=== PATIENT | female | born 1935 | race Caucasian/White ===

== ENCOUNTER 2016-09-14 10:34 | Inpatient (IN) | payer MEDICARE, OTHER ==
--- NOTE | 2016-09-14 11:13 | ERPHSYRPT ---
- History of Present Illness Time Seen by Provider: 09/14/16 10:40 Source: patient, family, [facility] records Exam Limitations: clinical condition Patient Subjective Stated Complaint: patient states she doesnt feel well saw nurse practitioner on monday they gave her keflex and shes having diarhea , short of breath , and just does not feel well Triage Nursing Assessment: patietn alert and orientedx3, lung sounds clear with some crackles in bases, pupils perrla3, pulses equal bilateral radius, some edema noted in legs , bowel sounds hyperactive, intermittant cough Physician History: Pt. treated with Keflex for URTI x 3 days, then has developed diarrhea since. She C/O weakness and not feeling well x 4 days now. Positive cough without productivity. Timing/Duration: day(s) (4) Severity: mild Modifying Factors: Improves With: medication Associated Symptoms: weakness, No nausea, No vomiting Allergies/Adverse Reactions: clarithromycin [From Biaxin] Allergy (Unknown, Verified 06/03/16 15:19) codeine Allergy (Unknown, Verified 06/03/16 15:19) Home Medications: Aspirin 81 mg PO DAILY 10/04/15 [History] Atorvastatin Calcium [Lipitor] 10 mg PO QHS 10/04/15 [History] Bupropion HCl Xl 150 mg [Wellbutrin XL 150 MG] 150 mg PO DAILY 10/04/15 [ History] Celecoxib 100 mg [celeBREX 100 MG] 200 mg PO BID 10/04/15 [History] Clonazepam [Klonopin] 0.5 mg PO BID 10/04/15 [History] Diltiazem HCl [Cartia Xt] 180 mg PO DAILY 10/04/15 [History] Ergocalciferol (Vitamin D2) [Vitamin D] 50,000 unit PO UD 10/04/15 [History] Furosemide 40 mg [Lasix 40 MG] 40 mg PO BID 10/04/15 [History] Gabapentin [Neurontin] 100 mg PO TID 10/04/15 [History] Glimepiride 4 mg [Amaryl 4 mg] 6 mg PO QAM 10/04/15 [History] Hydralazine HCl 50 mg PO BID 10/04/15 [History] Levothyroxine Sodium 100 Mcg [Synthroid 100 Mcg] 125 mcg PO QHS 10/04/15 [ History] Magnesium Oxide [Magnesium] 250 mg PO DAILY 10/04/15 [History] Metolazone 2.5 mg [Zaroxolyn 2.5 MG] 2.5 mg PO UD 10/04/15 [History] Metoprolol Tartrate 50 mg [Lopressor 50 MG] 50 mg PO BID 10/04/15 [History ] PANTOPRAZOLE 40 mg Tablet [Protonix 40MG Tablet] 40 mg PO QAM 10/04/15 [ History] Potassium Chloride 10 Meq Tab* [Klor Con 10 MEQ] 10 meq PO TID 10/04/15 [ History] Spironolactone 25 mg [Aldactone 25 MG] 50 mg PO DAILY 10/04/15 [History] Warfarin Sodium [Coumadin] 5 mg PO DAILY 10/04/15 [History] Paricalcitol 1 mcg PO DAILY 06/03/16 [History] Polyethylene Glycol 3350 17 gm [Miralax Powder 17GM PACKET] 17 gm PO DAILY PRN PRN 06/03/16 [History] Repaglinide [Prandin 2MG Tablet] 2 mg PO DAILY 06/03/16 [History] Cephalexin Mh 500 mg [Keflex 500 mg] 1 cap PO TID 09/14/16 [History] Hx Tetanus, Diphtheria Vaccination/Date Given: Yes Hx Influenza Vaccination/Date Given: Yes Hx Pneumococcal Vaccination/Date Given: No - Review of Systems Constitutional: Malaise, Weakness Eyes: No Symptoms Ears, Nose, & Throat: No Symptoms Respiratory: Cough Cardiac: No Symptoms Abdominal/Gastrointestinal: Diarrhea Musculoskeletal: No Symptoms Skin: No Symptoms Neurological: No Symptoms Psychological: No Symptoms Endocrine: No Symptoms Hematologic/Lymphatic: No Symptoms Immunological/Allergic: No Symptoms - Past Medical History Pertinent Past Medical History: Yes Neurological History: Peripheral Neuropathy ENT History: Cataracts Cardiac History: Arrhythmia, Congestive Heart Failure, High Cholesterol, Hypertension, Myocardial Infarction (OR) Respiratory History: Pulmonary Embolism, Sleep Apnea Endocrine Medical History: Diabetes Type II, Hypothyroidism Musculoskeletal History: Arthritis GI Medical History: No Pertinent History History: Renal Disease, Other Psycho-Social History: Anxiety, Depression Female Reproductive Disorders: No Pertinent History Other Medical History: Sleep apnea uses bi-pap. Chronic A-Fib. Urinary incontinence, Functional. HPylor(+) year ago, treated. - Past Surgical History Past Surgical History: Yes Neuro Surgical History: No Pertinent History Cardiac: No Pertinent History Respiratory: No Pertinent History Gastrointestinal: Appendectomy, Cholecystectomy Genitourinary: No Pertinent History Musculoskeletal: No Pertinent History Female Surgical History: Section, Hysterectomy, Other Other Surgical History: bladder suspension, t&a, arthroscopy right knee, clot removed from left foot. - Social History Smoking Status: Never smoker Exposure to second hand smoke: No Drug Use: none Patient Lives Alone: No - Nursing Vital Signs Nursing Vital Signs: Initial Vital Signs Temperature 98.2 F Temperature Source Oral Pulse Rate 79 Respiratory Rate 18 Blood Pressure [Right Arm] 127/62 Pain Intensity 4 - Physical Exam General Appearance: moderate distress Eye Exam: eyes nml inspection Ears, Nose, Throat Exam: normal ENT inspection, pharynx normal, moist mucous membranes Neck Exam: normal inspection, non-tender, supple, full range of motion Respiratory Exam: normal breath sounds, airway intact, crackles/rales ( posterior bibasilar) Cardiovascular Exam: regular rate/rhythm, normal heart sounds, normal peripheral pulses Gastrointestinal/Abdomen Exam: soft, normal bowel sounds Extremity Exam: normal range of motion, pelvis stable, pedal edema (3+ with venous stasis discoloration and excoriation musa shins.) Neurologic Exam: alert, cooperative, nml cerebellar function Skin Exam: warm SpO2 Interpretation: normal SpO2: 97 Oxygen Delivery: Room Air - Course Nursing assessment & vital signs reviewed: Yes EKG Interpreted by Me: RATE (82), A-fib, Other (No acute ischemia. Nosignificant change from ECG of 06.03.2016.) - Radiology Exams Chest X-ray Interpretation: Teleradiologist Report, Negative Ordered Tests: Active Orders 24 hr Category Date Time Status ACCUCHECK [Accucheck] STAT Care 09/14/16 11:31 Active EKG-ER Only STAT Care 09/14/16 11:02 Active IV Insertion STAT Care 09/14/16 10:56 Active Orthostatic Vital Signs STAT Care 09/14/16 10:56 Active CHEST 1 VIEW (PORTABLE) Stat Exams 09/14/16 11:02 Completed BLOOD CULTURE Stat Lab 09/14/16 11:26 Ordered CBC W DIFF Stat Lab 09/14/16 11:26 Received CMP Stat Lab 09/14/16 11:26 Received Lactic Acid Urgent Lab 09/14/16 11:34 Completed Occult Blood,Stool Other Stat Lab 09/14/16 10:58 Uncollected PROTIME WITH INR Stat Lab 09/14/16 11:26 Received TROPONIN Stat Lab 09/14/16 11:26 Received Lab/Rad Data: Laboratory Results 09/14/16 Range/Units 11:34 Lactic Acid 2.4 H (0.4-2.0) - Progress Progress: unchanged Discussed with : Kelvin Will see patient in: hospital (full admit) Counseled pt/family regarding: lab results, diagnosis, rad results - Departure Time of Disposition: 11:30 Departure Disposition: In-patient Admission Clinical Impression: Sepsis Qualifiers: Sepsis type: sepsis due to unspecified organism Qualified Code(s): A41.9 - Sepsis, unspecified organism Atrial fibrillation Qualifiers: Atrial fibrillation type: unspecified Qualified Code(s): I48.91 - Unspecified atrial fibrillation Condition: Serious Critical Care Time: Yes Critical Care Time(excluding separately billable procedures): 75-104 minutes Referrals: KARLEE MACKEY MD [Primary Care Provider] -
--- NOTE | 2016-09-14 11:33 | XRAY ---
Indication: Weakness. Comparison: June 04, 2016. Portable chest slightly underinflated again with borderline cardiomegaly and mild central vascular prominence. Cardiac silhouette again obscures the left lung base. Elsewhere no focal infiltrate, consolidation, or large effusion. Bony thorax intact again with mild osteopenia and degenerative changes. Impression: Nonacute underinflated chest.
[2016-09-14 11:42] LABS: BASOPHIL % 0.6 % (0.0-0.4); Eosinophil % 4.5 % (0.00-5.0); Lymphocytes % 25.8 % (24.0-44.0); Mean Platelet Volume 11.6 fl (6-9.5); Monocytes % 15.1 % (0.0-12.0); Platelet Count 186 K/mm3 (150-450); Red Blood Count 3.83 M/mm3 (4.1-5.4); Red Cell Distribution Width 14.6 % (11.5-14.0); White Blood Count 4.9 K/mm3 (4.0-10.5)
[2016-09-14] MEDS ORDERED: MORPHINE SULFATE 2 MG INJ IV PRN (11:46)
[2016-09-14] MEDS ORDERED: PHARMACY DOSING REQUIRED: VANCOMYCIN IV ONE (11:46)
[2016-09-14] MEDS ORDERED: Zofran 4 MG/2 ML VIAL IV PRN (11:46)
[2016-09-14 11:50] LABS: INR 1.25 (0.8-3.0); PROTIME 13.9 SECONDS (9.95-12.35)
[2016-09-14] MEDS ORDERED: Zosyn 3.375GM/100 Ml D5W 100 ML IV ONE (11:54)
[2016-09-14] MEDS ORDERED: Vancomycin 1GM/ Ns 250ML*** 250 ML IV ONE ×2 (11:54→12:01)
[2016-09-14] MEDS ORDERED: Zosyn 3.375GM/100 Ml D5W 100 ML IV SCH (12:00)
[2016-09-14 12:09] LABS: ALBUMIN 3.4 g/dL (3.4-5.0); ANION GAP 13.7 MEQ/L (5-15); BILIRUBIN,TOTAL 0.3 mg/dL (0.2-1.0); Carbon Dioxide 33.6 mEq/L (21-32); Potassium 3.7 mEq/L (3.5-5.1); Total Protein 7.4 gm/dL (6.4-8.2)
[2016-09-14] MEDS ORDERED: PROTONIX 40 MG IV IV SCH (14:00)
[2016-09-14] MEDS: Zosyn 2.25 GM 2.25 GM in D5w 100ML Mini Bag 100 ML 100 ML IV SCH ×2 (14:41→22:40)
[2016-09-14] MEDS ORDERED: VANCOCIN 1 GM VIAL*** 1 GM in Sodium Chloride 0.9% 250 ML 250 ML IV ONE (15:00)
[2016-09-14 15:38] LABS: Collection Type CCMS
[2016-09-14 15:39] LABS: Bacteria MANY /HPF (NEGATIVE); COMPLETE URINE MICROSCOPIC? YES; Epithelial Cells RARE /HPF (FEW)
[2016-09-14] MEDS ORDERED: MEDICATION INTERVENTION MC PRN (16:42)
[2016-09-14] MEDS ORDERED: PRED-FORTE 1% OPHTHALMIC OP SCH (17:00)
[2016-09-14] MEDS: Coumadin 5 MG PO SCH (17:20)
[2016-09-14] MEDS: SODIUM SULAMYD EYE DROPS 15 ML OP SCH ×2 (17:21→23:06)
[2016-09-14] MEDS: Lasix 40 MG PO SCH (17:21)
[2016-09-14] MEDS ORDERED: NON-FORMULARY ITEM (Hydralazine Hcl [Hydralazine Hcl] 50 MG) PO SCH (22:00)
[2016-09-14] MEDS ORDERED: NON-FORMULARY ITEM (Celecoxib [Celebrex] 200 MG) PO SCH (22:00)
[2016-09-14] MEDS ORDERED: NON-FORMULARY ITEM (Magnesium [Magnesium] 250 MG) PO SCH (22:00)
[2016-09-14] MEDS ORDERED: REPAGLINIDE 2 MG PO SCH (22:00)
[2016-09-14] MEDS ORDERED: NON-FORMULARY ITEM (Atorvastatin Calcium 10 MG) PO SCH (22:00)
[2016-09-14] MEDS: ZYLOPRIM 100 MG PO SCH (22:40)
[2016-09-14] MEDS: NEURONTIN 300 MG PO SCH (22:40)
[2016-09-14] MEDS: Zocor 10MG PO SCH (22:40)
[2016-09-14] MEDS: MAG-OX 400 PO SCH (22:40)
[2016-09-14] MEDS: Klor Con 10 MEQ PO SCH (22:41)
[2016-09-14] MEDS: celeBREX 100 MG PO SCH (22:41)
[2016-09-14] MEDS: Klonopin 0.5 MG PO SCH (22:42)
[2016-09-14] MEDS: Lopressor 50 MG PO SCH (22:42)
[2016-09-14] MEDS: ATARAX 25 MG PO SCH (22:43)
[2016-09-14] MEDS: OSELTAMIVIR PHOSPHATE 30 MG CAP PO SCH (23:06)
[2016-09-15] MEDS ORDERED: TYLENOL 325 MG PO PRN (00:07)
[2016-09-15] MEDS: NORCO 5/325 MG PO PRN ×2 (03:23→09:40)
[2016-09-15] MEDS: Zosyn 2.25 GM 2.25 GM in D5w 100ML Mini Bag 100 ML 100 ML IV SCH ×3 (05:32→21:53)
[2016-09-15 06:18] LABS: INR 1.29 (0.8-3.0); PROTIME 14.3 SECONDS (9.95-12.35)
[2016-09-15] MEDS: Aldactone 25 MG PO SCH (09:38)
[2016-09-15] MEDS: ATARAX 25 MG PO SCH ×2 (09:38→21:49)
[2016-09-15] MEDS: AMARYL 4 MG PO SCH (09:39)
[2016-09-15] MEDS: Klor Con 10 MEQ PO SCH ×3 (09:39→21:49)
[2016-09-15] MEDS: ZYLOPRIM 100 MG PO SCH ×2 (09:39→21:49)
[2016-09-15] MEDS: Lasix 40 MG PO SCH ×2 (09:40→16:57)
[2016-09-15] MEDS: Klonopin 0.5 MG PO SCH ×2 (09:40→21:49)
[2016-09-15] MEDS: Cardizem CD 180 MG PO SCH (09:40)
[2016-09-15] MEDS: MAG-OX 400 PO SCH ×2 (09:40→21:50)
[2016-09-15] MEDS: NEURONTIN 300 MG PO SCH ×2 (09:40→21:50)
[2016-09-15] MEDS: celeBREX 100 MG PO SCH ×2 (09:41→21:50)
[2016-09-15] MEDS: Lopressor 50 MG PO SCH ×2 (09:41→21:50)
[2016-09-15] MEDS: ECOTRIN 81 MG PO SCH (09:41)
[2016-09-15] MEDS: Protonix 40MG Tablet PO SCH (09:41)
[2016-09-15] MEDS: SYNTHROID 125 MCG PO SCH (09:41)
[2016-09-15] MEDS: OSELTAMIVIR PHOSPHATE 30 MG CAP PO SCH ×2 (09:42→21:51)
[2016-09-15] MEDS: Wellbutrin XL 150 MG PO SCH (09:42)
[2016-09-15] MEDS ORDERED: HYDROCODONE BIT PO SCH (10:00)
[2016-09-15] MEDS ORDERED: NON-FORMULARY ITEM (Aspirin [Aspirin] 81 MG) PO SCH (10:00)
[2016-09-15] MEDS ORDERED: VITAMIN D2 PO SCH (10:00)
[2016-09-15] MEDS ORDERED: Coumadin 10 MG PO SCH (10:00)
[2016-09-15] MEDS ORDERED: ACETAMINOPHEN PO SCH (10:00)
[2016-09-15] MEDS ORDERED: SYNTHROID 100 MCG PO SCH (10:00)
--- NOTE | 2016-09-15 11:49 | PCM.HP ---
History of Present Illness - Chief Complaint Chief Complaint: c/o diarhhea, feeling weak. for 2-3 days History of Present Illness: is a 81 year old female.patient states she doesnt feel well saw nurse practitioner on monday they gave her keflex and shes having diarhea , short of breath , and just does not feel well - Review of Systems Constitutional: Fatigue, Lethargy, Weakness, No Fever, No Chills Eyes: No Symptoms Ears, Nose, & Throat: No Symptoms Respiratory: No Cough, No Short Of Breath Cardiac: No Chest Pain, No Edema, No Syncope Abdominal/Gastrointestinal: Diarrhea, No Abdominal Pain, No Nausea, No Vomiting Genitourinary Symptoms: No Dysuria Musculoskeletal: No Back Pain, No Neck Pain Skin: No Rash Neurological: No Dizziness, No Focal Weakness, No Sensory Changes Psychological: No Symptoms Endocrine: No Symptoms Hematologic/Lymphatic: No Symptoms Immunological/Allergic: No Symptoms Medications & Allergies Home Medications: Home Medication List Aspirin 81 mg PO DAILY 10/04/15 [History Confirmed 09/14/16] Atorvastatin Calcium [Lipitor] 10 mg PO QHS 10/04/15 [History Confirmed 09/14/16 ] Bupropion HCl Xl 150 mg [Wellbutrin XL 150 MG] 150 mg PO DAILY 10/04/15 [ History Confirmed 09/14/16] Diltiazem HCl [Cartia Xt] 180 mg PO DAILY 10/04/15 [History Confirmed 09/14/16] Ergocalciferol (Vitamin D2) [Vitamin D] 50,000 unit PO UD 10/04/15 [History Confirmed 09/14/16] Furosemide 40 mg [Lasix 40 MG] 40 mg PO BID 10/04/15 [History Confirmed ] Glimepiride 4 mg [Amaryl 4 mg] 6 mg PO QAM 10/04/15 [History Confirmed ] Hydralazine HCl 50 mg PO BID 10/04/15 [History Confirmed 09/14/16] Levothyroxine Sodium 100 Mcg [Synthroid 100 Mcg] 125 mcg PO DAILY 10/04/15 [History Confirmed 09/14/16] Magnesium Oxide [Magnesium] 250 mg PO DAILY 10/04/15 [History Confirmed 09/14/16 ] Metolazone 2.5 mg [Zaroxolyn 2.5 MG] 2.5 mg PO QAM 10/04/15 [History Confirmed 09/14/16] Metoprolol Tartrate 50 mg [Lopressor 50 MG] 50 mg PO BID 10/04/15 [ History Confirmed 09/14/16] PANTOPRAZOLE 40 mg Tablet [Protonix 40MG Tablet] 40 mg PO QAM 10/04/15 [ History Confirmed 09/14/16] Potassium Chloride 10 Meq Tab* [Klor Con 10 MEQ] 10 meq PO TID 10/04/15 [ History Confirmed 09/14/16] Polyethylene Glycol 3350 17 gm [Miralax Powder 17GM PACKET] 17 gm PO BID [History Confirmed 09/14/16] Repaglinide [Prandin 2MG Tablet] 2 mg PO BID 06/03/16 [History Confirmed ] Allopurinol 100 mg [Zyloprim 100 mg] 100 mg PO BID 09/14/16 [History Confirmed 09/14/16] Celecoxib [Celebrex] 200 mg PO BID 09/14/16 [History Confirmed 09/14/16] Cephalexin Mh 500 mg [Keflex 500 mg] 1 cap PO TID 09/14/16 [History Confirmed 09/14/16] Clonazepam 0.5 mg [Klonopin 0.5 MG] 0.5 mg PO BID 09/14/16 [History Confirmed 09/14/16] Gabapentin [Neurontin] 300 mg PO BID 09/14/16 [History Confirmed 09/14/16] Hydrocodone Bit/Acetaminophen [Vicodin 5-500 Tablet] 1 tab PO DAILY 09/14/16 [ History Confirmed 09/14/16] Magnesium 250 mg PO BID 09/14/16 [History Confirmed 09/14/16] Pantoprazole Sodium [Protonix] 40 mg PO DAILY 09/14/16 [History Confirmed ] Prednisolone Acetate OPHTH [Pred-Forte 1% Ophthalmic] 1 drop OP QID [History Confirmed 09/14/16] Spironolactone [Aldactone] 50 mg PO DAILY 09/14/16 [History Confirmed 09/14/16] Sulfacetamide Sodium Ophth [Sodium Sulamyd Eye Drops 15 ml] 1 drop OP QID 09/14/16 [History Confirmed 09/14/16] Warfarin Sodium 10 mg [Coumadin 10 MG] 5 mg PO DAILY 09/14/16 [History Confirmed 09/14/16] Allergies/Adverse Reactions: Allergies Allergy/AdvReac Type Severity Reaction Status Date / Time clarithromycin [From Biaxin] Allergy Unknown Verified 09/14/16 12:50 codeine Allergy Unknown Verified 09/14/16 12:50 - Past Medical History Past Medical History: Yes Neurological History: Peripheral Neuropathy ENT History: Cataracts Cardiac History: Arrhythmia, Congestive Heart Failure, High Cholesterol, Hypertension, Myocardial Infarction ([place]) Respiratory History: Pulmonary Embolism, Sleep Apnea Endocrine Medical History: Diabetes Type II, Hypothyroidism Musculoskelatal History: Arthritis GI Medical History: No Pertinent History History: Renal Disease, Other Pyscho-Social History: Anxiety, Depression Reproductive Disorders: No Pertinent History Comment: Sleep apnea uses bi-pap. Chronic A-Fib. Urinary incontinence, Functional. HPylor(+) year ago, treated. - Female History Are you now?: No - Past Surgical History Past Surgical History: Yes Neuro Surgical History: No Pertinent History Cardiac History: No Pertinent History Respiratory Surgery: No Pertinent History GI Surgical History: Appendectomy, Cholecystectomy Genitourinary Surgical Hx: No Pertinent History Musculskeletal Surgical Hx: No Pertinent History Female Surgical History: Section, Hysterectomy, Other Other Surgical History: bladder suspension, t&a, arthroscopy right knee, clot removed from left foot. - Social History Smoking Status: Never smoker Exposure to second hand smoke: No Alcohol: None Drug Use: none - Physical Exam Vital Signs: Vital Signs - 24 hr Temp Pulse Resp BP Pulse Ox 09/15/16 11:31 97.8 F 87 20 114/53 98 09/15/16 08:00 22 09/15/16 07:25 97.8 F 82 22 154/80 98 09/15/16 04:00 98.3 F 84 14 113/57 93 L 09/15/16 00:00 98.7 F 96 H 15 111/55 94 L 09/14/16 20:00 98.2 F 82 17 122/60 93 L 09/14/16 16:25 96 09/14/16 16:00 98.2 F 72 18 142/66 96 09/14/16 14:00 97 Oxygen-Last 24 hours O2 Percentage 2 Liters = 28% General Appearance: no apparent distress, alert Neurologic Exam: alert, oriented x 3, cooperative, normal mood/affect, nml cerebellar function, nml station & gait, sensation nml, No motor deficits Eye Exam: PERRL/EOMI, eyes nml inspection Ears, Nose, Throat Exam: normal ENT inspection, TMs normal, pharynx normal, moist mucous membranes Neck Exam: normal inspection, non-tender, supple, full range of motion Respiratory Exam: normal breath sounds, lungs clear, No respiratory distress Cardiovascular Exam: regular rate/rhythm, normal heart sounds, normal peripheral pulses Gastrointestinal/Abdomen Exam: soft, normal bowel sounds, No tenderness, No mass Back Exam: normal inspection, normal range of motion, No CVA tenderness, No vertebral tenderness Extremity Exam: normal inspection, normal range of motion, pelvis stable Skin Exam: normal color, warm, dry, No rash Lymphatic Exam: No adenopathy Results - Labs Lab/Micro Results: Lab Results-Last 24 Hours 09/14/16 09/15/16 Range/Units 15:15 05:44 INR 1.29 (0.8-3.0) Ur Collection Type CCMS Urine Color YELLOW (YELLOW) Urine Appearance CLEAR (CLEAR) Urine pH 6.0 (5-6) Ur Specific [employer] 1.010 (1.005-1.025) Urine Protein NEGATIVE (Negative) Urine Glucose (UA) NEGATIVE (NEGATIVE) mg/dL Urine Ketones NEGATIVE (NEGATIVE) Urine Nitrite NEGATIVE (NEGATIVE) Urine Bilirubin NEGATIVE (NEGATIVE) Urine Urobilinogen 0.2 (0-1) mg/dL Urine WBC (Auto) TRACE (NEGATIVE) Urine RBC (Auto) NEGATIVE (0-5) Dennis/ul Urine Microscopic WBC 2-5 (0-5) /HPF Ur Epithelial Cells RARE (FEW) /HPF Urine Bacteria MANY (NEGATIVE) /HPF Specimen Received 09-14-16 1519 Microbiology 09/14/16 13:53 Urine Culture - Preliminary Catherized GRAM NEGATIVE ID AND SENSITIVITY PENDING - Other Procedures and Tests Respiratory Therapy 09/14/16 11:46 Oxygen NASAL CANNULA 2 lpm 09/14/16 21:00 BiPap/CPAP Assessment ROUTINE Assessment/Plan (1) Influenza A Current Visit: Yes Status: Acute Assessment & Plan: will start on tamiflu Code(s): J10.1 - FLU DUE TO OTH IDENT INFLUENZA VIRUS W OTH RESP MANIFEST (2) Sepsis Current Visit: Yes Status: Suspected Qualifiers: Sepsis type: Escherichia coli Qualified Code(s): A41.51 - Sepsis due to Escherichia coli [E. coli] Assessment & Plan: on IV antibiotics. (3) Atrial fibrillation Current Visit: Yes Status: Chronic Qualifiers: Atrial fibrillation type: chronic Qualified Code(s): I48.2 - Chronic atrial fibrillation Code(s): I48.91 - UNSPECIFIED ATRIAL FIBRILLATION (4) Acute exacerbation of CHF (congestive heart failure) Current Visit: Yes Status: Acute Qualifiers: Congestive heart failure type: combined Qualified Code(s): I50.43 - Acute on chronic combined systolic (congestive) and diastolic (congestive) heart failure Code(s): I50.9 - HEART FAILURE, UNSPECIFIED
[2016-09-15] MEDS ORDERED: Zosyn 2.25 GM IV ONE (13:59)
[2016-09-15] MEDS: Coumadin 5 MG PO SCH (16:57)
[2016-09-15] MEDS: Zocor 10MG PO SCH (21:50)
[2016-09-15] MEDS ORDERED: VANCOCIN 1 GM VIAL*** 2 GM in Sodium Chloride 0.9% 500 ML 500 ML IV SCH (22:00)
[2016-09-15] MEDS ORDERED: VANCOCIN IV SCH (22:00)
[2016-09-15] MEDS ORDERED: HYPERTONIC IV SCH (22:00)
[2016-09-15] MEDS ORDERED: SODIUM CHLORIDE 3% IV SCH (22:00)
[2016-09-16] MEDS: Zosyn 2.25 GM 2.25 GM in D5w 100ML Mini Bag 100 ML 100 ML IV SCH (05:47)
[2016-09-16] MEDS: Klor Con 10 MEQ PO SCH (09:43)
[2016-09-16] MEDS: Protonix 40MG Tablet PO SCH (09:43)
[2016-09-16] MEDS: NEURONTIN 300 MG PO SCH (09:43)
[2016-09-16] MEDS: SYNTHROID 125 MCG PO SCH (09:43)
[2016-09-16] MEDS: Lopressor 50 MG PO SCH (09:43)
[2016-09-16] MEDS: celeBREX 100 MG PO SCH (09:43)
[2016-09-16] MEDS: Aldactone 25 MG PO SCH (09:43)
[2016-09-16] MEDS: ECOTRIN 81 MG PO SCH (09:43)
[2016-09-16] MEDS: AMARYL 4 MG PO SCH (09:44)
[2016-09-16] MEDS: MAG-OX 400 PO SCH (09:44)
[2016-09-16] MEDS: Lasix 40 MG PO SCH (09:44)
[2016-09-16] MEDS: ZYLOPRIM 100 MG PO SCH (09:44)
[2016-09-16] MEDS: Klonopin 0.5 MG PO SCH (09:44)
[2016-09-16] MEDS: ATARAX 25 MG PO SCH (09:44)
[2016-09-16] MEDS: Cardizem CD 180 MG PO SCH (09:44)
[2016-09-16] MEDS: OSELTAMIVIR PHOSPHATE 30 MG CAP PO SCH (09:45)
[2016-09-16] MEDS: Wellbutrin XL 150 MG PO SCH (09:45)
[2016-09-16] MEDS ORDERED: Klor Con 10 MEQ PO SCH (10:00)
[2016-09-16] MEDS ORDERED: Zaroxolyn 2.5 MG PO SCH (10:00)
[2016-09-16 12:06] VITALS: BP 123/58; PULSE 73
--- NOTE | 2016-09-16 12:50 | PCM.DS ---
Discharge Summary Date of Admission: 09/14/16 12:32 Admitting Physician: KARLEE MACKEY Primary Care Provider: KARLEE MACKEY Allergies Allergies clarithromycin [From Biaxin] Allergy (Unknown, Verified 09/14/16 12:50) mouth breaks out codeine Allergy (Unknown, Verified 09/14/16 12:50) "I feel warm and terrible" Hospital Summary - Hospital Course Hospital Course: Chief Complaint Diagnosis c/o diarhhea, feeling weak. for 2-3 days Allergies Allergy/AdvReac Type Severity Reaction Status Date / Time clarithromycin [From Biaxin] Allergy Unknown Verified 09/14/16 12:50 codeine Allergy Unknown Verified 09/14/16 12:50 Vital Signs (Last 24 hours) Temp Pulse Resp BP Pulse Ox 09/16/16 12:00 97.5 F 73 19 123/58 93 L 09/16/16 08:00 20 09/16/16 07:25 97.3 F 75 20 121/59 96 09/16/16 04:00 97.9 F 78 16 118/57 93 L 09/16/16 00:00 97.8 F 77 16 134/62 92 L 09/15/16 23:50 77 16 94 L 09/15/16 20:00 98.2 F 77 16 134/60 94 L 09/15/16 16:22 97.8 F 78 20 119/68 96 09/15/16 16:00 20 Home Medications Medication Instructions Recorded Confirmed Last Taken Type Allopurinol 100 mg [Zyloprim 100 mg PO BID 09/14/16 09/14/16 09/14/16 History 100 mg] Celecoxib [Celebrex] 200 mg PO BID 09/14/16 09/14/16 09/14/16 History Cephalexin Mh 500 mg [Keflex 500 1 cap PO TID 09/14/16 09/14/16 09/14/16 02: 30 History mg] Clonazepam 0.5 mg [Klonopin 0.5 0.5 mg PO BID 09/14/16 09/14/16 09/14/16 History MG] Gabapentin [Neurontin] 300 mg PO BID 09/14/16 09/14/16 09/14/16 History Hydrocodone Bit/Acetaminophen 1 tab PO DAILY 09/14/16 09/14/16 Unknown History [Vicodin 5-500 Tablet] Magnesium 250 mg PO BID 09/14/16 09/14/16 09/14/16 History Pantoprazole Sodium [Protonix] 40 mg PO DAILY 09/14/16 09/14/16 09/14/16 History Prednisolone Acetate OPHTH 1 drop OP QID 09/14/16 09/14/16 09/14/16 History [Pred-Forte 1% Ophthalmic] Spironolactone [Aldactone] 50 mg PO DAILY 09/14/16 09/14/16 09/14/16 History Sulfacetamide Sodium Ophth 1 drop OP QID 09/14/16 09/14/16 09/14/16 History [Sodium Sulamyd Eye Drops 15 ml] Warfarin Sodium 10 mg [Coumadin 5 mg PO DAILY 09/14/16 09/14/16 09/13/16 History 10 MG] Current Medications Generic Name Dose Route Start Last Admin [facility] Reason Stop Dose Admin Acetaminophen 650 mg 09/15/16 00:07 09/15/16 00:12 Tylenol 325 Mg PO 10/15/16 00:06 650 mg Q4H PRN PRN Administration PAIN AND/OR FEVER Acetaminophen/Hydrocodone Bitart 1 tab 09/14/16 16:39 09/15/16 09:40 [place] 5/325 Mg PO 09/19/16 16:38 1 tab QDP PRN Administration Allopurinol 100 mg 09/14/16 22:00 09/16/16 09:44 Zyloprim 100 Mg PO 10/14/16 21:59 100 mg BID FELICIA Administration Aspirin 81 mg 09/15/16 10:00 09/16/16 09:43 Ecotrin 81 Mg PO 10/15/16 09:59 81 mg DAILY FELICIA Administration Bupropion HCl 150 mg 09/15/16 10:00 09/16/16 09:45 Wellbutrin Xl 150 Mg PO 10/15/16 09:59 150 mg DAILY FELICIA Administration Celecoxib 200 mg 09/14/16 22:00 09/16/16 09:43 Celebrex 100 Mg PO 10/14/16 21:59 200 mg BID FELICIA Administration Clonazepam 0.5 mg 09/14/16 22:00 09/16/16 09:44 Klonopin 0.5 Mg PO 10/14/16 21:59 0.5 mg BID FELICIA Administration Diltiazem HCl 180 mg 09/15/16 10:00 09/16/16 09:44 Cardizem Cd 180 Mg PO 10/15/16 09:59 180 mg DAILY FELICIA Administration Ergocalciferol 50,000 unit 09/15/16 10:00 09/15/16 09:42 Vitamin D2 PO 10/15/16 09:59 50,000 unit TH FELICIA Administration Furosemide 40 mg 09/14/16 17:00 09/16/16 09:44 Lasix 40 Mg PO 10/14/16 16:59 40 mg BID DIURETIC FELICIA Administration Gabapentin 300 mg 09/14/16 22:00 09/16/16 09:43 Neurontin 300 Mg PO 10/14/16 21:59 300 mg BID FELICIA Administration Glimepiride 6 mg 09/15/16 10:00 09/16/16 09:44 Amaryl 4 Mg PO 10/15/16 09:59 6 mg QAM FELICIA Administration Hydroxyzine HCl 50 mg 09/14/16 22:00 09/16/16 09:44 Atarax 25 Mg PO 10/14/16 21:59 50 mg BID FELICIA Administration Piperacillin Sod/Tazobactam 100 mls @ 100 mls/hr 09/14/16 14:00 09/16/16 05: 47 Sod 2.25 gm/ Dextrose IV 10/14/16 13:59 100 mls/hr Q8HT FELICIA Administration Vancomycin HCl 2 gm/ Sodium 500 mls @ 167 mls/hr 09/15/16 22:00 09/15/16 23: 15 Chloride IV 10/15/16 21:59 167 mls/hr Q36H FELICIA Administration Levothyroxine Sodium 125 mcg 09/15/16 10:00 09/16/16 09:43 Synthroid 125 Mcg PO 10/15/16 09:59 125 mcg DAILY FELICIA Administration Magnesium Oxide 200 mg 09/14/16 22:00 09/16/16 09:44 Mag-Ox 400 PO 10/14/16 21:59 200 mg BID FELICIA Administration Metolazone 2.5 mg 09/16/16 10:00 09/16/16 09:47 Zaroxolyn 2.5 Mg PO 10/16/16 09:59 2.5 mg MoWeFr FELICIA Administration Metoprolol Tartrate 50 mg 09/14/16 22:00 09/16/16 09:43 Lopressor 50 Mg PO 10/14/16 21:59 50 mg BID FELICIA Administration Morphine Sulfate 2 mg 09/14/16 11:46 Morphine Sulfate 2 Mg Inj IV 09/19/16 11:45 Q4H PRN PRN PAIN Ondansetron HCl 4 mg 09/14/16 11:46 Zofran 4 Mg/2 Ml Vial IV 10/14/16 11:45 Q6H PRN PRN NAUSEA/VOMITING Oseltamivir Phosphate 30 mg 09/14/16 22:00 09/16/16 09:45 Oseltamivir Phosphate 30 Mg Cap PO 10/14/16 21:59 30 mg BID FELICIA Administration Pantoprazole Sodium 40 mg 09/15/16 10:00 09/16/16 09:43 Protonix 40mg Tablet PO 10/15/16 09:59 40 mg QAM FELICIA Administration Potassium Chloride 10 meq 09/14/16 22:00 09/16/16 09:43 Klor Con 10 Meq PO 10/14/16 21:59 10 meq TID FELICIA Administration Potassium Chloride 10 meq 09/16/16 10:00 09/16/16 09:44 Klor Con 10 Meq PO 10/16/16 09:59 10 meq MoWeFr FELICIA Administration Simvastatin 10 mg 09/14/16 22:00 09/15/16 21:50 Zocor 10mg PO 10/14/16 21:59 10 mg HS FELICIA Administration Spironolactone 50 mg 09/15/16 10:00 09/16/16 09:43 Aldactone 25 Mg PO 10/15/16 09:59 50 mg DAILY FELICIA Administration Warfarin Sodium 5 mg 09/14/16 18:00 09/15/16 16:57 Coumadin 5 Mg PO 10/14/16 17:59 5 mg COU FELICIA Administration Discontinued Medications Generic Name Dose Route Start Last Admin Trade Name Freq PRN Reason Stop Dose Admin Piperacillin Sod/Tazobactam Sod 100 mls @ 100 mls/hr 09/14/16 12:00 Zosyn 3.375gm/100 Ml D5w IV 10/14/16 11:59 Q6HT FELICIA Vancomycin HCl 250 mls @ 167 mls/hr 09/14/16 11:54 09/14/16 12:03 Vancomycin 1gm/ Ns 250ml IV 09/14/16 13:23 167 mls/hr STAT ONE Administration Vancomycin HCl Confirm 09/14/16 12:01 Vancomycin 1gm/ Ns 250ml Administered 09/14/16 12:02 Dose 250 mls @ ud IV .STK-MED ONE Vancomycin HCl 1 gm/ Sodium 250 mls @ 167 mls/hr 09/14/16 15:00 09/14/16 15: 20 Chloride IV 09/14/16 16:29 167 mls/hr ONCE ONE Administration Non-Formulary Medication 1 each 09/14/16 11:46 09/14/16 14:41 Pharmacy Dosing Required: Vancomycin IV 09/14/16 11:47 1 each STAT ONE Administration Pantoprazole Sodium 40 mg 09/14/16 14:00 09/14/16 15:14 Protonix 40 Mg Iv IV 10/14/16 13:59 40 mg Q24H10 FELICIA Administration Prednisolone Acetate 0 ml 09/14/16 17:00 09/14/16 17:22 Pred-Forte 1% Ophthalmic OP 10/14/16 16:59 Not Given QID FELICIA Sulfacetamide Sodium 0 ml 09/14/16 17:00 09/14/16 23:06 Sodium Sulamyd Eye Drops 15 Ml OP 10/14/16 16:59 Not Given QID FELICIA Intake & Output (Last 24 hours) 09/14/16 09/15/16 09/16/16 09/17/16 11:59 11:59 11:59 11:59 Intake Total 3042 8485 660 Output Total 9175 2836 475 Balance -778 -9808 -267 Weight 156.206 kg 156.535 kg 156.081 kg Microbiology Results (Last 24 hours) 09/14/16 13:53 Catherized Urine Culture - Final Escherichia Coli 09/14/16 11:50 Blood - Pending 09/14/16 11:50 Blood Blood Culture - Preliminary NO GROWTH TO DATE 09/14/16 11:26 Blood - Pending 09/14/16 11:26 Blood Blood Culture - Preliminary NO GROWTH TO DATE Orders (Last 24 hours) Category Date Time Status Vancomycin,Trough Urgent Lab 09/17/16 09:30 Ordered Metolazone 2.5 mg [Zaroxolyn 2.5 MG] Med 09/16/16 10:00 Active 2.5 mg PO MoWeFr Potassium Chloride 10 Meq Tab* [Klor Con 10 MEQ] Med 09/16/16 10:00 Active 10 meq PO MoWeFr Therapuetic Drug Level Monitor [Trough Drug Levels] Med 09/17/16 09:30 Once 1 IJ 1XONLY ONE Vancomycin HCl 1 gm Inj [Vancocin 1 gm Vial] 2 gm Med 09/15/16 22:00 Active NaCl 0.9% 500 ml [Sodium Chloride 0.9% 500 ML] 500 ml IV Q36H Patient Care Notes (Last 24 hours) 09/16/16 10:58 Case Management Note by Nancy Bruce REFERRAL TO [facility] AT THIS TIME. SPOKE WITH GÓMEZ. FAXED TO [phone]. Initialized on 09/16/16 10:58 - END OF NOTE 09/16/16 10:30 (created 09/16/16 10:57) Case Management Note by Nancy Bruce DISCHARGE PLAN REVIEWED, CONTINUES TO PLAN TO RETURN TO ASSISTED LIVING APARTMENT. DISCUSSED AND ENCOURAGED [facility], PT AGREES THAT HHC WOULD BE GOOD IDEA FOR [facility] SUPPORT ON DISCHARGE. PLAN TO RETURN HOME TO PRE EPISODIC LEVEL OF [place] WITH [facility] TO FOLLOW. DECLINED [facility] NEEDS. WILL CONTINUE TO FOLLOW AND ASSESS FOR ALL DC NEEDS. Initialized on 09/16/16 10:57 - END OF NOTE 09/16/16 00:53 Nursing Note by Rody Gudino charge pt for cath secure Initialized on 09/16/16 00:53 - END OF NOTE Patient is doing much better, afebrile, will discharge home today with home health to follow - Vitals & Intake/Output Vital Signs: Vital Signs Temperature 97.5 F 09/16/16 12:00 Pulse Rate 73 09/16/16 12:00 Respiratory Rate 19 09/16/16 12:00 Blood Pressure 123/58 09/16/16 12:00 O2 Sat by Pulse Oximetry 93 L 09/16/16 12:00 Oxygen-Last Documented O2 Percentage 2 Liters = 28% Intake & Output: Intake & Output 09/14/16 09/15/16 09/16/16 09/17/16 11:59 11:59 11:59 11:59 Intake Total 3046 2665 660 Output Total 3550 4200 900 Balance -565 -0395 -818 Weight 156.535 kg 156.081 kg - Lab Result Diagrams: 09/14/16 11:26 09/14/16 11:26 Micro Results-Entire Visit: Microbiology 09/14/16 13:53 Urine Culture - Final Catherized Escherichia Coli - Procedures and Test Procedures and Tests throughout Hospitalization: Therapy Orders & Screens 09/14/16 11:46 Oxygen NASAL CANNULA 2 lpm Comment: 09/14/16 21:00 BiPap/CPAP Assessment ROUTINE Comment: HOME BIPAP PER HOME SETTINGS Diagnosis: Sepsis Discharge Exam General Appearance: no apparent distress, alert Neurologic Exam: alert, oriented x 3, cooperative, normal mood/affect, nml cerebellar function, sensation nml, No motor deficits Skin Exam: normal color, warm, dry Eye Exam: PERRL, EOMI, eyes nml inspection Ears, Nose, Throat Exam: normal ENT inspection, pharynx normal, moist mucous membranes Neck Exam: normal inspection, non-tender, supple, full range of motion Respiratory Exam: normal breath sounds, lungs clear, No respiratory distress Cardiovascular Exam: regular rate/rhythm, normal heart sounds Gastrointestinal/Abdomen Exam: soft, No tenderness, No mass Extremity Exam: normal inspection, normal range of motion Back Exam: normal inspection, normal range of motion, No CVA tenderness, No vertebral tenderness Pelvic Exam: deferred Rectal Exam: deferred Final Diagnosis/Problem List - Final Discharge Diagnosis/Problem (1) Sepsis Current Visit: Yes Status: Suspected Priority: High Assessment & Plan: will d/c home with cipro 500 mg po bid for 10 days (2) Influenza A Current Visit: Yes Status: Acute Priority: Medium Assessment & Plan: will d/c home with tamiflu 30 mg po bid for 4 days (3) Atrial fibrillation Current Visit: Yes Status: Chronic (4) Acute exacerbation of CHF (congestive heart failure) Current Visit: Yes Status: Acute - Discharge Discharge Date: 03/31/17 Disposition: Home, Self-Care Condition: Stable Prescriptions: New Ciprofloxacin HCl 500 mg [Cipro 500 MG] 500 mg PO BIDAC #20 tablet Oseltamivir Phosphate [Tamiflu] 30 mg PO BID #8 capsule Continue Furosemide 40 mg [Lasix 40 MG] 40 mg PO BID PANTOPRAZOLE 40 mg Tablet [Protonix 40MG Tablet] 40 mg PO QAM Ergocalciferol (Vitamin D2) [Vitamin D] 50,000 unit PO UD Metolazone 2.5 mg [Zaroxolyn 2.5 MG] 2.5 mg PO QAM Diltiazem HCl [Cartia Xt] 180 mg PO DAILY Glimepiride 4 mg [Amaryl 4 mg] 6 mg PO QAM Bupropion HCl Xl 150 mg [Wellbutrin XL 150 MG] 150 mg PO DAILY Atorvastatin Calcium [Lipitor] 10 mg PO QHS Potassium Chloride 10 Meq Tab* [Klor Con 10 MEQ] 10 meq PO TID Metoprolol Tartrate 50 mg [Lopressor 50 MG] 50 mg PO BID Hydralazine HCl 50 mg PO BID Levothyroxine Sodium 100 Mcg [Synthroid 100 Mcg] 125 mcg PO DAILY Aspirin 81 mg PO DAILY Magnesium Oxide [Magnesium] 250 mg PO DAILY Repaglinide [Prandin 2MG Tablet] 2 mg PO BID Polyethylene Glycol 3350 17 gm [Miralax Powder 17GM PACKET] 17 gm PO BID Gabapentin [Neurontin] 300 mg PO BID Celecoxib [Celebrex] 200 mg PO BID Hydrocodone Bit/Acetaminophen [Vicodin 5-500 Tablet] 1 tab PO DAILY Clonazepam 0.5 mg [Klonopin 0.5 MG] 0.5 mg PO BID Magnesium 250 mg PO BID Allopurinol 100 mg [Zyloprim 100 mg] 100 mg PO BID Spironolactone [Aldactone] 50 mg PO DAILY Pantoprazole Sodium [Protonix] 40 mg PO DAILY Warfarin Sodium 10 mg [Coumadin 10 MG] 5 mg PO DAILY Prednisolone Acetate OPHTH [Pred-Forte 1% Ophthalmic] 1 drop OP QID Sulfacetamide Sodium Ophth [Sodium Sulamyd Eye Drops 15 ml] 1 drop OP QID Discontinued Cephalexin Mh 500 mg [Keflex 500 mg] 1 cap PO TID Instructions: Influenza -- Adult, Sepsis -- Adult Additional Instructions: [facility] WILL CALL YOU TO SCHEDULE YOUR FIRST VISIT. YOU MAY REACH THEM AT ext [phone]. Follow up with: KARLEE MACKEY MD [Primary Care Provider] - 09/23/16 2:15 pm ([place] office) Forms: Discharge Instructions
[2016-09-16 13:52] VITALS: O2SAT 94
[2016-09-17] MEDS ORDERED: TROUGH DRUG LEVELS IJ ONE (09:30)
== END 2016-09-16 13:25 | disposition home or self-care (01) | DRG 871 ==
LOC: ED 10:34 → MED SURG 12:32
PROVIDERS: ADMIT General Practice; ATTEND General Practice
DX: A41.9 Sepsis, unspecified organism (principal); I50.43 Acute on chronic combined systolic (congestive) and diastolic (congestive) heart failure; J10.1 Influenza due to other identified influenza virus with other respiratory manifestations; I48.91 Unspecified atrial fibrillation; Z79.01 Long term (current) use of anticoagulants; Z79.899 Other long term (current) drug therapy
CPT/HCPCS: 36000; 36415; 71010; 80053; 81000; 82272; 82962; 83605; 83880; 84484; 85025; 85610; 87040; 87077; 87086; 87186; 87493; 87631; 93005; 94760; 96365; 99285; J2543; J3370; A9270-GY

== ENCOUNTER 2016-11-04 16:13 | Inpatient (IN) | payer MEDICARE, OTHER ==
[2016-11-04] MEDS ORDERED: Sodium Chloride 0.9% 1000 ML 1,000 ML ONE (16:41)
[2016-11-04] MEDS ORDERED: Sodium Chloride 0.9% 1000 ML 1,000 ML IV SCH (16:45)
[2016-11-04 16:51] LABS: BASOPHIL % 0.3 % (0.0-0.4); Eosinophil % 4.1 % (0.00-5.0); Granulocytes % 68.2 % (36.0-66.0); Lymphocytes % 20.6 % (24.0-44.0); Mean Cell Volume 97.8 fl (78-100); Mean Corpuscular Hemoglobin 31.5 pg (26-32); Mean Platelet Volume 12.5 fl (6-9.5); Monocytes % 6.8 % (0.0-12.0); Platelet Count 220 K/mm3 (150-450); Red Blood Count 4.13 M/mm3 (4.1-5.4); Red Cell Distribution Width 14.2 % (11.5-14.0); White Blood Count 9.9 K/mm3 (4.0-10.5)
--- NOTE | 2016-11-04 17:07 | XRAY ---
Indication: Weakness and slurred speech. Multiple contiguous axial images obtained through the head without contrast. Comparison: August 16, 2011. Stable age-appropriate global atrophy and minimal periventricular degenerative micro-ischemia bilaterally. No acute intracranial hemorrhage, abnormal extra-axial fluid collection, or mass effect. Fourth ventricle is midline without hydrocephalus. Bony calvarium intact again with mild hyperostosis frontalis interna. Paranasal sinuses and mastoid air cells are clear. Stable left occipital calcified sebaceous cyst. Impression: Stable nonacute senile brain. CTDI 93.13
[2016-11-04 17:10] LABS: INR 2.13 (0.8-3.0); PROTIME 23.3 SECONDS (9.95-12.35)
--- NOTE | 2016-11-04 17:10 | XRAY ---
Indication: Weakness. Slurred speech. Comparison: September 14, 2016. Portable chest better inflated today again demonstrating chronic interstitial lung markings and borderline cardiomegaly. No focal infiltrate, consolidation, or large effusion. Bony thorax intact again without osteopenia and degenerative changes. Impression: Nonacute chest with chronic features.
[2016-11-04 17:13] LABS: PTT 42.1 SECONDS (25.3-37.0)
[2016-11-04 17:17] LABS: ALBUMIN 3.5 g/dL (3.4-5.0); ANION GAP 13.3 MEQ/L (5-15); BILIRUBIN,TOTAL 0.4 mg/dL (0.2-1.0); Carbon Dioxide 32.2 mEq/L (21-32); Potassium 4.2 mEq/L (3.5-5.1); Total Protein 7.8 gm/dL (6.4-8.2)
[2016-11-04 17:41] LABS: TROPONIN < 0.017 ng/ml (0.000-0.056)
--- NOTE | 2016-11-04 18:28 | ERPHSYRPT ---
- History of Present Illness Time Seen by Provider: 11/04/16 16:29 Source: patient, family, old records Exam Limitations: clinical condition Patient Subjective Stated Complaint: GENERALIZED WEAKNESS SINCE THIS AM Triage Nursing Assessment: GENERALIZED WEAKNESS SINCE THIS AM. NO DEFICIT 'I AM JUST TIRED AND WEAK' CHRONIC INCONT. DRY [employer]AL [employer]ES. MANAGER CAREER EQUAL BILAT. PUPILS NOEMI. Physician History: has felt poorly since awakening this am; general weakness without any localization; no fever; no travel; slight nause; no emesis; frequent urination and incontinence which is old; no change in BM; no travel or exposures; no change in meds; slow mentation; thick speech - others have said slurred all day ( over three hours); no CP chronic sob Timing/Duration: today, hour(s) (6) Severity: moderate Modifying Factors: Improves With: rest Associated Symptoms: nausea, loss of appetite, weakness (generalized) Allergies/Adverse Reactions: clarithromycin [From Biaxin] Allergy (Unknown, Verified 11/04/16 16:34) mouth breaks out codeine Allergy (Unknown, Verified 11/04/16 16:34) "I feel warm and terrible" Home Medications: Aspirin 81 mg PO DAILY 10/04/15 [History] Atorvastatin Calcium [Lipitor] 10 mg PO QHS 10/04/15 [History] Bupropion HCl Xl 150 mg [Wellbutrin XL 150 MG] 150 mg PO DAILY 10/04/15 [ History] Diltiazem HCl [Cartia Xt] 180 mg PO DAILY 10/04/15 [History] Ergocalciferol (Vitamin D2) [Vitamin D] 50,000 unit PO UD 10/04/15 [History] Furosemide 40 mg [Lasix 40 MG] 40 mg PO BID 10/04/15 [History] Glimepiride 4 mg [Amaryl 4 mg] 6 mg PO QAM 10/04/15 [History] Hydralazine HCl 50 mg PO BID 10/04/15 [History] Levothyroxine Sodium 100 Mcg [Synthroid 100 Mcg] 125 mcg PO DAILY 10/04/15 [History] Magnesium Oxide [Magnesium] 250 mg PO DAILY 10/04/15 [History] Metolazone 2.5 mg [Zaroxolyn 2.5 MG] 2.5 mg PO QAM 10/04/15 [History] Metoprolol Tartrate 50 mg [Lopressor 50 MG] 50 mg PO BID 10/04/15 [History ] PANTOPRAZOLE 40 mg Tablet [Protonix 40MG Tablet] 40 mg PO QAM 10/04/15 [ History] Potassium Chloride 10 Meq Tab* [Klor Con 10 MEQ] 10 meq PO TID 10/04/15 [ History] Polyethylene Glycol 3350 17 gm [Miralax Powder 17GM PACKET] 17 gm PO BID [History] Repaglinide [Prandin 2MG Tablet] 2 mg PO BID 06/03/16 [History] Allopurinol 100 mg [Zyloprim 100 mg] 100 mg PO BID 09/14/16 [History] Celecoxib [Celebrex] 200 mg PO BID 09/14/16 [History] Clonazepam 0.5 mg [Klonopin 0.5 MG] 0.5 mg PO BID 09/14/16 [History] Gabapentin [Neurontin] 300 mg PO BID 09/14/16 [History] Hydrocodone Bit/Acetaminophen [Vicodin 5-500 Tablet] 1 tab PO DAILY 09/14/16 [ History] Magnesium 250 mg PO BID 09/14/16 [History] Pantoprazole Sodium [Protonix] 40 mg PO DAILY 09/14/16 [History] Prednisolone Acetate OPHTH [Pred-Forte 1% Ophthalmic] 1 drop OP QID [History] Spironolactone [Aldactone] 50 mg PO DAILY 09/14/16 [History] Sulfacetamide Sodium Ophth [Sodium Sulamyd Eye Drops 15 ml] 1 drop OP QID 09/14/16 [History] Warfarin Sodium 10 mg [Coumadin 10 MG] 5 mg PO DAILY 09/14/16 [History] Hx Tetanus, Diphtheria Vaccination/Date Given: Yes Hx Influenza Vaccination/Date Given: Yes Hx Pneumococcal Vaccination/Date Given: Yes Immunizations Up to Date: Yes - Review of Systems Constitutional: Malaise, Weakness (generalized), No Fever, No Night Sweats, No Weight Loss Eyes: No Symptoms Ears, Nose, & Throat: No Symptoms Respiratory: Dyspnea on Exertion (MAO), No Cough, No Cyanosis, No Dyspnea, No Wheezing Cardiac: Edema (chronic), Palpitations (hx a fib), Syncope, No Chest Pain, No PND Abdominal/Gastrointestinal: Nausea, No Abdominal Pain, No Vomiting, No Diarrhea Genitourinary Symptoms: Frequency, Incontinence, No Dysuria, No Hematuria, No Hesitancy, No Urinary Retention, No Flank Pain, No Menorrhagia Musculoskeletal: Arthralgias, No Back Pain, No Neck Pain, No Fall Skin: No Symptoms Neurological: Speech Changes (possible slurred), No Dizziness, No Focal Weakness , No Headache, No Seizure Psychological: No Symptoms Endocrine: Polyuria, Polydipsia, Cold Intolerance Hematologic/Lymphatic: No Symptoms Immunological/Allergic: No Symptoms - Past Medical History Pertinent Past Medical History: Yes Neurological History: Peripheral Neuropathy ENT History: Cataracts Cardiac History: Arrhythmia, Congestive Heart Failure, High Cholesterol, Hypertension, Myocardial Infarction ([place]) Respiratory History: Pulmonary Embolism, Sleep Apnea Endocrine Medical History: Diabetes Type II, Hypothyroidism Musculoskeletal History: Arthritis GI Medical History: No Pertinent History History: Renal Disease, Other Psycho-Social History: Anxiety, Depression Female Reproductive Disorders: No Pertinent History Other Medical History: Sleep apnea uses bi-pap. Chronic A-Fib. Urinary incontinence, Functional. [place](+) year ago, treated. - Past Surgical History Past Surgical History: Yes Neuro Surgical History: No Pertinent History Cardiac: No Pertinent History Respiratory: No Pertinent History Gastrointestinal: Appendectomy, Cholecystectomy Genitourinary: No Pertinent History Musculoskeletal: No Pertinent History Female Surgical History: Section, Hysterectomy, Other Other Surgical History: bladder suspension, t&a, arthroscopy right knee, clot removed from left foot. - Social History Smoking Status: Never smoker Exposure to second hand smoke: No Drug Use: none Patient Lives Alone: No - Nursing Vital Signs Nursing Vital Signs: Initial Vital Signs Temperature 97.5 F Temperature Source Oral Pulse Rate 62 Respiratory Rate 18 Blood Pressure [Right Arm] 131/55 Pain Intensity 3 - Physical Exam SpO2: 96 Oxygen Delivery: Room Air - Course Nursing assessment & vital signs reviewed: Yes EKG Interpreted by Me: RATE (59), A-fib (bardy response at 59), NORMAL AXIS, NORMAL INTERVALS, NORMAL QRS, Non-specific ST Changes, Other (uncahnged for 09/14) Rhythm Strip: Rate, Atrial Fibrillation ( with ade at 59 rate) - Radiology Exams Chest X-ray Interpretation: Reviewed by me, Teleradiologist Report, Negative Ordered Tests: Active Orders 24 hr Category Date Time Status Accucheck STAT Care 11/04/16 16:31 Active Inward Toll Operator STAT Care 11/04/16 16:31 Active EKG-ER Only STAT Care 11/04/16 16:31 Active IV Insertion STAT Care 11/04/16 16:31 Active Pulse Oximetry (ED) STAT Care 11/04/16 16:31 Active Re-Check Vital Signs STAT Care 11/04/16 16:31 Completed CHEST 1 VIEW (PORTABLE) Stat Exams 11/04/16 16:31 Completed HEAD WITHOUT CONTRAST [CT] Stat Exams 11/04/16 16:31 Completed CBC W DIFF Stat Lab 11/04/16 16:41 Completed CMP Stat Lab 11/04/16 16:41 Completed NT PRO BNP Stat Lab 11/04/16 16:41 Completed PROTIME WITH INR Stat Lab 11/04/16 16:41 Completed PTT Stat Lab 11/04/16 16:41 Completed TROPONIN Stat Lab 11/04/16 16:41 Completed Medication Summary Generic Name Dose Route Start Last Admin Trade Name Freq PRN Reason Stop Dose Admin Sodium Chloride 1,000 mls @ 50 mls/hr 11/04/16 16:45 11/04/16 16:42 Sodium Chloride 0.9% 1000 Ml IV 12/04/16 16:44 50 mls/hr .Q20H FELICIA Administration Lab/Rad Data: Laboratory Result Diagrams 11/04/16 16:41 11/04/16 16:41 Laboratory Results 11/04/16 11/04/16 11/04/16 Range/Units 16:41 16:41 16:41 WBC (4.0-10.5) K/mm3 RBC (4.1-5.4) M/mm3 Hgb (12.0-16.0) gm/dl Hct (35-47) % MCV (78-100) fl MCH (26-32) pg MCHC (32-36) g/dl RDW (11.5-14.0) % Plt Count (150-450) K/mm3 MPV (6-9.5) fl Gran % (36.0-66.0) % Lymphocytes % (24.0-44.0) % Monocytes % (0.0-12.0) % Eosinophils % (0.00-5.0) % Basophils % (0.0-0.4) % Basophils # (0-0.4) INR 2.13 (0.8-3.0) APTT 42.1 H (25.3-37.0) SECONDS Sodium 132 L (136-145) mEq/L Potassium 4.2 (3.5-5.1) mEq/L Chloride 91 L (98-107) mEq/L Carbon Dioxide 32.2 H (21-32) mEq/L Anion Gap 13.3 (5-15) MEQ/L BUN 64 H (9-20) mg/dL Creatinine 2.75 H (0.55-1.30) mg/dl Estimated GFR 18 ML/MIN Glucose 235 H (70-110) MG/DL Calcium 9.8 (8.5-10.1) mg/dL Total Bilirubin 0.4 (0.2-1.0) mg/dL AST 20 (15-37) U/L ALT 8 L (12-78) U/L Alkaline Phosphatase 174 H (46-116) U/L Troponin I < 0.017 (0.000-0.056) ng/ml NT-Pro-B Natriuret Pep 1595 H (0-450) pg/ml Serum Total Protein 7.8 (6.4-8.2) gm/dL Albumin 3.5 (3.4-5.0) g/dL 11/04/16 Range/Units 16:41 WBC 9.9 (4.0-10.5) K/mm3 RBC 4.13 (4.1-5.4) M/mm3 Hgb 13.0 (12.0-16.0) gm/dl Hct 40.4 (35-47) % MCV 97.8 (78-100) fl MCH 31.5 (26-32) pg MCHC 32.2 (32-36) g/dl RDW 14.2 H (11.5-14.0) % Plt Count 220 (150-450) K/mm3 MPV 12.5 H (6-9.5) fl Gran % 68.2 H (36.0-66.0) % Lymphocytes % 20.6 L (24.0-44.0) % Monocytes % 6.8 (0.0-12.0) % Eosinophils % 4.1 (0.00-5.0) % Basophils % 0.3 (0.0-0.4) % Basophils # 0.03 (0-0.4) INR (0.8-3.0) APTT (25.3-37.0) SECONDS Sodium (136-145) mEq/L Potassium (3.5-5.1) mEq/L Chloride (98-107) mEq/L Carbon Dioxide (21-32) mEq/L Anion Gap (5-15) MEQ/L BUN (9-20) mg/dL Creatinine (0.55-1.30) mg/dl Estimated GFR ML/MIN Glucose (70-110) MG/DL Calcium (8.5-10.1) mg/dL Total Bilirubin (0.2-1.0) mg/dL AST (15-37) U/L ALT (12-78) U/L Alkaline Phosphatase (46-116) U/L Troponin I (0.000-0.056) ng/ml NT-Pro-B Natriuret Pep (0-450) pg/ml Serum Total Protein (6.4-8.2) gm/dL Albumin (3.4-5.0) g/dL reviewed - Progress Progress: improved, re-examined Progress Note: 11/04/16 18:29 EKG shows A fib with chronic changes and borderline ade response of 59; CXR NAD; family at bedside; CT NAD; elevate BS at 235; BUN at 64 and Cr at 2.75 low Na at 132; alk phos up at 174Troponnin wnl; p BNP up at 1595; 11/04/16 18:37 reviewed results with patient and family; patient lives alone; will contact Dr Warren for disposition Counseled pt/family regarding: lab results, diagnosis, need for follow-up, rad results
[2016-11-04] MEDS: Sodium Chloride 0.9% 1000 ML 1,000 ML IV SCH (23:09)
[2016-11-04] MEDS: Apresoline 25 MG TABLET PO SCH (23:21)
[2016-11-04] MEDS: Zocor 10MG PO SCH (23:21)
[2016-11-04] MEDS: ZYLOPRIM 100 MG PO SCH (23:21)
[2016-11-04] MEDS: Klor Con 10 MEQ PO SCH (23:21)
[2016-11-04] MEDS: Lopressor 50 MG PO SCH (23:22)
[2016-11-04] MEDS: NEURONTIN 300 MG PO SCH (23:22)
[2016-11-04] MEDS: Klonopin 0.5 MG PO SCH (23:22)
[2016-11-04] MEDS: MAG-OX 400 PO SCH (23:22)
[2016-11-05 06:22] LABS: BASOPHIL % 0.3 % (0.0-0.4); Eosinophil % 4.8 % (0.00-5.0); Granulocytes % 62.6 % (36.0-66.0); Lymphocytes % 23.1 % (24.0-44.0); Mean Cell Volume 98.4 fl (78-100); Mean Corpuscular Hemoglobin 31.2 pg (26-32); Mean Platelet Volume 12.3 fl (6-9.5); Monocytes % 9.2 % (0.0-12.0); Platelet Count 183 K/mm3 (150-450); Red Blood Count 3.78 M/mm3 (4.1-5.4); Red Cell Distribution Width 14.2 % (11.5-14.0); White Blood Count 6.9 K/mm3 (4.0-10.5)
[2016-11-05 06:48] LABS: ANION GAP 9.4 MEQ/L (5-15); Carbon Dioxide 35.9 mEq/L (21-32); Potassium 3.7 mEq/L (3.5-5.1)
[2016-11-05] MEDS: Klonopin 0.5 MG PO SCH ×2 (08:50→22:32)
[2016-11-05] MEDS: MAG-OX 400 PO SCH ×2 (08:50→22:32)
[2016-11-05] MEDS: NEURONTIN 300 MG PO SCH ×2 (08:50→22:32)
[2016-11-05] MEDS: ZYLOPRIM 100 MG PO SCH ×2 (08:50→22:34)
[2016-11-05] MEDS: Klor Con 10 MEQ PO SCH (08:50)
[2016-11-05] MEDS: Lopressor 50 MG PO SCH ×2 (08:50→22:32)
[2016-11-05] MEDS: Apresoline 25 MG TABLET PO SCH ×2 (08:50→22:32)
[2016-11-05] MEDS: NYSTOP 30 GM CREAM TOP SCH ×2 (08:51→22:34)
[2016-11-05] MEDS ORDERED: NYSTOP 30 GM CREAM TOP SCH (10:00)
[2016-11-05] MEDS ORDERED: NYSTOP 15 GM CREAM TOP SCH (10:00)
[2016-11-05] MEDS ORDERED: Lasix 40 MG PO SCH (10:00)
[2016-11-05] MEDS: NovoLOG Insulin SQ PRN ×2 (11:34→17:37)
[2016-11-05] MEDS ORDERED: MEDICATION INTERVENTION MC SCH (16:00)
--- NOTE | 2016-11-05 16:11 | HP ---
HISTORY OF PRESENT ILLNESS: Patient is 81. Patient is hospitalized with chief complaint of significantly feeling weak and poorly. The patient has been feeling for the last few days significantly exhausted and felt so bad, felt that she may even . With those complaints she comes to the hospital, and was found to be in dehydration. The patient has felt poorly, with generalized weakness. No fever, no nausea, no vomiting. Frequent urination was noted. ALLERGIES: Include clarithromycin and codeine. HOME MEDICATIONS: Aspirin 81 mg, atorvastatin 10 mg, bupropion 150 daily and diltiazem 180, Lasix 40, Amaryl 4 mg daily, hydralazine 50 b.i.d., levothyroxine 100 mcg, magnesium sulfate, metolazone 2.5, metoprolol 50 b.i.d., Protonix, potassium, Prandin 2 mg b.i.d., Zyloprim 100 b.i.d., Celebrex 200 b.i.d., Klonopin 0.5, Neurontin, hydrocodone, magnesium, Protonix 40, and prednisone Aldactone 50 daily and sulfacetamide sodium, warfarin 10 - has a history of atrial fibrillation also. PAST MEDICAL HISTORY: Positive for hypertension, hypothyroidism, chronic kidney disease stage 3, also morbid obesity, diabetes mellitus, history of arthritis and history of atrial fibrillation, on anticoagulation. REVIEW OF SYSTEMS: Muscle weakness, generalized, no nausea, vomiting. Denies chest pain. Major shortness of breath, does have history of congestive heart failure. MUSCULOSKELETAL: With some aches and pains. SKIN: No skin issues. ENDOCRINE: Polyuria, polydipsia. HEMATOLOGY: Currently no symptoms. NEUROLOGY: Currently no symptoms. PAST MEDICAL HISTORY: Positive for peripheral neuropathy, cardiac arrhythmias, and congestive heart failure, high cholesterol, hypertension, myocardial infarction. Respiratory problems include pulmonary embolism and history of sleep apnea. Musculoskeletal, diabetes, and hypothyroidism, and endocrine system positive for that. Arthritis. The patient does use a CPAP, uses a BiPAP at night, also has chronic A-fib, on anticoagulation. PAST SURGICAL HISTORY: Includes appendectomy, cholecystectomy, section, hysterectomy, and also bladder suspension, arthroscopy. SOCIAL HISTORY: No smoking, no alcohol. SOCIAL HISTORY: Noncontributory. PHYSICAL EXAMINATION: GENERAL: The patient at this time appears reasonably comfortable. VITAL SIGNS: Blood pressure 131/85, pulse 80, respiratory rate 18, temperature afebrile 97.5. HEENT: Pupils are reactive. NECK: No JVD or thyromegaly. No lymphadenopathy. CHEST: Fair air entry bilaterally. HEART: S1, S2 normal. ABDOMEN: Soft, nontender. EXTREMITIES: No edema. NEUROLOGIC: The patient appears neurologically alert. No focal deficits. LAB DATA: Showed a hemoglobin A1c of 7.3. WBC 6.9, hemoglobin 11.8, hematocrit 37.2, prealbumin 27.4. Glucose 120. BUN 58, creatinine 2.0. Sodium 140, potassium 3.7, chloride 98, carbon dioxide 35.9, calcium 9.6. NT Pro BNP 1595, SPT 7.8. CBC showed white count of 9.9, hemoglobin 13, hematocrit 40.4. The patient's platelets 220. Glucose 235, BUN 60, creatinine 2.7. GFR 18, sodium 132, potassium 4.2, chloride 91. INR 2.13. Chest x-ray nonacute. CT of the brain was negative. ASSESSMENT AND PLAN: * Weakness, possible dehydration, has chronic kidney disease. May require some cautious hydration at this time. * The patient has diabetes, however, is on oral hyperglycemic. Will put on insulin coverage at this time. * The patient does not have any decompensation congestive heart failure. * Atrial fibrillation on anticoagulation. INR is therapeutic. After cautious hydration also renal evaluation. Will see how she clinically responds. May benefit from some physical therapy also. There is history of again to have DVT, pulmonary embolism, and atrial fibrillation, is on anticoagulation. INR is therapeutic. Will continue with present dose. * Continue with cautious hydration an outpatient and then further follow up tomorrow.
[2016-11-05] MEDS: Sodium Chloride 0.9% 1000 ML 1,000 ML IV SCH (17:21)
[2016-11-05] MEDS: Wellbutrin XL 150 MG PO SCH (17:24)
[2016-11-05] MEDS: Cardizem CD 180 MG PO SCH (17:24)
[2016-11-05] MEDS: ECOTRIN 81 MG PO SCH (17:25)
[2016-11-05] MEDS: Coumadin 2.5 MG PO SCH (17:25)
[2016-11-05] MEDS: Protonix 40MG Tablet PO SCH (17:25)
[2016-11-05] MEDS: SYNTHROID 125 MCG PO SCH (17:25)
[2016-11-05] MEDS: Coumadin 5 MG PO SCH (17:25)
[2016-11-05 17:47] LABS: Bacteria MANY /HPF (NEGATIVE); COMPLETE URINE MICROSCOPIC? YES; Collection Type CLEAN CATCH; Epithelial Cells MODERATE /HPF (FEW); Ph 5.5 (5-6); WBC >100 /HPF (0-5)
[2016-11-05] MEDS ORDERED: REPAGLINIDE 2 MG PO SCH (22:00)
[2016-11-05] MEDS: Zocor 10MG PO SCH (22:32)
[2016-11-06 06:29] LABS: Mean Corpuscular Hemoglobin 31.1 pg (26-32); Platelet Count 191 K/mm3 (150-450); Red Blood Count 4.08 M/mm3 (4.1-5.4); Red Cell Distribution Width 14.2 % (11.5-14.0); White Blood Count 7.1 K/mm3 (4.0-10.5)
[2016-11-06 06:45] LABS: ANION GAP 8.5 MEQ/L (5-15); Carbon Dioxide 35.5 mEq/L (21-32); Potassium 3.5 mEq/L (3.5-5.1)
[2016-11-06] MEDS: Apresoline 25 MG TABLET PO SCH ×2 (08:58→22:18)
[2016-11-06] MEDS: Wellbutrin XL 150 MG PO SCH (08:58)
[2016-11-06] MEDS: Sodium Chloride 0.9% 1000 ML 1,000 ML IV SCH (08:58)
[2016-11-06] MEDS: Cardizem CD 180 MG PO SCH (08:58)
[2016-11-06] MEDS: SYNTHROID 125 MCG PO SCH (08:58)
[2016-11-06] MEDS: ECOTRIN 81 MG PO SCH (08:59)
[2016-11-06] MEDS: Klonopin 0.5 MG PO SCH ×2 (08:59→22:18)
[2016-11-06] MEDS: Lopressor 50 MG PO SCH ×2 (08:59→22:18)
[2016-11-06] MEDS: ZYLOPRIM 100 MG PO SCH ×2 (08:59→22:19)
[2016-11-06] MEDS: MAG-OX 400 PO SCH ×2 (08:59→22:18)
[2016-11-06] MEDS: NEURONTIN 300 MG PO SCH ×2 (08:59→22:18)
[2016-11-06] MEDS: Protonix 40MG Tablet PO SCH (08:59)
[2016-11-06] MEDS: NYSTOP 30 GM CREAM TOP SCH ×2 (09:00→22:19)
[2016-11-06] MEDS ORDERED: SYNTHROID 100 MCG PO SCH (10:00)
[2016-11-06] MEDS ORDERED: NON-FORMULARY ITEM (Aspirin [Aspirin] 81 MG) PO SCH (10:00)
[2016-11-06] MEDS ORDERED: Coumadin 10 MG PO SCH (10:00)
[2016-11-06 11:27] LABS: INR 1.07 (0.8-3.0)
[2016-11-06] MEDS: ROCEPHIN 1 Gm-D5w 50 ml Bag** 1 G/50 ML IVPB IV SCH (14:49)
[2016-11-06 14:56] LABS: Collection Type CATH
[2016-11-06 15:08] LABS: COMPLETE URINE MICROSCOPIC? YES
[2016-11-06] MEDS: Coumadin 2.5 MG PO SCH (17:31)
[2016-11-06] MEDS: Coumadin 5 MG PO SCH (17:31)
[2016-11-06] MEDS ORDERED: Coumadin 1 MG PO ONE (18:00)
[2016-11-06] MEDS: Zocor 10MG PO SCH (22:19)
[2016-11-07] MEDS: Sodium Chloride 0.9% 1000 ML 1,000 ML IV SCH (05:48)
[2016-11-07 05:52] LABS: INR 1.62 (0.8-3.0); PROTIME 17.9 SECONDS (9.95-12.35)
[2016-11-07] MEDS: ROCEPHIN 1 Gm-D5w 50 ml Bag** 1 G/50 ML IVPB IV SCH (10:00)
[2016-11-07] MEDS: Wellbutrin XL 150 MG PO SCH (10:00)
[2016-11-07] MEDS: Klonopin 0.5 MG PO SCH ×2 (10:00→22:01)
[2016-11-07] MEDS: MAG-OX 400 PO SCH ×2 (10:00→22:01)
[2016-11-07] MEDS: Cardizem CD 180 MG PO SCH (10:00)
[2016-11-07] MEDS: ZYLOPRIM 100 MG PO SCH ×2 (10:00→22:02)
[2016-11-07] MEDS: Apresoline 25 MG TABLET PO SCH ×2 (10:00→22:01)
[2016-11-07] MEDS: Lopressor 50 MG PO SCH ×2 (10:00→22:01)
[2016-11-07] MEDS: ECOTRIN 81 MG PO SCH (10:00)
[2016-11-07] MEDS: NEURONTIN 300 MG PO SCH ×2 (10:00→22:01)
[2016-11-07] MEDS: Protonix 40MG Tablet PO SCH (10:00)
[2016-11-07] MEDS: SYNTHROID 125 MCG PO SCH (10:00)
[2016-11-07] MEDS: NYSTOP 30 GM CREAM TOP SCH ×2 (10:01→22:02)
--- NOTE | 2016-11-07 14:42 | PROG NOTE ---
DATE: 11/07/2016 Chart is reviewed and events noted. At the time of this evaluation the patient is alert, awake, comfortable, states that fatigue feels better. Denies any nausea or vomiting. She is tolerating diet. She denied any other new complaints. Appears comfortable. PHYSICAL EXAMINATION: VITAL SIGNS: Blood pressure 135/65, heart rate 55, respiratory rate 18, temperature 98.7F. Oxygen saturation 95%. HEENT: Pallor is present. NECK: No JVD is present. CVS: S1, S2 present. RESPIRATORY: Breath sounds are bilaterally diminished and clear to auscultation. ABDOMEN: Obese, soft, nontender. NEURO: She is alert, awake, answers simple questions appropriately, follows simple commands appropriately. EXTREMITIES: No edema on bilateral lower extremities. LABORATORY DATA AND TESTS: The international normalized ratio from today is 1.62. There were no other new labs today. Medications were reviewed. ASSESSMENT: A 81 year old woman with impression: 1) Generalized weakness. 2) Urinary tract infection. 3) History of hypertension/congestive heart failure. 4) Chronic renal insufficiency. 5) Hypothyroidism. 6) Atrial fibrillation. 7) Morbid obesity. 8) Anemia. PLAN: Continue antibiotics for urinary tract infection. Continue to follow CBC and electrolytes. Will likely discharge to an assisted living facility tomorrow with home care. The patient's clinical condition, work-up results and plan of management was discussed with her. She seems to be in understanding and agreement. Discussed with case operator, Nancy Bruce.
[2016-11-07] MEDS: Coumadin 2.5 MG PO SCH (18:18)
[2016-11-07] MEDS: Coumadin 5 MG PO SCH (18:19)
[2016-11-07] MEDS: Zocor 10MG PO SCH (22:02)
[2016-11-08] MEDS: Sodium Chloride 0.9% 1000 ML 1,000 ML IV SCH (02:28)
[2016-11-08] MEDS: NEURONTIN 300 MG PO SCH (09:18)
[2016-11-08] MEDS: Lopressor 50 MG PO SCH (09:18)
[2016-11-08] MEDS: Cardizem CD 180 MG PO SCH (09:18)
[2016-11-08] MEDS: SYNTHROID 125 MCG PO SCH (09:18)
[2016-11-08] MEDS: ROCEPHIN 1 Gm-D5w 50 ml Bag** 1 G/50 ML IVPB IV SCH (09:19)
[2016-11-08] MEDS: ECOTRIN 81 MG PO SCH (09:19)
[2016-11-08] MEDS: Klonopin 0.5 MG PO SCH (09:19)
[2016-11-08] MEDS: ZYLOPRIM 100 MG PO SCH (09:19)
[2016-11-08] MEDS: Protonix 40MG Tablet PO SCH (09:19)
[2016-11-08] MEDS: NYSTOP 30 GM CREAM TOP SCH (09:19)
[2016-11-08] MEDS: MAG-OX 400 PO SCH (09:19)
[2016-11-08] MEDS: Wellbutrin XL 150 MG PO SCH (09:19)
[2016-11-08] MEDS: Apresoline 25 MG TABLET PO SCH (09:19)
[2016-11-08 11:32] LABS: BASOPHIL % 0.2 % (0.0-0.4); Eosinophil % 3.6 % (0.00-5.0); Granulocytes % 69.6 % (36.0-66.0); Lymphocytes % 18.4 % (24.0-44.0); Mean Cell Volume 100.8 fl (78-100); Mean Platelet Volume 11.7 fl (6-9.5); Monocytes % 8.2 % (0.0-12.0); Platelet Count 174 K/mm3 (150-450); Red Blood Count 3.79 M/mm3 (4.1-5.4); Red Cell Distribution Width 14.3 % (11.5-14.0); White Blood Count 8.3 K/mm3 (4.0-10.5)
[2016-11-08 11:42] LABS: INR 1.61 (0.8-3.0); PROTIME 17.8 SECONDS (9.95-12.35)
[2016-11-08 11:47] LABS: ANION GAP 10.3 MEQ/L (5-15); Carbon Dioxide 32.2 mEq/L (21-32); MAGNESIUM 1.6 mg/dL (1.8-2.4); Potassium 3.9 mEq/L (3.5-5.1)
[2016-11-08 12:00] LABS: Mean Corpuscular Hemoglobin 31.6 pg (26-32)
[2016-11-08] MEDS ORDERED: BACTRIM DS TABLET PO SCH (12:00)
[2016-11-08 12:20] VITALS: BP 128/58; PULSE 76; O2SAT 99
--- NOTE | 2016-11-09 08:41 | DS ---
DISCHARGE DIAGNOSES: 1) GENERALIZED WEAKNESS, CLINICALLY IMPROVED. 2) URINARY TRACT INFECTION, ESCHERICHIA COLI. 3) HYPERTENSION/CONGESTIVE HEART FAILURE. 4) CHRONIC RENAL INSUFFICIENCY. 5) HYPOTHYROIDISM. 6) ATRIAL FIBRILLATION. 7) MORBID OBESITY. 8) ANEMIA. HOSPITAL COURSE: Cande Casanova is a 81 year-old woman with past medical history of hypertension, congestive heart failure, atrial fibrillation, chronic renal insufficiency, chronic anemia, morbid obesity. She was admitted through the emergency room on 11/04/2016 with generalized weakness, frequent urination. Also she complained of mild nausea. Please refer to Dr. Turner's history and physical for details. Initial work up was notable for EKG with atrial fibrillation. Chest x-ray had shown no acute changes. Initial CBC was unremarkable. BMP was notable for BUN 64, creatinine 2.75, sodium 132. Troponin was less than 0.017. NT-BNP was 1595. Liver function test showed alkaline phosphatase of 174. International normalized ratio was 2.13. Head CT from 11/04/2016 showed stable nonacute senile brain. During her further course she was placed in IV fluids, broad spectrum IV antibiotics. Her labs were monitored closely. Follow up labs had revealed normal white blood cell count, stable hemoglobin/hematocrit. Improved renal insufficiency. Her international normalized ratio was monitored and she was continued on Coumadin. UA had shown positive nitrite, white blood cell and presence of bacteria. Urine cultures from 11/06/2016 grew Escherichia coli. Sensitivities of those were reviewed and the patient's antibiotics were changed accordingly. During her further course she improved clinically, remained hemodynamically stable. She was able to ambulate with her walker. She did undergo some physical therapy. Overall she was tolerating diet well. Overall she felt better and had requested to be discharged to assisted living facility. At the time of my evaluation this afternoon the patient was alert, awake, sitting comfortably in chair. She stated she was overall feeling much better. Her weakness was feeling much better. She denied any new complaints, appeared comfortable. PHYSICAL EXAMINATION: VITAL SIGNS: Blood pressure 128/58, heart rate 76, respiratory rate 20, temperature 97.8F. Oxygen saturation 99% on room air. HEENT: Normocephalic. No pallor or icterus is noted. NECK: No JVD is present. CVS: S1, S2 present. RESPIRATORY: Breath sounds are bilaterally diminished and clear to auscultation. ABDOMEN: Obese, soft, nontender. NEURO: She is alert, oriented x3. EXTREMITIES: No edema on bilateral lower extremities. LABORATORY DATA AND TESTS: Labs from today showed unremarkable CBC. Today's BMP was notable for bicarbonate of 32, BUN 36, creatinine 1.56, magnesium 1.6. Today's international normalized ratio was 1.67. Medications were reviewed. ASSESSMENT: As outlined in discharge diagnosis. PLAN: A patient with multiple medical problems was admitted with generalized weakness, underwent work up and treatment as noted. She was diagnosed to have urinary tract infection and was placed on antibiotics accordingly. Also, she was placed on cautious IV hydration. With those she has improved clinically and overall feels better. She is being discharged back to assisted living facility in stable condition. Please refer to discharge medication list from 11/08/2016 for details of medications on discharge. At the time of discharge the patient was placed on five day course of Bactrim. The patient is on Coumadin, will continue to monitor international normalized ratio closely. I have advised the patient to obtain international normalized ratio on 11/02/2016 which will be followed by our office. I also advised her to obtain BMP and CBC in one week. Compliance with diet and medication was stressed. I advised the patient to continue to monitor for signs/symptoms of bleeding and report to the emergency room immediately if any are to appear. I also advised her to return to the Emergency Room [facility] if any new signs and symptoms or reappearance of previous signs and symptoms are noted. The patient's clinical condition, work-up results and plan of management and plan after discharge and after discharge as noted above was discussed at length with patient and family. They seem to be in understanding and agreement. The patient was also discussed with the patient's nurse. Please refer to the patient's chart, diagnostic work up and consult notes for details.
[2016-11-10] MEDS ORDERED: VITAMIN D2 PO SCH (10:00)
== END 2016-11-08 15:20 | disposition home health service (06) | DRG 948 ==
LOC: ED 16:13 → MED SURG 19:41 → OBSVTOIN 11-06 15:55
PROVIDERS: ADMIT General Practice; ATTEND General Practice
DX: R53.1 Weakness (principal); N39.0 Urinary tract infection, site not specified; I13.0 Hypertensive heart and chronic kidney disease with heart failure and stage 1 through stage 4 chronic kidney disease, or unspecified chronic kidney disease; B96.20 Unspecified Escherichia coli [E. coli] as the cause of diseases classified elsewhere; N18.3 Chronic kidney disease, stage 3 (moderate); I50.9 Heart failure, unspecified; E03.9 Hypothyroidism, unspecified; I48.91 Unspecified atrial fibrillation; E66.01 Morbid (severe) obesity due to excess calories; D64.9 Anemia, unspecified; E86.0 Dehydration; E11.9 Type 2 diabetes mellitus without complications; G62.9 Polyneuropathy, unspecified; Z86.711 Personal history of pulmonary embolism; Z79.01 Long term (current) use of anticoagulants
CPT/HCPCS: 36000; 36415; 70450; 71010; 80048; 80053; 81000; 81002; 82962; 83036; 83735; 83880; 84134; 84484; 85025; 85027; 85610; 85730; 87077; 87086; 87186; 93005; 93041; 93268; 94002; 94003; 94760; 96360; 96361; 99285; G0378; J0696; A9270-GY

== ENCOUNTER 2016-11-23 13:44 | Observation (INO) | payer MEDICARE, OTHER ==
[2016-11-23 14:40] LABS: Mean Cell Volume 98.1 fl (78-100); Mean Corpuscular Hemoglobin 31.9 pg (26-32); Mean Platelet Volume 10.3 fl (6-9.5); Platelet Count 210 K/mm3 (150-450); Red Blood Count 3.76 M/mm3 (4.1-5.4); Red Cell Distribution Width 14.4 % (11.5-14.0); White Blood Count 6.1 K/mm3 (4.0-10.5)
[2016-11-23 14:43] LABS: COMPLETE URINE MICROSCOPIC? NO; Collection Type CATH
--- NOTE | 2016-11-23 14:46 | XRAY ---
Indication: Pneumonia. Short of breath. Comparison: November 04, 2016. Portable chest limited due to body habitus demonstrates interval enlarging heart with central vascular prominence without large effusion concerning for mild/early cardiac decompensation. Superimposed pneumonia not completely excluded.
[2016-11-23] MEDS: Tessalon Perles 100 MG PO SCH ×2 (14:55→22:14)
[2016-11-23] MEDS: ROCEPHIN 1 Gm-D5w 50 ml Bag** 1 G/50 ML IVPB IV SCH (14:55)
[2016-11-23] MEDS: NYSTOP 30 GM CREAM TOP SCH ×2 (14:56→22:17)
[2016-11-23] MEDS ORDERED: DUONEB 0.5-3 MG/3 ml Neb IH SCH (15:00)
[2016-11-23 15:11] LABS: INR 2.6 (0.8-3.0); PROTIME 29.4 SECONDS (9.95-12.35)
[2016-11-23 15:28] LABS: ALBUMIN 3.3 g/dL (3.4-5.0); ALKALINE PHOSPHATASE 152 U/L (46-116); ANION GAP 13.5 MEQ/L (5-15); BLOOD UREA NITROGEN 49 mg/dL (9-20); CHLORIDE 96 mEq/L (98-107); Carbon Dioxide 34.7 mEq/L (21-32); Glucose 124 MG/DL (70-110); Potassium 3.8 mEq/L (3.5-5.1); SGOT/AST 17 U/L (15-37); SGPT/ALT 18 U/L (12-78); SODIUM 140 mEq/L (136-145); Total Protein 7.5 gm/dL (6.4-8.2)
[2016-11-23] MEDS ORDERED: DUONEB 0.5-3 MG/3 ml Neb IH ONE (15:29)
[2016-11-23 15:31] LABS: TROPONIN < 0.017 ng/ml (0.000-0.056)
[2016-11-23] MEDS ORDERED: DUONEB 0.5-3 MG/3 ml Neb IH PRN (15:48)
[2016-11-23] MEDS ORDERED: Sodium Chloride 0.9% 1000 ML 1,000 ML IV SCH (16:15)
[2016-11-23] MEDS: Lasix 40 MG/4 ML IV SCH (16:50)
[2016-11-23] MEDS ORDERED: MEDICATION INTERVENTION MC PRN (17:36)
[2016-11-23] MEDS ORDERED: Coumadin 3 MG PO SCH (18:00)
[2016-11-23] MEDS: DUONEB 0.5-3 MG/3 ml Neb IH SCH (20:08)
[2016-11-23] MEDS ORDERED: Zocor 10MG PO SCH (22:00)
[2016-11-23] MEDS ORDERED: REPAGLINIDE 2 MG PO SCH (22:00)
[2016-11-23] MEDS ORDERED: Restoril 15 MG PO SCH (22:00)
[2016-11-23] MEDS ORDERED: NON-FORMULARY ITEM (Atorvastatin Calcium 10 MG) PO SCH (22:00)
[2016-11-23] MEDS ORDERED: NON-FORMULARY ITEM (Magnesium [Magnesium] 500 MG) PO SCH (22:00)
[2016-11-23] MEDS ORDERED: NON-FORMULARY ITEM (Hydralazine Hcl [Hydralazine Hcl] 50 MG) PO SCH (22:00)
[2016-11-23] MEDS: ZYLOPRIM 100 MG PO SCH (22:14)
[2016-11-23] MEDS: Klonopin 0.5 MG PO SCH (22:14)
[2016-11-23] MEDS: NEURONTIN 300 MG PO SCH (22:15)
[2016-11-23] MEDS: Apresoline 25 MG TABLET PO SCH (22:15)
[2016-11-23] MEDS: Klor Con 10 MEQ PO SCH (22:15)
[2016-11-23] MEDS: Lopressor 50 MG PO SCH (22:15)
[2016-11-23] MEDS: MAG-OX 400 PO SCH (22:16)
[2016-11-24] MEDS: Lasix 40 MG/4 ML IV SCH ×2 (04:23→15:56)
[2016-11-24] MEDS: DUONEB 0.5-3 MG/3 ml Neb IH SCH ×3 (05:49→14:49)
[2016-11-24 06:05] LABS: Mean Cell Volume 101.9 fl (78-100); Mean Corpuscular Hemoglobin 31.5 pg (26-32); Mean Platelet Volume 11.6 fl (6-9.5); Platelet Count 209 K/mm3 (150-450); Red Blood Count 3.68 M/mm3 (4.1-5.4); Red Cell Distribution Width 14.5 % (11.5-14.0); White Blood Count 5.7 K/mm3 (4.0-10.5)
[2016-11-24 06:34] LABS: ANION GAP 10.6 MEQ/L (5-15); Carbon Dioxide 35.8 mEq/L (21-32); Potassium 3.9 mEq/L (3.5-5.1)
[2016-11-24] MEDS: ZYLOPRIM 100 MG PO SCH (08:43)
[2016-11-24] MEDS: Klonopin 0.5 MG PO SCH (08:43)
[2016-11-24] MEDS: Lopressor 50 MG PO SCH (08:43)
[2016-11-24] MEDS: Klor Con 10 MEQ PO SCH (08:43)
[2016-11-24] MEDS: ROCEPHIN 1 Gm-D5w 50 ml Bag** 1 G/50 ML IVPB IV SCH (08:43)
[2016-11-24] MEDS: MAG-OX 400 PO SCH (08:43)
[2016-11-24] MEDS: Apresoline 25 MG TABLET PO SCH (08:44)
[2016-11-24] MEDS: NEURONTIN 300 MG PO SCH (08:44)
[2016-11-24] MEDS: Tessalon Perles 100 MG PO SCH ×2 (08:44→15:21)
[2016-11-24] MEDS: NYSTOP 30 GM CREAM TOP SCH ×2 (08:45→13:58)
--- NOTE | 2016-11-24 09:01 | XRAY ---
Indication: Pneumonia. Comparison: One day earlier. AP/lateral chest today demonstrates borderline cardiomegaly again with chronic lung markings including right midlung fibrosis/scarring. Vascularity normal. No focal infiltrate, consolidation, or large effusion. Impression: Borderline cardiomegaly. Negative for acute pneumonic process or CHF.
[2016-11-24] MEDS ORDERED: celeBREX 100 MG PO SCH (10:00)
[2016-11-24] MEDS ORDERED: AMARYL 4 MG PO SCH ×2 (10:00)
[2016-11-24] MEDS ORDERED: Januvia 50 MG PO SCH (10:00)
[2016-11-24] MEDS ORDERED: Zaroxolyn 2.5 MG PO SCH (10:00)
[2016-11-24] MEDS ORDERED: Miralax Powder 17GM PACKET PO SCH (10:00)
[2016-11-24] MEDS ORDERED: Wellbutrin XL 150 MG PO SCH (10:00)
[2016-11-24] MEDS ORDERED: Aldactone 25 MG PO SCH (10:00)
[2016-11-24] MEDS ORDERED: SYNTHROID 125 MCG PO SCH (10:00)
[2016-11-24] MEDS ORDERED: Cardizem CD 180 MG PO SCH (10:00)
[2016-11-24] MEDS ORDERED: Coumadin 10 MG PO SCH (10:00)
[2016-11-24] MEDS ORDERED: SYNTHROID 100 MCG PO SCH (10:00)
[2016-11-24] MEDS ORDERED: ECOTRIN 81 MG PO SCH (10:00)
[2016-11-24] MEDS ORDERED: NON-FORMULARY ITEM (Aspirin [Aspirin] 81 MG) PO SCH (10:00)
[2016-11-24] MEDS ORDERED: NON-FORMULARY ITEM (Celecoxib [Celebrex] 200 MG) PO SCH (10:00)
[2016-11-24] MEDS ORDERED: VITAMIN D2 PO SCH (10:00)
[2016-11-24 16:28] VITALS: BP 146/66; PULSE 75; O2SAT 93
--- NOTE | 2017-01-10 14:31 | SSS ---
DISCHARGE DIAGNOSES: 1) ACUTE BRONCHITIS, CLINICALLY IMPROVING. 2) SHORTNESS OF BREATH, IMPROVED. 3) HISTORY OF HYPERTENSION/CONGESTIVE HEART FAILURE. 4) DIABETES MELLITUS. 5) CHRONIC PAIN. 6) ANXIETY. 7) MORBID OBESITY. 8) CHRONIC RENAL INSUFFICIENCY. HOSPITAL COURSE: Cande Casanova is a 81 year-old woman with past medical history of hypertension, congestive heart failure, chronic obstructive pulmonary disease, diabetes mellitus, chronic pain, anxiety and obesity. She was seen for symptoms of shortness of breath, generalized weakness and productive cough in office on 11/23/2016. Please refer to my history and physical for details. The patient was admitted for further work up and management. Lab work up on admission had revealed elevated BUN and creatinine. Elevated BNP. Initial chest x-ray showed some congestive changes. She was placed on treatment with oxygen nebulization, broad spectrum IV antibiotics. She was continued on diuretics. During her further course she improved clinically, remained hemodynamically stable. On the day of discharge, she was evaluated by Dr. Warren and was discharged home in stable condition. Prior to discharge she ambulated with stable oxygen saturations. The patient was advised to continue p.o. antibiotics upon discharge as directed. Please refer to discharge medication list from 11/24/2016 for details of medications on discharge. The patient was advised to follow up with Dr. Warren for her routine appointment as well as her international normalized ratio as scheduled. Compliance with diet and medications was stressed. She was advised to watch for signs and symptoms of bleeding and report to emergency room immediately if any are to appear. Also, she was advised to continue to monitor her Accu-Chek's and blood pressure readings. The patient and family were advised to bring the patient back to the emergency room [facility] if any new signs or symptoms reappearance of previous signs and symptoms are noted. Please refer to the patient's chart, diagnostic work up and consult notes for details. I discussed with the patient nurse and also discussed with inventory planner. The patient's clinical condition, work-up results and plan of management including discharge plan had been discussed with patient and family in detail. They verbalized understanding and agreement of same. Discussed with the patient's nurse.
== END 2016-11-24 15:25 | disposition home or self-care (01) ==
LOC: MED SURG 13:44
PROVIDERS: ADMIT General Practice; ATTEND General Practice
DX: J20.9 Acute bronchitis, unspecified (principal); I13.0 Hypertensive heart and chronic kidney disease with heart failure and stage 1 through stage 4 chronic kidney disease, or unspecified chronic kidney disease; I50.43 Acute on chronic combined systolic (congestive) and diastolic (congestive) heart failure; I50.42 Chronic combined systolic (congestive) and diastolic (congestive) heart failure; N18.9 Chronic kidney disease, unspecified; E11.610 Type 2 diabetes mellitus with diabetic neuropathic arthropathy; N39.0 Urinary tract infection, site not specified; E86.0 Dehydration; F43.23 Adjustment disorder with mixed anxiety and depressed mood; G89.29 Other chronic pain; F45.42 Pain disorder with related psychological factors; E66.01 Morbid (severe) obesity due to excess calories; M17.9 Osteoarthritis of knee, unspecified; I48.2 Chronic atrial fibrillation; Z79.4 Long term (current) use of insulin; Z79.899 Other long term (current) drug therapy
CPT/HCPCS: 36415; 71010; 71020; 80048; 80053; 81002; 82962; 83036; 83880; 84134; 84484; 85027; 85610; 87086; 93005; 93268; 94002; 94640; 94760; G0378; J0696; J1940; A9270-GY

== ENCOUNTER 2016-12-21 20:06 | Emergency (ER) | payer MEDICARE, OTHER ==
[2016-12-21 21:22] VITALS: BP 134/66; PULSE 68; O2SAT 95
--- NOTE | 2016-12-21 21:33 | ERPHSYRPT ---
- History of Present Illness Time Seen by Provider: 12/21/16 21:33 Source: patient Patient Subjective Stated Complaint: pt states while she was playing cards tonight her arms started shaking and she became pale and began feeling weak. states she has has been in the hospital several times recently for uti. Triage Nursing Assessment: pt alert and oriented . asnwres questions approp. respirations nonlabored with lungs cta. harding cath present with urine yellow, cloudy, and strong odor noted. redness and open areas noted under abd folds. Physician History: The patient is a 81-year-old female with her daughter brought in from a local [facility] when she experienced about 2 minutes of shaking of her hands and feeling slightly weak while playing cards. The [facility] nurse took her blood pressure and said it was slightly low. The patient now feels better. Her past medical history is significant for frequent UTIs, CHF, A. fib. Timing/Duration: today Severity: mild Modifying Factors: Improves With: nothing Associated Symptoms: weakness, other (trembling) Allergies/Adverse Reactions: clarithromycin [From Biaxin] Allergy (Unknown, Verified 12/21/16 21:24) mouth breaks out codeine Allergy (Unknown, Verified 12/21/16 21:24) "I feel warm and terrible" Home Medications: Aspirin 81 mg PO DAILY 10/04/15 [History] Atorvastatin Calcium [Lipitor] 10 mg PO QHS 10/04/15 [History] Bupropion HCl Xl 150 mg [Wellbutrin XL 150 MG] 150 mg PO DAILY 10/04/15 [ History] Diltiazem HCl [Cartia Xt] 180 mg PO DAILY 10/04/15 [History] Ergocalciferol (Vitamin D2) [Vitamin D] 50,000 unit PO WEEKLY 10/04/15 [History] Furosemide 40 mg [Lasix 40 MG] 40 mg PO BID 10/04/15 [History] Glimepiride 4 mg [Amaryl 4 mg] 6 mg PO QAM 10/04/15 [History] Hydralazine HCl 50 mg PO BID 10/04/15 [History] Levothyroxine Sodium 100 Mcg [Synthroid 100 Mcg] 125 mcg PO DAILY 10/04/15 [History] Metolazone 2.5 mg [Zaroxolyn 2.5 MG] 2.5 mg PO QAM 10/04/15 [History] Metoprolol Tartrate 50 mg [Lopressor 50 MG] 50 mg PO BID 10/04/15 [History ] Potassium Chloride 10 Meq Tab* [Klor Con 10 MEQ] 10 meq PO BID 10/04/15 [ History] Polyethylene Glycol 3350 17 gm [Miralax Powder 17GM PACKET] 17 gm PO DAILY [History] Repaglinide [Prandin 2MG Tablet] 2 mg PO BID 06/03/16 [History] Allopurinol 100 mg [Zyloprim 100 mg] 100 mg PO BID 09/14/16 [History] Celecoxib [Celebrex] 200 mg PO DAILY 09/14/16 [History] Clonazepam 0.5 mg [Klonopin 0.5 MG] 0.5 mg PO BID 09/14/16 [History] Gabapentin [Neurontin] 300 mg PO BID 09/14/16 [History] Magnesium 500 mg PO BID 09/14/16 [History] Warfarin Sodium 10 mg [Coumadin 10 MG] 6 mg PO DAILY 09/14/16 [History] Glimepiride 4 mg [Amaryl 4 mg] 4 mg PO DAILY 11/23/16 [History] Sitagliptin Phosphate 50 MG [Januvia 50 MG] 50 mg PO DAILY 11/23/16 [ History] Spironolactone 25 mg [Aldactone 25 MG] 50 mg PO DAILY 11/23/16 [History] Temazepam 15 mg [Restoril 15 MG] 15 mg PO HS 11/23/16 [History] Hx Tetanus, Diphtheria Vaccination/Date Given: Yes Hx Influenza Vaccination/Date Given: Yes Hx Pneumococcal Vaccination/Date Given: Yes Immunizations Up to Date: Yes - Review of Systems Constitutional: No Fever, No Chills Eyes: No Symptoms Ears, Nose, & Throat: No Symptoms Respiratory: No Cough, No Dyspnea Cardiac: No Chest Pain, No Edema, No Syncope Abdominal/Gastrointestinal: No Abdominal Pain, No Nausea, No Vomiting, No Diarrhea Genitourinary Symptoms: No Dysuria Musculoskeletal: No Back Pain, No Neck Pain Skin: No Rash Neurological: Tremors, No Dizziness, No Focal Weakness, No Sensory Changes Psychological: No Symptoms Endocrine: No Symptoms Hematologic/Lymphatic: No Symptoms Immunological/Allergic: No Symptoms All Other Systems: Reviewed and Negative - Past Medical History Pertinent Past Medical History: Yes Neurological History: Peripheral Neuropathy, TIA ENT History: Cataracts Cardiac History: Arrhythmia, Congestive Heart Failure, High Cholesterol, Hypertension, Myocardial Infarction ([place]) Respiratory History: Pulmonary Embolism, Sleep Apnea Endocrine Medical History: Diabetes Type II, Hypothyroidism Musculoskeletal History: Arthritis GI Medical History: No Pertinent History History: Renal Disease, Other Psycho-Social History: Anxiety, Depression Female Reproductive Disorders: No Pertinent History Other Medical History: Sleep apnea uses bi-pap. Chronic A-Fib. Urinary incontinence, Functional. [place](+) year ago, treated. - Past Surgical History Past Surgical History: Yes Neuro Surgical History: No Pertinent History Cardiac: No Pertinent History Respiratory: No Pertinent History Gastrointestinal: Appendectomy, Cholecystectomy Genitourinary: No Pertinent History Musculoskeletal: No Pertinent History Female Surgical History: Section, Hysterectomy, Other Other Surgical History: bladder suspension, t&a, arthroscopy right knee, clot removed from left foot. - Social History Smoking Status: Never smoker Exposure to second hand smoke: No Drug Use: none Patient Lives Alone: No - Nursing Vital Signs Nursing Vital Signs: Initial Vital Signs Temperature 97.4 F Temperature Source Oral Pulse Rate 68 Respiratory Rate 18 Blood Pressure [Right Arm] 134/66 Pain Intensity 0 - Physical Exam General Appearance: no apparent distress, alert Eye Exam: PERRL/EOMI, eyes nml inspection Ears, Nose, Throat Exam: normal ENT inspection, TMs normal, pharynx normal, moist mucous membranes Neck Exam: normal inspection, non-tender, supple, full range of motion Respiratory Exam: normal breath sounds, lungs clear, No respiratory distress Cardiovascular Exam: regular rate/rhythm, normal heart sounds, normal peripheral pulses Gastrointestinal/Abdomen Exam: soft, normal bowel sounds, No tenderness, No mass Pelvic Exam: not done Rectal Exam: not done Back Exam: normal inspection, normal range of motion, No CVA tenderness, No vertebral tenderness Extremity Exam: normal inspection, normal range of motion, pelvis stable Neurologic Exam: alert, oriented x 3, cooperative, normal mood/affect, nml cerebellar function, nml station & gait, sensation nml, No motor deficits Skin Exam: normal color, warm, dry, No rash Lymphatic Exam: No adenopathy SpO2 Interpretation: normal SpO2: 95 Oxygen Delivery: Room Air Ordered Tests: Active Orders 24 hr Category Date Time Status CBC W DIFF Stat Lab 12/21/16 22:02 Completed CMP Stat Lab 12/21/16 22:02 Completed CULTURE,URINE Stat Lab 12/21/16 22:21 Received UA W/ MICROSCOPIC Stat Lab 12/21/16 22:21 Completed Lab/Rad Data: Laboratory Result Diagrams 12/21/16 22:02 12/21/16 22:02 Laboratory Results 12/21/16 12/21/16 12/21/16 Range/Units 22:21 22:02 22:02 WBC 10.1 (4.0-10.5) K/mm3 RBC 3.85 L (4.1-5.4) M/mm3 Hgb 12.2 (12.0-16.0) gm/dl Hct 38.6 (35-47) % MCV 100.3 H (78-100) fl MCH 31.6 (26-32) pg MCHC 31.6 L (32-36) g/dl RDW 14.6 H (11.5-14.0) % Plt Count 210 (150-450) K/mm3 MPV 11.2 H (6-9.5) fl Gran % 72.6 H (36.0-66.0) % Lymphocytes % 14.1 L (24.0-44.0) % Monocytes % 8.2 (0.0-12.0) % Eosinophils % 4.9 (0.00-5.0) % Basophils % 0.2 (0.0-0.4) % Basophils # 0.02 (0-0.4) Sodium 134 L (136-145) mEq/L Potassium 4.6 (3.5-5.1) mEq/L Chloride 91 L (98-107) mEq/L Carbon Dioxide 34.4 H (21-32) mEq/L Anion Gap 13.5 (5-15) MEQ/L BUN 57 H (9-20) mg/dL Creatinine 2.53 H (0.55-1.30) mg/dl Estimated GFR 19 ML/MIN Glucose 144 H (70-110) MG/DL Calcium 9.8 (8.5-10.1) mg/dL Total Bilirubin 0.40 (0.2-1.0) mg/dL AST 18 (15-37) U/L ALT 16 (12-78) U/L Alkaline Phosphatase 171 H (46-116) U/L Serum Total Protein 7.9 (6.4-8.2) gm/dL Albumin 3.7 (3.4-5.0) g/dL Ur Collection Type CATH Urine Color LT.YELLOW (YELLOW) Urine Appearance CLOUDY (CLEAR) Urine pH 8.0 (5-6) Ur Specific [place] 1.005 (1.005-1.025) Urine Protein NEGATIVE (Negative) Urine Ketones NEGATIVE (NEGATIVE) Urine Blood 50 (0-5) Dennis/ul Urine Nitrite POSITIVE (NEGATIVE) Urine Bilirubin NEGATIVE (NEGATIVE) Urine Urobilinogen NORMAL (0-1) mg/dL Ur Leukocyte Esterase 2+ (NEGATIVE) Urine Microscopic RBC 2-5 (0-2) /HPF Urine Microscopic WBC 25-50 (0-5) /HPF Ur Epithelial Cells MODERATE (FEW) /HPF Urine Bacteria MANY (NEGATIVE) /HPF Urine Mucus SLIGHT (NEGATIVE) /HPF Urine Glucose NEGATIVE (NEGATIVE) mg/dL Specimen Received 12/21/16 2222 - Progress Progress: unchanged Counseled pt/family regarding: lab results, diagnosis, need for follow-up - Departure Time of Disposition: 22:49 Departure Disposition: Home Clinical Impression: UTI (urinary tract infection) Condition: Stable Critical Care Time: No Additional Instructions: You have a UTI. You were given Macrobid 100 mg in the ER. Continue Macrobid 100 mg twice a day for 7 days. Follow-up on Monday. Prescriptions: Nitrofurantoin Macro 100 mg [Macrobid 100MG Capsule] 100 mg PO BID #14 capsule
[2016-12-21 22:05] LABS: BASOPHIL % 0.2 % (0.0-0.4); Eosinophil % 4.9 % (0.00-5.0); Granulocytes % 72.6 % (36.0-66.0); Lymphocytes % 14.1 % (24.0-44.0); Mean Cell Volume 100.3 fl (78-100); Mean Platelet Volume 11.2 fl (6-9.5); Monocytes % 8.2 % (0.0-12.0); Platelet Count 210 K/mm3 (150-450); Red Blood Count 3.85 M/mm3 (4.1-5.4); Red Cell Distribution Width 14.6 % (11.5-14.0); White Blood Count 10.1 K/mm3 (4.0-10.5)
[2016-12-21 22:06] LABS: Mean Corpuscular Hemoglobin 31.6 pg (26-32)
[2016-12-21 22:24] LABS: ALBUMIN 3.7 g/dL (3.4-5.0); ANION GAP 13.5 MEQ/L (5-15); BILIRUBIN,TOTAL 0.4 mg/dL (0.2-1.0); Carbon Dioxide 34.4 mEq/L (21-32); Potassium 4.6 mEq/L (3.5-5.1); Total Protein 7.9 gm/dL (6.4-8.2)
[2016-12-21 22:44] LABS: ADD URINE CULTURE? YES (NO); Bacteria MANY /HPF (NEGATIVE); Bilirubin NEGATIVE (NEGATIVE); Blood 50 Ery/ul (0-5); COMPLETE URINE MICROSCOPIC? YES; Collection Type CATH; Epithelial Cells MODERATE /HPF (FEW); Glucose NEGATIVE (NEGATIVE); Leukocyte Esterase 2+ (NEGATIVE); Mucus SLIGHT /HPF (NEGATIVE); WBC 25-50 /HPF (0-5)
[2016-12-21] MEDS ORDERED: Macrobid 100MG Capsule PO ONE (22:51)
[2016-12-21] MEDS ORDERED: Macrobid 100MG Capsule ONE (22:54)
== END 2016-12-21 23:24 | disposition home or self-care (01) ==
LOC: ED 20:06
DX: N39.0 Urinary tract infection, site not specified (principal); Z87.440 Personal history of urinary (tract) infections; I25.2 Old myocardial infarction; I10 Essential (primary) hypertension; E78.00 Pure hypercholesterolemia, unspecified; I50.9 Heart failure, unspecified; E11.9 Type 2 diabetes mellitus without complications; Z79.899 Other long term (current) drug therapy
CPT/HCPCS: 36415; 80053; 81000; 85025; 87077; 87086; 87186; 99283; 99284; A9270-GY

== ENCOUNTER 2017-02-02 15:04 | Observation (INO) | payer MEDICARE, OTHER ==
[2017-02-02] MEDS ORDERED: NovoLOG Insulin SQ PRN (16:29)
[2017-02-02] MEDS ORDERED: Sodium Chloride 0.9% 1000 ML 1,000 ML IV SCH (16:30)
[2017-02-02 17:27] LABS: BASOPHIL % 0.2 % (0.0-0.4); Eosinophil % 4.6 % (0.00-5.0); Granulocytes % 67.6 % (36.0-66.0); Lymphocytes % 19.5 % (24.0-44.0); Mean Cell Volume 99.2 fl (78-100); Mean Corpuscular Hemoglobin 31.7 pg (26-32); Mean Platelet Volume 11.8 fl (6-9.5); Monocytes % 8.1 % (0.0-12.0); Platelet Count 221 K/mm3 (150-450); Red Blood Count 3.88 M/mm3 (4.1-5.4); Red Cell Distribution Width 13.9 % (11.5-14.0); White Blood Count 8.3 K/mm3 (4.0-10.5)
[2017-02-02 17:32] LABS: INR 1.64 (0.8-3.0); PROTIME 18.6 SECONDS (9.95-12.35)
[2017-02-02 17:43] LABS: ALBUMIN 3.7 g/dL (3.4-5.0); ANION GAP 14.2 MEQ/L (5-15); BILIRUBIN,TOTAL 0.4 mg/dL (0.2-1.0); Carbon Dioxide 30.9 mEq/L (21-32); Potassium 4.4 mEq/L (3.5-5.1); Total Protein 7.7 gm/dL (6.4-8.2)
[2017-02-02 17:56] LABS: TROPONIN < 0.017 ng/ml (0.000-0.056)
[2017-02-02] MEDS ORDERED: MAG-OX 400 PO ONE (22:00)
[2017-02-02] MEDS ORDERED: LASIX 20 MG PO ONE (22:00)
[2017-02-02] MEDS ORDERED: Coumadin 5 MG PO ONE (22:00)
[2017-02-02] MEDS: Miralax Powder 17GM PACKET PO SCH (22:23)
[2017-02-02] MEDS: NEURONTIN 300 MG PO SCH (22:23)
[2017-02-02] MEDS: Apresoline 25 MG TABLET PO SCH (22:23)
[2017-02-02] MEDS: celeBREX 100 MG PO SCH (22:23)
[2017-02-02] MEDS: Restoril 15 MG PO SCH ×2 (22:24→22:44)
[2017-02-02] MEDS: Zocor 10MG PO SCH (22:24)
[2017-02-02] MEDS: ZYLOPRIM 100 MG PO SCH (22:24)
[2017-02-02] MEDS: Klor Con 10 MEQ PO SCH (22:24)
[2017-02-02] MEDS: Klonopin 0.5 MG PO SCH (22:33)
[2017-02-02] MEDS: Lopressor 50 MG PO SCH (22:33)
[2017-02-02 23:24] LABS: Bilirubin NEGATIVE (NEGATIVE); Blood NEGATIVE Ery/ul (0-5); COMPLETE URINE MICROSCOPIC? NO; Collection Type CLEAN CATCH; Glucose NEGATIVE (NEGATIVE); Leukocyte Esterase NEGATIVE (NEGATIVE)
[2017-02-03] MEDS ORDERED: PARICALCITOL 1 MCG PO SCH (07:45)
[2017-02-03] MEDS ORDERED: WARFARIN SODIUM 7.5 MG PO SCH (07:45)
[2017-02-03] MEDS ORDERED: MEDICATION INTERVENTION MC PRN (07:50)
[2017-02-03] MEDS ORDERED: Glucophage 500 MG PO SCH (08:00)
[2017-02-03] MEDS ORDERED: AMARYL 4 MG PO SCH (08:00)
--- NOTE | 2017-02-03 08:36 | XRAY ---
Indication: Confusion. Multiple contiguous axial images obtained through the head without contrast. Comparison: November 04, 2016. Stable age-appropriate global atrophy and minimal periventricular degenerative micro-ischemia bilaterally. No acute intracranial hemorrhage, abnormal extra-axial fluid collection, or mass effect. Fourth ventricle is midline without hydrocephalus. Bony calvarium intact again with hyperostosis frontalis interna. Paranasal sinuses and mastoid air cells are clear. Stable left occipital calcified sebaceous cyst. Impression: Stable nonacute senile brain. CTDI 69.11
[2017-02-03] MEDS: Klor Con 10 MEQ PO SCH ×3 (09:41→22:17)
[2017-02-03] MEDS: Wellbutrin XL 150 MG PO SCH (09:41)
[2017-02-03] MEDS: MAG-OX 400 PO SCH ×2 (09:41→22:17)
[2017-02-03] MEDS: Apresoline 25 MG TABLET PO SCH ×2 (09:41→22:16)
[2017-02-03] MEDS: celeBREX 100 MG PO SCH (09:41)
[2017-02-03] MEDS: Miralax Powder 17GM PACKET PO SCH ×2 (09:41→22:16)
[2017-02-03] MEDS: Protonix 40MG Tablet PO SCH (09:42)
[2017-02-03] MEDS: Aldactone 25 MG PO SCH (09:42)
[2017-02-03] MEDS: NEURONTIN 300 MG PO SCH ×2 (09:42→22:17)
[2017-02-03] MEDS: Zaroxolyn 2.5 MG PO SCH (09:42)
[2017-02-03] MEDS: Lopressor 50 MG PO SCH ×2 (09:42→22:17)
[2017-02-03] MEDS: ECOTRIN 81 MG PO SCH (09:42)
[2017-02-03] MEDS: Klonopin 0.5 MG PO SCH ×2 (09:42→22:17)
[2017-02-03] MEDS: ZYLOPRIM 100 MG PO SCH ×2 (09:42→22:17)
[2017-02-03] MEDS: Amaryl 2 MG PO SCH (09:50)
[2017-02-03] MEDS: AMARYL 4 MG PO SCH (09:51)
[2017-02-03] MEDS ORDERED: Glucophage XR 500 MG PO SCH (10:00)
[2017-02-03] MEDS ORDERED: NON-FORMULARY ITEM (Aspirin [Aspirin] 81 MG) PO SCH (10:00)
[2017-02-03] MEDS ORDERED: NON-FORMULARY ITEM (Magnesium [Magnesium] 500 MG) PO SCH (10:00)
[2017-02-03] MEDS ORDERED: SYNTHROID 125 MCG PO SCH (10:00)
[2017-02-03] MEDS ORDERED: GLIMEPIRIDE PO SCH (10:00)
[2017-02-03] MEDS ORDERED: Lasix 40 MG PO SCH (10:00)
[2017-02-03] MEDS ORDERED: SYNTHROID 25 MCG PO ONE (11:45)
[2017-02-03] MEDS ORDERED: Coumadin 5 MG PO SCH (18:00)
[2017-02-03] MEDS ORDERED: Coumadin 2.5 MG PO SCH (18:00)
[2017-02-03] MEDS ORDERED: TYLENOL EXTRA STRENGTH 500 MG PO PRN (18:27)
[2017-02-03] MEDS: Zocor 10MG PO SCH (22:17)
[2017-02-03] MEDS: Lasix 40 MG/4 ML IV SCH (22:17)
[2017-02-03] MEDS: Restoril 15 MG PO SCH (22:25)
[2017-02-04 05:56] LABS: Mean Cell Volume 98.3 fl (78-100); Mean Corpuscular Hemoglobin 31.4 pg (26-32); Mean Platelet Volume 12.1 fl (6-9.5); Platelet Count 211 K/mm3 (150-450); Red Blood Count 4.07 M/mm3 (4.1-5.4); Red Cell Distribution Width 13.9 % (11.5-14.0); White Blood Count 6.3 K/mm3 (4.0-10.5)
[2017-02-04 06:22] LABS: ALBUMIN 3.7 g/dL (3.4-5.0); ANION GAP 11.7 MEQ/L (5-15); BILIRUBIN,TOTAL 0.4 mg/dL (0.2-1.0); MAGNESIUM 2.3 mg/dL (1.8-2.4); Potassium 3.8 mEq/L (3.5-5.1); Total Protein 7.7 gm/dL (6.4-8.2)
[2017-02-04] MEDS: AMARYL 4 MG PO SCH (07:40)
[2017-02-04] MEDS: Amaryl 2 MG PO SCH (07:40)
[2017-02-04 07:49] VITALS: BP 117/58; PULSE 81
[2017-02-04 08:43] VITALS: O2SAT 97
--- NOTE | 2017-02-04 08:45 | XRAY ---
Indication: Generalized weakness. Comparison: November 24, 2016. PA/lateral chest remains clear. Heart and mediastinal structures within normal limits. Bony thorax intact again with mild osteopenia and degenerative changes. Impression: Nonacute chest.
[2017-02-04] MEDS ORDERED: SYNTHROID 150 MCG PO SCH (10:00)
[2017-02-04] MEDS: NEURONTIN 300 MG PO SCH (10:09)
[2017-02-04] MEDS: Miralax Powder 17GM PACKET PO SCH (10:09)
[2017-02-04] MEDS: Apresoline 25 MG TABLET PO SCH (10:09)
[2017-02-04] MEDS: Lopressor 50 MG PO SCH (10:09)
[2017-02-04] MEDS: ECOTRIN 81 MG PO SCH (10:10)
[2017-02-04] MEDS: Protonix 40MG Tablet PO SCH (10:10)
[2017-02-04] MEDS: MAG-OX 400 PO SCH (10:10)
[2017-02-04] MEDS: Klonopin 0.5 MG PO SCH (10:10)
[2017-02-04] MEDS: Aldactone 25 MG PO SCH (10:10)
[2017-02-04] MEDS: Zaroxolyn 2.5 MG PO SCH (10:10)
[2017-02-04] MEDS: ZYLOPRIM 100 MG PO SCH (10:10)
[2017-02-04] MEDS: Lasix 40 MG/4 ML IV SCH (10:10)
[2017-02-04] MEDS: Klor Con 10 MEQ PO SCH (10:10)
[2017-02-04] MEDS: Wellbutrin XL 150 MG PO SCH (10:11)
--- NOTE | 2017-02-04 15:06 | PROG NOTE ---
DATE: 02/03/2017 Chart is reviewed and events noted. On my evaluation the patient is alert, awake and comfortable. She states she felt a little better than this morning. She was having just weakness all over. She has not ambulated today. She states that her appetite is poor. PHYSICAL EXAMINATION: VITAL SIGNS: Blood pressure 120/56, heart rate 78, respiratory rate 20, temperature 97.8F. Oxygen saturation 94% on room air. HEENT: Pallor or icterus is noted. NECK: No JVD is present. CVS: S1, S2 present. RESPIRATORY: Breath sounds are bilaterally diminished and clear to auscultation. ABDOMEN: Obese, soft, nontender. NEURO: She is alert, awake, answers simple questions. EXTREMITIES: No edema on bilateral lower extremities. LABORATORY DATA AND TESTS: Labs from 02/02/[address] scan of head from 02/02/2017 showed stable, nonacute senile brain. Medications were reviewed. ASSESSMENT: A 81 year old woman with impression: 1) Generalized weakness. 2) Congestive heart failure with decompensation. 3) Chronic renal insufficiency. 4) History of confusion that appears to have resolved clinically. 5) Diabetes mellitus. 6) Hypothyroidism. 7) History of chronic obstructive pulmonary disease. 8) Morbid obesity. PLAN: Continue to monitor CBC and electrolytes. Diuretics were changed to IV. [facility] [employer] consultation has been requested. PT/OT as tolerated. The patient's Synthroid dose was increased. Advised to recheck TSH in six weeks. Likely discharge home tomorrow if improved. The patient's clinical condition, work-up results and plan of management were discussed were discussed with her. She seems to be in understanding and agreement. Discussed with charge nurse.
--- NOTE | 2017-02-04 16:07 | CONS ---
CONSULT DATE: 02/03/2017 REASON FOR CONSULT: Acute on chronic renal disease. HISTORY: The patient is a 81 year-old lady who has multiple medical problems with chronic kidney disease stage IV and congestive heart failure. She has frequent hospitalizations and admissions for various reasons. She was in Dr. Warren's office and was found to have generalized weakness, confusion, numbness, decreased appetite so she was admitted for further management. Her BUN and creatinine were found to be elevated so nephology was consulted. The patient denies any vomiting or diarrhea. Her confusion is slightly better. She denies any leg edema per se. She has a poor appetite, generalized weakness, fatigue, malaise. She has had episodes of fall in the past and recent falls. She does complain of frequent urination. She complains of generalized weakness, fatigue and malaise. Her confusion is off and on but at this time she knows where she is and why she is here and was able to answer all questions appropriately. No active vomiting, diarrhea or fever. Complains of increased urination. PAST MEDICAL HISTORY: Chronic kidney disease stage IV. Diabetes mellitus type 2. Hypertension. Hypothyroidism. Morbid obesity. Congestive heart failure. Atrial fibrillation. Osteoarthritis. Chronic anticoagulation. Gout. Hyperlipidemia. MEDICATIONS: Home medications were reviewed from the medication reconciliation sheet. ALLERGIES: CLARITHROMYCIN, CODEINE. SOCIAL HISTORY: She denies any tobacco, alcohol or substance abuse. FAMILY HISTORY: She denies any history of kidney disease in the family. PHYSICAL EXAMINATION: The patient is awake, alert and in no acute distress. VITAL SIGNS: Respiratory rate 19, blood pressure 109/50. Oxygen saturation 94%. HEENT: Normocephalic. ENT normal. Mucosa moist. NECK: No JVD. CHEST: Clear to auscultation. ABDOMEN: Soft, somewhat morbidly obese. Difficult to exam for organomegaly due to morbid obesity. EXTREMITIES: Trace peripheral edema. No cyanosis. NEUROLOGIC: Awake, alert. SKIN: Warm and dry. LAB DATA AND TESTS: Hemoglobin 12.3, white blood cell 8.3, PLT 221,000. UA showed nitrite negative. Leukocyte esterase negative. ProBNP is elevated. BUN 64, creatinine 2.8, estimated glomerular filtration rate 17, sodium 135, potassium 4.4. ProBNP 1728. Troponin is negative. ASSESSMENT AND PLAN: 1) Acute kidney disease with underlying chronic kidney disease stage IV. She likely has underlying chronic kidney disease stage IV related to diabetes, hypertension and nephropathy. Likely schedule some diuresis. Avoid NSAID's, Celebrex. She has some degree of cardiorenal syndrome. Her CLAUDETTE is unknown at this time but she seems fairly uvolemic but BNP is elevated which is because of poor renal function. At this time I will continue present diuretics, will monitor input/output and renal function. Will like to avoid NSAID's and Celebrex and Metformin. Will continue to follow closely. 2) Congestive heart failure. I recommend continuing present diuretics. She is not a good surgical candidate because of poor renal function. 3) Hypertension. I will continue present medications. The patient is under reasonable control. 4) Osteoarthritis. I recommend avoiding NSAID's. Further management per primary team. 5) Diabetes mellitus type 2. I recommend avoiding Metformin, further management per primary team. 6) Hyperlipidemia. Continue atorvastatin. Thank you for this consultation on this patient. Please do not hesitate to contact me for any questions.
--- NOTE | 2017-02-04 16:16 | DS ---
DISCHARGE DIAGNOSES: 1) ALTERED MENTAL STATUS, RESOLVED. 2) HISTORY OF HYPERTENSION. 3) DIABETES. 4) CHRONIC KIDNEY DISEASE. HOSPITAL COURSE: She was admitted with some altered mental status. During the course of the hospitalization the patient had chronic kidney disease. She also had some readjustment of medication and required BiPAP through the night. She seems to be much more clear-headed at this time. The patient had CT scan of the brain done which did not show any acute changes. International normalized ratio 1.64. The patient had chest x-ray done which was negative. The patient does have chronic kidney disease around stage III, diabetes and hypertension. She remains stable at this time. The patient's confusional state is much better now. She had good sleep last night and did well with the BiPAP. Hemoglobin A1C stable. The patient's oxygenation is better. The patient at this time will be advised to be discharged home for outpatient follow up. Her condition remains stable. Will hold off on Metformin and Celebrex in view of her advanced kidney disease. The rest of the medications continued as before. Follow up in the office with Dr. Ibeth Freeman.
== END 2017-02-04 13:10 | disposition home health service (06) ==
LOC: MED SURG 15:32
PROVIDERS: ADMIT General Practice; ATTEND General Practice
DX: R41.82 Altered mental status, unspecified (principal); I10 Essential (primary) hypertension; N28.9 Disorder of kidney and ureter, unspecified; E11.22 Type 2 diabetes mellitus with diabetic chronic kidney disease; I12.9 Hypertensive chronic kidney disease with stage 1 through stage 4 chronic kidney disease, or unspecified chronic kidney disease; N18.4 Chronic kidney disease, stage 4 (severe); R53.1 Weakness; I50.9 Heart failure, unspecified; E03.9 Hypothyroidism, unspecified; J44.9 Chronic obstructive pulmonary disease, unspecified; E66.01 Morbid (severe) obesity due to excess calories; I48.91 Unspecified atrial fibrillation; E78.5 Hyperlipidemia, unspecified; M10.9 Gout, unspecified; M19.90 Unspecified osteoarthritis, unspecified site
CPT/HCPCS: 36415; 70450; 71020; 80053; 81002; 82962; 83036; 83735; 83880; 84443; 84484; 85025; 85027; 85610; 93005; 94760; G0378; J1940; A9270-GY

== ENCOUNTER 2018-02-24 22:47 | Emergency (ER) | payer MEDICARE, OTHER ==
[2018-02-24] MEDS ORDERED: PROTONIX 40 MG IV IV ONE ×2 (22:55→22:59)
--- NOTE | 2018-02-24 23:01 | ERPHSYRPT ---
- History of Present Illness Time Seen by Provider: 02/24/18 22:50 Historian: patient Exam Limitations: no limitations Physician History: 82 y/o female with history of a fib currently on coumadin sent from intermediate for hematuria and melena. This evening patient started having hematuria. For the past week, patient has been having black stool. Since Monday, her coumadin dose was increased from 5 to 6 mg daily. Pt was also started on iron supplementation. Pt admits to mild epigastric abdominal pain. Pt denies any fever, chills, nausea, vomiting, diarrhea, constipation or bright red blood per rectum. Pt states she had an endoscopy not too long ago but had a colonoscopy many years ago. Timing/Duration: today, day(s) Activities at Onset: none Quality: aching Abdominal Pain Onset Location: epigastric Pain Radiation: no radiation Severity of Pain-Max: mild Severity of Pain-Current: mild Modifying Factors: Improves With: nothing Associated Symptoms: denies symptoms Previous symptoms: no prior history Allergies/Adverse Reactions: codeine Allergy (Unknown, Verified 02/24/18 23:11) "I feel warm and terrible" clarithromycin [From Biaxin] Allergy (Verified 02/24/18 23:10) Home Medications: Aspirin 81 mg PO DAILY 10/04/15 [History] Atorvastatin Calcium [Lipitor] 10 mg PO QHS 10/04/15 [History] Bupropion HCl Xl 150 mg [Wellbutrin XL 150 MG] 300 mg PO DAILY 10/04/15 [ History] Furosemide 40 mg [Lasix 40 MG] 40 mg PO BID 10/04/15 [History] Hydralazine HCl 50 mg PO BID 10/04/15 [History] Metoprolol Tartrate 50 mg [Lopressor 50 MG] 50 mg PO BID 10/04/15 [History ] Potassium Chloride 10 Meq Tab* [Klor Con 10 MEQ] 20 meq PO BID 10/04/15 [ History] Polyethylene Glycol 3350 17 gm [Miralax Powder 17GM PACKET] 17 gm PO DAILY PRN PRN 06/03/16 [History] Allopurinol 100 mg [Zyloprim 100 mg] 100 mg PO BID 09/14/16 [History] Clonazepam 0.5 mg [Klonopin 0.5 MG] 0.5 mg PO BID 09/14/16 [History] Gabapentin [Neurontin] 300 mg PO BID 09/14/16 [History] Spironolactone 25 mg [Aldactone 25 MG] 50 mg PO DAILY 11/23/16 [History] PANTOPRAZOLE 40 mg Tablet [Protonix 40MG Tablet] 40 mg PO DAILY 02/02/17 [ History] Warfarin Sodium [Coumadin] 7.5 mg PO DAILY 02/02/17 [History] Glimepiride 4 mg [Amaryl 4 mg] 6 mg PO DAILY 02/03/17 [History] Amoxicillin/Potassium Clav [Amox Tr-K Clv 500-125 mg Tab] 0.5 each PO DAILY 02/03 [History] Celecoxib 100 mg [celeBREX 100 MG] 100 mg PO BID 02/24/18 [History] Chlorthalidone 25 mg PO DAILY 02/24/18 [History] Cholecalciferol (Vitamin D3) [Vitamin D3] 2,000 unit PO DAILY 02/24/18 [History] Cyanocobalamin (Vitamin B-12) [Vitamin B12] 1,000 mcg PO DAILY 02/24/18 [History ] Ferric Citrate [Auryxia] 210 mg PO TID 02/24/18 [History] Insulin Glargine,Hum.rec.anlog [Toujeo Solostar] 20 unit SQ DAILY 02/24/18 [ History] Levothyroxine Sodium 150 Mcg [Synthroid 150 Mcg] 150 mcg PO DAILY 02/24/18 [History] Magnesium Oxide 400 mg [Mag-Ox 400] 400 mg PO DAILY 02/24/18 [History] Potassium Chloride 10 Meq Tab* [Klor Con 10 MEQ] 10 meq PO HS 02/24/18 [ History] Sucralfate 1 gm [Carafate 1 GM] 1 gm PO BID 02/24/18 [History] Verapamil HCl Sr 180 mg [Isoptin Sr 180Mg] 180 mg PO DAILY 02/24/18 [ History] Hx Tetanus, Diphtheria Vaccination/Date Given: Yes Hx Influenza Vaccination/Date Given: Yes Hx Pneumococcal Vaccination/Date Given: Yes - Review of Systems Constitutional: No Fever, No Chills Eyes: No Symptoms Ears, Nose, & Throat: No Symptoms Respiratory: No Cough, No Dyspnea Cardiac: No Chest Pain, No Edema, No Syncope Abdominal/Gastrointestinal: Abdominal Pain, Melena, No Nausea, No Vomiting, No Diarrhea Genitourinary Symptoms: Hematuria, No Dysuria Musculoskeletal: No Back Pain, No Neck Pain Skin: No Rash Neurological: No Dizziness, No Focal Weakness, No Sensory Changes Psychological: No Symptoms Endocrine: No Symptoms All Other Systems: Reviewed and Negative - Past Medical History Pertinent Past Medical History: Yes Neurological History: No Pertinent History ENT History: Cataracts, Glaucoma Cardiac History: Arrhythmia, Congestive Heart Failure, High Cholesterol, Hypertension, Myocardial Infarction (ID) Respiratory History: CHF, Pulmonary Embolism, Sleep Apnea Endocrine Medical History: Diabetes Type II, Hypothyroidism Musculoskeletal History: Arthritis, Osteoarthritis GI Medical History: Other History: Renal Disease Psycho-Social History: Anxiety, Depression Female Reproductive Disorders: No Pertinent History Other Medical History: H-Pylori, - hysterectomy - Past Surgical History Past Surgical History: Yes Neuro Surgical History: No Pertinent History Cardiac: No Pertinent History Respiratory: No Pertinent History Gastrointestinal: Appendectomy, Cholecystectomy Genitourinary: No Pertinent History Musculoskeletal: No Pertinent History Female Surgical History: Hysterectomy, Section Other Surgical History: foot surgery - Social History Smoking Status: Never smoker Exposure to second hand smoke: No Drug Use: none Patient Lives Alone: No - Nursing Vital Signs Nursing Vital Signs: Initial Vital Signs Pulse Rate 85 02/24/18 22:58 Respiratory Rate 18 02/24/18 22:58 Blood Pressure 168/95 02/24/18 22:58 O2 Sat by Pulse Oximetry 97 02/24/18 22:58 Pain Scale Pain Intensity 0 - Physical Exam General Appearance: no apparent distress, alert, obese Eye Exam: PERRL/EOMI, eyes nml inspection Ears, Nose, Throat Exam: normal ENT inspection, pharynx normal, moist mucous membranes Neck Exam: normal inspection, non-tender, supple, full range of motion Respiratory Exam: normal breath sounds, lungs clear, No respiratory distress Cardiovascular Exam: regular rate/rhythm, normal heart sounds, normal peripheral pulses Gastrointestinal/Abdomen Exam: soft, normal bowel sounds, No tenderness, No mass Rectal Exam: normal rectal tone, No black stool, No blood Back Exam: normal inspection, normal range of motion, No CVA tenderness, No vertebral tenderness Extremity Exam: normal inspection, normal range of motion, pelvis stable Neurologic Exam: alert, oriented x 3, cooperative, normal mood/affect, nml cerebellar function, sensation nml, No motor deficits Skin Exam: normal color, warm, dry, ecchymosis SpO2 Interpretation: normal - Course Nursing assessment & vital signs reviewed: Yes Ordered Tests: Active Orders 24 hr Category Date Time Status IV Insertion STAT Care 02/24/18 22:55 Active CBC W DIFF Stat Lab 02/24/18 23:17 Completed CMP Stat Lab 02/24/18 23:17 Completed Occult Blood,Stool Other Stat Lab 02/24/18 23:17 Completed PROTIME WITH INR Stat Lab 02/24/18 23:17 Completed PTT Stat Lab 02/24/18 23:17 Completed UA W/RFX UR CULTURE Stat Lab 02/24/18 23:31 Completed Medication Summary Discontinued Medications Generic Name Dose Route Start Last Admin Trade Name Freq PRN Reason Stop Dose Admin Nitrofurantoin Macrocrystals 100 mg 02/25/18 00:08 Macrobid 100mg Capsule PO 02/25/18 00:09 STAT ONE Pantoprazole Sodium 40 mg 02/24/18 22:55 02/24/18 23:04 Protonix 40 Mg Iv IV 02/24/18 22:56 40 mg STAT ONE Administration Pantoprazole Sodium Confirm 02/24/18 22:59 Protonix 40 Mg Iv Administered 02/24/18 23:00 Dose 40 mg IV .[employer]ano[employer] ONE Lab/Rad Data: Laboratory Result Diagrams 02/24/18 23:17 02/24/18 23:17 Laboratory Results 02/24/18 02/24/18 02/24/18 Range/Units 23:31 23:17 23:17 WBC (4.0-10.5) K/mm3 RBC (4.1-5.4) M/mm3 Hgb (12.0-16.0) gm/dl Hct (35-47) % MCV (78-100) fl MCH (26-32) pg MCHC (32-36) g/dl RDW (11.5-14.0) % Plt Count (150-450) K/mm3 MPV (6-9.5) fl Gran % (36.0-66.0) % Eos # (Auto) (0-0.5) Absolute Lymphs (auto) (1.0-4.6) Absolute Monos (auto) (0.0-1.3) Lymphocytes % (24.0-44.0) % Monocytes % (0.0-12.0) % Eosinophils % (0.00-5.0) % Basophils % (0.0-0.4) % Absolute Granulocytes (1.4-6.9) Basophils # (0-0.4) PT (9.95-12.35) SECONDS INR (0.8-3.0) APTT (25.3-37.0) SECONDS Sodium (137-145) mmol/L Potassium (3.5-5.1) mmol/L Chloride (98-107) mmol/L Carbon Dioxide (22-30) mmol/L Anion Gap (5-15) MEQ/L BUN (7-17) mg/dL Creatinine (0.52-1.04) mg/dL Estimated GFR ML/MIN Glucose (74-106) mg/dL Calcium (8.4-10.2) mg/dL Total Bilirubin (0.2-1.3) mg/dL AST (14-36) U/L ALT (0-35) U/L Alkaline Phosphatase (38-126) U/L Serum Total Protein (6.3-8.2) g/dL Albumin (3.5-5.0) g/dL Ur Collection Type INDWELLING CATH Urine Color COLORLESS (YELLOW) Urine Appearance CLEAR (CLEAR) Urine pH 6.0 (5-6) Ur Specific [place] 1.005 (1.005-1.025) Urine Protein NEGATIVE (Negative) Urine Ketones NEGATIVE (NEGATIVE) Urine Blood NEGATIVE (0-5) Dennis/ul Urine Nitrite POSITIVE (NEGATIVE) Urine Bilirubin NEGATIVE (NEGATIVE) Urine Urobilinogen NORMAL (0-1) mg/dL Ur Leukocyte Esterase NEGATIVE (NEGATIVE) Urine Culture Reflexed NO (NO) Urine Glucose NEGATIVE (NEGATIVE) mg/dL Stool Occult Blood NEGATIVE (Negative) Specimen Received 02/24/18 2300 ABO Group O Rh Factor POSITIVE Antibody Screen NEGATIVE (NEGATIVE) 02/24/18 02/24/18 02/24/18 Range/Units 23:17 23:17 23:17 WBC 7.4 (4.0-10.5) K/mm3 RBC 4.15 (4.1-5.4) M/mm3 Hgb 12.7 (12.0-16.0) gm/dl Hct 41.0 (35-47) % MCV 98.8 (78-100) fl MCH 30.6 (26-32) pg MCHC 31.0 L (32-36) g/dl RDW 15.5 H (11.5-14.0) % Plt Count 240 (150-450) K/mm3 MPV 10.9 H (6-9.5) fl Gran % 63.3 (36.0-66.0) % Eos # (Auto) 0.53 H (0-0.5) Absolute Lymphs (auto) 1.55 (1.0-4.6) Absolute Monos (auto) 0.63 (0.0-1.3) Lymphocytes % 20.8 L (24.0-44.0) % Monocytes % 8.5 (0.0-12.0) % Eosinophils % 7.1 H (0.00-5.0) % Basophils % 0.3 (0.0-0.4) % Absolute Granulocytes 4.71 (1.4-6.9) Basophils # 0.02 (0-0.4) PT 17.5 H (9.95-12.35) SECONDS INR 1.50 (0.8-3.0) APTT 33.1 (25.3-37.0) SECONDS Sodium 138 (137-145) mmol/L Potassium 3.5 (3.5-5.1) mmol/L Chloride 90 L (98-107) mmol/L Carbon Dioxide 37 H (22-30) mmol/L Anion Gap 13.9 (5-15) MEQ/L BUN 45 H (7-17) mg/dL Creatinine 2.25 H (0.52-1.04) mg/dL Estimated GFR 22.2 ML/MIN Glucose 145 H (74-106) mg/dL Calcium 10.1 (8.4-10.2) mg/dL Total Bilirubin 0.50 (0.2-1.3) mg/dL AST 17 (14-36) U/L ALT 15 (0-35) U/L Alkaline Phosphatase 180 H (38-126) U/L Serum Total Protein 7.9 (6.3-8.2) g/dL Albumin 4.5 (3.5-5.0) g/dL Ur Collection Type Urine Color (YELLOW) Urine Appearance (CLEAR) Urine pH (5-6) Ur Specific [place] (1.005-1.025) Urine Protein (Negative) Urine Ketones (NEGATIVE) Urine Blood (0-5) Dennis/ul Urine Nitrite (NEGATIVE) Urine Bilirubin (NEGATIVE) Urine Urobilinogen (0-1) mg/dL Ur Leukocyte Esterase (NEGATIVE) Urine Culture Reflexed (NO) Urine Glucose (NEGATIVE) mg/dL Stool Occult Blood (Negative) Specimen Received ABO Group Rh Factor Antibody Screen (NEGATIVE) - Progress Progress: improved Progress Note: 02/25/18 00:12 The stool guiac is negative. Pt has a normal Hgb, is not hypotensive or tachycardic. The UA only shows positive nitrite but no other findings to suggest a UTI. The patient is already on low dose augmentin to prevent her from developing a UTI. Pt will be referred to urology, Dr Rosenberg for hematuria. - Departure Time of Disposition: 00:14 Departure Disposition: Home Clinical Impression: Hematuria Qualifiers: Hematuria type: unspecified type Qualified Code(s): R31.9 - Hematuria, unspecified Condition: Stable Critical Care Time: No Referrals: DILMA CORNEJO [Primary Care Provider] - RENETTA ROSENBERG [COURTESY STAFF] - Instructions: Blood in the Urine (Hematuria) in Adults Additional Instructions: Follow up with Dr Rosenberg next week for hematuria.
[2018-02-24 23:08] VITALS: PULSE 85; O2SAT 97
[2018-02-24 23:26] LABS: BASOPHIL % 0.3 % (0.0-0.4); Basophil (Absolute #) 0.02 (0-0.4); Eosinophil % 7.1 % (0.00-5.0); Eosinophil (Absolute #) 0.53 (0-0.5); Granulocyte Absolute (ANC) 4.71 (1.4-6.9); Granulocytes % 63.3 % (36.0-66.0); Hemoglobin 12.7 gm/dl (12.0-16.0); Lymphocyte (Absolute #) 1.55 (1.0-4.6); Lymphocytes % 20.8 % (24.0-44.0); Mean Cell Volume 98.8 fl (78-100); Mean Corpuscular Hemoglobin 30.6 pg (26-32); Mean Platelet Volume 10.9 fl (6-9.5); Monocyte (Absolute #) 0.63 (0.0-1.3); Monocytes % 8.5 % (0.0-12.0); Platelet Count 240 K/mm3 (150-450); Red Blood Count 4.15 M/mm3 (4.1-5.4); Red Cell Distribution Width 15.5 % (11.5-14.0); White Blood Count 7.4 K/mm3 (4.0-10.5)
[2018-02-24 23:35] LABS: Appearance CLEAR (CLEAR); Bilirubin NEGATIVE (NEGATIVE); Blood NEGATIVE Ery/ul (0-5); Glucose NEGATIVE (NEGATIVE); Ketones NEGATIVE (NEGATIVE); Leukocyte Esterase NEGATIVE (NEGATIVE); Nitrite POSITIVE (NEGATIVE); Protein,Urine Dip NEGATIVE (Negative); Specific Gravity 1.005 (1.005-1.025); Urobilinogen NORMAL mg/dL (0-1)
[2018-02-24 23:42] LABS: INR 1.5 (0.8-3.0)
[2018-02-24 23:44] LABS: ALBUMIN 4.5 g/dL (3.5-5.0); ANION GAP 13.9 MEQ/L (5-15); BILIRUBIN,TOTAL 0.5 mg/dL (0.2-1.3); Calcium 10.1 mg/dL (8.4-10.2); Creatinine 1 2.25 mg/dL (0.52-1.04); Potassium 3.5 mmol/L (3.5-5.1); Total Protein 7.9 g/dL (6.3-8.2)
[2018-02-24 23:45] LABS: PTT 33.1 SECONDS (25.3-37.0)
[2018-02-25] MEDS ORDERED: Macrobid 100MG Capsule PO ONE (00:08)
[2018-02-25 00:10] LABS: ABO TYPING O; Antibody Screen NEGATIVE (NEGATIVE); RH TYPING POSITIVE
[2018-02-25 00:13] VITALS: BP 110/93
== END 2018-02-25 00:45 | disposition home or self-care (01) ==
LOC: ED 22:47
DX: R31.9 Hematuria, unspecified (principal); K92.1 Melena; R10.13 Epigastric pain; Z79.01 Long term (current) use of anticoagulants; Z79.899 Other long term (current) drug therapy; E11.9 Type 2 diabetes mellitus without complications; Z79.4 Long term (current) use of insulin
CPT/HCPCS: 36000; 36415; 80053; 81002; 82272; 85025; 85610; 85730; 86850; 86900; 86901; 96374; 99284

== ENCOUNTER 2019-01-07 22:20 | Inpatient (IN) | payer MEDICARE, OTHER ==
[2019-01-07 23:29] LABS: Lactic Acid 2.3 (0.4-2.0)
[2019-01-07 23:32] LABS: Hematocrit 43.9 % (35-47); Hemoglobin 14.8 gm/dl (12.0-16.0); Mean Cell Volume 103.1 fl (78-100); Mean Corpuscular Hemoglobin 34.7 pg (26-32); Mean Corpuscular Hgb Concent. 33.7 g/dl (32-36); Mean Platelet Volume 10.5 fl (6-9.5); Platelet Count 316 K/mm3 (150-450); Red Blood Count 4.26 M/mm3 (4.1-5.4); Red Cell Distribution Width 13.3 % (11.5-14.0); White Blood Count 21.6 K/mm3 (4.0-10.5)
--- NOTE | 2019-01-07 23:33 | ERPHSYRPT ---
- History of Present Illness Time Seen by Provider: 01/07/19 22:47 Source: patient, family, EMS Exam Limitations: other (altered mental status) Patient Subjective Stated Complaint: [facility] called and stated , "pt has been confused since 1400 but its getting worse. Pt did not know her own daughter this evening". They called Dr. King and he wanted her brought to ER Triage Nursing Assessment: pt brought in by ambulance to 4. Pt is from [facility], pt is confused. Pt is alert and oriented x1 (name only). Lungs clear but diminished, heart tones irreg, abd lg, obese with hyperactive bs x4 quad. Pt unable to follow my finger with lt eye. Pt is drowsy and very weak to lower ext and mildly weak to upper ext. Speech is clear , family states she's been having trouble swallowing and hasn't been eating much and has lost 75 over the last 8 months. Physician History: Pt has been treated for UTI in [facility] x 6 days on PO Bactrim, she started becoming confused and generally weak 3 days ago, according to her daughters, they deny fever, vomiting, but she has chronic diarrhea, and sometimes blood in her stool, for which she has been worked up. Her confusion and weakness, became more severe today, so they decided to transfer her here. She is alert, not lethargic, and quite clear at this moment.She denies any pain, no SOB, severe dizziness, weakness, she is afebrile. Timing/Duration: day(s) (3) Severity: moderate Deficits: decrease ability to stand Baseline/Normal Cognition: alert oriented x 3 Current Cognition: alert oriented x 3 Baseline Gait: walks only w/assistance Associated Symptoms: denies symptoms Allergies/Adverse Reactions: codeine Allergy (Unknown, Verified 02/24/18 23:11) "I feel warm and terrible" clarithromycin [From Biaxin] Allergy (Verified 02/24/18 23:10) Home Medications: Aspirin 81 mg PO DAILY 10/04/15 [History] Atorvastatin Calcium [Lipitor] 10 mg PO QHS 10/04/15 [History] Bupropion HCl Xl 150 mg [Wellbutrin XL 150 MG] 300 mg PO DAILY 10/04/15 [ History] Furosemide 40 mg [Lasix 40 MG] 40 mg PO BID 10/04/15 [History] Hydralazine HCl 50 mg PO BID 10/04/15 [History] Metoprolol Tartrate 50 mg [Lopressor 50 MG] 50 mg PO BID 10/04/15 [History ] Potassium Chloride 10 Meq Tab* [Klor Con 10 MEQ] 20 meq PO BID 10/04/15 [ History] Polyethylene Glycol 3350 17 gm [Miralax Powder 17GM PACKET] 17 gm PO DAILY PRN PRN 06/03/16 [History] Allopurinol 100 mg [Zyloprim 100 mg] 100 mg PO BID 09/14/16 [History] Clonazepam 0.5 mg [Klonopin 0.5 MG] 0.5 mg PO BID 09/14/16 [History] Gabapentin [Neurontin] 300 mg PO BID 09/14/16 [History] Spironolactone 25 mg [Aldactone 25 MG] 50 mg PO DAILY 11/23/16 [History] PANTOPRAZOLE 40 mg Tablet [Protonix 40MG Tablet] 40 mg PO DAILY 02/02/17 [ History] Warfarin Sodium [Coumadin] 7.5 mg PO DAILY 02/02/17 [History] Glimepiride 4 mg [Amaryl 4 mg] 6 mg PO DAILY 02/03/17 [History] Amoxicillin/Potassium Clav [Amox Tr-K Clv 500-125 mg Tab] 0.5 each PO DAILY 02/03 [History] Celecoxib 100 mg [celeBREX 100 MG] 100 mg PO BID 02/24/18 [History] Chlorthalidone 25 mg PO DAILY 02/24/18 [History] Cholecalciferol (Vitamin D3) [Vitamin D3] 2,000 unit PO DAILY 02/24/18 [History] Cyanocobalamin (Vitamin B-12) [Vitamin B12] 1,000 mcg PO DAILY 02/24/18 [History ] Ferric Citrate [Auryxia] 210 mg PO TID 02/24/18 [History] Insulin Glargine,Hum.rec.anlog [Alfonso Major] 20 unit SQ DAILY 02/24/18 [ History] Levothyroxine Sodium 150 Mcg [Synthroid 150 Mcg] 150 mcg PO DAILY 02/24/18 [History] Magnesium Oxide 400 mg [Mag-Ox 400] 400 mg PO DAILY 02/24/18 [History] Potassium Chloride 10 Meq Tab* [Klor Con 10 MEQ] 10 meq PO HS 02/24/18 [ History] Sucralfate 1 gm [Carafate 1 GM] 1 gm PO BID 02/24/18 [History] Verapamil HCl Sr 180 mg [Isoptin Sr 180Mg] 180 mg PO DAILY 02/24/18 [ History] Hx Tetanus, Diphtheria Vaccination/Date Given: Yes Hx Influenza Vaccination/Date Given: Yes Hx Pneumococcal Vaccination/Date Given: Yes Immunizations Up to Date: Yes - Review of Systems Constitutional: Weakness Ears, Nose, & Throat: No Symptoms Respiratory: No Symptoms Cardiac: No Symptoms Abdominal/Gastrointestinal: Diarrhea (chronic) Genitourinary Symptoms: No Symptoms Musculoskeletal: No Symptoms Skin: No Symptoms Neurological: No Symptoms All Other Systems: Reviewed and Negative - Past Medical History Pertinent Past Medical History: Yes Neurological History: No Pertinent History ENT History: Cataracts, Glaucoma Cardiac History: Arrhythmia, Congestive Heart Failure, High Cholesterol, Hypertension, Myocardial Infarction (MA) Respiratory History: CHF, Pulmonary Embolism, Sleep Apnea Endocrine Medical History: Diabetes Type II, Hypothyroidism Musculoskeletal History: Arthritis, Osteoarthritis GI Medical History: Other History: Renal Disease Psycho-Social History: Anxiety, Depression Female Reproductive Disorders: No Pertinent History Other Medical History: H-Pylori, - hysterectomy - Past Surgical History Past Surgical History: Yes Neuro Surgical History: No Pertinent History Cardiac: No Pertinent History Respiratory: No Pertinent History Gastrointestinal: Appendectomy, Cholecystectomy Genitourinary: No Pertinent History Musculoskeletal: No Pertinent History Female Surgical History: Hysterectomy, Section Other Surgical History: foot surgery - Social History Smoking Status: Never smoker Exposure to second hand smoke: No Drug Use: none Patient Lives Alone: No (usp) - Female History Hx Now: No - Nursing Vital Signs Nursing Vital Signs: Initial Vital Signs Temperature 98.0 F 01/07/19 22:21 Pulse Rate 86 01/07/19 22:21 Respiratory Rate 20 01/07/19 22:21 Blood Pressure 104/57 01/07/19 22:21 O2 Sat by Pulse Oximetry 98 01/07/19 22:21 Pain Scale Pain Intensity 0 - [place] Coma Scale Best Eye Response (Fay): (4) open spontaneously Best Verbal Response ([place]): (5) oriented Best Motor Response ([place]): (6) obeys commands [place] Total: 15 - Physical Exam General Appearance: no apparent distress Eye Exam: bilateral eye: PERRL, EOMI Ears, Nose, Throat Exam: dry mucous membranes Neck Exam: normal inspection, non-tender, supple, No carotid bruit, No JVD Respiratory: normal breath sounds, lungs clear, airway intact, No chest tenderness, No respiratory distress Cardiovascular: regular rate/rhythm, normal heart sounds, normal peripheral pulses, No murmur Gastrointestinal: soft, normal bowel sounds, No tenderness, No distention, No mass, No guarding, No rebound Back Exam: normal inspection Extremity Exam: normal inspection, No calf tenderness, No pedal edema Peripheral Pulses: carotid (R): 2+, carotid (L): 2+, dorsalis-pedis (R): 2+, dorsalis-pedis (L): 2+ Mental Status: alert, cooperative master cosmetologist Exam: normal speech Motor/Sensory: no motor deficit DTR: bicep (R): 2+, bicep (L): 2+, knee (R): 2+, knee (L): 2+ Skin Exam: normal color, warm, dry, decubitus (grade II, superficial ulcers on sacral and right gluteal areas, and also on right heel, no necrotic tissues, or purulent discharge), No rash, No cyanosis, No diaphoresis SpO2 Interpretation: normal SpO2: 98 O2 Delivery: Room Air - Course Nursing assessment & vital signs reviewed: Yes EKG Interpreted by Me: RATE, A-fib, Left [place] Deviation, NORMAL QRS, Non- specific ST Changes - Radiology Exams Chest X-ray Interpretation: Interpreted by me, Negative - CT Exams Head CT Interpretation: Negative, Tele-radiologist Report Ordered Tests: Active Orders 24 hr Category Date Time Status EKG-ER Only STAT Care 01/07/19 23:21 Active IV Insertion STAT Care 01/07/19 23:17 Active CHEST 1 VIEW (PORTABLE) Stat Exams 01/07/19 23:18 Taken HEAD WITHOUT CONTRAST [CT] Stat Exams 01/07/19 23:21 Taken BLOOD CULTURE Stat Lab 01/08/19 01:30 Ordered CBC W DIFF Stat Lab 01/07/19 23:25 Completed CK-Creatinine Phosphokinase Stat Lab 01/07/19 23:25 Completed CMP Stat Lab 01/07/19 23:25 Completed CULTURE,URINE Stat Lab 01/08/19 00:30 Received Lactic Acid Stat Lab 01/07/19 23:25 Results Lactic Acid Stat Lab 01/08/19 01:29 Ordered MAGNESIUM Stat Lab 01/07/19 23:25 Completed Manual Differential NC Stat Lab 01/07/19 23:25 Completed NT PRO BNP Stat Lab 01/07/19 23:25 Completed PROTIME WITH INR Stat Lab 01/07/19 23:25 Completed PTT Stat Lab 01/07/19 23:25 Completed TROPONIN Q3H Lab 01/07/19 23:25 Completed TROPONIN Q3H Lab 01/08/19 01:30 Ordered TROPONIN Q3H Lab 01/08/19 02:30 Ordered TROPONIN Q3H Lab 01/08/19 04:30 Ordered TROPONIN Q3H Lab 01/08/19 05:30 Ordered TROPONIN Q3H Lab 01/08/19 07:30 Ordered TROPONIN Q3H Lab 01/08/19 08:30 Ordered TROPONIN Q3H Lab 01/08/19 10:30 Ordered TROPONIN Q3H Lab 01/08/19 11:30 Ordered TROPONIN Q3H Lab 01/08/19 13:30 Ordered TROPONIN Q3H Lab 01/08/19 16:30 Ordered TROPONIN Q3H Lab 01/08/19 19:30 Ordered TROPONIN Q3H Lab 01/08/19 22:30 Ordered UA W/RFX UR CULTURE Stat Lab 01/08/19 00:30 Completed Urine Triage Profile Stat Lab 01/08/19 00:30 Received Medication Summary Generic Name Dose Route Start Last Admin Trade Name Freq PRN Reason Stop Dose Admin Sodium Chloride 1,000 mls @ 100 mls/hr 01/07/19 23:30 01/08/19 00:30 Sodium Chloride 0.9% 1000 Ml IV 02/06/19 23:29 100 mls/hr .Q10H FELICIA Administration Sodium Chloride 1,000 mls @ 999 mls/hr 01/08/19 01:21 Sodium Chloride 0.9% 1000 Ml IV 01/08/19 02:21 .Q1H1M STA Ceftriaxone Sodium/Dextrose 1 g in 50 mls @ 100 mls/hr 01/08/19 01:21 01:32 Rocephin 1 Gm-D5w 50 Ml Bag IV 01/08/19 01:50 Not Given STAT STA Levofloxacin/Dextrose 750 mg in 150 mls @ 100 mls/hr 01/08/19 01:32 Levofloxacin 750mg/150ml D5w IV 01/08/19 03:01 STAT STA Vancomycin HCl 1,000 mg 01/08/19 01:33 Vancocin 500 Mg Vial PO 01/08/19 01:34 NOW ONE Discontinued Medications Generic Name Dose Route Start Last Admin Trade Name Chet PRN Reason Stop Dose Admin Ceftriaxone Sodium/Dextrose Confirm 01/08/19 01:27 Rocephin 1 Gm-D5w 50 Ml Bag Administered 01/08/19 01:28 Dose 1 g in 50 mls @ ud IV .STK-MED ONE Lab/Rad Data: Laboratory Result Diagrams 01/07/19 23:25 01/07/19 23:25 Laboratory Results 01/08/19 01/08/19 01/07/19 Range/Units 00:30 00:30 23:25 WBC (4.0-10.5) K/mm3 RBC (4.1-5.4) M/mm3 Hgb (12.0-16.0) gm/dl Hct (35-47) % MCV (78-100) fl MCH (26-32) pg MCHC (32-36) g/dl RDW (11.5-14.0) % Plt Count (150-450) K/mm3 MPV (6-9.5) fl PT (9.95-12.35) SECONDS INR (0.8-3.0) APTT (25.3-37.0) SECONDS Sodium (137-145) mmol/L Potassium (3.5-5.1) mmol/L Chloride (98-107) mmol/L Carbon Dioxide (22-30) mmol/L Anion Gap (5-15) MEQ/L BUN (7-17) mg/dL Creatinine (0.52-1.04) mg/dL Estimated GFR ML/MIN Glucose (74-106) mg/dL Lactic Acid (0.4-2.0) Calcium (8.4-10.2) mg/dL Magnesium (1.6-2.3) mg/dL Total Bilirubin (0.2-1.3) mg/dL AST (14-36) U/L ALT (0-35) U/L Alkaline Phosphatase (38-126) U/L Creatine Kinase (30-135) U/L Troponin I 0.040 H* (0.000-0.034) ng/mL NT-Pro-B Natriuret Pep (0-1800) pg/mL Serum Total Protein (6.3-8.2) g/dL Albumin (3.5-5.0) g/dL Urine Color BEN (YELLOW) Urine Appearance CLOUDY (CLEAR) Urine pH 7.0 (5-6) Ur Specific Arnold 1.014 (1.005-1.025) Urine Protein 100 (Negative) Urine Ketones NEGATIVE (NEGATIVE) Urine Blood MODERATE (0-5) Dennis/ul Urine Nitrite POSITIVE (NEGATIVE) Urine Bilirubin NEGATIVE (NEGATIVE) Urine Urobilinogen NEGATIVE (0-1) mg/dL Ur Leukocyte Esterase LARGE (NEGATIVE) Urine WBC (Auto) >100 (0-5) /HPF Urine RBC (Auto) 26-50 (0-2) /HPF U Epithel Cells (Auto) MODERATE (FEW) /HPF Urine Bacteria (Auto) MANY (NEGATIVE) /HPF Unidentified Crystals 2-5 (NEGATIVE) /HPF Other Casts (Auto) 2-5 (NEGATIVE) /LPF Urine Mucus (Auto) SLIGHT (NEGATIVE) /HPF Urine Culture Reflexed NO (NO) Urine Glucose NEGATIVE (NEGATIVE) mg/dL Urine Opiates Level NEGATIVE (NEGATIVE) Ur Methadone NEGATIVE (NEGATIVE) Urine Barbiturates NEGATIVE (NEGATIVE) Ur Phencyclidine (PCP) NEGATIVE (NEGATIVE) Urine Amphetamine NEGATIVE (NEGATIVE) U Benzodiazepine Level NEGATIVE (NEGATIVE) Urine Cocaine NEGATIVE (NEGATIVE) Urine Marijuana (THC) NEGATIVE (NEGATIVE) 01/07/19 01/07/19 01/07/19 Range/Units 23:25 23:25 23:25 WBC (4.0-10.5) K/mm3 RBC (4.1-5.4) M/mm3 Hgb (12.0-16.0) gm/dl Hct (35-47) % MCV (78-100) fl MCH (26-32) pg MCHC (32-36) g/dl RDW (11.5-14.0) % Plt Count (150-450) K/mm3 MPV (6-9.5) fl PT 14.3 H (9.95-12.35) SECONDS INR 1.26 (0.8-3.0) APTT 41.0 H (25.3-37.0) SECONDS Sodium 128 L (137-145) mmol/L Potassium 4.4 (3.5-5.1) mmol/L Chloride 85 L (98-107) mmol/L Carbon Dioxide 32 H (22-30) mmol/L Anion Gap 16.1 H (5-15) MEQ/L BUN 47 H (7-17) mg/dL Creatinine 3.63 H (0.52-1.04) mg/dL Estimated GFR 12.8 ML/MIN Glucose 116 H (74-106) mg/dL Lactic Acid 2.3 H (0.4-2.0) Calcium 10.0 (8.4-10.2) mg/dL Magnesium 1.7 (1.6-2.3) mg/dL Total Bilirubin 0.60 (0.2-1.3) mg/dL AST 26 (14-36) U/L ALT 20 (0-35) U/L Alkaline Phosphatase 148 H (38-126) U/L Creatine Kinase 51 (30-135) U/L Troponin I (0.000-0.034) ng/mL NT-Pro-B Natriuret Pep 3390 H (0-1800) pg/mL Serum Total Protein 7.4 (6.3-8.2) g/dL Albumin 4.0 (3.5-5.0) g/dL Urine Color (YELLOW) Urine Appearance (CLEAR) Urine pH (5-6) Ur Specific Arnold (1.005-1.025) Urine Protein (Negative) Urine Ketones (NEGATIVE) Urine Blood (0-5) Dennis/ul Urine Nitrite (NEGATIVE) Urine Bilirubin (NEGATIVE) Urine Urobilinogen (0-1) mg/dL Ur Leukocyte Esterase (NEGATIVE) Urine WBC (Auto) (0-5) /HPF Urine RBC (Auto) (0-2) /HPF U Epithel Cells (Auto) (FEW) /HPF Urine Bacteria (Auto) (NEGATIVE) /HPF Unidentified Crystals (NEGATIVE) /HPF Other Casts (Auto) (NEGATIVE) /LPF Urine Mucus (Auto) (NEGATIVE) /HPF Urine Culture Reflexed (NO) Urine Glucose (NEGATIVE) mg/dL Urine Opiates Level (NEGATIVE) Ur Methadone (NEGATIVE) Urine Barbiturates (NEGATIVE) Ur Phencyclidine (PCP) (NEGATIVE) Urine Amphetamine (NEGATIVE) U Benzodiazepine Level (NEGATIVE) Urine Cocaine (NEGATIVE) Urine Marijuana (THC) (NEGATIVE) 01/07/19 Range/Units 23:25 WBC 21.6 H (4.0-10.5) K/mm3 RBC 4.26 (4.1-5.4) M/mm3 Hgb 14.8 (12.0-16.0) gm/dl Hct 43.9 (35-47) % MCV 103.1 H (78-100) fl MCH 34.7 H (26-32) pg MCHC 33.7 (32-36) g/dl RDW 13.3 (11.5-14.0) % Plt Count 316 (150-450) K/mm3 MPV 10.5 H (6-9.5) fl PT (9.95-12.35) SECONDS INR (0.8-3.0) APTT (25.3-37.0) SECONDS Sodium (137-145) mmol/L Potassium (3.5-5.1) mmol/L Chloride (98-107) mmol/L Carbon Dioxide (22-30) mmol/L Anion Gap (5-15) MEQ/L BUN (7-17) mg/dL Creatinine (0.52-1.04) mg/dL Estimated GFR ML/MIN Glucose (74-106) mg/dL Lactic Acid (0.4-2.0) Calcium (8.4-10.2) mg/dL Magnesium (1.6-2.3) mg/dL Total Bilirubin (0.2-1.3) mg/dL AST (14-36) U/L ALT (0-35) U/L Alkaline Phosphatase (38-126) U/L Creatine Kinase (30-135) U/L Troponin I (0.000-0.034) ng/mL NT-Pro-B Natriuret Pep (0-1800) pg/mL Serum Total Protein (6.3-8.2) g/dL Albumin (3.5-5.0) g/dL Urine Color (YELLOW) Urine Appearance (CLEAR) Urine pH (5-6) Ur Specific Arnold (1.005-1.025) Urine Protein (Negative) Urine Ketones (NEGATIVE) Urine Blood (0-5) Dennis/ul Urine Nitrite (NEGATIVE) Urine Bilirubin (NEGATIVE) Urine Urobilinogen (0-1) mg/dL Ur Leukocyte Esterase (NEGATIVE) Urine WBC (Auto) (0-5) /HPF Urine RBC (Auto) (0-2) /HPF U Epithel Cells (Auto) (FEW) /HPF Urine Bacteria (Auto) (NEGATIVE) /HPF Unidentified Crystals (NEGATIVE) /HPF Other Casts (Auto) (NEGATIVE) /LPF Urine Mucus (Auto) (NEGATIVE) /HPF Urine Culture Reflexed (NO) Urine Glucose (NEGATIVE) mg/dL Urine Opiates Level (NEGATIVE) Ur Methadone (NEGATIVE) Urine Barbiturates (NEGATIVE) Ur Phencyclidine (PCP) (NEGATIVE) Urine Amphetamine (NEGATIVE) U Benzodiazepine Level (NEGATIVE) Urine Cocaine (NEGATIVE) Urine Marijuana (THC) (NEGATIVE) - Progress Progress: improved Progress Note: 01/08/19 01:36 Pt has been stable, afebrile, reviewed her test results, started on IV saline bolus, and IV Levaquin, Vancomycin after blood cultures, called Dr King, discussed our findings and her current condition, he agreed to admit her for observation to Telemetry, patient and her daughters were informed and agreed. Discussed with : Fernando Will see patient in: hospital (observation) Counseled pt/family regarding: lab results, diagnosis, rad results - Departure Departure Disposition: Observation Clinical Impression: Elevated troponin, Dehydration UTI (urinary tract infection) Qualifiers: Urinary tract infection type: site unspecified Hematuria presence: without hematuria Qualified Code(s): N39.0 - Urinary tract infection, site not specified Condition: Stable Critical Care Time: No Referrals: ANT ANDERSON [Primary Care Provider] -
[2019-01-07 23:39] LABS: INR 1.26 (0.8-3.0); PROTIME 14.3 SECONDS (9.95-12.35)
[2019-01-07 23:53] LABS: ANION GAP 16.1 MEQ/L (5-15); BILIRUBIN,TOTAL 0.6 mg/dL (0.2-1.3); Creatinine 1 3.63 mg/dL (0.52-1.04); MAGNESIUM 1.7 mg/dL (1.6-2.3); Potassium 4.4 mmol/L (3.5-5.1); Total Protein 7.4 g/dL (6.3-8.2)
[2019-01-08] MEDS: Sodium Chloride 0.9% 1000 ML 1,000 ML IV SCH ×4 (00:30→23:13)
[2019-01-08 01:07] LABS: Appearance CLOUDY (CLEAR); Bacteria MANY /HPF (NEGATIVE); Bilirubin NEGATIVE (NEGATIVE); Blood MODERATE Ery/ul (0-5); Epithelial Cells MODERATE /HPF (FEW); Glucose NEGATIVE (NEGATIVE); Ketones NEGATIVE (NEGATIVE); Leukocyte Esterase LARGE (NEGATIVE); Mucus SLIGHT /HPF (NEGATIVE); Nitrite POSITIVE (NEGATIVE); Protein,Urine Dip 100 (Negative); RBC 26-50 /HPF (0-2); Specific Gravity 1.014 (1.005-1.025); Urobilinogen NEGATIVE mg/dL (0-1); WBC >100 /HPF (0-5)
[2019-01-08 01:15] LABS: Amphetamine,Urine NEGATIVE (NEGATIVE); Barbiturate,Urine NEGATIVE (NEGATIVE); Benzodiazepine,Urine NEGATIVE (NEGATIVE); Cocaine,Urine NEGATIVE (NEGATIVE); Methadone,Urine NEGATIVE (NEGATIVE); Opiate,Urine NEGATIVE (NEGATIVE); PCP,Urine NEGATIVE (NEGATIVE); THC,Urine NEGATIVE (NEGATIVE)
[2019-01-08] MEDS ORDERED: Sodium Chloride 0.9% 1000 ML 1,000 ML IV STA (01:21)
[2019-01-08] MEDS ORDERED: ROCEPHIN 1 Gm-D5w 50 ml Bag** 0 G/0 ML IVPB IV ONE (01:27)
[2019-01-08] MEDS: ROCEPHIN 1 Gm-D5w 50 ml Bag** 1 G/50 ML IVPB IV STA ×2 (01:30→01:32)
[2019-01-08] MEDS ORDERED: LEVOFLOXACIN 750MG/150ML D5W 750 MG/150 ML BAG IV STA (01:32)
[2019-01-08] MEDS ORDERED: VANCOCIN 500 MG VIAL PO ONE (01:33)
[2019-01-08] MEDS ORDERED: Zofran 4 MG/2 ML VIAL IV PRN (01:38)
[2019-01-08] MEDS ORDERED: DUONEB 0.5-3 MG/3 ml Neb IH PRN (01:38)
[2019-01-08] MEDS ORDERED: NovoLOG Insulin SQ PRN (01:38)
[2019-01-08] MEDS ORDERED: LEVOFLOXACIN 750MG/150ML D5W 750 MG/150 ML BAG IV ONE (01:41)
[2019-01-08] MEDS ORDERED: Sodium Chloride 0.9% 1000 ML 1,000 ML IV SCH (01:45)
[2019-01-08 02:59] LABS: Eosinophil 2 % (0.00-3.0); Lymphocytes 17 % (24-44); Monocyte 2 % (0.0-12.0); Neutrophils 79 % (36.0-66.0); Platelet Estimate NORMAL (NORMAL); Poikilocytosis 1+; Total Cells Counted 100; Toxic Granulation 2+
[2019-01-08 03:00] LABS: ANISOCYTOSIS 1+
[2019-01-08 03:09] LABS: Lactic Acid 2.2 (0.4-2.0)
[2019-01-08] MEDS ORDERED: Vancomycin 1GM/ Ns 250ML*** 1 GM/250 ML IVPB IV ONE (04:35)
[2019-01-08 06:28] LABS: Hematocrit 37.2 % (35-47); Hemoglobin 12.6 gm/dl (12.0-16.0); Mean Cell Volume 102.5 fl (78-100); Mean Corpuscular Hemoglobin 34.7 pg (26-32); Mean Corpuscular Hgb Concent. 33.9 g/dl (32-36); Mean Platelet Volume 10.8 fl (6-9.5); Platelet Count 267 K/mm3 (150-450); Red Blood Count 3.63 M/mm3 (4.1-5.4); Red Cell Distribution Width 13.2 % (11.5-14.0)
[2019-01-08 06:48] LABS: ANION GAP 12.6 MEQ/L (5-15); Calcium 9.2 mg/dL (8.4-10.2); Creatinine 1 3.54 mg/dL (0.52-1.04); Potassium 3.8 mmol/L (3.5-5.1)
[2019-01-08 08:12] LABS: ATYPICAL LYMPHS 2 %; BAND 2 % (0.0-2.0); Eosinophil 3 % (0.00-3.0); Lymphocytes 12 % (24-44); Monocyte 2 % (0.0-12.0); Neutrophils 79 % (36.0-66.0); Total Cells Counted 100; Toxic Granulation 1+
[2019-01-08 08:13] LABS: Macrocytosis 1+; Platelet Estimate NORMAL (NORMAL)
--- NOTE | 2019-01-08 09:30 | PCM.HP ---
History of Present Illness - Chief Complaint Chief Complaint: Urosepsis History of Present Illness: is a 83 year old female pt of Dr. Claudio from [place] with hx renal failure and dementia who came in disoriented and weak for the past 3d. Also family notes she has had trouble swallowing and lost 75 lb inthe past 8 mo , per ER note. She had bee non bactirm x 6d for UTI prior to admission. In ER she was found to have elevated troponins. Was admitted for UTI and elev tropn, on telemetry. Her renal function is decreased; recently eGFR was 24, today is 13.6. On admission was 12.8. - Review of Systems All Other Systems: Unable due to dementia Medications & Allergies Home Medications: Home Medication List Acetaminophen 325 mg [Tylenol 325 mg] 650 mg PO Q4H PRN 01/08/19 [History Confirmed 01/08/19] Allopurinol 100 mg [Zyloprim 100 mg] 100 mg PO BID 01/08/19 [History Confirmed 01/08/19] Apixaban [Eliquis 2.5 mg Tablet] 2.5 mg PO BID 01/08/19 [History Confirmed ] Aspirin EC 81 mg [Ecotrin 81 mg] 81 mg PO DAILY 01/08/19 [History Confirmed 01/08/19] Bumetanide 1 mg [Bumex 1 mg] 2 mg PO BID 01/08/19 [History Confirmed 01/08] Bupropion HCl Xl 150 mg [Wellbutrin XL 150 MG] 300 mg PO DAILY 01/08/19 [ History Confirmed 01/08/19] Chlorthalidone 25 mg PO DAILY 01/08/19 [History Confirmed 01/08/19] Clonazepam 0.5 mg [Klonopin 0.5 MG] 0.5 mg PO HS 01/08/19 [History Confirmed 01/08/19] Docusate Sodium 100 mg [Colace 100 MG] 100 mg PO BID 01/08/19 [History Confirmed 01/08/19] Ferric Citrate [Auryxia] 210 mg PO TID 01/08/19 [History Confirmed 01/08/19] Gabapentin [Neurontin] 300 mg PO BID 01/08/19 [History Confirmed 01/08/19] Glimepiride 4 mg [Amaryl 4 mg] 4 mg PO DAILY 01/08/19 [History Confirmed 01/08/19] Hydralazine HCl 50 mg PO BID 01/08/19 [History Confirmed 01/08/19] Levothyroxine Sodium 150 Mcg [Synthroid 150 Mcg] 150 mcg PO DAILY 01/08/19 [History Confirmed 01/08/19] Loperamide HCl 2 mg [Imodium 2 mg] 2 mg PO Q4H PRN 01/08/19 [History Confirmed 01/08/19] Lubiprostone [Amitiza] 24 mcg PO BID PRN 01/08/19 [History Confirmed 01/08/19] Magnesium Citrate 296 ml [Citroma 296 ml] 300 ml PO HS PRN 01/08/19 [ History Confirmed 01/08/19] Magnesium Hydroxide 30 ml [Milk of Magnesia 30 ml] 30 ml PO DAILY PRN [History Confirmed 01/08/19] Metoprolol Tartrate 50 mg [Lopressor 50 MG] 50 mg PO BID 01/08/19 [ History Confirmed 01/08/19] Ondansetron HCl [Zofran] 4 mg PO Q4H PRN 01/08/19 [History Confirmed 01/08/19] Oxybutynin Chloride Xl 5 mg [Ditropan XL 5 MG] 10 mg PO DAILY 01/08/19 [ History Confirmed 01/08/19] Polyethylene Glycol 3350 17 gm [Miralax Powder 17GM PACKET] 17 gm PO DAILY PRN 01/08/19 [History Confirmed 01/08/19] Spironolactone 25 mg [Aldactone 25 MG] 50 mg PO DAILY 01/08/19 [History Confirmed 01/08/19] Sucralfate 1 gm [Carafate 1 GM] 1 gm PO BID 01/08/19 [History Confirmed ] Allergies/Adverse Reactions: Allergies Allergy/AdvReac Type Severity Reaction Status Date / Time codeine Allergy Unknown Verified 02/24/18 23:11 clarithromycin [From Biaxin] Allergy Verified 02/24/18 23:10 - Past Medical History Past Medical History: Yes Neurological History: No Pertinent History ENT History: Cataracts, Glaucoma Cardiac History: Arrhythmia, Congestive Heart Failure, High Cholesterol, Hypertension, Myocardial Infarction (NH) Respiratory History: CHF, Pulmonary Embolism, Sleep Apnea Endocrine Medical History: Diabetes Type II, Hypothyroidism Musculoskelatal History: Arthritis, Osteoarthritis GI Medical History: Other History: Renal Disease Pyscho-Social History: Anxiety, Depression Reproductive Disorders: No Pertinent History Comment: H-Pylori, - hysterectomy - Female History Are you now?: No - Past Surgical History Past Surgical History: Yes Neuro Surgical History: No Pertinent History Cardiac History: No Pertinent History Respiratory Surgery: No Pertinent History GI Surgical History: Appendectomy, Cholecystectomy Genitourinary Surgical Hx: No Pertinent History Musculskeletal Surgical Hx: No Pertinent History Female Surgical History: Hysterectomy, Section Other Surgical History: foot surgery - Social History Smoking Status: Never smoker Exposure to second hand smoke: No Alcohol: None Drug Use: none - Physical Exam Vital Signs: Vital Signs - 24 hr Temp Pulse Resp BP Pulse Ox 01/08/19 07:25 90 18 97 01/08/19 05:50 97.3 F 90 18 108/52 97 01/08/19 04:31 95 H 18 96 01/08/19 03:58 96.9 F 101 H 18 120/54 96 01/08/19 01:38 98 01/08/19 01:37 92 H 22 86/58 94 L 01/08/19 00:51 62 22 97/47 95 01/07/19 22:21 98.0 F 86 20 104/57 98 General Appearance: no apparent distress, alert Neurologic Exam: alert, cooperative, disoriented (not oriented to place or time) , other (pleasant) Eye Exam: eyes nml inspection Ears, Nose, Throat Exam: moist mucous membranes Neck Exam: normal inspection, non-tender, No lymphadenopathy Respiratory Exam: normal breath sounds, lungs clear, No crackles/rales, No rhonchi, No wheezing Gastrointestinal/Abdomen Exam: soft, normal bowel sounds, No tenderness, No distention, No mass, No guarding, No rebound Extremity Exam: normal inspection, No pedal edema, No swelling Skin Exam: normal color, warm, dry, No rash Results - Labs Lab/Micro Results: Lab Results-Last 24 Hours 01/07/19 01/07/19 01/07/19 Range/Units 23:25 23:25 23:25 WBC 21.6 H (4.0-10.5) K/mm3 RBC 4.26 (4.1-5.4) M/mm3 Hgb 14.8 (12.0-16.0) gm/dl Hct 43.9 (35-47) % MCV 103.1 H (78-100) fl MCH 34.7 H (26-32) pg MCHC 33.7 (32-36) g/dl RDW 13.3 (11.5-14.0) % Plt Count 316 (150-450) K/mm3 MPV 10.5 H (6-9.5) fl Segmented Neutrophils 79 H (36.0-66.0) % Band Neutrophils (0.0-2.0) % Lymphocytes (Manual) 17 L (24-44) % Monocytes (Manual) 2 (0.0-12.0) % Eosinophils (Manual) 2 (0.00-3.0) % Atypical Lymphocytes % Toxic Granulation 2+ Platelet Estimate NORMAL (NORMAL) RBC Morphology ABNORMAL Poikilocytosis 1+ Anisocytosis 1+ Macrocytosis PT (9.95-12.35) SECONDS INR (0.8-3.0) APTT (25.3-37.0) SECONDS Sodium 128 L (137-145) mmol/L Potassium 4.4 (3.5-5.1) mmol/L Chloride 85 L (98-107) mmol/L Carbon Dioxide 32 H (22-30) mmol/L Anion Gap 16.1 H (5-15) MEQ/L BUN 47 H (7-17) mg/dL Creatinine 3.63 H (0.52-1.04) mg/dL Estimated GFR 12.8 ML/MIN Glucose 116 H (74-106) mg/dL Lactic Acid 2.3 H (0.4-2.0) Calcium 10.0 (8.4-10.2) mg/dL Magnesium 1.7 (1.6-2.3) mg/dL Total Bilirubin 0.60 (0.2-1.3) mg/dL AST 26 (14-36) U/L ALT 20 (0-35) U/L Alkaline Phosphatase 148 H (38-126) U/L Creatine Kinase 51 (30-135) U/L Troponin I (0.000-0.034) ng/mL NT-Pro-B Natriuret Pep 3390 H (0-1800) pg/mL Serum Total Protein 7.4 (6.3-8.2) g/dL Albumin 4.0 (3.5-5.0) g/dL Urine Color (YELLOW) Urine Appearance (CLEAR) Urine pH (5-6) Ur Specific West (1.005-1.025) Urine Protein (Negative) Urine Ketones (NEGATIVE) Urine Blood (0-5) Dennis/ul Urine Nitrite (NEGATIVE) Urine Bilirubin (NEGATIVE) Urine Urobilinogen (0-1) mg/dL Ur Leukocyte Esterase (NEGATIVE) Urine WBC (Auto) (0-5) /HPF Urine RBC (Auto) (0-2) /HPF U Epithel Cells (Auto) (FEW) /HPF Urine Bacteria (Auto) (NEGATIVE) /HPF Unidentified Crystals (NEGATIVE) /HPF Other Casts (Auto) (NEGATIVE) /LPF Urine Mucus (Auto) (NEGATIVE) /HPF Urine Culture Reflexed (NO) Urine Glucose (NEGATIVE) mg/dL Urine Opiates Level (NEGATIVE) Ur Methadone (NEGATIVE) Urine Barbiturates (NEGATIVE) Ur Phencyclidine (PCP) (NEGATIVE) Urine Amphetamine (NEGATIVE) U Benzodiazepine Level (NEGATIVE) Urine Cocaine (NEGATIVE) Urine Marijuana (THC) (NEGATIVE) 01/07/19 01/07/19 01/08/19 Range/Units 23:25 23:25 00:30 WBC (4.0-10.5) K/mm3 RBC (4.1-5.4) M/mm3 Hgb (12.0-16.0) gm/dl Hct (35-47) % MCV (78-100) fl MCH (26-32) pg MCHC (32-36) g/dl RDW (11.5-14.0) % Plt Count (150-450) K/mm3 MPV (6-9.5) fl Segmented Neutrophils (36.0-66.0) % Band Neutrophils (0.0-2.0) % Lymphocytes (Manual) (24-44) % Monocytes (Manual) (0.0-12.0) % Eosinophils (Manual) (0.00-3.0) % Atypical Lymphocytes % Toxic Granulation Platelet Estimate (NORMAL) RBC Morphology Poikilocytosis Anisocytosis Macrocytosis PT 14.3 H (9.95-12.35) SECONDS INR 1.26 (0.8-3.0) APTT 41.0 H (25.3-37.0) SECONDS Sodium (137-145) mmol/L Potassium (3.5-5.1) mmol/L Chloride (98-107) mmol/L Carbon Dioxide (22-30) mmol/L Anion Gap (5-15) MEQ/L BUN (7-17) mg/dL Creatinine (0.52-1.04) mg/dL Estimated GFR ML/MIN Glucose (74-106) mg/dL Lactic Acid (0.4-2.0) Calcium (8.4-10.2) mg/dL Magnesium (1.6-2.3) mg/dL Total Bilirubin (0.2-1.3) mg/dL AST (14-36) U/L ALT (0-35) U/L Alkaline Phosphatase (38-126) U/L Creatine Kinase (30-135) U/L Troponin I 0.040 H* (0.000-0.034) ng/mL NT-Pro-B Natriuret Pep (0-1800) pg/mL Serum Total Protein (6.3-8.2) g/dL Albumin (3.5-5.0) g/dL Urine Color BEN (YELLOW) Urine Appearance CLOUDY (CLEAR) Urine pH 7.0 (5-6) Ur Specific West 1.014 (1.005-1.025) Urine Protein 100 (Negative) Urine Ketones NEGATIVE (NEGATIVE) Urine Blood MODERATE (0-5) Dennis/ul Urine Nitrite POSITIVE (NEGATIVE) Urine Bilirubin NEGATIVE (NEGATIVE) Urine Urobilinogen NEGATIVE (0-1) mg/dL Ur Leukocyte Esterase LARGE (NEGATIVE) Urine WBC (Auto) >100 (0-5) /HPF Urine RBC (Auto) 26-50 (0-2) /HPF U Epithel Cells (Auto) MODERATE (FEW) /HPF Urine Bacteria (Auto) MANY (NEGATIVE) /HPF Unidentified Crystals 2-5 (NEGATIVE) /HPF Other Casts (Auto) 2-5 (NEGATIVE) /LPF Urine Mucus (Auto) SLIGHT (NEGATIVE) /HPF Urine Culture Reflexed NO (NO) Urine Glucose NEGATIVE (NEGATIVE) mg/dL Urine Opiates Level (NEGATIVE) Ur Methadone (NEGATIVE) Urine Barbiturates (NEGATIVE) Ur Phencyclidine (PCP) (NEGATIVE) Urine Amphetamine (NEGATIVE) U Benzodiazepine Level (NEGATIVE) Urine Cocaine (NEGATIVE) Urine Marijuana (THC) (NEGATIVE) 01/08/19 01/08/19 01/08/19 Range/Units 00:30 01:45 03:00 WBC (4.0-10.5) K/mm3 RBC (4.1-5.4) M/mm3 Hgb (12.0-16.0) gm/dl Hct (35-47) % MCV (78-100) fl MCH (26-32) pg MCHC (32-36) g/dl RDW (11.5-14.0) % Plt Count (150-450) K/mm3 MPV (6-9.5) fl Segmented Neutrophils (36.0-66.0) % Band Neutrophils (0.0-2.0) % Lymphocytes (Manual) (24-44) % Monocytes (Manual) (0.0-12.0) % Eosinophils (Manual) (0.00-3.0) % Atypical Lymphocytes % Toxic Granulation Platelet Estimate (NORMAL) RBC Morphology Poikilocytosis Anisocytosis Macrocytosis PT (9.95-12.35) SECONDS INR (0.8-3.0) APTT (25.3-37.0) SECONDS Sodium (137-145) mmol/L Potassium (3.5-5.1) mmol/L Chloride (98-107) mmol/L Carbon Dioxide (22-30) mmol/L Anion Gap (5-15) MEQ/L BUN (7-17) mg/dL Creatinine (0.52-1.04) mg/dL Estimated GFR ML/MIN Glucose (74-106) mg/dL Lactic Acid 2.2 H (0.4-2.0) Calcium (8.4-10.2) mg/dL Magnesium (1.6-2.3) mg/dL Total Bilirubin (0.2-1.3) mg/dL AST (14-36) U/L ALT (0-35) U/L Alkaline Phosphatase (38-126) U/L Creatine Kinase (30-135) U/L Troponin I 0.042 H* (0.000-0.034) ng/mL NT-Pro-B Natriuret Pep (0-1800) pg/mL Serum Total Protein (6.3-8.2) g/dL Albumin (3.5-5.0) g/dL Urine Color (YELLOW) Urine Appearance (CLEAR) Urine pH (5-6) Ur Specific West (1.005-1.025) Urine Protein (Negative) Urine Ketones (NEGATIVE) Urine Blood (0-5) Dennis/ul Urine Nitrite (NEGATIVE) Urine Bilirubin (NEGATIVE) Urine Urobilinogen (0-1) mg/dL Ur Leukocyte Esterase (NEGATIVE) Urine WBC (Auto) (0-5) /HPF Urine RBC (Auto) (0-2) /HPF U Epithel Cells (Auto) (FEW) /HPF Urine Bacteria (Auto) (NEGATIVE) /HPF Unidentified Crystals (NEGATIVE) /HPF Other Casts (Auto) (NEGATIVE) /LPF Urine Mucus (Auto) (NEGATIVE) /HPF Urine Culture Reflexed (NO) Urine Glucose (NEGATIVE) mg/dL Urine Opiates Level NEGATIVE (NEGATIVE) Ur Methadone NEGATIVE (NEGATIVE) Urine Barbiturates NEGATIVE (NEGATIVE) Ur Phencyclidine (PCP) NEGATIVE (NEGATIVE) Urine Amphetamine NEGATIVE (NEGATIVE) U Benzodiazepine Level NEGATIVE (NEGATIVE) Urine Cocaine NEGATIVE (NEGATIVE) Urine Marijuana (THC) NEGATIVE (NEGATIVE) 01/08/19 01/08/19 01/08/19 Range/Units 05:30 05:30 05:30 WBC 16.0 H (4.0-10.5) K/mm3 RBC 3.63 L (4.1-5.4) M/mm3 Hgb 12.6 (12.0-16.0) gm/dl Hct 37.2 (35-47) % MCV 102.5 H (78-100) fl MCH 34.7 H (26-32) pg MCHC 33.9 (32-36) g/dl RDW 13.2 (11.5-14.0) % Plt Count 267 (150-450) K/mm3 MPV 10.8 H (6-9.5) fl Segmented Neutrophils 79 H (36.0-66.0) % Band Neutrophils 2 (0.0-2.0) % Lymphocytes (Manual) 12 L (24-44) % Monocytes (Manual) 2 (0.0-12.0) % Eosinophils (Manual) 3 (0.00-3.0) % Atypical Lymphocytes 2 % Toxic Granulation 1+ Platelet Estimate NORMAL (NORMAL) RBC Morphology ABNORMAL Poikilocytosis Anisocytosis Macrocytosis 1+ PT (9.95-12.35) SECONDS INR (0.8-3.0) APTT (25.3-37.0) SECONDS Sodium 129 L (137-145) mmol/L Potassium 3.8 (3.5-5.1) mmol/L Chloride 90 L (98-107) mmol/L Carbon Dioxide 31 H (22-30) mmol/L Anion Gap 12.6 (5-15) MEQ/L BUN 44 H (7-17) mg/dL Creatinine 3.54 H (0.52-1.04) mg/dL Estimated GFR 13.2 ML/MIN Glucose 99 (74-106) mg/dL Lactic Acid (0.4-2.0) Calcium 9.2 (8.4-10.2) mg/dL Magnesium (1.6-2.3) mg/dL Total Bilirubin (0.2-1.3) mg/dL AST (14-36) U/L ALT (0-35) U/L Alkaline Phosphatase (38-126) U/L Creatine Kinase (30-135) U/L Troponin I 0.039 H* (0.000-0.034) ng/mL NT-Pro-B Natriuret Pep (0-1800) pg/mL Serum Total Protein (6.3-8.2) g/dL Albumin (3.5-5.0) g/dL Urine Color (YELLOW) Urine Appearance (CLEAR) Urine pH (5-6) Ur Specific West (1.005-1.025) Urine Protein (Negative) Urine Ketones (NEGATIVE) Urine Blood (0-5) Dennis/ul Urine Nitrite (NEGATIVE) Urine Bilirubin (NEGATIVE) Urine Urobilinogen (0-1) mg/dL Ur Leukocyte Esterase (NEGATIVE) Urine WBC (Auto) (0-5) /HPF Urine RBC (Auto) (0-2) /HPF U Epithel Cells (Auto) (FEW) /HPF Urine Bacteria (Auto) (NEGATIVE) /HPF Unidentified Crystals (NEGATIVE) /HPF Other Casts (Auto) (NEGATIVE) /LPF Urine Mucus (Auto) (NEGATIVE) /HPF Urine Culture Reflexed (NO) Urine Glucose (NEGATIVE) mg/dL Urine Opiates Level (NEGATIVE) Ur Methadone (NEGATIVE) Urine Barbiturates (NEGATIVE) Ur Phencyclidine (PCP) (NEGATIVE) Urine Amphetamine (NEGATIVE) U Benzodiazepine Level (NEGATIVE) Urine Cocaine (NEGATIVE) Urine Marijuana (THC) (NEGATIVE) 01/08/19 01/08/19 Range/Units 05:35 08:30 WBC (4.0-10.5) K/mm3 RBC (4.1-5.4) M/mm3 Hgb (12.0-16.0) gm/dl Hct (35-47) % MCV (78-100) fl MCH (26-32) pg MCHC (32-36) g/dl RDW (11.5-14.0) % Plt Count (150-450) K/mm3 MPV (6-9.5) fl Segmented Neutrophils (36.0-66.0) % Band Neutrophils (0.0-2.0) % Lymphocytes (Manual) (24-44) % Monocytes (Manual) (0.0-12.0) % Eosinophils (Manual) (0.00-3.0) % Atypical Lymphocytes % Toxic Granulation Platelet Estimate (NORMAL) RBC Morphology Poikilocytosis Anisocytosis Macrocytosis PT (9.95-12.35) SECONDS INR (0.8-3.0) APTT (25.3-37.0) SECONDS Sodium (137-145) mmol/L Potassium (3.5-5.1) mmol/L Chloride (98-107) mmol/L Carbon Dioxide (22-30) mmol/L Anion Gap (5-15) MEQ/L BUN (7-17) mg/dL Creatinine (0.52-1.04) mg/dL Estimated GFR ML/MIN Glucose (74-106) mg/dL Lactic Acid 1.4 (0.4-2.0) Calcium (8.4-10.2) mg/dL Magnesium (1.6-2.3) mg/dL Total Bilirubin (0.2-1.3) mg/dL AST (14-36) U/L ALT (0-35) U/L Alkaline Phosphatase (38-126) U/L Creatine Kinase (30-135) U/L Troponin I 0.040 H* (0.000-0.034) ng/mL NT-Pro-B Natriuret Pep (0-1800) pg/mL Serum Total Protein (6.3-8.2) g/dL Albumin (3.5-5.0) g/dL Urine Color (YELLOW) Urine Appearance (CLEAR) Urine pH (5-6) Ur Specific West (1.005-1.025) Urine Protein (Negative) Urine Ketones (NEGATIVE) Urine Blood (0-5) Dennis/ul Urine Nitrite (NEGATIVE) Urine Bilirubin (NEGATIVE) Urine Urobilinogen (0-1) mg/dL Ur Leukocyte Esterase (NEGATIVE) Urine WBC (Auto) (0-5) /HPF Urine RBC (Auto) (0-2) /HPF U Epithel Cells (Auto) (FEW) /HPF Urine Bacteria (Auto) (NEGATIVE) /HPF Unidentified Crystals (NEGATIVE) /HPF Other Casts (Auto) (NEGATIVE) /LPF Urine Mucus (Auto) (NEGATIVE) /HPF Urine Culture Reflexed (NO) Urine Glucose (NEGATIVE) mg/dL Urine Opiates Level (NEGATIVE) Ur Methadone (NEGATIVE) Urine Barbiturates (NEGATIVE) Ur Phencyclidine (PCP) (NEGATIVE) Urine Amphetamine (NEGATIVE) U Benzodiazepine Level (NEGATIVE) Urine Cocaine (NEGATIVE) Urine Marijuana (THC) (NEGATIVE) - Radiology Impressions Radiology Exams & Impressions: Radiology Procedures Category Date Time Status CHEST 1 VIEW (PORTABLE) Stat Exams 01/07/19 23:18 Taken HEAD WITHOUT CONTRAST [CT] Stat Exams 01/07/19 23:21 Taken - Other Procedures and Tests Respiratory Therapy 01/08/19 04:26 Respiratory Therapy Assessment DAILY 01/08/19 04:34 BiPap/CPAP ROUTINE Assessment/Plan (1) UTI (urinary tract infection) Current Visit: Yes Status: Acute Qualifiers: Urinary tract infection type: site unspecified Hematuria presence: without hematuria Qualified Code(s): N39.0 - Urinary tract infection, site not specified Assessment & Plan: on IV levaquin and vancomycin, day #1. Code(s): N39.0 - URINARY TRACT INFECTION, SITE NOT SPECIFIED (2) Renal failure Current Visit: Yes Status: Acute Qualifiers: Renal failure chronicity: acute on chronic Chronic kidney disease stage: stage 4 (severe) Assessment & Plan: Will recheck labs in a.m. (3) Elevated troponin Current Visit: Yes Status: Acute Assessment & Plan: trending down now. Code(s): R74.8 - ABNORMAL LEVELS OF OTHER SERUM ENZYMES
[2019-01-08] MEDS ORDERED: TYLENOL 325 MG PO PRN (10:13)
[2019-01-08] MEDS ORDERED: IMODIUM 2 MG PO PRN (10:13)
[2019-01-08] MEDS ORDERED: AMITIZA PO PRN (10:13)
[2019-01-08] MEDS ORDERED: CITROMA 296 ML PO PRN (10:13)
[2019-01-08] MEDS ORDERED: ZOFRAN ODT 4 MG PO PRN (10:34)
--- NOTE | 2019-01-08 10:35 | XRAY ---
Exam: AP upright portable chest film from 01/07/2019. Comparison: Two-view chest from 02/03/2017. Indication: 83-year-old female with altered mental status. Findings: Inspiratory effort is not as deep on the current study as compared to 02/03/2017. This may contribute to the heart size appearing borderline enlarged. A calcified mildly tortuous aortic arch and descending thoracic aorta are seen. There appears to be some minimal obliquely oriented plate atelectasis versus fibrotic scarring within the right infrahilar region representing no significant change. No acute air space infiltrates, central vascular congestion, pneumothorax, or lateral pleural fluid is seen. Advanced arthritic changes are seen within both shoulders. Significant subchondral cystic changes are seen within each humeral head, right greater than left. I believe there is also some subchondral cysts or mild erosive change at the right acromioclavicular joint. I believe this is arthritic in nature. Correlate clinically. Impression: 1. Lung volumes are relatively low and again reveal some obliquely oriented discoid atelectasis versus scarring within the right infrahilar projection, as noted on 02/03/2017. 2. Apparent borderline cardiomegaly, but the relatively poor inspiratory effort may contribute to this. 3. No other acute cardiopulmonary disease is seen. 4. Advanced arthritic changes are seen within both shoulders, right greater than left. I don't believe this represents a significant change.
[2019-01-08] MEDS ORDERED: MEDICATION INTERVENTION MC SCH (10:45)
--- NOTE | 2019-01-08 10:52 | XRAY ---
Exam: CT of the head without IV contrast from 01/07/2019. CTDI: 59.80 Comparison: CT of the head without IV contrast from 02/02/2017. Indication: 83-year-old female with altered mental status, unable to comprehend, drowsy, week, difficulty swallowing. 75 pound weight loss over 8 months. Technique: Non-IV contrast axial images were obtained through the brain. Reconstructed coronal and sagittal images were created and reviewed. Findings: The patient's head is slightly tilted in the CT gantry. The ventricles are again noted to be prominent as well as the cortical sulci and basilar cisterns consistent with cerebral volume loss/atrophy. This is unchanged from 02/02/2017. I also note mild bilateral periventricular and subcortical white matter changes, likely due to chronic microvascular disease. No new dominant low-attenuation territorial infarct is seen. No acute intracranial bleed or abnormal extra-axial fluid collection is seen. No other focal mass effect or midline shift is seen. Significant atherosclerotic vascular calcifications are seen within both distal vertebral arteries and cavernous portion of both internal carotid arteries. Hyperostosis frontalis interna is again noted. The calvarium appears intact. The paranasal sinuses are clear without air-fluid levels. The mastoids are cells are well aerated without effusion. I again note a moderate sized, partially calcified sebaceous cyst within the scalp of the left occipital region measuring about 1.7 cm in diameter. I believe there is a smaller partially calcified sebaceous cyst within the high left parietal area measuring 1.0 cm in maximum diameter. This also is unchanged. Impression: 1. I again see age-appropriate global atrophy with mild chronic deep white matter ischemic changes within the periventricular and subcortical white matter. 2. No acute intracranial bleed or new low-attenuation territorial brain infarct is seen. 3. I again note significant intracranial atherosclerotic vascular calcifications.
[2019-01-08] MEDS: SYNTHROID 150 MCG PO SCH (11:02)
[2019-01-08] MEDS: Ditropan XL 5 MG PO SCH (11:02)
[2019-01-08] MEDS: ZYLOPRIM 100 MG PO SCH ×2 (11:02→22:01)
[2019-01-08] MEDS: ECOTRIN 81 MG PO SCH (11:02)
[2019-01-08] MEDS: NEURONTIN 300 MG PO SCH ×2 (11:03→22:00)
[2019-01-08] MEDS: Lopressor 50 MG PO SCH ×2 (11:03→22:01)
[2019-01-08] MEDS: ELIQUIS 2.5 MG TABLET PO SCH ×2 (11:04→22:01)
[2019-01-08] MEDS: Carafate 1 GM PO SCH ×2 (11:04→22:00)
[2019-01-08] MEDS: Aldactone 25 MG PO SCH (11:07)
[2019-01-08] MEDS: Apresoline 25 MG TABLET PO SCH ×2 (11:08→22:00)
[2019-01-08] MEDS ORDERED: PHARMACY DOSING REQUEST MC ONE (12:10)
[2019-01-08] MEDS: Wellbutrin XL 150 MG PO SCH (14:10)
[2019-01-08] MEDS: Colace 100 MG PO PRN (22:01)
[2019-01-08] MEDS: Klonopin 0.5 MG PO SCH (23:00)
[2019-01-09] MEDS ORDERED: Glutose 15 GM ORAL GEL PO ONE ×2 (05:14→05:26)
[2019-01-09 05:21] LABS: Hematocrit 37.3 % (35-47); Hemoglobin 12.4 gm/dl (12.0-16.0); Mean Cell Volume 103.6 fl (78-100); Mean Corpuscular Hemoglobin 34.4 pg (26-32); Mean Corpuscular Hgb Concent. 33.2 g/dl (32-36); Mean Platelet Volume 9.7 fl (6-9.5); Platelet Count 259 K/mm3 (150-450); Red Cell Distribution Width 13.1 % (11.5-14.0); White Blood Count 12.8 K/mm3 (4.0-10.5)
[2019-01-09 05:34] LABS: ANION GAP 13.3 MEQ/L (5-15); BILIRUBIN,TOTAL 0.5 mg/dL (0.2-1.3); Creatinine 1 2.46 mg/dL (0.52-1.04); Potassium 3.1 mmol/L (3.5-5.1); Total Protein 5.9 g/dL (6.3-8.2)
[2019-01-09 06:53] LABS: ANISOCYTOSIS 1+; ATYPICAL LYMPHS 2 %; BAND 1 % (0.0-2.0); Eosinophil 4 % (0.00-3.0); Lymphocytes 8 % (24-44); Monocyte 5 % (0.0-12.0); Neutrophils 80 % (36.0-66.0); Total Cells Counted 100
[2019-01-09 06:54] LABS: Platelet Estimate NORMAL (NORMAL); Poikilocytosis 1+
[2019-01-09] MEDS ORDERED: DEXTROSE 5%-NORMAL SALINE 500 ML 500 ML IV SCH (09:00)
--- NOTE | 2019-01-09 09:22 | PCM.NOTE ---
Date and Time: 01/09/19917 Subjective Assessment: patient had a low blood sugar this morning of 43, has been treated and she is alert and eating breakfast. states she feels well, denies any pain this morning. Objective Exam General Appearance: no apparent distress, obese Skin Exam: normal color, warm, dry Wound Assessment: Skin/Wound Assessment Wound/Incision Assessment Start: 01/08/19 02: 36 Text: Status: Active Freq: Q6H Protocol: Document 01/09/19 02:00 AR (Rec: 01/09/19 03:43 AR [id number]) Wound/Incision Assessment Coccyx Wound Assessment Shift Assessment Wound Type Pressure Ulcer Surrounding Tissue [place] Comment Multiple open areas, red with white slough, no drainage Respiratory Exam: normal breath sounds, lungs clear, No respiratory distress Cardiovascular Exam: regular rate/rhythm, normal heart sounds Gastrointestinal/Abdomen Exam: soft, No tenderness, No mass OBJECTIVE DATA Vital Signs: Vital Signs - 24 hr Temp Pulse Resp BP Pulse Ox 01/09/19 07:58 97.6 F 77 18 98/49 96 01/09/19 06:47 96 01/09/19 04:05 97.6 F 85 18 122/55 97 01/09/19 00:03 97.5 F 80 20 111/50 98 01/08/19 20:36 91 H 18 92 L 01/08/19 20:00 98.0 F 95 H 19 110/58 98 01/08/19 17:00 98.2 F 94 H 18 123/60 95 01/08/19 13:00 98.4 F 92 H 18 118/56 98 Pain Assessment - Last Documented Pain Intensity 0 Pain Scale Used [facility] Intake and Output: Intake & Output 01/06/19 01/07/19 01/08/19 01/09/19 11:59 11:59 11:59 11:59 Intake Total 460 4491 Output Total 275 1050 Balance 185 3441 Weight 122.3 kg Lab Results: Accuchecks Date 01/09/19 Date 01/08/19 Date 01/08/19 Time 07:30 Time 16:30 Time 11:30 Accucheck Value: 112 Accucheck Value: 55 Accucheck Value: 75 Accucheck Value: 81 Lab Results-Last 24 Hours 01/08/19 01/08/19 01/09/19 Range/Units 05:00 12:15 05:20 WBC 12.8 H (4.0-10.5) K/mm3 RBC 3.60 L (4.1-5.4) M/mm3 Hgb 12.4 (12.0-16.0) gm/dl Hct 37.3 (35-47) % MCV 103.6 H (78-100) fl MCH 34.4 H (26-32) pg MCHC 33.2 (32-36) g/dl RDW 13.1 (11.5-14.0) % Plt Count 259 (150-450) K/mm3 MPV 9.7 H (6-9.5) fl Segmented Neutrophils 80 H (36.0-66.0) % Band Neutrophils 1 (0.0-2.0) % Lymphocytes (Manual) 8 L (24-44) % Monocytes (Manual) 5 (0.0-12.0) % Eosinophils (Manual) 4 H (0.00-3.0) % Atypical Lymphocytes 2 % Platelet Estimate NORMAL (NORMAL) RBC Morphology ABNORMAL Poikilocytosis 1+ Anisocytosis 1+ Sodium (137-145) mmol/L Potassium (3.5-5.1) mmol/L Chloride (98-107) mmol/L Carbon Dioxide (22-30) mmol/L Anion Gap (5-15) MEQ/L BUN (7-17) mg/dL Creatinine (0.52-1.04) mg/dL Estimated GFR ML/MIN Glucose (74-106) mg/dL Hemoglobin A1c 5.25 (4.5-6.0) % Calcium (8.4-10.2) mg/dL Total Bilirubin (0.2-1.3) mg/dL AST (14-36) U/L ALT (0-35) U/L Alkaline Phosphatase (38-126) U/L Troponin I 0.033 (0.000-0.034) ng/mL Serum Total Protein (6.3-8.2) g/dL Albumin (3.5-5.0) g/dL 01/09/19 01/09/19 Range/Units 05:20 05:20 WBC (4.0-10.5) K/mm3 RBC (4.1-5.4) M/mm3 Hgb (12.0-16.0) gm/dl Hct (35-47) % MCV (78-100) fl MCH (26-32) pg MCHC (32-36) g/dl RDW (11.5-14.0) % Plt Count (150-450) K/mm3 MPV (6-9.5) fl Segmented Neutrophils (36.0-66.0) % Band Neutrophils (0.0-2.0) % Lymphocytes (Manual) (24-44) % Monocytes (Manual) (0.0-12.0) % Eosinophils (Manual) (0.00-3.0) % Atypical Lymphocytes % Platelet Estimate (NORMAL) RBC Morphology Poikilocytosis Anisocytosis Sodium 131 L (137-145) mmol/L Potassium 3.1 L (3.5-5.1) mmol/L Chloride 95 L (98-107) mmol/L Carbon Dioxide 26 (22-30) mmol/L Anion Gap 13.3 (5-15) MEQ/L BUN 36 H (7-17) mg/dL Creatinine 2.46 H (0.52-1.04) mg/dL Estimated GFR 20.0 ML/MIN Glucose 43 L* 43 L* (74-106) mg/dL Hemoglobin A1c (4.5-6.0) % Calcium 9.0 (8.4-10.2) mg/dL Total Bilirubin 0.50 (0.2-1.3) mg/dL AST 18 (14-36) U/L ALT 14 (0-35) U/L Alkaline Phosphatase 115 (38-126) U/L Troponin I (0.000-0.034) ng/mL Serum Total Protein 5.9 L (6.3-8.2) g/dL Albumin 3.0 L (3.5-5.0) g/dL Radiology Exams: Radiology Procedures Category Date Time Status CHEST 1 VIEW (PORTABLE) Stat Exams 01/07/19 23:18 Completed HEAD WITHOUT CONTRAST [CT] Stat Exams 01/07/19 23:21 Completed Multi-Disciplinary Progress Notes: Multi-Disciplinary Progress Notes 01/08/19 13:35 Case Management Note by [place] Velasco SPOKE WITH PT'S FAMILY AT BEDSIDE, PT PLANS TO RETURN TO [place] AT DISCHARGE. Initialized on 01/08/19 13:35 - END OF NOTE Assessment/Plan (1) Hypoglycemia Current Visit: Yes Status: Acute Assessment & Plan: add dextrose to fluids and observe Code(s): E16.2 - HYPOGLYCEMIA, UNSPECIFIED (2) Dehydration Current Visit: Yes Status: Acute Code(s): E86.0 - DEHYDRATION (3) Renal failure Current Visit: Yes Status: Acute Qualifiers: Renal failure chronicity: acute on chronic Chronic kidney disease stage: stage 4 (severe) Assessment & Plan: acute on chronic, improving with fluids (4) UTI (urinary tract infection) Current Visit: Yes Status: Acute Qualifiers: Urinary tract infection type: site unspecified Hematuria presence: without hematuria Qualified Code(s): N39.0 - Urinary tract infection, site not specified Assessment & Plan: on levaquin, culture and sens ID pending Code(s): N39.0 - URINARY TRACT INFECTION, SITE NOT SPECIFIED
[2019-01-09] MEDS: Dextrose 5%-NS IV Solution 1000 ML 1,000 ML IV SCH ×2 (10:05→21:16)
[2019-01-09] MEDS: Miralax Powder 17GM PACKET PO PRN (10:47)
[2019-01-09] MEDS: MILK OF MAGNESIA 30 ML PO PRN (10:48)
[2019-01-09] MEDS: Apresoline 25 MG TABLET PO SCH ×2 (10:48→21:27)
[2019-01-09] MEDS: Klor Con 10 MEQ PO SCH ×2 (10:49→21:27)
[2019-01-09] MEDS: SYNTHROID 150 MCG PO SCH (10:49)
[2019-01-09] MEDS: NEURONTIN 300 MG PO SCH ×2 (10:49→21:27)
[2019-01-09] MEDS: Ditropan XL 5 MG PO SCH (10:49)
[2019-01-09] MEDS: Carafate 1 GM PO SCH ×2 (10:49→21:27)
[2019-01-09] MEDS: Aldactone 25 MG PO SCH (10:50)
[2019-01-09] MEDS: Colace 100 MG PO PRN (10:51)
[2019-01-09] MEDS: ELIQUIS 2.5 MG TABLET PO SCH ×2 (10:51→21:27)
[2019-01-09] MEDS: ZYLOPRIM 100 MG PO SCH ×2 (10:51→21:27)
[2019-01-09] MEDS: ECOTRIN 81 MG PO SCH (10:51)
[2019-01-09] MEDS: Wellbutrin XL 150 MG PO SCH (10:51)
[2019-01-09] MEDS: Lopressor 50 MG PO SCH ×2 (10:51→21:27)
[2019-01-09] MEDS ORDERED: BENADRYL 50 MG/ML IV PRN (13:39)
[2019-01-09] MEDS ORDERED: solu-MEDROL 125 MG IV ONE (18:30)
[2019-01-09] MEDS: Klonopin 0.5 MG PO SCH (21:27)
[2019-01-09] MEDS ORDERED: Levaquin 250MG/50ML D5W 250 MG/50 ML BAG IV SCH (22:00)
[2019-01-10 05:02] LABS: Hematocrit 34.9 % (35-47); Hemoglobin 11.5 gm/dl (12.0-16.0); Mean Cell Volume 104.5 fl (78-100); Mean Corpuscular Hemoglobin 34.4 pg (26-32); Mean Platelet Volume 10.7 fl (6-9.5); Platelet Count 218 K/mm3 (150-450); Red Blood Count 3.34 M/mm3 (4.1-5.4); Red Cell Distribution Width 12.7 % (11.5-14.0)
[2019-01-10 05:12] LABS: ALBUMIN 2.8 g/dL (3.5-5.0); ANION GAP 9.4 MEQ/L (5-15); BILIRUBIN,TOTAL 0.4 mg/dL (0.2-1.3); Calcium 8.6 mg/dL (8.4-10.2); Creatinine 1 1.82 mg/dL (0.52-1.04); MAGNESIUM 1.5 mg/dL (1.6-2.3); Potassium 4.2 mmol/L (3.5-5.1); Total Protein 5.5 g/dL (6.3-8.2)
[2019-01-10] MEDS: Dextrose 5%-NS IV Solution 1000 ML 1,000 ML IV SCH (07:51)
--- NOTE | 2019-01-10 08:41 | PCM.NOTE ---
Date and Time: 01/10/1939 Subjective Assessment: patient feeling much better, sugar is up to 264 this morning, had some low blood sugars yesterday and was started on D5NS. she denies any complaints today Objective Exam General Appearance: no apparent distress, obese Neurologic Exam: alert, oriented x 3 Skin Exam: normal color, warm, dry Wound Assessment: Skin/Wound Assessment Wound/Incision Assessment Start: 01/08/19 02: 36 Text: Status: Active Freq: Q6H Protocol: Document 01/10/19 02:00 AR (Rec: 01/10/19 05:21 AR [id number]) Wound/Incision Assessment Right Heel Wound Assessment Shift Assessment Wound Type Pressure Ulcer Wound Stage Stage III Dressing Status Dry & Intact Comment Dressing CDI, PT doing wound care Left Heel Wound Assessment Shift Assessment Wound Type Pressure Ulcer Wound Stage Stage II Dressing Status Dry & Intact Comment Dressing CDI, PT doing wound care Coccyx Wound Assessment Shift Assessment Wound Type Pressure Ulcer Wound Stage Stage II General Appearance Open to air Surrounding Tissue Bright Red Comment Multiple stage II noted to buttocks. Areas red, barrier cream applied. Pictures in chart. Respiratory Exam: normal breath sounds, lungs clear, No respiratory distress Cardiovascular Exam: regular rate/rhythm, normal heart sounds Gastrointestinal/Abdomen Exam: soft, No tenderness, No mass OBJECTIVE DATA Vital Signs: Vital Signs - 24 hr Temp Pulse Resp BP Pulse Ox 01/10/19 08:00 97.8 F 88 20 117/58 97 01/10/19 07:09 96 01/10/19 04:00 99.7 F 85 20 100/48 97 01/10/19 00:00 98.5 F 93 H 20 107/52 91 L 01/09/19 20:25 82 16 98 01/09/19 20:00 98.2 F 88 18 130/71 99 01/09/19 16:35 97.7 F 84 16 111/53 01/09/19 12:00 97.6 F 83 26 H 103/55 01/09/19 10:56 85 116/54 Oxygen-Last 24 hours O2 Percentage 2 Liters = 28% Pain Assessment - Last Documented Pain Intensity 0 Pain Scale Used [facility] Intake and Output: Intake & Output 01/07/19 01/08/19 01/09/19 01/10/19 11:59 11:59 11:59 11:59 Intake Total 460 4731 3997 Output Total 275 1050 1400 Balance 185 6039 3697 Weight 122.3 kg Lab Results: Accuchecks Accucheck Value: 129 Accucheck Value: 73 Accucheck Value: 109 Lab Results-Last 24 Hours 01/10/19 01/10/19 Range/Units 05:09 05:09 WBC 8.0 (4.0-10.5) K/mm3 RBC 3.34 L (4.1-5.4) M/mm3 Hgb 11.5 L (12.0-16.0) gm/dl Hct 34.9 L (35-47) % MCV 104.5 H (78-100) fl MCH 34.4 H (26-32) pg MCHC 33.0 (32-36) g/dl RDW 12.7 (11.5-14.0) % Plt Count 218 (150-450) K/mm3 MPV 10.7 H (6-9.5) fl Sodium 128 L (137-145) mmol/L Potassium 4.2 D (3.5-5.1) mmol/L Chloride 95 L (98-107) mmol/L Carbon Dioxide 28 (22-30) mmol/L Anion Gap 9.4 (5-15) MEQ/L BUN 28 H (7-17) mg/dL Creatinine 1.82 H (0.52-1.04) mg/dL Estimated GFR 28.3 ML/MIN Glucose 261 H (74-106) mg/dL Calcium 8.6 (8.4-10.2) mg/dL Magnesium 1.5 L (1.6-2.3) mg/dL Total Bilirubin 0.40 (0.2-1.3) mg/dL AST 15 (14-36) U/L ALT 14 (0-35) U/L Alkaline Phosphatase 109 (38-126) U/L Serum Total Protein 5.5 L (6.3-8.2) g/dL Albumin 2.8 L (3.5-5.0) g/dL Assessment/Plan (1) UTI (urinary tract infection) Current Visit: Yes Status: Acute Qualifiers: Urinary tract infection type: site unspecified Hematuria presence: without hematuria Qualified Code(s): N39.0 - Urinary tract infection, site not specified Assessment & Plan: on levaquin, culture still pending Code(s): N39.0 - URINARY TRACT INFECTION, SITE NOT SPECIFIED (2) Hypoglycemia Current Visit: Yes Status: Acute Assessment & Plan: likely secondary to renal function/insulin. will decrease sliding scale to low dose and remove D5 from fluids and observe Code(s): E16.2 - HYPOGLYCEMIA, UNSPECIFIED (3) Dehydration Current Visit: Yes Status: Acute Code(s): E86.0 - DEHYDRATION (4) Renal failure Current Visit: Yes Status: Acute Qualifiers: Renal failure chronicity: acute on chronic Chronic kidney disease stage: stage 4 (severe)
[2019-01-10 08:54] LABS: BAND 1 % (0.0-2.0); Lymphocytes 6 % (24-44); Neutrophils 93 % (36.0-66.0); Platelet Estimate NORMAL (NORMAL); Total Cells Counted 100
[2019-01-10] MEDS: Sodium Chloride 0.9% 1000 ML 1,000 ML IV SCH ×2 (10:12→22:48)
[2019-01-10] MEDS: ELIQUIS 2.5 MG TABLET PO SCH ×2 (10:13→23:21)
[2019-01-10] MEDS: Aldactone 25 MG PO SCH (10:13)
[2019-01-10] MEDS: MILK OF MAGNESIA 30 ML PO PRN (10:13)
[2019-01-10] MEDS: Apresoline 25 MG TABLET PO SCH ×2 (10:13→23:20)
[2019-01-10] MEDS: ECOTRIN 81 MG PO SCH (10:13)
[2019-01-10] MEDS: SYNTHROID 150 MCG PO SCH (10:13)
[2019-01-10] MEDS: Miralax Powder 17GM PACKET PO PRN (10:13)
[2019-01-10] MEDS: Klor Con 10 MEQ PO SCH ×2 (10:13→23:21)
[2019-01-10] MEDS: NEURONTIN 300 MG PO SCH ×2 (10:13→23:21)
[2019-01-10] MEDS: Ditropan XL 5 MG PO SCH (10:14)
[2019-01-10] MEDS: Lopressor 50 MG PO SCH ×2 (10:14→23:21)
[2019-01-10] MEDS: Colace 100 MG PO PRN (10:14)
[2019-01-10] MEDS: Carafate 1 GM PO SCH ×2 (10:14→23:21)
[2019-01-10] MEDS: ZYLOPRIM 100 MG PO SCH ×2 (10:14→23:21)
[2019-01-10] MEDS: Wellbutrin XL 150 MG PO SCH (10:15)
[2019-01-10] MEDS: NovoLOG Insulin SQ PRN ×2 (12:51→16:53)
[2019-01-10] MEDS: Klonopin 0.5 MG PO SCH (23:20)
[2019-01-11 05:39] LABS: Hemoglobin 11.3 gm/dl (12.0-16.0); Mean Cell Volume 106.4 fl (78-100); Mean Corpuscular Hemoglobin 34.3 pg (26-32); Mean Corpuscular Hgb Concent. 32.3 g/dl (32-36); Mean Platelet Volume 10.1 fl (6-9.5); Platelet Count 237 K/mm3 (150-450); Red Blood Count 3.29 M/mm3 (4.1-5.4); Red Cell Distribution Width 12.9 % (11.5-14.0); White Blood Count 9.5 K/mm3 (4.0-10.5)
[2019-01-11 07:22] LABS: BAND 1 % (0.0-2.0); Eosinophil 3 % (0.00-3.0); Lymphocytes 9 % (24-44); Monocyte 6 % (0.0-12.0); Neutrophils 81 % (36.0-66.0); Total Cells Counted 100
[2019-01-11 07:23] LABS: Hypochromia 1+; Platelet Estimate NORMAL (NORMAL)
[2019-01-11 07:46] LABS: Creatinine 1 1.47 mg/dL (0.52-1.04); Potassium 4.3 mmol/L (3.5-5.1)
[2019-01-11 07:55] VITALS: BP 101/63
[2019-01-11 08:03] VITALS: PULSE 82; O2SAT 96
--- NOTE | 2019-01-11 08:20 | PCM.DS ---
Discharge Summary Date of Admission: 01/08/19 09:23 Admitting Physician: LUCI MCFADDEN Primary Care Provider: [place] Allergies Allergies codeine Allergy (Unknown, Verified 02/24/18 23:11) "I feel warm and terrible" clarithromycin [From Biaxin] Allergy (Verified 02/24/18 23:10) Hospital Summary - Hospital Course Hospital Course: patient was admitted from [facility], was weak and disoriented. had acute on chronic renal failure and UTI, improved dramatically with antibiotics and fluids. her renal function is improved, she is alert and conversant and her family says she is better than she has been in several months now. - Vitals & Intake/Output Vital Signs: Vital Signs Temperature 96.7 F 01/11/19 07:54 Pulse Rate 82 01/11/19 07:58 Respiratory Rate 18 01/11/19 07:58 Blood Pressure 101/63 01/11/19 07:54 O2 Sat by Pulse Oximetry 96 01/11/19 07:58 Oxygen-Last Documented O2 Percentage 2 Liters = 28% Intake & Output: Intake & Output 01/08/19 01/09/19 01/10/19 01/11/19 11:59 11:59 11:59 11:59 Intake Total 460 4731 4357 3638 Output Total 275 1050 1400 1840 Balance 185 7591 2957 1798 Weight 122.3 kg 122.3 kg - Lab Result Diagrams: 01/11/19 05:20 01/11/19 05:20 Lab Results-Last 24 Hrs: Accuchecks Accucheck Value: 199 Accucheck Value: 216 Accucheck Value: 269 Lab Results-Last 24 Hours 01/10/19 01/11/19 01/11/19 Range/Units 05:09 05:20 05:20 WBC 9.5 (4.0-10.5) K/mm3 RBC 3.29 L (4.1-5.4) M/mm3 Hgb 11.3 L (12.0-16.0) gm/dl Hct 35.0 (35-47) % MCV 106.4 H (78-100) fl MCH 34.3 H (26-32) pg MCHC 32.3 (32-36) g/dl RDW 12.9 (11.5-14.0) % Plt Count 237 (150-450) K/mm3 MPV 10.1 H (6-9.5) fl Segmented Neutrophils 93 H 81 H (36.0-66.0) % Band Neutrophils 1 1 (0.0-2.0) % Lymphocytes (Manual) 6 L 9 L (24-44) % Monocytes (Manual) 6 (0.0-12.0) % Eosinophils (Manual) 3 (0.00-3.0) % Hypochromia 1+ Platelet Estimate NORMAL NORMAL (NORMAL) RBC Morphology NORMAL NORMAL Sodium 134 L (137-145) mmol/L Potassium 4.3 (3.5-5.1) mmol/L Chloride 101 (98-107) mmol/L Carbon Dioxide 29 (22-30) mmol/L Anion Gap 8.0 (5-15) MEQ/L BUN 22 H (7-17) mg/dL Creatinine 1.47 H (0.52-1.04) mg/dL Estimated GFR 36.3 ML/MIN Glucose 106 (74-106) mg/dL Calcium 9.0 (8.4-10.2) mg/dL Micro Results-Entire Visit: Microbiology 01/08/19 01:45 Blood Culture - Final Blood Staphylococcus Epidermidis 01/08/19 00:30 Urine Culture - Final Urine, Indwelling Catheter Morganella Morganii Ssp [facility] Providencia Stuartii 01/08/19 12:01 Urine Culture - Final Urine, Catheterized Escherichia Coli Accuchecks Accucheck Value: 199 Accucheck Value: 216 Accucheck Value: 269 - Procedures and Test Procedures and Tests throughout Hospitalization: Therapy Orders & Screens 01/08/19 02:36 OT Screen per Nursing Assess Comment: Protocol Order Physician Instructions: Greater than 3 points order OT Admission Screening Reason For Exam: Triggered on Admission Diagnosis: Urosepsis Open Wound/Cellutlitis/Pressure Ulcers: Yes Acute Fx/ORIF/Change in wt bearing status: No Severe MUSCULOSKELETAL pain: No ADL Dysfunction: No Acute CVA w/Hemiparesis/Hemiplegia: No Decreased Functional Mobility/Strength: No Sprain/Strain: No Acute Post-op Mobility Dysfunction: No Total Points: 5 PT Screen per Nursing Assess Comment: Protocol Order Physician Instructions: Greater than 3 points order PT Admission Screenin Reason For Exam: Triggered on Admission Diagnosis: Urosepsis Open Wound/Cellutlitis/Pressure Ulcers: Yes Acute Fx/ORIF/Change in wt bearing status: No Severe MUSCULOSKELETAL pain: No ADL Dysfunction: No Acute CVA w/Hemiparesis/Hemiplegia: No Decreased Functional Mobility/Strength: No Sprain/Strain: No Acute Post-op Mobility Dysfunction: No Total Points: 5 RT Screen per Nursing Assess ONCE Comment: Protocol Order Physician Instructions: Greater than 3 points order RT Admission Screen Reason For Exam: Triggered on Admission Diagnosis: Urosepsis Diagnosis: Urosepsis Pneumonia: No Home O2: No Asthma: No CHF: Yes Home CPAP/BIPAP: Yes Home Nebs/MDI: Yes Total Points: 13 01/08/19 04:26 Respiratory Therapy Assessment DAILY Comment: Diagnosis: Urosepsis 01/08/19 04:34 BiPap/CPAP Comment: Diagnosis: Urosepsis 01/09/19 01:06 Oxygen Nasal Cannula 2 lpm Comment: 2LPM NOC W/ BIPAP Diagnosis: UTI-FAILED OTPT, RENAL FAILURE (ACUTE ON CHRONIC) Discharge Exam General Appearance: no apparent distress, obese Neurologic Exam: alert, oriented x 3 Eye Exam: PERRL, EOMI, eyes nml inspection Respiratory Exam: normal breath sounds, lungs clear, No respiratory distress Cardiovascular Exam: regular rate/rhythm, normal heart sounds Gastrointestinal/Abdomen Exam: soft, No tenderness, No mass Skin Exam: normal color, warm, dry Wound Assessment: Skin/Wound Assessment Wound/Incision Assessment Start: 01/08/19 02: 36 Text: Status: Active Freq: Q6H Protocol: Document 01/11/19 02:00 AR (Rec: 01/11/19 03:57 AR [id number]) Wound/Incision Assessment Right Heel Wound Assessment Shift Assessment Wound Type Pressure Ulcer Wound Stage Stage III Dressing Status Dry & Intact Comment Dressing CDI, PT doing dressing changes, not removed at this time Left Heel Wound Assessment Shift Assessment Wound Stage Stage II Dressing Status Dry & Intact Comment Dressing CDI, PT doing dressing changes, not removed at this time Coccyx Wound Assessment Shift Assessment Wound Type Pressure Ulcer Wound Stage Stage II Dressing Status Dry & Intact Comment barrier cream applied prn Wound Photo Photo Taken No Final Diagnosis/Problem List - Final Discharge Diagnosis/Problem (1) UTI (urinary tract infection) Current Visit: Yes Status: Acute Assessment & Plan: continue levaquin 250mg daily x 5 more days Code(s): N39.0 - URINARY TRACT INFECTION, SITE NOT SPECIFIED (2) Hypoglycemia Current Visit: Yes Status: Acute Assessment & Plan: d/c glimeperide due to renal function this was likely causing hypoglycemia, will treat conservatively with low dose SSI Code(s): E16.2 - HYPOGLYCEMIA, UNSPECIFIED (3) Dehydration Current Visit: Yes Status: Acute Code(s): E86.0 - DEHYDRATION (4) Renal failure Current Visit: Yes Status: Acute Assessment & Plan: reduce bumex from 2mg bid to once daily and observe - Discharge Disposition: Home, Self-Care Condition: Stable Prescriptions: New Insulin Aspart [NovoLOG Insulin] See Protocol SQ UD PRN #10 unit PRN Reason: Hyperglycemia Levofloxacin [Levaquin] 250 mg PO DAILY #5 tablet Continue Clonazepam 0.5 mg [Klonopin 0.5 MG] 0.5 mg PO HS Oxybutynin Chloride Xl 5 mg [Ditropan XL 5 MG] 10 mg PO DAILY Chlorthalidone 25 mg PO DAILY Aspirin EC 81 mg [Ecotrin 81 mg] 81 mg PO DAILY Spironolactone 25 mg [Aldactone 25 MG] 50 mg PO DAILY Sucralfate 1 gm [Carafate 1 GM] 1 gm PO BID Polyethylene Glycol 3350 17 gm [Miralax Powder 17GM PACKET] 17 gm PO DAILY PRN PRN Reason: Constipation Ondansetron HCl [Zofran] 4 mg PO Q4H PRN PRN Reason: Nausea Metoprolol Tartrate 50 mg [Lopressor 50 MG] 50 mg PO BID Magnesium Hydroxide 30 ml [Milk of Magnesia 30 ml] 30 ml PO DAILY PRN PRN Reason: Constipation Magnesium Citrate 296 ml [Citroma 296 ml] 300 ml PO HS PRN PRN Reason: Constipation Lubiprostone [Amitiza] 24 mcg PO BID PRN PRN Reason: Constipation Loperamide HCl 2 mg [Imodium 2 mg] 2 mg PO Q4H PRN PRN Reason: Diarrhea Levothyroxine Sodium 150 Mcg [Synthroid 150 Mcg] 150 mcg PO DAILY Hydralazine HCl 50 mg PO BID Gabapentin [Neurontin] 300 mg PO BID Ferric Citrate [Auryxia] 210 mg PO TID Docusate Sodium 100 mg [Colace 100 MG] 100 mg PO BID Bupropion HCl Xl 150 mg [Wellbutrin XL 150 MG] 300 mg PO DAILY Apixaban [Eliquis 2.5 mg Tablet] 2.5 mg PO BID Allopurinol 100 mg [Zyloprim 100 mg] 100 mg PO BID Acetaminophen 325 mg [Tylenol 325 mg] 650 mg PO Q4H PRN PRN Reason: Fever Changed Bumetanide 1 mg [Bumex 1 mg] 2 mg PO DAILY #30 tablet Discontinued Glimepiride 4 mg [Amaryl 4 mg] 4 mg PO DAILY Additional Instructions: cbc with diff and BMP to be done on 01/16/19 Follow up with: ANT ANDERSON [Primary Care Provider] - 1 Week
[2019-01-11] MEDS: Miralax Powder 17GM PACKET PO PRN (09:54)
[2019-01-11] MEDS: ECOTRIN 81 MG PO SCH (09:56)
[2019-01-11] MEDS: Aldactone 25 MG PO SCH (09:56)
[2019-01-11] MEDS: Lopressor 50 MG PO SCH (09:57)
[2019-01-11] MEDS: Apresoline 25 MG TABLET PO SCH (09:57)
[2019-01-11] MEDS: ZYLOPRIM 100 MG PO SCH (09:57)
[2019-01-11] MEDS: SYNTHROID 150 MCG PO SCH (09:58)
[2019-01-11] MEDS: Ditropan XL 5 MG PO SCH (09:58)
[2019-01-11] MEDS: Colace 100 MG PO PRN (09:58)
[2019-01-11] MEDS: ELIQUIS 2.5 MG TABLET PO SCH (09:58)
[2019-01-11] MEDS: Klor Con 10 MEQ PO SCH (09:59)
[2019-01-11] MEDS: Carafate 1 GM PO SCH (09:59)
[2019-01-11] MEDS: NEURONTIN 300 MG PO SCH (10:00)
[2019-01-11] MEDS: Wellbutrin XL 150 MG PO SCH (10:01)
== END 2019-01-11 10:50 | DRG 689 ==
LOC: ED 22:20 → MED SURG 01-08 01:57 → OBSVTOIN 01-08 09:23
PROVIDERS: ADMIT Family Medicine; ATTEND Family Medicine
DX: N39.0 Urinary tract infection, site not specified (principal); L89.613 Pressure ulcer of right heel, stage 3; N17.9 Acute kidney failure, unspecified; N18.4 Chronic kidney disease, stage 4 (severe); R41.0 Disorientation, unspecified; R53.1 Weakness; R19.7 Diarrhea, unspecified; I10 Essential (primary) hypertension; E78.00 Pure hypercholesterolemia, unspecified; E03.9 Hypothyroidism, unspecified; E86.0 Dehydration; R79.89 Other specified abnormal findings of blood chemistry; E11.22 Type 2 diabetes mellitus with diabetic chronic kidney disease; I12.9 Hypertensive chronic kidney disease with stage 1 through stage 4 chronic kidney disease, or unspecified chronic kidney disease; E11.649 Type 2 diabetes mellitus with hypoglycemia without coma; L89.152 Pressure ulcer of sacral region, stage 2; L89.622 Pressure ulcer of left heel, stage 2; Z79.01 Long term (current) use of anticoagulants; Z79.899 Other long term (current) drug therapy; I25.2 Old myocardial infarction; Z86.711 Personal history of pulmonary embolism
CPT/HCPCS: 36000; 36415; 70450; 71045; 80048; 80053; 80307; 81001; 82550; 82947; 82962; 83036; 83605; 83735; 83880; 84484; 85025; 85610; 85730; 87040; 87077; 87086; 87186; 93005; 93268; 94002; 94003; 94760; 96360; 96365; 99285; J0696; J1200; J1956; J2930; J3370; A9270-GY

== ENCOUNTER 2019-02-04 08:24 | Day surgery (SDC) | payer MEDICARE, OTHER ==
[~2019-02-04 08:24] MED LIST: Lactated Ringers 1,000 ML IV ONE; Lactated Ringers 1,000 ML IV SCH
--- NOTE | 2019-02-04 09:47 | HP ---
DATE OF SURGERY: 02/04/2019 HISTORY OF PRESENT ILLNESS: The patient is an 83 year-old female with some nausea, poor appetite, 75 pound weight loss. According to patient's caregiver had some hard stools with some bleeding at times. Last colonoscopy ten years ago and no polyp. Family history mother with colon cancer. Given her weight loss, poor appetite as well as rectal bleeding, she is in need of EGD and colonoscopy due to the family history of colon cancer. PAST MEDICAL HISTORY: Diabetes, hyperlipidemia, hypertension, history of atrial fibrillation. PAST SURGICAL HISTORY: Cholecystectomy. Appendectomy. section. Hysterectomy. Foot surgery. MEDICATIONS: Includes Aldactone, Allopurinol for some gout, Amitiza, aspirin, Bumex, Carafate, chlorthalidone, Ditropan XL, Eliquis, gabapentin, Auryxia, glimepiride, hydralazine, Klonopin, metoprolol, pantoprazole, potassium chloride, Synthroid for hypothyroidism, Verapamil, Wellbutrin. ALLERGIES: BIOXIN, CODEINE. FAMILY HISTORY: Negative other than colon cancer according to the patient. SOCIAL HISTORY: No smoking. REVIEW OF SYSTEMS: Fourteen systems reviewed, multiple medical problems, per admission assessment. PHYSICAL EXAMINATION: GENERAL: No acute distress. HEENT: Sclerae nonicteric. NECK: No JVD. CHEST: Equal excursion, nonlabored breathing. CVS: Regular rate and rhythm. ABDOMEN: Soft. No peritoneal signs. EXTREMITIES: No significant edema. NEURO: Alert, oriented, moving extremities symmetrically. No gross motor deficits noted. RECTAL: Deferred timed to endoscopy exam. IMPRESSION: Rectal bleeding, poor appetite, weight loss of unclear etiology. She is in need of upper and lower endoscopy for further evaluation. Risks and benefits explained in detail including but not limited to bleeding or infection, risk of bowel injury or perforation possibly requiring open procedure, risk of missed or nondiagnosis or incomplete exam possibly requiring barium enema, other studies or procedures. General risk of anesthesia or sedation but not limited to, possibility of inability to diagnose etiology of her symptoms possibly requiring other work up and/or testing. She understands and agrees to the planned procedure and will proceed with EGD and colonoscopy under MAC anesthesia as an outpatient.
[2019-02-04] MEDS ORDERED: DIPRIVAN 200 MG/20 ML IV ONE ×2 (10:20→10:42)
[2019-02-04] MEDS ORDERED: Ketamine HCl 50 MG/ML ONE (10:20)
[2019-02-04] MEDS ORDERED: PHENYLEPHRINE HCL ONE (10:47)
[2019-02-04 12:35] VITALS: O2SAT 100
[2019-02-04 12:39] VITALS: BP 136/84; PULSE 84
--- NOTE | 2019-02-04 15:21 | OP ---
SURGERY DATE/TIME: 02/04/2019 1023 PREOPERATIVE DIAGNOSES: 1) History of weight loss, poor appetite and rectal bleeding. 2) Family history of colon cancer, need for upper and lower endoscopy. POSTOPERATIVE DIAGNOSES: 1) Minimal to mild gastritis. 2) Fair bowel prep. 3) Mild diverticulosis. 4) Tortuous colon. 5) Small internal and external hemorrhoids. 6) Small raised lesion versus hyperplastic lesion or hyperplasia of mucosa transverse colon and rectosigmoid colon. PROCEDURES: 1) EGD with cold biopsy of the small bowel to evaluate for celiac sprue. 2) Cold biopsy of the antrum to evaluate for Helicobacter pylori. 3) Colonoscopy to cecum. 4) Hot biopsy transverse colon raised lesion versus hyperplastic lesion of mucosa. 5) Hot biopsy removal of small raised lesion versus hyperplastic lesion rectosigmoid colon. SURGEON: Dr. Gildardo Valles. ANESTHESIA: MAC. ESTIMATED BLOOD LOSS: Minimal. INDICATIONS: As noted above. Risks and benefits explained in detail and not limited to and consent obtained. DESCRIPTION OF PROCEDURE AND FINDINGS: The patient is taken to the operating room. MAC anesthesia introduced. After official time out and no disagreement with planned procedure, a bite block positioned. Video gastroscope easily passed down the esophagus through the patent pylorus to the junction of the second and third portion of the duodenum. Duodenum and duodenal bulb were grossly unremarkable. Cold biopsy had a little bit of flattening of the folds with cold biopsy taken to evaluate celiac sprue. Good hemostasis noted. The scope pulled back into the stomach. She had some erythema. Whether she had some minimal to mild to mild gastritis, cold biopsy taken to evaluate for Helicobacter pylori. Good hemostasis noted. Otherwise on retroflex there was no significant hiatal hernia. The scope is straightened. The gastroesophageal junction was about 40 cm. Z-line was crisp. No signs of any obvious ulcers, mass or erosions. No signs of any obvious mucosal lesions on withdrawal of the scope. Attention is then turned to colonoscopy. She did have some chronic skin break down around her sacral and ischiosacral area there. Otherwise she had some internal and external hemorrhoids. No digitally palpable rectal masses. Video colonoscope inserted and passed up through the very tortuous sigmoid, descending, transverse and ascending colon requiring two different staff members with external pressure. The scope was able to be passed around to the cecum and appendiceal orifice and valve well visualized. Prep overall is fair. There is a little bit of liquidy semisolid stool that was suctioned requiring suction irrigating as well as possible just slightly limiting the exam for little tiny lesions. With slow careful withdrawal of the scope over the next ten minutes, there were no signs of any large polyps, masses or obstructing lesions. Some random cold biopsies were taken to evaluate for microscopic colitis as an etiology of her symptoms. It should be noted that because of her obesity limiting the scope, the scope would not go up the terminal ileum itself. On slow careful withdrawal over the next ten minutes or so, random cold biopsies taken to evaluate for microscopic colitis. There was a very vague, tiny, little raised area in the transverse colon that was removed with hot biopsy forceps. Whether just simple hyperplasia of the mucosa versus hyperplastic polyp was removed with hot biopsy forceps with brief bursts of cautery. Good hemostasis noted. Otherwise she did have some mild diverticulosis. The scope slowly and carefully pulled back to the sigmoid area. She had another two or three small, little raised lesions versus hyperplastic lesion removed with hot biopsy forceps. She did have some internal and external hemorrhoids. There were no signs of any large polyps, masses or obstructing lesions to account for her weight loss. I will see the results of the biopsies. I will see her back in the office. Maybe consideration of CT scan per family doctor to look for further etiology of her symptoms. Otherwise I will see her back in the office next week. Given her family history if path is benign she will have follow up colonoscopy in five years.
== END 2019-02-04 12:30 ==
LOC: SDC 08:24
PROVIDERS: ATTEND Surgery
DX: K29.70 Gastritis, unspecified, without bleeding (principal); K57.30 Diverticulosis of large intestine without perforation or abscess without bleeding; Z80.0 Family history of malignant neoplasm of digestive organs; K64.4 Residual hemorrhoidal skin tags; D12.8 Benign neoplasm of rectum; K64.8 Other hemorrhoids; R11.0 Nausea; R63.4 Abnormal weight loss; Z68.36 Body mass index [BMI] 36.0-36.9, adult; E11.9 Type 2 diabetes mellitus without complications; I10 Essential (primary) hypertension; E78.5 Hyperlipidemia, unspecified; Z79.01 Long term (current) use of anticoagulants; Z79.899 Other long term (current) drug therapy
CPT/HCPCS: 82962; 87081; 88305; 99100; J2370; J2704

== ENCOUNTER 2019-03-11 15:34 | Inpatient (IN) | payer MEDICARE, OTHER ==
[2019-03-11] MEDS ORDERED: DUONEB 0.5-3 MG/3 ml Neb IH PRN (16:15)
[2019-03-11 16:25] LABS: BASOPHIL % 0.2 % (0.0-0.4); Basophil (Absolute #) 0.02 (0-0.4); Eosinophil % 5.6 % (0.00-5.0); Eosinophil (Absolute #) 0.49 (0-0.5); Granulocytes % 64.1 % (36.0-66.0); Hemoglobin 12.6 gm/dl (12.0-16.0); Lymphocyte (Absolute #) 1.93 (1.0-4.6); Lymphocytes % 22.1 % (24.0-44.0); Mean Cell Volume 103.8 fl (78-100); Mean Corpuscular Hemoglobin 34.4 pg (26-32); Mean Corpuscular Hgb Concent. 33.2 g/dl (32-36); Mean Platelet Volume 10.8 fl (6-9.5); Platelet Count 326 K/mm3 (150-450); Red Blood Count 3.66 M/mm3 (4.1-5.4); Red Cell Distribution Width 13.9 % (11.5-14.0); White Blood Count 8.7 K/mm3 (4.0-10.5)
--- NOTE | 2019-03-11 16:37 | XRAY ---
Exam: AP upright portable chest film from 03/11/2019. Comparison: AP portable chest film from 01/07/2019. Indication: Acute bronchitis, CHF. Findings: Lung volumes are about the same as that seen on 01/07/2019 and appear toward the lower limits of normal. The heart size appears borderline enlarged. Atherosclerotic vascular calcification is seen within the aortic arch and descending thoracic aorta. I believe there is some minimal transversely oriented subsegmental atelectasis or fibrotic scarring lateral to the lower margin of the right hilum representing no change. In retrospect, there is probably some minimal pleural-parenchymal scarring at the left lung base adjacent to the left hemidiaphragm as well, representing no change from 01/07/2019. No air space infiltrates, vascular congestion, pneumothorax, or pleural fluid is seen. Surgical clips are seen within the right upper quadrant from probable prior cholecystectomy. Advanced osteoarthritic changes are seen within both shoulders, right greater than left. Impression: 1. Borderline cardiomegaly without evidence of acute heart failure or pulmonary edema. 2. No air space infiltrates to suggest pneumonia are seen. 3. Minimal transversely oriented subsegmental atelectasis versus scarring lateral to the right infrahilar projection, no change from 01/07/2019. I believe there is also some subtle pleural-parenchymal scarring at the left lung base adjacent to the hemidiaphragm. This also is unchanged from 01/07/2019 in retrospect.
[2019-03-11 16:47] LABS: ALBUMIN 3.4 g/dL (3.5-5.0); BILIRUBIN,TOTAL 0.6 mg/dL (0.2-1.3); Creatinine 1 1.16 mg/dL (0.52-1.04); Potassium 3.7 mmol/L (3.5-5.1); Total Protein 6.8 g/dL (6.3-8.2)
--- NOTE | 2019-03-11 17:11 | PCM.HP ---
History of Present Illness - Chief Complaint Chief Complaint: CHF exacerbation, acute bronchitis History of Present Illness: is a delightful 83 year old female who resides [place], she was seen by Dr Thomas today with complaints of cough productive of yellow sputum and worsening swelling over the preceding 2-3 weeks. She feels slightly short of breath but mostly concerned with her productive cough, she has been steadily gaining weight in spite of her diuretics being given regularly. - Review of Systems Constitutional: No Fever, No Chills Respiratory: Cough, Short Of Breath Cardiac: Edema, No Chest Pain, No Palpitations, No Syncope Abdominal/Gastrointestinal: No Abdominal Pain, No Nausea, No Vomiting, No Diarrhea Genitourinary Symptoms: No Dysuria Skin: No Rash All Other Systems: Reviewed and Negative Medications & Allergies Home Medications: Home Medication List Acetaminophen 325 mg [Tylenol 325 mg] 650 mg PO Q4H PRN 01/08/19 [History Confirmed 01/31/19] Bupropion HCl Xl 150 mg [Wellbutrin XL 150 MG] 300 mg PO DAILY 01/08/19 [ History Confirmed 02/04/19] Chlorthalidone 25 mg PO DAILY 01/08/19 [History Confirmed 02/04/19] Ferric Citrate [Auryxia] 210 mg PO TID 01/08/19 [History Confirmed 02/04/19] Gabapentin [Neurontin] 300 mg PO BID 01/08/19 [History Confirmed 02/04/19] Hydralazine HCl 50 mg PO BID 01/08/19 [History Confirmed 02/04/19] Levothyroxine Sodium 150 Mcg [Synthroid 150 Mcg] 150 mcg PO DAILY 01/08/19 [History Confirmed 02/04/19] Loperamide HCl 2 mg [Imodium 2 mg] 2 mg PO Q4H PRN 01/08/19 [History Confirmed 01/31/19] Lubiprostone [Amitiza] 24 mcg PO BID PRN 01/08/19 [History Confirmed 02/04/19] Magnesium Citrate 296 ml [Citroma 296 ml] 300 ml PO HS PRN 01/08/19 [ History Confirmed 02/04/19] Magnesium Hydroxide 30 ml [Milk of Magnesia 30 ml] 30 ml PO DAILY PRN [History Confirmed 02/04/19] Metoprolol Tartrate 50 mg [Lopressor 50 MG] 50 mg PO BID 01/08/19 [ History Confirmed 02/04/19] Ondansetron HCl [Zofran] 4 mg PO Q4H PRN 01/08/19 [History Confirmed 01/31/19] Oxybutynin Chloride Xl 5 mg [Ditropan XL 5 MG] 10 mg PO DAILY 01/08/19 [ History Confirmed 02/04/19] Polyethylene Glycol 3350 17 gm [Miralax Powder 17GM PACKET] 17 gm PO DAILY PRN 01/08/19 [History Confirmed 01/31/19] Spironolactone 25 mg [Aldactone 25 MG] 50 mg PO DAILY 01/08/19 [History Confirmed 02/04/19] Sucralfate 1 gm [Carafate 1 GM] 1 gm PO BID 01/08/19 [History Confirmed ] Bumetanide 1 mg [Bumex 1 mg] 2 mg PO DAILY #30 tablet 01/11/19 [Rx Confirmed 02/04/19] Allopurinol 100 mg [Zyloprim 100 mg] 100 mg PO BID 01/31/19 [History Confirmed 02/04/19] Clonazepam 0.5 mg [Klonopin 0.5 MG] 0.5 mg PO HS 01/31/19 [History Confirmed 02/04/19] Glimepiride 4 mg [Amaryl 4 mg] 4 mg PO DAILY 01/31/19 [History Confirmed 02/04/19] Pantoprazole Sodium [Protonix] 40 mg PO DAILY 01/31/19 [History Confirmed ] Verapamil HCl [Verapamil ER] 180 mg PO DAILY 01/31/19 [History Confirmed ] Apixaban [Eliquis 2.5 mg Tablet] 2.5 mg PO BID #0 02/04/19 [Rx Confirmed ] Aspirin EC 81 mg [Ecotrin 81 mg] 81 mg PO DAILY #0 02/04/19 [Rx Confirmed 02/04/19] Allergies/Adverse Reactions: Allergies Allergy/AdvReac Type Severity Reaction Status Date / Time codeine Allergy Unknown Verified 02/04/19 08:54 clarithromycin [From Biaxin] Allergy Verified 02/04/19 08:54 - Past Medical History Past Medical History: Yes Neurological History: No Pertinent History ENT History: Cataracts, Glaucoma Cardiac History: Arrhythmia, Congestive Heart Failure, High Cholesterol, Hypertension, Myocardial Infarction ([place]) Respiratory History: CHF, Pulmonary Embolism, Sleep Apnea Endocrine Medical History: Diabetes Type II, Hypothyroidism Musculoskelatal History: Arthritis, Osteoarthritis GI Medical History: Other History: Renal Disease Pyscho-Social History: Anxiety, Depression Reproductive Disorders: No Pertinent History Comment: H-Pylori, - hysterectomy - Past Surgical History Past Surgical History: Yes Neuro Surgical History: No Pertinent History Cardiac History: No Pertinent History Respiratory Surgery: No Pertinent History GI Surgical History: Appendectomy, Cholecystectomy Genitourinary Surgical Hx: No Pertinent History Musculskeletal Surgical Hx: No Pertinent History Female Surgical History: Hysterectomy, Section Other Surgical History: foot surgery - Social History Smoking Status: Never smoker Exposure to second hand smoke: No Alcohol: None Drug Use: none - Physical Exam General Appearance: no apparent distress, obese Neurologic Exam: alert, oriented x 3 Respiratory Exam: crackles/rales, rhonchi Cardiovascular Exam: regular rate/rhythm, normal heart sounds, normal peripheral pulses Gastrointestinal/Abdomen Exam: soft, normal bowel sounds, No tenderness, No mass Extremity Exam: pedal edema, swelling Skin Exam: normal color, warm, dry, No rash Results - Labs Lab/Micro Results: Lab Results-Last 24 Hours 03/11/19 Range/Units 16:20 WBC 8.7 (4.0-10.5) K/mm3 RBC 3.66 L (4.1-5.4) M/mm3 Hgb 12.6 (12.0-16.0) gm/dl Hct 38.0 (35-47) % MCV 103.8 H (78-100) fl MCH 34.4 H (26-32) pg MCHC 33.2 (32-36) g/dl RDW 13.9 (11.5-14.0) % Plt Count 326 (150-450) K/mm3 MPV 10.8 H (6-9.5) fl Gran % 64.1 (36.0-66.0) % Eos # (Auto) 0.49 (0-0.5) Absolute Lymphs (auto) 1.93 (1.0-4.6) Absolute Monos (auto) 0.70 (0.0-1.3) Lymphocytes % 22.1 L (24.0-44.0) % Monocytes % 8.0 (0.0-12.0) % Eosinophils % 5.6 H (0.00-5.0) % Basophils % 0.2 (0.0-0.4) % Absolute Granulocytes 5.60 (1.4-6.9) Basophils # 0.02 (0-0.4) - Radiology Impressions Radiology Exams & Impressions: Radiology Procedures Category Date Time Status CHEST 1 VIEW (PORTABLE) Stat Exams 03/11/19 16:08 Completed - Other Procedures and Tests Respiratory Therapy 03/11/19 16:48 Peak Expiratory Flow Rate ONCE 03/11/19 16:49 Respiratory Therapy Assessment DAILY Assessment/Plan (1) Acute on chronic systolic CHF (congestive heart failure) Current Visit: Yes Status: Acute Assessment & Plan: currently ordered bumex 2mg IV bid, strict I/O and will follow lytes Code(s): I50.23 - ACUTE ON CHRONIC SYSTOLIC (CONGESTIVE) HEART FAILURE (2) Acute bronchitis Current Visit: Yes Status: Acute Assessment & Plan: chest xray negative, will obtain sputum culture. currently on rocephin/ zithromax emperically Code(s): J20.9 - ACUTE BRONCHITIS, UNSPECIFIED (3) Atrial fibrillation Current Visit: No Status: Chronic Qualifiers: Code(s): I48.91 - UNSPECIFIED ATRIAL FIBRILLATION (4) Bilateral leg edema Current Visit: No Status: Chronic Code(s): R60.0 - LOCALIZED EDEMA
[2019-03-11] MEDS: DUONEB 0.5-3 MG/3 ml Neb IH SCH ×2 (17:26→20:44)
[2019-03-11 18:02] LABS: Appearance CLOUDY (CLEAR); Bacteria MODERATE /HPF (NEGATIVE); Bilirubin NEGATIVE (NEGATIVE); Blood LARGE Ery/ul (0-5); Glucose NEGATIVE (NEGATIVE); Ketones NEGATIVE (NEGATIVE); Leukocyte Esterase SMALL (NEGATIVE); Nitrite NEGATIVE (NEGATIVE); Protein,Urine Dip 100 (Negative); Specific Gravity 1.006 (1.005-1.025); Urobilinogen NEGATIVE mg/dL (0-1)
[2019-03-11 18:05] LABS: RBC >101 /HPF (0-2)
[2019-03-11] MEDS: BUMEX 1 MG IV SCH (18:11)
[2019-03-11] MEDS: ROCEPHIN 1 Gm-D5w 50 ml Bag** 1 G/50 ML IVPB IV SCH (18:12)
[2019-03-11] MEDS: Zithromax 500 MG/ 250 ML NaCl Premix 500 MG/250 ML IVPB IV SCH (18:41)
[2019-03-11] MEDS ORDERED: DUONEB 0.5-3 MG/3 ml Neb IH SCH (19:00)
[2019-03-11] MEDS: Sodium Chloride 0.9% 10 ML FLUSH Syringe IV SCH (19:49)
[2019-03-11] MEDS ORDERED: NovoLOG Insulin SQ PRN (20:35)
[2019-03-11] MEDS ORDERED: ELIQUIS 2.5 MG TABLET ONE (20:45)
[2019-03-11] MEDS ORDERED: Klor Con 10 MEQ PO ONE (20:46)
[2019-03-11] MEDS: Apresoline 25 MG TABLET PO SCH ×2 (21:00→21:09)
[2019-03-11] MEDS: Tessalon Perles 100 MG PO PRN (21:01)
[2019-03-11] MEDS: Carafate 1 GM PO SCH (21:01)
[2019-03-11] MEDS: NEURONTIN 300 MG PO SCH (21:02)
[2019-03-11] MEDS: ELIQUIS 2.5 MG TABLET PO SCH (21:02)
[2019-03-11] MEDS: Colace 100 MG PO SCH (21:02)
[2019-03-11] MEDS: Klonopin 0.5 MG PO SCH (21:02)
[2019-03-11] MEDS: Lopressor 50 MG PO SCH (21:02)
[2019-03-11] MEDS: ZYLOPRIM 100 MG PO SCH (21:02)
[2019-03-11] MEDS ORDERED: Klor Con 10 MEQ PO SCH ×2 (22:00)
[2019-03-12 05:04] LABS: BASOPHIL % 0.4 % (0.0-0.4); Basophil (Absolute #) 0.03 (0-0.4); Eosinophil % 7.5 % (0.00-5.0); Eosinophil (Absolute #) 0.52 (0-0.5); Granulocytes % 54.9 % (36.0-66.0); Hemoglobin 11.3 gm/dl (12.0-16.0); Lymphocyte (Absolute #) 1.99 (1.0-4.6); Lymphocytes % 28.8 % (24.0-44.0); Mean Cell Volume 106.2 fl (78-100); Mean Corpuscular Hemoglobin 33.3 pg (26-32); Mean Corpuscular Hgb Concent. 31.4 g/dl (32-36); Mean Platelet Volume 10.9 fl (6-9.5); Monocyte (Absolute #) 0.58 (0.0-1.3); Monocytes % 8.4 % (0.0-12.0); Platelet Count 304 K/mm3 (150-450); Red Blood Count 3.39 M/mm3 (4.1-5.4); Red Cell Distribution Width 13.8 % (11.5-14.0); White Blood Count 6.9 K/mm3 (4.0-10.5)
[2019-03-12] MEDS: BUMEX 1 MG IV SCH ×2 (05:21→16:54)
[2019-03-12] MEDS: Sodium Chloride 0.9% 10 ML FLUSH Syringe IV SCH ×3 (05:22→21:28)
[2019-03-12 05:26] LABS: ANION GAP 11.2 MEQ/L (5-15); Calcium 8.6 mg/dL (8.4-10.2); Creatinine 1 1.25 mg/dL (0.52-1.04)
[2019-03-12] MEDS ORDERED: K-LYTE 25 MEQ PO ONE (05:56)
[2019-03-12] MEDS: DUONEB 0.5-3 MG/3 ml Neb IH SCH ×4 (06:48→19:23)
--- NOTE | 2019-03-12 09:12 | PCM.NOTE ---
Date and Time: 03/12/19910 Subjective Assessment: patient is doing well, still has significant cough but no other complaints Objective Exam General Appearance: no apparent distress, obese Neurologic Exam: alert, oriented x 3 Respiratory Exam: crackles/rales, rhonchi Cardiovascular Exam: regular rate/rhythm, normal heart sounds Extremity Exam: pedal edema, swelling OBJECTIVE DATA Vital Signs: Vital Signs - 24 hr Temp Pulse Resp BP Pulse Ox 03/12/19 07:44 97.8 F 116 H 20 115/64 94 L 03/12/19 06:54 110 H 24 94 L 03/12/19 04:00 97.6 F 102 H 20 125/57 95 03/12/19 00:00 98.1 F 105 H 18 121/53 93 L 03/11/19 21:34 85 20 97 03/11/19 19:53 98.3 F 117 H 20 97/53 97 03/11/19 17:27 84 18 98 03/11/19 16:25 97.4 F 91 H 20 112/58 98 Pain Assessment - Last Documented Pain Intensity 0 Pain Scale Used 0-10 Pain Scale Intake and Output: Intake & Output 03/09/19 03/10/19 03/11/19 03/12/19 11:59 11:59 11:59 11:59 Intake Total 1221 Output Total 1080 Balance 141 Weight 126.7 kg Lab Results: Accuchecks Date 03/12/19 Date 03/11/19 Date 03/11/19 Time 07:30 Time 22:00 Time 18:11 Accucheck Value: 105 Accucheck Value: 131 Accucheck Value: 152 Lab Results-Last 24 Hours 03/11/19 03/11/19 03/11/19 Range/Units 16:20 16:20 16:45 WBC 8.7 (4.0-10.5) K/mm3 RBC 3.66 L (4.1-5.4) M/mm3 Hgb 12.6 (12.0-16.0) gm/dl Hct 38.0 (35-47) % MCV 103.8 H (78-100) fl MCH 34.4 H (26-32) pg MCHC 33.2 (32-36) g/dl RDW 13.9 (11.5-14.0) % Plt Count 326 (150-450) K/mm3 MPV 10.8 H (6-9.5) fl Gran % 64.1 (36.0-66.0) % Eos # (Auto) 0.49 (0-0.5) Absolute Lymphs (auto) 1.93 (1.0-4.6) Absolute Monos (auto) 0.70 (0.0-1.3) Lymphocytes % 22.1 L (24.0-44.0) % Monocytes % 8.0 (0.0-12.0) % Eosinophils % 5.6 H (0.00-5.0) % Basophils % 0.2 (0.0-0.4) % Absolute Granulocytes 5.60 (1.4-6.9) Basophils # 0.02 (0-0.4) Sodium 136 L (137-145) mmol/L Potassium 3.7 (3.5-5.1) mmol/L Chloride 91 L (98-107) mmol/L Carbon Dioxide 35 H (22-30) mmol/L Anion Gap 14.0 (5-15) MEQ/L BUN 16 (7-17) mg/dL Creatinine 1.16 H (0.52-1.04) mg/dL Estimated GFR 47.7 ML/MIN Glucose 161 H (74-106) mg/dL Calcium 9.0 (8.4-10.2) mg/dL Total Bilirubin 0.60 (0.2-1.3) mg/dL AST 27 (14-36) U/L ALT 15 (0-35) U/L Alkaline Phosphatase 125 (38-126) U/L NT-Pro-B Natriuret Pep 5060 H (0-1800) pg/mL Serum Total Protein 6.8 (6.3-8.2) g/dL Albumin 3.4 L (3.5-5.0) g/dL Urine Color RED (YELLOW) Urine Appearance CLOUDY (CLEAR) Urine pH 8.0 (5-6) Ur Specific Wilson 1.006 (1.005-1.025) Urine Protein 100 (Negative) Urine Ketones NEGATIVE (NEGATIVE) Urine Blood LARGE (0-5) Dennis/ul Urine Nitrite NEGATIVE (NEGATIVE) Urine Bilirubin NEGATIVE (NEGATIVE) Urine Urobilinogen NEGATIVE (0-1) mg/dL Ur Leukocyte Esterase SMALL (NEGATIVE) Urine WBC (Auto) 6-10 (0-5) /HPF Urine RBC (Auto) >101 (0-2) /HPF U Epithel Cells (Auto) NONE (FEW) /HPF Urine Bacteria (Auto) MODERATE (NEGATIVE) /HPF Urine Culture Reflexed ORDERED SEPARATELY (NO) Urine Glucose NEGATIVE (NEGATIVE) mg/dL 03/12/19 03/12/19 Range/Units 04:25 04:25 WBC 6.9 (4.0-10.5) K/mm3 RBC 3.39 L (4.1-5.4) M/mm3 Hgb 11.3 L (12.0-16.0) gm/dl Hct 36.0 (35-47) % MCV 106.2 H (78-100) fl MCH 33.3 H (26-32) pg MCHC 31.4 L (32-36) g/dl RDW 13.8 (11.5-14.0) % Plt Count 304 (150-450) K/mm3 MPV 10.9 H (6-9.5) fl Gran % 54.9 (36.0-66.0) % Eos # (Auto) 0.52 H (0-0.5) Absolute Lymphs (auto) 1.99 (1.0-4.6) Absolute Monos (auto) 0.58 (0.0-1.3) Lymphocytes % 28.8 (24.0-44.0) % Monocytes % 8.4 (0.0-12.0) % Eosinophils % 7.5 H (0.00-5.0) % Basophils % 0.4 (0.0-0.4) % Absolute Granulocytes 3.80 (1.4-6.9) Basophils # 0.03 (0-0.4) Sodium 136 L (137-145) mmol/L Potassium 3.0 L (3.5-5.1) mmol/L Chloride 92 L (98-107) mmol/L Carbon Dioxide 36 H (22-30) mmol/L Anion Gap 11.2 (5-15) MEQ/L BUN 15 (7-17) mg/dL Creatinine 1.25 H (0.52-1.04) mg/dL Estimated GFR 43.7 ML/MIN Glucose 104 (74-106) mg/dL Calcium 8.6 (8.4-10.2) mg/dL Total Bilirubin (0.2-1.3) mg/dL AST (14-36) U/L ALT (0-35) U/L Alkaline Phosphatase (38-126) U/L NT-Pro-B Natriuret Pep (0-1800) pg/mL Serum Total Protein (6.3-8.2) g/dL Albumin (3.5-5.0) g/dL Urine Color (YELLOW) Urine Appearance (CLEAR) Urine pH (5-6) Ur Specific Wilson (1.005-1.025) Urine Protein (Negative) Urine Ketones (NEGATIVE) Urine Blood (0-5) Dennis/ul Urine Nitrite (NEGATIVE) Urine Bilirubin (NEGATIVE) Urine Urobilinogen (0-1) mg/dL Ur Leukocyte Esterase (NEGATIVE) Urine WBC (Auto) (0-5) /HPF Urine RBC (Auto) (0-2) /HPF U Epithel Cells (Auto) (FEW) /HPF Urine Bacteria (Auto) (NEGATIVE) /HPF Urine Culture Reflexed (NO) Urine Glucose (NEGATIVE) mg/dL Radiology Exams: Radiology Procedures Category Date Time Status CHEST 1 VIEW (PORTABLE) Stat Exams 03/11/19 16:08 Completed Assessment/Plan (1) Acute on chronic systolic CHF (congestive heart failure) Current Visit: Yes Status: Acute Assessment & Plan: continue IV bumex Code(s): I50.23 - ACUTE ON CHRONIC SYSTOLIC (CONGESTIVE) HEART FAILURE (2) Acute bronchitis Current Visit: Yes Status: Acute Assessment & Plan: rocephin/zithromax and nebs Code(s): J20.9 - ACUTE BRONCHITIS, UNSPECIFIED (3) Atrial fibrillation Current Visit: No Status: Chronic Qualifiers: Code(s): I48.91 - UNSPECIFIED ATRIAL FIBRILLATION (4) Bilateral leg edema Current Visit: No Status: Chronic Code(s): R60.0 - LOCALIZED EDEMA
[2019-03-12] MEDS: Carafate 1 GM PO SCH ×2 (09:41→21:10)
[2019-03-12] MEDS: ELIQUIS 2.5 MG TABLET PO SCH ×2 (09:46→21:10)
[2019-03-12] MEDS: NEURONTIN 300 MG PO SCH ×2 (09:46→21:11)
[2019-03-12] MEDS: Apresoline 25 MG TABLET PO SCH (09:46)
[2019-03-12] MEDS: Colace 100 MG PO SCH ×2 (09:47→21:11)
[2019-03-12] MEDS: ZYLOPRIM 100 MG PO SCH ×2 (09:48→21:11)
[2019-03-12] MEDS ORDERED: Klor Con 10 MEQ PO SCH (10:00)
[2019-03-12] MEDS: Lopressor 50 MG PO SCH ×2 (10:12→21:10)
[2019-03-12] MEDS ORDERED: MAALOX ES 30 ML UNIT DOSE PO PRN (10:56)
[2019-03-12] MEDS ORDERED: MILK OF MAGNESIA 30 ML PO PRN (10:56)
[2019-03-12] MEDS ORDERED: TYLENOL 325 MG PO PRN (10:56)
[2019-03-12] MEDS ORDERED: MEDICATION INTERVENTION MC SCH (11:15)
[2019-03-12] MEDS: Miralax Powder 17GM PACKET PO PRN (12:36)
[2019-03-12] MEDS: Ditropan XL 5 MG PO SCH (12:36)
[2019-03-12] MEDS: Aldactone 25 MG PO SCH (12:38)
[2019-03-12] MEDS: Protonix 40MG Tablet PO SCH (12:39)
[2019-03-12] MEDS: Tessalon Perles 100 MG PO PRN ×2 (12:41→21:10)
[2019-03-12] MEDS: SYNTHROID 150 MCG PO SCH (12:47)
[2019-03-12] MEDS: ECOTRIN 81 MG PO SCH (12:49)
[2019-03-12] MEDS: Wellbutrin XL 150 MG PO SCH (12:52)
[2019-03-12] MEDS: Artificial Tears 15 ML OP SCH ×2 (15:38→21:11)
[2019-03-12] MEDS: Klor Con 10 MEQ PO SCH ×2 (15:39→21:11)
[2019-03-12] MEDS: ROCEPHIN 1 Gm-D5w 50 ml Bag** 1 G/50 ML IVPB IV SCH (16:16)
[2019-03-12] MEDS: Zithromax 500 MG/ 250 ML NaCl Premix 500 MG/250 ML IVPB IV SCH (17:02)
[2019-03-12] MEDS: Klonopin 0.5 MG PO SCH (21:11)
[2019-03-12] MEDS ORDERED: CARBOXYMETHYLCELLULOSE SODIUM OP SCH (22:00)
[2019-03-13] MEDS: BUMEX 1 MG IV SCH (04:37)
[2019-03-13] MEDS: Sodium Chloride 0.9% 10 ML FLUSH Syringe IV SCH ×3 (04:38→20:59)
[2019-03-13 05:03] LABS: BASOPHIL % 0.3 % (0.0-0.4); Basophil (Absolute #) 0.02 (0-0.4); Eosinophil % 9.3 % (0.00-5.0); Eosinophil (Absolute #) 0.57 (0-0.5); Granulocyte Absolute (ANC) 3.16 (1.4-6.9); Granulocytes % 51.4 % (36.0-66.0); Hematocrit 33.9 % (35-47); Hemoglobin 10.6 gm/dl (12.0-16.0); Lymphocyte (Absolute #) 1.84 (1.0-4.6); Mean Cell Volume 106.3 fl (78-100); Mean Corpuscular Hemoglobin 33.2 pg (26-32); Mean Corpuscular Hgb Concent. 31.3 g/dl (32-36); Mean Platelet Volume 10.8 fl (6-9.5); Monocyte (Absolute #) 0.55 (0.0-1.3); Platelet Count 286 K/mm3 (150-450); Red Blood Count 3.19 M/mm3 (4.1-5.4); Red Cell Distribution Width 13.9 % (11.5-14.0); White Blood Count 6.1 K/mm3 (4.0-10.5)
[2019-03-13 05:39] LABS: ANION GAP 9.9 MEQ/L (5-15); Calcium 8.4 mg/dL (8.4-10.2); Creatinine 1 1.29 mg/dL (0.52-1.04)
[2019-03-13 05:47] LABS: MAGNESIUM 1.1 mg/dL (1.6-2.3); Potassium 2.9 mmol/L (3.5-5.1)
[2019-03-13] MEDS ORDERED: Klor Con 10 MEQ PO ONE ×2 (05:53→06:08)
[2019-03-13] MEDS: Magnesium 1 Gm / 100 Ml D5W*** 100 ML IV SCH ×2 (06:19→07:03)
[2019-03-13] MEDS: Tessalon Perles 100 MG PO PRN ×2 (06:23→20:58)
[2019-03-13] MEDS: DUONEB 0.5-3 MG/3 ml Neb IH SCH ×4 (06:50→18:33)
--- NOTE | 2019-03-13 08:44 | PCM.NOTE ---
Date and Time: 03/13/19 0842 Subjective Assessment: patient still has significant cough, not feeling much better. fluid balance reviewed and minimally negative and patient has gained weight since admission Objective Exam General Appearance: no apparent distress, obese Neurologic Exam: alert, oriented x 3 Respiratory Exam: crackles/rales Cardiovascular Exam: regular rate/rhythm, normal heart sounds Gastrointestinal/Abdomen Exam: soft, No tenderness, No mass Extremity Exam: normal inspection, normal range of motion OBJECTIVE DATA Vital Signs: Vital Signs - 24 hr Temp Pulse Resp BP Pulse Ox 03/13/19 07:20 105 H 20 95 03/13/19 06:51 98.1 F 105 H 18 111/58 95 03/13/19 04:00 98.2 F 95 H 21 105/51 99 03/12/19 23:41 97.9 F 98 H 17 113/49 99 03/12/19 19:47 97.7 F 110 H 22 128/62 99 03/12/19 19:27 22 99 03/12/19 16:00 97.5 F 108 H 20 99/53 100 03/12/19 14:45 96 H 16 03/12/19 12:00 96.5 F 113 H 20 126/55 95 03/12/19 11:21 88 20 Oxygen-Last 24 hours O2 Percentage 3 Liters = 32% O2 Percentage 3 Liters = 32% Pain Assessment - Last Documented Pain Intensity 0 Pain Scale Used 0-10 Pain Scale,FLACC Intake and Output: Intake & Output 03/10/19 03/11/19 03/12/19 03/13/19 11:59 11:59 11:59 11:59 Intake Total 1221 1540 Output Total 1080 2100 Balance 141 -560 Weight 126.7 kg 127.3 kg Lab Results: Accuchecks Date 03/13/19 Date 03/12/19 Date 03/12/19 Date 03/12/19 Time 06:30 Time 22:00 Time 16:30 Time 11:30 Accucheck Value: 106 Accucheck Value: 140 Accucheck Value: 153 Accucheck Value: 133 Lab Results-Last 24 Hours 03/13/19 03/13/19 Range/Units 04:30 04:30 WBC 6.1 (4.0-10.5) K/mm3 RBC 3.19 L (4.1-5.4) M/mm3 Hgb 10.6 L (12.0-16.0) gm/dl Hct 33.9 L (35-47) % MCV 106.3 H (78-100) fl MCH 33.2 H (26-32) pg MCHC 31.3 L (32-36) g/dl RDW 13.9 (11.5-14.0) % Plt Count 286 (150-450) K/mm3 MPV 10.8 H (6-9.5) fl Gran % 51.4 (36.0-66.0) % Eos # (Auto) 0.57 H (0-0.5) Absolute Lymphs (auto) 1.84 (1.0-4.6) Absolute Monos (auto) 0.55 (0.0-1.3) Lymphocytes % 30.0 (24.0-44.0) % Monocytes % 9.0 (0.0-12.0) % Eosinophils % 9.3 H (0.00-5.0) % Basophils % 0.3 (0.0-0.4) % Absolute Granulocytes 3.16 (1.4-6.9) Basophils # 0.02 (0-0.4) Sodium 135 L (137-145) mmol/L Potassium 2.9 L* (3.5-5.1) mmol/L Chloride 91 L (98-107) mmol/L Carbon Dioxide 38 H (22-30) mmol/L Anion Gap 9.9 (5-15) MEQ/L BUN 15 (7-17) mg/dL Creatinine 1.29 H (0.52-1.04) mg/dL Estimated GFR 42.2 ML/MIN Glucose 106 (74-106) mg/dL Calcium 8.4 (8.4-10.2) mg/dL Magnesium 1.1 L (1.6-2.3) mg/dL NT-Pro-B Natriuret Pep 3610 H (0-1800) pg/mL Radiology Exams: Radiology Procedures Category Date Time Status CHEST 1 VIEW (PORTABLE) Stat Exams 03/11/19 16:08 Completed Assessment/Plan (1) Acute on chronic systolic CHF (congestive heart failure) Current Visit: Yes Status: Acute Assessment & Plan: replacing K today, change from bumex to lasix at this time Code(s): I50.23 - ACUTE ON CHRONIC SYSTOLIC (CONGESTIVE) HEART FAILURE (2) Acute bronchitis Current Visit: Yes Status: Acute Assessment & Plan: on rocephin/zithromax Code(s): J20.9 - ACUTE BRONCHITIS, UNSPECIFIED (3) Atrial fibrillation Current Visit: No Status: Chronic Qualifiers: Code(s): I48.91 - UNSPECIFIED ATRIAL FIBRILLATION (4) Bilateral leg edema Current Visit: No Status: Chronic Code(s): R60.0 - LOCALIZED EDEMA
[2019-03-13] MEDS: Protonix 40MG Tablet PO SCH (10:36)
[2019-03-13] MEDS: Miralax Powder 17GM PACKET PO PRN (10:36)
[2019-03-13] MEDS: Lopressor 50 MG PO SCH ×2 (10:36→20:58)
[2019-03-13] MEDS: SYNTHROID 150 MCG PO SCH (10:36)
[2019-03-13] MEDS: NEURONTIN 300 MG PO SCH ×2 (10:36→20:58)
[2019-03-13] MEDS: Ditropan XL 5 MG PO SCH (10:36)
[2019-03-13] MEDS: ZYLOPRIM 100 MG PO SCH ×2 (10:36→20:58)
[2019-03-13] MEDS: Colace 100 MG PO SCH ×2 (10:36→20:59)
[2019-03-13] MEDS: Carafate 1 GM PO SCH ×2 (10:36→20:59)
[2019-03-13] MEDS: Klor Con 10 MEQ PO SCH ×3 (10:36→20:58)
[2019-03-13] MEDS: ELIQUIS 2.5 MG TABLET PO SCH ×2 (10:36→20:59)
[2019-03-13] MEDS: Artificial Tears 15 ML OP SCH ×2 (10:37→20:59)
[2019-03-13] MEDS: ECOTRIN 81 MG PO SCH (10:37)
[2019-03-13] MEDS: Aldactone 25 MG PO SCH (10:37)
[2019-03-13] MEDS: Wellbutrin XL 150 MG PO SCH (10:37)
[2019-03-13] MEDS: ROCEPHIN 1 Gm-D5w 50 ml Bag** 1 G/50 ML IVPB IV SCH (16:58)
[2019-03-13] MEDS ORDERED: Lasix 40 MG/4 ML IV SCH (17:00)
[2019-03-13] MEDS ORDERED: Lasix 20 MG/2 ML IV SCH (17:00)
[2019-03-13] MEDS: Zithromax 500 MG/ 250 ML NaCl Premix 500 MG/250 ML IVPB IV SCH (17:36)
[2019-03-13] MEDS: Klonopin 0.5 MG PO SCH (20:59)
[2019-03-14 04:56] LABS: BASOPHIL % 0.5 % (0.0-0.4); Basophil (Absolute #) 0.03 (0-0.4); Eosinophil % 10.4 % (0.00-5.0); Eosinophil (Absolute #) 0.66 (0-0.5); Granulocyte Absolute (ANC) 3.49 (1.4-6.9); Granulocytes % 55.1 % (36.0-66.0); Hematocrit 33.1 % (35-47); Hemoglobin 10.5 gm/dl (12.0-16.0); Lymphocyte (Absolute #) 1.62 (1.0-4.6); Lymphocytes % 25.6 % (24.0-44.0); Mean Cell Volume 105.8 fl (78-100); Mean Corpuscular Hemoglobin 33.5 pg (26-32); Mean Corpuscular Hgb Concent. 31.7 g/dl (32-36); Mean Platelet Volume 10.6 fl (6-9.5); Monocyte (Absolute #) 0.53 (0.0-1.3); Monocytes % 8.4 % (0.0-12.0); Platelet Count 277 K/mm3 (150-450); Red Blood Count 3.13 M/mm3 (4.1-5.4); White Blood Count 6.3 K/mm3 (4.0-10.5)
[2019-03-14] MEDS: Sodium Chloride 0.9% 10 ML FLUSH Syringe IV SCH ×3 (05:11→21:12)
[2019-03-14 05:22] LABS: ANION GAP 9.4 MEQ/L (5-15); Calcium 8.3 mg/dL (8.4-10.2); Creatinine 1 1.18 mg/dL (0.52-1.04); MAGNESIUM 1.3 mg/dL (1.6-2.3)
[2019-03-14 05:25] LABS: Potassium 2.9 mmol/L (3.5-5.1)
--- NOTE | 2019-03-14 06:39 | PCM.NOTE ---
Date and Time: 03/14/19 0637 Subjective Assessment: patient had excellent diuresis with lasix yesterday, feeling better today. cough is improving Objective Exam General Appearance: no apparent distress Respiratory Exam: rhonchi Cardiovascular Exam: regular rate/rhythm, normal heart sounds Gastrointestinal/Abdomen Exam: soft, No tenderness, No mass Extremity Exam: pedal edema (trace) OBJECTIVE DATA Vital Signs: Vital Signs - 24 hr Temp Pulse Resp BP Pulse Ox 03/14/19 03:25 98.3 F 96 H 19 124/56 98 03/13/19 23:40 98.3 F 73 20 116/57 96 03/13/19 19:28 97.9 F 85 19 111/63 98 03/13/19 18:34 84 20 99 03/13/19 15:56 98.3 F 82 18 98/55 95 03/13/19 15:19 86 18 95 03/13/19 11:44 98.3 F 111 H 18 93/55 95 03/13/19 10:37 96 H 20 99 03/13/19 07:20 105 H 20 95 03/13/19 06:51 98.1 F 105 H 18 111/58 95 Oxygen-Last 24 hours O2 Percentage 3 Liters = 32% O2 Percentage 3 Liters = 32% O2 Percentage 3 Liters = 32% Pain Assessment - Last Documented Pain Intensity 0 Pain Scale Used 0-10 Pain Scale,FLACC Intake and Output: Intake & Output 03/11/19 03/12/19 03/13/19 03/14/19 11:59 11:59 11:59 11:59 Intake Total 1221 1920 2421 Output Total 1080 2100 3400 Balance 141 -180 -979 Weight 126.7 kg 127.3 kg Lab Results: Accuchecks Date 03/13/19 Date 03/13/19 Date 03/13/19 Date 03/13/19 Time 22:00 Time 16:30 Time 11:30 Time 06:30 Accucheck Value: 159 Accucheck Value: 152 Accucheck Value: 135 Accucheck Value: 106 Lab Results-Last 24 Hours 03/14/19 03/14/19 Range/Units 04:20 04:20 WBC 6.3 (4.0-10.5) K/mm3 RBC 3.13 L (4.1-5.4) M/mm3 Hgb 10.5 L (12.0-16.0) gm/dl Hct 33.1 L (35-47) % MCV 105.8 H (78-100) fl MCH 33.5 H (26-32) pg MCHC 31.7 L (32-36) g/dl RDW 14.0 (11.5-14.0) % Plt Count 277 (150-450) K/mm3 MPV 10.6 H (6-9.5) fl Gran % 55.1 (36.0-66.0) % Eos # (Auto) 0.66 H (0-0.5) Absolute Lymphs (auto) 1.62 (1.0-4.6) Absolute Monos (auto) 0.53 (0.0-1.3) Lymphocytes % 25.6 (24.0-44.0) % Monocytes % 8.4 (0.0-12.0) % Eosinophils % 10.4 H (0.00-5.0) % Basophils % 0.5 (0.0-0.4) % Absolute Granulocytes 3.49 (1.4-6.9) Basophils # 0.03 (0-0.4) Sodium 135 L (137-145) mmol/L Potassium 2.9 L* (3.5-5.1) mmol/L Chloride 90 L (98-107) mmol/L Carbon Dioxide 39 H (22-30) mmol/L Anion Gap 9.4 (5-15) MEQ/L BUN 14 (7-17) mg/dL Creatinine 1.18 H (0.52-1.04) mg/dL Estimated GFR 46.7 ML/MIN Glucose 110 H (74-106) mg/dL Calcium 8.3 L (8.4-10.2) mg/dL Magnesium 1.3 L (1.6-2.3) mg/dL NT-Pro-B Natriuret Pep 3080 H (0-1800) pg/mL Multi-Disciplinary Progress Notes: Multi-Disciplinary Progress Notes 03/13/19 14:07 Physical Therapy Note by Teresa Wilkinson PT WAS SEEN FOR WOUND CARE/DRESSING APPLICATION TO RIGHT AND LEFT HEELS. NOTE TRACE SEROUS DRAINAGE ON FOAM DRESSING TO RIGHT HEEL AND VERY MINIMAL DRAINAGE FROM LEFT HEEL RESULTING WITH DRIED ALGINATE ADHERED TO OPEN WOUND FLOOR. NOTED SMALL OPEN SKIN SITE ON RIGHT HEEL PROXIMALLY TO CALCANEOUS OPEN WOUND. CLEANSED BILATERAL HEELS WITH HIBICLENSE. REDRESSED WITH MEPILEX LIGHT FOAM TO RIGHT AND LEFT POSTERIOR HEEL OPEN WOUND SITES. ANCHORED WITH FLUFF GAUZE. BARRIER CREAM APPLIED TO BILATERAL FOOT TO REHYDRATE VERY DRY SCALING PERIWOUND TISSUE. NOTE OPEN WOUND SITES SUPERFICIAL DEPTH. REPOSITIONING PT FOR NON WB PRESSURE TO HEELS WITH PILLOWS PT SUPINE IN HOSPITAL BED. Initialized on 03/13/19 14:07 - END OF NOTE 03/13/19 11:06 Case Management Note by Nancy Bruce CONTINUE TO PLAN TO RETURN TO [facility] ON DISCHARGE. NO ADDNL NEEDS IDENTIFIED AT PRESENT. Initialized on 03/13/19 11:06 - END OF NOTE Assessment/Plan (1) Acute on chronic systolic CHF (congestive heart failure) Current Visit: Yes Status: Acute Assessment & Plan: improved, change to po lasix and replace potassium today. possible d/c tomorrow when lytes corrected Code(s): I50.23 - ACUTE ON CHRONIC SYSTOLIC (CONGESTIVE) HEART FAILURE (2) Acute bronchitis Current Visit: Yes Status: Acute Code(s): J20.9 - ACUTE BRONCHITIS, UNSPECIFIED (3) Atrial fibrillation Current Visit: No Status: Chronic Qualifiers: Code(s): I48.91 - UNSPECIFIED ATRIAL FIBRILLATION (4) Bilateral leg edema Current Visit: No Status: Chronic Code(s): R60.0 - LOCALIZED EDEMA
[2019-03-14] MEDS: Magnesium 1 Gm / 100 Ml D5W*** 100 ML IV SCH ×2 (06:50→09:43)
[2019-03-14] MEDS: POTASSIUM CHLORIDE 20 mEq IN WATER 100ML 20 MEQ/100 ML BAG IV SCH ×2 (06:51→09:19)
[2019-03-14] MEDS ORDERED: Sodium Chloride 0.9% 1000 ML 1,000 ML ONE (06:54)
[2019-03-14] MEDS: DUONEB 0.5-3 MG/3 ml Neb IH SCH ×4 (06:58→19:59)
[2019-03-14] MEDS: Tessalon Perles 100 MG PO PRN ×2 (07:06→15:29)
[2019-03-14] MEDS ORDERED: Sodium Chloride 0.9% 1000 ML 1,000 ML IV SCH (07:15)
[2019-03-14] MEDS: Miralax Powder 17GM PACKET PO PRN (09:18)
[2019-03-14] MEDS: Lopressor 50 MG PO SCH ×2 (09:19→21:10)
[2019-03-14] MEDS: Carafate 1 GM PO SCH ×2 (09:19→21:10)
[2019-03-14] MEDS: Lasix 40 MG PO SCH (09:19)
[2019-03-14] MEDS: Aldactone 25 MG PO SCH (09:19)
[2019-03-14] MEDS: ZYLOPRIM 100 MG PO SCH ×2 (09:19→21:10)
[2019-03-14] MEDS: Klor Con 10 MEQ PO SCH ×3 (09:20→21:10)
[2019-03-14] MEDS: Ditropan XL 5 MG PO SCH (09:20)
[2019-03-14] MEDS: Colace 100 MG PO SCH ×2 (09:20→21:10)
[2019-03-14] MEDS: BACTRIM DS TABLET PO SCH ×2 (09:20→21:10)
[2019-03-14] MEDS: ECOTRIN 81 MG PO SCH (09:21)
[2019-03-14] MEDS: Protonix 40MG Tablet PO SCH (09:21)
[2019-03-14] MEDS: ELIQUIS 2.5 MG TABLET PO SCH ×2 (09:21→21:10)
[2019-03-14] MEDS: NEURONTIN 300 MG PO SCH ×2 (09:21→21:10)
[2019-03-14] MEDS: SYNTHROID 150 MCG PO SCH (09:21)
[2019-03-14] MEDS: Wellbutrin XL 150 MG PO SCH (09:22)
[2019-03-14] MEDS: Artificial Tears 15 ML OP SCH ×2 (09:43→21:10)
[2019-03-14] MEDS: Klonopin 0.5 MG PO SCH (21:10)
[2019-03-15] MEDS: Tessalon Perles 100 MG PO PRN (02:44)
[2019-03-15 05:49] LABS: BASOPHIL % 0.5 % (0.0-0.4); Basophil (Absolute #) 0.03 (0-0.4); Granulocyte Absolute (ANC) 3.33 (1.4-6.9); Granulocytes % 55.5 % (36.0-66.0); Lymphocyte (Absolute #) 1.53 (1.0-4.6); Lymphocytes % 25.5 % (24.0-44.0); Mean Cell Volume 105.7 fl (78-100); Mean Corpuscular Hemoglobin 33.2 pg (26-32); Mean Corpuscular Hgb Concent. 31.4 g/dl (32-36); Mean Platelet Volume 10.7 fl (6-9.5); Monocyte (Absolute #) 0.51 (0.0-1.3); Monocytes % 8.5 % (0.0-12.0); Platelet Count 272 K/mm3 (150-450); Red Blood Count 3.31 M/mm3 (4.1-5.4); Red Cell Distribution Width 13.7 % (11.5-14.0)
[2019-03-15 06:00] LABS: ANION GAP 10.5 MEQ/L (5-15); Calcium 8.5 mg/dL (8.4-10.2); Creatinine 1 1.19 mg/dL (0.52-1.04); Potassium 3.3 mmol/L (3.5-5.1)
[2019-03-15] MEDS: Sodium Chloride 0.9% 10 ML FLUSH Syringe IV SCH ×3 (06:04→20:41)
[2019-03-15] MEDS: DUONEB 0.5-3 MG/3 ml Neb IH SCH ×4 (06:44→19:30)
--- NOTE | 2019-03-15 08:35 | PCM.NOTE ---
Date and Time: 03/15/19 08 Subjective Assessment: patient doing ok, still feels poorly and has significant cough. swelling seems improved Objective Exam General Appearance: no apparent distress, obese Neurologic Exam: alert, oriented x 3 Respiratory Exam: crackles/rales Cardiovascular Exam: regular rate/rhythm, normal heart sounds Gastrointestinal/Abdomen Exam: soft, No tenderness, No mass OBJECTIVE DATA Vital Signs: Vital Signs - 24 hr Temp Pulse Resp BP Pulse Ox 03/15/19 06:48 96 H 18 93 L 03/15/19 04:00 98.9 F 87 18 126/59 98 03/14/19 19:59 94 H 16 95 03/14/19 19:50 98.2 F 97 H 14 148/63 94 L 03/14/19 16:00 98.1 F 86 18 143/78 97 03/14/19 14:55 84 18 96 03/14/19 12:00 98.4 F 103 H 19 150/65 95 03/14/19 10:42 91 H 18 96 Oxygen-Last 24 hours O2 Percentage 3 Liters = 32% O2 Percentage 3 Liters = 32% Pain Assessment - Last Documented Pain Intensity 0 Pain Scale Used 0-10 Pain Scale,FLACC Intake and Output: Intake & Output 03/12/19 03/13/19 03/14/19 03/15/19 11:59 11:59 11:59 11:59 Intake Total 1221 1920 2541 1564 Output Total 1080 2100 3400 1750 Balance 141 -180 -859 -186 Weight 126.7 kg 127.3 kg 126.8 kg Lab Results: Accuchecks Date 03/14/19 Date 03/14/19 Date 03/14/19 Time 21:58 Time 16:30 Time 11:30 Accucheck Value: 129 Accucheck Value: 131 Accucheck Value: 152 Lab Results-Last 24 Hours 03/14/19 03/15/19 03/15/19 Range/Units 14:33 05:31 05:31 WBC 6.0 (4.0-10.5) K/mm3 RBC 3.31 L (4.1-5.4) M/mm3 Hgb 11.0 L (12.0-16.0) gm/dl Hct 35.0 (35-47) % MCV 105.7 H (78-100) fl MCH 33.2 H (26-32) pg MCHC 31.4 L (32-36) g/dl RDW 13.7 (11.5-14.0) % Plt Count 272 (150-450) K/mm3 MPV 10.7 H (6-9.5) fl Gran % 55.5 (36.0-66.0) % Eos # (Auto) 0.60 H (0-0.5) Absolute Lymphs (auto) 1.53 (1.0-4.6) Absolute Monos (auto) 0.51 (0.0-1.3) Lymphocytes % 25.5 (24.0-44.0) % Monocytes % 8.5 (0.0-12.0) % Eosinophils % 10.0 H (0.00-5.0) % Basophils % 0.5 (0.0-0.4) % Absolute Granulocytes 3.33 (1.4-6.9) Basophils # 0.03 (0-0.4) Sodium 134 L (137-145) mmol/L Potassium 4.1 D 3.3 L (3.5-5.1) mmol/L Chloride 90 L (98-107) mmol/L Carbon Dioxide 36 H (22-30) mmol/L Anion Gap 10.5 (5-15) MEQ/L BUN 13 (7-17) mg/dL Creatinine 1.19 H (0.52-1.04) mg/dL Estimated GFR 46.3 ML/MIN Glucose 109 H (74-106) mg/dL Calcium 8.5 (8.4-10.2) mg/dL NT-Pro-B Natriuret Pep 2830 H (0-1800) pg/mL Multi-Disciplinary Progress Notes: Multi-Disciplinary Progress Notes 03/14/19 09:06 Pharmacy Note by Guido Reid Please be aware of possible drug interaction with Bactrim DS and Potassium Chloride and Spironolactone. May increase serum potassium levels. Initialized on 03/14/19 09:06 - END OF NOTE Assessment/Plan (1) Acute on chronic systolic CHF (congestive heart failure) Current Visit: Yes Status: Acute Assessment & Plan: improving, bnp is dropping and negative fluid balance noted. continue current management Code(s): I50.23 - ACUTE ON CHRONIC SYSTOLIC (CONGESTIVE) HEART FAILURE (2) Acute bronchitis Current Visit: Yes Status: Acute Assessment & Plan: grew mrsa in sputum, on bactrim Code(s): J20.9 - ACUTE BRONCHITIS, UNSPECIFIED (3) Atrial fibrillation Current Visit: No Status: Chronic Qualifiers: Code(s): I48.91 - UNSPECIFIED ATRIAL FIBRILLATION (4) Bilateral leg edema Current Visit: No Status: Chronic Code(s): R60.0 - LOCALIZED EDEMA (5) UTI (urinary tract infection) Current Visit: Yes Status: Acute Assessment & Plan: on bactrim Code(s): N39.0 - URINARY TRACT INFECTION, SITE NOT SPECIFIED
[2019-03-15] MEDS: SYNTHROID 150 MCG PO SCH (09:25)
[2019-03-15] MEDS: Aldactone 25 MG PO SCH (09:25)
[2019-03-15] MEDS: Colace 100 MG PO SCH ×2 (09:25→20:39)
[2019-03-15] MEDS: ZYLOPRIM 100 MG PO SCH ×2 (09:25→20:41)
[2019-03-15] MEDS: Klor Con 10 MEQ PO SCH ×3 (09:25→20:40)
[2019-03-15] MEDS: Protonix 40MG Tablet PO SCH (09:25)
[2019-03-15] MEDS: Ditropan XL 5 MG PO SCH (09:25)
[2019-03-15] MEDS: ECOTRIN 81 MG PO SCH (09:25)
[2019-03-15] MEDS: Lasix 40 MG PO SCH (09:25)
[2019-03-15] MEDS: Carafate 1 GM PO SCH ×2 (09:26→20:39)
[2019-03-15] MEDS: NEURONTIN 300 MG PO SCH ×2 (09:26→20:40)
[2019-03-15] MEDS: BACTRIM DS TABLET PO SCH ×2 (09:26→20:41)
[2019-03-15] MEDS: ELIQUIS 2.5 MG TABLET PO SCH ×2 (09:26→20:39)
[2019-03-15] MEDS: Lopressor 50 MG PO SCH ×2 (09:26→20:40)
[2019-03-15] MEDS: Wellbutrin XL 150 MG PO SCH (09:28)
[2019-03-15] MEDS: Artificial Tears 15 ML OP SCH ×2 (10:45→20:42)
[2019-03-15] MEDS: Klonopin 0.5 MG PO SCH (20:39)
[2019-03-16 04:35] LABS: BASOPHIL % 0.5 % (0.0-0.4); Basophil (Absolute #) 0.04 (0-0.4); Eosinophil % 8.4 % (0.00-5.0); Eosinophil (Absolute #) 0.68 (0-0.5); Granulocyte Absolute (ANC) 5.34 (1.4-6.9); Granulocytes % 66.3 % (36.0-66.0); Hematocrit 34.3 % (35-47); Lymphocyte (Absolute #) 1.45 (1.0-4.6); Mean Cell Volume 104.9 fl (78-100); Mean Corpuscular Hemoglobin 33.6 pg (26-32); Mean Corpuscular Hgb Concent. 32.1 g/dl (32-36); Mean Platelet Volume 10.4 fl (6-9.5); Monocyte (Absolute #) 0.55 (0.0-1.3); Monocytes % 6.8 % (0.0-12.0); Platelet Count 291 K/mm3 (150-450); Red Blood Count 3.27 M/mm3 (4.1-5.4); Red Cell Distribution Width 13.7 % (11.5-14.0); White Blood Count 8.1 K/mm3 (4.0-10.5)
[2019-03-16] MEDS: Sodium Chloride 0.9% 10 ML FLUSH Syringe IV SCH (04:45)
[2019-03-16 04:57] LABS: ANION GAP 11.9 MEQ/L (5-15); Calcium 8.4 mg/dL (8.4-10.2); Creatinine 1 1.23 mg/dL (0.52-1.04); Potassium 3.3 mmol/L (3.5-5.1)
[2019-03-16] MEDS: DUONEB 0.5-3 MG/3 ml Neb IH SCH ×2 (06:49→11:02)
[2019-03-16 07:29] VITALS: BP 112/53
--- NOTE | 2019-03-16 08:17 | PCM.NOTE ---
Date and Time: 03/16/19813 Subjective Assessment: doing better, - Review of Systems Constitutional: Weakness, Weight Loss, No Fever, No Chills Eyes: No Symptoms Ears, Nose, & Throat: No Symptoms Respiratory: No Cough, No Short Of Breath Cardiac: No Chest Pain, No Edema, No Syncope Abdominal/Gastrointestinal: No Abdominal Pain, No Nausea, No Vomiting, No Diarrhea Genitourinary Symptoms: No Dysuria Musculoskeletal: No Back Pain, No Neck Pain Skin: No Rash Neurological: No Dizziness, No Focal Weakness, No Sensory Changes Psychological: No Symptoms Endocrine: No Symptoms Hematologic/Lymphatic: No Symptoms Immunological/Allergic: No Symptoms Objective Exam General Appearance: mild distress Neurologic Exam: alert, oriented x 3, cooperative, sensation nml, No motor deficits Skin Exam: normal color, warm, dry Eye Exam: PERRL, EOMI, eyes nml inspection Ears, Nose, Throat Exam: normal ENT inspection, pharynx normal, moist mucous membranes Neck Exam: normal inspection, non-tender, supple, full range of motion Respiratory Exam: normal breath sounds, lungs clear, No respiratory distress Cardiovascular Exam: regular rate/rhythm, normal heart sounds Gastrointestinal/Abdomen Exam: soft, No tenderness, No mass Extremity Exam: normal inspection, normal range of motion Back Exam: normal inspection, normal range of motion, No CVA tenderness, No vertebral tenderness Pelvic Exam: deferred Rectal Exam: deferred OBJECTIVE DATA Vital Signs: Vital Signs - 24 hr Temp Pulse Resp BP Pulse Ox 03/16/19 07:27 97.3 F 88 18 112/53 98 03/16/19 06:53 88 20 98 03/16/19 04:20 98.0 F 89 20 118/56 97 03/16/19 00:24 98.5 F 111 H 20 104/48 97 03/15/19 20:10 98.4 F 103 H 20 135/56 96 03/15/19 19:30 98 H 20 96 03/15/19 16:00 98 F 120 H 20 123/58 95 03/15/19 14:58 87 18 95 03/15/19 12:00 98.2 F 99 H 20 126/75 96 03/15/19 10:52 92 H 20 98 Oxygen-Last 24 hours O2 Percentage 3 Liters = 32% O2 Percentage 3 Liters = 32% O2 Percentage 3 Liters = 32% Pain Assessment - Last Documented Pain Intensity 0 Pain Scale Used 0-10 Pain Scale Intake and Output: Intake & Output 03/13/19 03/14/19 03/15/19 03/16/19 11:59 11:59 11:59 11:59 Intake Total 1920 2541 1804 760 Output Total 9913 3400 1750 950 Balance -180 -859 54 -190 Weight 127.3 kg 126.8 kg 125.6 kg Lab Results: Accuchecks Accucheck Value: 99 Accucheck Value: 124 Accucheck Value: 127 Accucheck Value: 131 Lab Results-Last 24 Hours 03/16/19 03/16/19 Range/Units 04:36 04:36 WBC 8.1 (4.0-10.5) K/mm3 RBC 3.27 L (4.1-5.4) M/mm3 Hgb 11.0 L (12.0-16.0) gm/dl Hct 34.3 L (35-47) % MCV 104.9 H (78-100) fl MCH 33.6 H (26-32) pg MCHC 32.1 (32-36) g/dl RDW 13.7 (11.5-14.0) % Plt Count 291 (150-450) K/mm3 MPV 10.4 H (6-9.5) fl Gran % 66.3 H (36.0-66.0) % Eos # (Auto) 0.68 H (0-0.5) Absolute Lymphs (auto) 1.45 (1.0-4.6) Absolute Monos (auto) 0.55 (0.0-1.3) Lymphocytes % 18.0 L (24.0-44.0) % Monocytes % 6.8 (0.0-12.0) % Eosinophils % 8.4 H (0.00-5.0) % Basophils % 0.5 (0.0-0.4) % Absolute Granulocytes 5.34 (1.4-6.9) Basophils # 0.04 (0-0.4) Sodium 131 L (137-145) mmol/L Potassium 3.3 L (3.5-5.1) mmol/L Chloride 89 L (98-107) mmol/L Carbon Dioxide 34 H (22-30) mmol/L Anion Gap 11.9 (5-15) MEQ/L BUN 12 (7-17) mg/dL Creatinine 1.23 H (0.52-1.04) mg/dL Estimated GFR 44.5 ML/MIN Glucose 108 H (74-106) mg/dL Calcium 8.4 (8.4-10.2) mg/dL NT-Pro-B Natriuret Pep 3210 H (0-1800) pg/mL Multi-Disciplinary Progress Notes: Multi-Disciplinary Progress Notes 03/15/19 16:23 Physical Therapy Note by Ryanne Mukherjee PT'S. DRESSINGS TO BILAT HEEL WOUNDS WERE REMOVED. MINIMAL SEROUS DRAINAGE VISIBLE ON BOTH DRESSINGS. PT. WOUNDS WERE CLEANSED WITH HIBICLENS AND STERILE WATER. NEXT, APPLIED BARRIER OINTMENT TO BILAT FEET AND LOWER LEGS. APPLIED MEPILEX LITE TO WOUND AND SECURED IT WITH KERLIX AND TAPE. NURSING HAS BEEN INSTRUCTED PER DRESSING CHANGE PRN. ALSO CLEANSED AND APPLIED BARRIER OINTMENT TO SHEERING ON BUTTOCK AND SMALL OPEN AREA ON COCCYX. Initialized on 03/15/19 16:23 - END OF NOTE 03/15/19 10:30 Case Management Note by Nancy Bruce PLANS TO RETURN TO [facility] ON DISCHARGE. CALL TO [facility], SPOKE WITH GEO, UPDATED THAT PT WAS + MRSA IN [place], AND WOULD LIKELY BE READY TO RETURN TO [facility] TOMORROW. Initialized on 03/15/19 10:30 - END OF NOTE Assessment/Plan (1) Hypokalemia due to excessive renal loss of potassium Current Visit: Yes Status: Acute Assessment & Plan: K replacement. Code(s): E87.6 - HYPOKALEMIA (2) Acute on chronic systolic CHF (congestive heart failure) Current Visit: Yes Status: Acute Assessment & Plan: Last Vital Signs Temp 97.3 F 03/16/19 07:27 Pulse 88 03/16/19 07:27 Resp 18 03/16/19 07:27 BP 112/53 03/16/19 07:27 Pulse Ox 98 03/16/19 07:27 Allergies codeine Allergy (Unknown, Verified 02/04/19 08:54) "I feel warm and terrible" clarithromycin [From Biaxin] Allergy (Verified 02/04/19 08:54) Active Medications Acetaminophen (Tylenol 325 Mg) 650 mg PO Q4H PRN PRN PRN Reason: FEVER Stop: 04/11/19 10:55 Al Hydrox/Mg Hydrox/Simethicone (Maalox Es 30 Ml Unit Dose) 30 ml PO Q4H PRN PRN Reason: STOMACH UPSET Stop: 04/11/19 10:55 Last Admin: 03/15/19 21:26 Dose: 30 ml Albuterol/Ipratropium (Duoneb 0.5-3 Mg/3 Ml Neb) 3 ml IH Q4H PRN PRN Stop: 04/10/19 16:14 Albuterol/Ipratropium (Duoneb 0.5-3 Mg/3 Ml Neb) 3 ml IH QIDRT [facility] Stop: 04/10/19 18:59 Last Admin: 03/16/19 06:49 Dose: 3 ml Allopurinol (Zyloprim 100 Mg) 100 mg PO BID [facility] Stop: 04/10/19 21:59 Last Admin: 03/15/19 20:41 Dose: 100 mg Apixaban (Eliquis 2.5 Mg Tablet) 2.5 mg PO BID [facility] Stop: 04/10/19 21:59 Last Admin: 03/15/19 20:39 Dose: 2.5 mg Artificial Tears (Artificial Tears 15 Ml) 0 ml OP BID [facility] Stop: 04/11/19 11:14 Last Admin: 03/15/19 20:42 Dose: 1 ml Aspirin (Ecotrin 81 Mg) 81 mg PO DAILY [facility] Stop: 04/11/19 11:29 Last Admin: 03/15/19 09:25 Dose: 81 mg Benzonatate (Tessalon Perles 100 Mg) 200 mg PO Q8H PRN PRN Reason: COUGH Stop: 04/10/19 20:41 Last Admin: 03/15/19 02:44 Dose: 200 mg Bupropion HCl (Wellbutrin Xl 150 Mg) 300 mg PO DAILY [facility] Stop: 04/11/19 11:14 Last Admin: 03/15/19 09:28 Dose: 300 mg Clonazepam (Klonopin 0.5 Mg) 0.5 mg PO HS [facility] Stop: 04/10/19 21:59 Last Admin: 03/15/19 20:39 Dose: 0.5 mg Docusate Sodium (Colace 100 Mg) 100 mg PO BID [facility] Stop: 04/10/19 21:59 Last Admin: 03/15/19 20:39 Dose: 100 mg Furosemide (Lasix 40 Mg) 40 mg PO DAILY [facility] Stop: 04/13/19 09:59 Last Admin: 03/15/19 09:25 Dose: 40 mg Gabapentin (Neurontin 300 Mg) 300 mg PO BID [facility] Stop: 04/10/19 21:59 Last Admin: 03/15/19 20:40 Dose: 300 mg Sodium Chloride (Sodium Chloride 0.9% 1000 Ml) 1,000 mls @ 50 mls/hr IV .Q20H [facility]IC[facility] Stop: 04/13/19 07:14 Last Admin: 03/14/19 07:05 Dose: 50 mls/hr Insulin Aspart (Novolog Insulin) 0 unit SQ UD PRN PRN Reason: HYPERGLYCEMIA Stop: 04/10/19 20:34 Levothyroxine Sodium (Synthroid 150 Mcg) 150 mcg PO DAILY [facility] Stop: 04/11/19 11:14 Last Admin: 03/15/19 09:25 Dose: 150 mcg Magnesium Hydroxide (Milk Of Magnesia 30 Ml) 30 ml PO DAILY PRN PRN Reason: CONSTIPATION Stop: 04/11/19 10:55 Metoprolol Tartrate (Lopressor 50 Mg) 50 mg PO BID [facility] Stop: 04/10/19 21:59 Last Admin: 03/15/19 20:40 Dose: 50 mg Miscellaneous Information (Medication Intervention) 0 each [facility] .RN TO CHECK WITH PT [facility] Stop: 04/11/19 11:14 Non-Formulary Medication (Chlorthalidone [Chlorthalidone]) 0 mg PO DAILY [facility] Stop: 04/11/19 11:29 Last Admin: 03/15/19 09:26 Dose: 25 mg Oxybutynin Chloride (Ditropan Xl 5 Mg) 10 mg PO DAILY [facility] Stop: 04/11/19 11:14 Last Admin: 03/15/19 09:25 Dose: 10 mg Pantoprazole Sodium (Protonix 40mg Tablet) 40 mg PO DAILY [facility] Stop: 04/11/19 11:14 Last Admin: 03/15/19 09:25 Dose: 40 mg Polyethylene Glycol (Miralax Powder 17gm Packet) 17 gm PO DAILY PRN PRN Reason: CONSTIPATION Stop: 04/11/19 10:55 Last Admin: 03/14/19 09:18 Dose: 17 gm Potassium Chloride (Klor Con 10 Meq) 20 meq PO TID [facility] Stop: 04/11/19 14:59 Last Admin: 03/15/19 20:40 Dose: 20 meq Sodium Chloride (Sodium Chloride 0.9% 10 Ml Flush Syringe) 10 ml IV Q8HT [facility] Stop: 04/10/19 21:59 Last Admin: 03/16/19 04:45 Dose: 10 ml Spironolactone (Aldactone 25 Mg) 25 mg PO DAILY [facility] Stop: 04/11/19 11:14 Last Admin: 03/15/19 09:25 Dose: 25 mg Sucralfate (Carafate 1 Gm) 1 g PO BID [facility] Stop: 04/10/19 21:59 Last Admin: 03/15/19 20:39 Dose: 1 g Trimethoprim/Sulfamethoxazole (Bactrim Ds Tablet) 1 tab PO BID [facility] Stop: 04/13/19 09:59 Last Admin: 03/15/19 20:41 Dose: 1 tab Intake & Output 03/15/19 03/16/19 11:59 11:59 Intake Total 1804 760 Output Total 1750 950 Balance 54 -190 Weight 125.6 kg Lab Tests 03/16/19 03/16/19 04:36 04:36 WBC 8.1 RBC 3.27 L Hgb 11.0 L Hct 34.3 L MCV 104.9 H MCH 33.6 H MCHC 32.1 RDW 13.7 Plt Count 291 MPV 10.4 H Gran % 66.3 H Eos # (Auto) 0.68 H Absolute Lymphs (auto) 1.45 Absolute Monos (auto) 0.55 Lymphocytes % 18.0 L Monocytes % 6.8 Eosinophils % 8.4 H Basophils % 0.5 Absolute Granulocytes 5.34 Basophils # 0.04 Sodium 131 L Potassium 3.3 L Chloride 89 L Carbon Dioxide 34 H Anion Gap 11.9 BUN 12 Creatinine 1.23 H Estimated GFR 44.5 Glucose 108 H Calcium 8.4 NT-Pro-B Natriuret Pep 3210 H Code(s): I50.23 - ACUTE ON CHRONIC SYSTOLIC (CONGESTIVE) HEART FAILURE (3) UTI (urinary tract infection), bacterial Current Visit: Yes Status: Resolved Code(s): N39.0 - URINARY TRACT INFECTION , SITE NOT SPECIFIED; A49.9 - BACTERIAL INFECTION, UNSPECIFIED (4) Atrial fibrillation Current Visit: Yes Status: Chronic Qualifiers: Atrial fibrillation type: paroxysmal Qualified Code(s): I48.0 - Paroxysmal atrial fibrillation Code(s): I48.91 - UNSPECIFIED ATRIAL FIBRILLATION
[2019-03-16] MEDS: Aldactone 25 MG PO SCH (09:58)
[2019-03-16] MEDS: Carafate 1 GM PO SCH (09:59)
[2019-03-16] MEDS: BACTRIM DS TABLET PO SCH (09:59)
[2019-03-16] MEDS: Colace 100 MG PO SCH (10:01)
[2019-03-16] MEDS: ECOTRIN 81 MG PO SCH (10:01)
[2019-03-16] MEDS: Ditropan XL 5 MG PO SCH (10:01)
[2019-03-16] MEDS: Lasix 40 MG PO SCH (10:02)
[2019-03-16] MEDS: Lopressor 50 MG PO SCH (10:02)
[2019-03-16] MEDS: Klor Con 10 MEQ PO SCH (10:02)
[2019-03-16] MEDS: ELIQUIS 2.5 MG TABLET PO SCH (10:02)
[2019-03-16] MEDS: NEURONTIN 300 MG PO SCH (10:02)
[2019-03-16] MEDS: SYNTHROID 150 MCG PO SCH (10:03)
[2019-03-16] MEDS: Protonix 40MG Tablet PO SCH (10:03)
[2019-03-16] MEDS: Wellbutrin XL 150 MG PO SCH (10:03)
[2019-03-16] MEDS: ZYLOPRIM 100 MG PO SCH (10:03)
[2019-03-16] MEDS: Miralax Powder 17GM PACKET PO PRN (10:06)
--- NOTE | 2019-03-16 10:25 | PCM.DS ---
Discharge Summary Date of Admission: 03/12/19 16:00 Admitting Physician: LUCI MCFADDEN Primary Care Provider: LUCI MCFADDEN Allergies Allergies codeine Allergy (Unknown, Verified 02/04/19 08:54) "I feel warm and terrible" clarithromycin [From Biaxin] Allergy (Verified 02/04/19 08:54) Hospital Summary - Hospital Course Hospital Course: Last Vital Signs Temp 97.3 F 03/16/19 07:27 Pulse 88 03/16/19 07:27 Resp 18 03/16/19 07:27 BP 112/53 03/16/19 07:27 Pulse Ox 98 03/16/19 07:27 Allergies codeine Allergy (Unknown, Verified 02/04/19 08:54) "I feel warm and terrible" clarithromycin [From Biaxin] Allergy (Verified 02/04/19 08:54) Active Medications Acetaminophen (Tylenol 325 Mg) 650 mg PO Q4H PRN PRN PRN Reason: FEVER Stop: 04/11/19 10:55 Al Hydrox/Mg Hydrox/Simethicone (Maalox Es 30 Ml Unit Dose) 30 ml PO Q4H PRN PRN Reason: STOMACH UPSET Stop: 04/11/19 10:55 Last Admin: 03/15/19 21:26 Dose: 30 ml Albuterol/Ipratropium (Duoneb 0.5-3 Mg/3 Ml Neb) 3 ml IH Q4H PRN PRN Stop: 04/10/19 16:14 Albuterol/Ipratropium (Duoneb 0.5-3 Mg/3 Ml Neb) 3 ml IH QIDRT FELICIA Stop: 04/10/19 18:59 Last Admin: 03/16/19 06:49 Dose: 3 ml Allopurinol (Zyloprim 100 Mg) 100 mg PO BID FELICIA Stop: 04/10/19 21:59 Last Admin: 03/15/19 20:41 Dose: 100 mg Apixaban (Eliquis 2.5 Mg Tablet) 2.5 mg PO BID FELICIA Stop: 04/10/19 21:59 Last Admin: 03/15/19 20:39 Dose: 2.5 mg Artificial Tears (Artificial Tears 15 Ml) 0 ml OP BID FELICIA Stop: 04/11/19 11:14 Last Admin: 03/15/19 20:42 Dose: 1 ml Aspirin (Ecotrin 81 Mg) 81 mg PO DAILY [facility] Stop: 04/11/19 11:29 Last Admin: 03/15/19 09:25 Dose: 81 mg Benzonatate (Tessalon Perles 100 Mg) 200 mg PO Q8H PRN PRN Reason: COUGH Stop: 04/10/19 20:41 Last Admin: 03/15/19 02:44 Dose: 200 mg Bupropion HCl (Wellbutrin Xl 150 Mg) 300 mg PO DAILY [facility] Stop: 04/11/19 11:14 Last Admin: 03/15/19 09:28 Dose: 300 mg Clonazepam (Klonopin 0.5 Mg) 0.5 mg PO HS [facility] Stop: 04/10/19 21:59 Last Admin: 03/15/19 20:39 Dose: 0.5 mg Docusate Sodium (Colace 100 Mg) 100 mg PO BID FELICIA Stop: 04/10/19 21:59 Last Admin: 03/15/19 20:39 Dose: 100 mg Furosemide (Lasix 40 Mg) 40 mg PO DAILY [facility] Stop: 04/13/19 09:59 Last Admin: 03/15/19 09:25 Dose: 40 mg Gabapentin (Neurontin 300 Mg) 300 mg PO BID [facility] Stop: 04/10/19 21:59 Last Admin: 03/15/19 20:40 Dose: 300 mg Sodium Chloride (Sodium Chloride 0.9% 1000 Ml) 1,000 mls @ 50 mls/hr IV .Q20H FELICIA Stop: 04/13/19 07:14 Last Admin: 03/14/19 07:05 Dose: 50 mls/hr Insulin Aspart (Novolog Insulin) 0 unit SQ UD PRN PRN Reason: HYPERGLYCEMIA Stop: 04/10/19 20:34 Levothyroxine Sodium (Synthroid 150 Mcg) 150 mcg PO DAILY [facility] Stop: 04/11/19 11:14 Last Admin: 03/15/19 09:25 Dose: 150 mcg Magnesium Hydroxide (Milk Of Magnesia 30 Ml) 30 ml PO DAILY PRN PRN Reason: CONSTIPATION Stop: 04/11/19 10:55 Metoprolol Tartrate (Lopressor 50 Mg) 50 mg PO BID [facility] Stop: 04/10/19 21:59 Last Admin: 03/15/19 20:40 Dose: 50 mg Miscellaneous Information (Medication Intervention) 0 each MC .RN TO CHECK WITH PT [facility] Stop: 04/11/19 11:14 Non-Formulary Medication (Chlorthalidone [Chlorthalidone]) 0 mg PO DAILY [facility] Stop: 04/11/19 11:29 Last Admin: 03/15/19 09:26 Dose: 25 mg Oxybutynin Chloride (Ditropan Xl 5 Mg) 10 mg PO DAILY [facility] Stop: 04/11/19 11:14 Last Admin: 03/15/19 09:25 Dose: 10 mg Pantoprazole Sodium (Protonix 40mg Tablet) 40 mg PO DAILY [facility] Stop: 04/11/19 11:14 Last Admin: 03/15/19 09:25 Dose: 40 mg Polyethylene Glycol (Miralax Powder 17gm Packet) 17 gm PO DAILY PRN PRN Reason: CONSTIPATION Stop: 04/11/19 10:55 Last Admin: 03/14/19 09:18 Dose: 17 gm Potassium Chloride (Klor Con 10 Meq) 20 meq PO TID [facility] Stop: 04/11/19 14:59 Last Admin: 03/15/19 20:40 Dose: 20 meq Sodium Chloride (Sodium Chloride 0.9% 10 Ml Flush Syringe) 10 ml IV Q8HT [facility] Stop: 04/10/19 21:59 Last Admin: 03/16/19 04:45 Dose: 10 ml Spironolactone (Aldactone 25 Mg) 25 mg PO DAILY [facility] Stop: 04/11/19 11:14 Last Admin: 03/15/19 09:25 Dose: 25 mg Sucralfate (Carafate 1 Gm) 1 g PO BID [facility] Stop: 04/10/19 21:59 Last Admin: 03/15/19 20:39 Dose: 1 g Trimethoprim/Sulfamethoxazole (Bactrim Ds Tablet) 1 tab PO BID [facility] Stop: 04/13/19 09:59 Last Admin: 03/15/19 20:41 Dose: 1 tab Intake & Output 03/15/19 03/16/19 11:59 11:59 Intake Total 1804 760 Output Total 1750 950 Balance 54 -190 Weight 125.6 kg Orders 03/16/19 Discharge Routine Lab Tests 03/16/19 03/16/19 04:36 04:36 WBC 8.1 RBC 3.27 L Hgb 11.0 L Hct 34.3 L MCV 104.9 H MCH 33.6 H MCHC 32.1 RDW 13.7 Plt Count 291 MPV 10.4 H Gran % 66.3 H Eos # (Auto) 0.68 H Absolute Lymphs (auto) 1.45 Absolute Monos (auto) 0.55 Lymphocytes % 18.0 L Monocytes % 6.8 Eosinophils % 8.4 H Basophils % 0.5 Absolute Granulocytes 5.34 Basophils # 0.04 Sodium 131 L Potassium 3.3 L Chloride 89 L Carbon Dioxide 34 H Anion Gap 11.9 BUN 12 Creatinine 1.23 H Estimated GFR 44.5 Glucose 108 H Calcium 8.4 NT-Pro-B Natriuret Pep 3210 H Chief Complaint Diagnosis CHF exacerbation, acute bronchitis Allergies Allergy/AdvReac Type Severity Reaction Status Date / Time codeine Allergy Unknown Verified 02/04/19 08:54 clarithromycin [From Biaxin] Allergy Verified 02/04/19 08:54 Vital Signs (Last 24 hours) Temp Pulse Resp BP Pulse Ox 03/16/19 07:27 97.3 F 88 18 112/53 98 03/16/19 06:53 88 20 98 03/16/19 04:20 98.0 F 89 20 118/56 97 03/16/19 00:24 98.5 F 111 H 20 104/48 97 03/15/19 20:10 98.4 F 103 H 20 135/56 96 03/15/19 19:30 98 H 20 96 03/15/19 16:00 98 F 120 H 20 123/58 95 03/15/19 14:58 87 18 95 03/15/19 12:00 98.2 F 99 H 20 126/75 96 03/15/19 10:52 92 H 20 98 Home Medications Medication Instructions Recorded Confirmed Last Taken Type Carboxymethylcellulose Sodium 2 drops OP BID 03/11/19 03/11/19 03/11/19 08:00 History [Refresh Tears] Docusate Sodium 100 mg [Colace 100 mg PO BID 03/11/19 03/11/19 03/11/19 08: 00 History 100 MG] Ferric Citrate [Auryxia] 210 mg PO TID 03/11/19 03/11/19 03/11/19 16:30 History Glucagon,Human Recombinant 1 mg IM DAILY PRN 03/11/19 03/11/19 Unknown History [Glucagon Emergency Kit] Insulin Aspart [Novolog] See Protocol SQ UD 03/11/19 03/11/19 Unknown History Lactobacillus Acidophilus 1 tablet PO DAILY 03/11/19 03/11/19 03/11/19 08:00 History [Acidophilus] Mag Hydrox/Al Hydrox/Simeth 30 ml PO Q4H PRN 03/11/19 03/11/19 Unknown History [Mylanta Maximum Strength Liq] Multivit with Iron,Minerals 1 tablet PO DAILY 03/11/19 03/11/19 03/11/19 08:00 History [Unicomplex-M] Potassium Chloride 10 Meq Tab* 20 meq PO TID 03/11/19 03/11/19 03/11/19 14:00 History [Klor Con 10 MEQ] Sodium Phosphate,Mills-Dibasic 1 enema RC DAILY PRN 03/11/19 03/11/19 Unknown History [Fleet Enema] Current Medications Generic Name Dose Route Start Last Admin Trade Name Freq PRN Reason Stop Dose Admin Acetaminophen 650 mg 03/12/19 10:56 Tylenol 325 Mg PO 04/11/19 10:55 Q4H PRN PRN FEVER Al Hydrox/Mg Hydrox/Simethicone 30 ml 03/12/19 10:56 03/15/19 21:26 Maalox Es 30 Ml Unit Dose PO 04/11/19 10:55 30 ml Q4H PRN Administration STOMACH UPSET Albuterol/Ipratropium 3 ml 03/11/19 16:15 Duoneb 0.5-3 Mg/3 Ml Neb IH 04/10/19 16:14 Q4H PRN PRN Albuterol/Ipratropium 3 ml 03/11/19 19:00 03/16/19 06:49 Duoneb 0.5-3 Mg/3 Ml Neb IH 04/10/19 18:59 3 ml QIDRT FELICIA Administration Allopurinol 100 mg 03/11/19 22:00 03/15/19 20:41 Zyloprim 100 Mg PO 04/10/19 21:59 100 mg BID FELICIA Administration Apixaban 2.5 mg 03/11/19 22:00 03/15/19 20:39 Eliquis 2.5 Mg Tablet PO 04/10/19 21:59 2.5 mg BID FELICIA Administration Artificial Tears 0 ml 03/12/19 11:15 03/15/19 20:42 Artificial Tears 15 Ml OP 04/11/19 11:14 1 ml BID FELICIA Administration Aspirin 81 mg 03/12/19 11:30 03/15/19 09:25 Ecotrin 81 Mg PO 04/11/19 11:29 81 mg DAILY FELICIA Administration Benzonatate 200 mg 03/11/19 20:42 03/15/19 02:44 Tessalon Perles 100 Mg PO 04/10/19 20:41 200 mg Q8H PRN Administration COUGH Bupropion HCl 300 mg 03/12/19 11:15 03/15/19 09:28 Wellbutrin Xl 150 Mg PO 04/11/19 11:14 300 mg DAILY FELICIA Administration Clonazepam 0.5 mg 03/11/19 22:00 03/15/19 20:39 Klonopin 0.5 Mg PO 04/10/19 21:59 0.5 mg HS FELICIA Administration Docusate Sodium 100 mg 03/11/19 22:00 03/15/19 20:39 Colace 100 Mg PO 04/10/19 21:59 100 mg BID FELICIA Administration Furosemide 40 mg 03/14/19 10:00 03/15/19 09:25 Lasix 40 Mg PO 04/13/19 09:59 40 mg DAILY FELICIA Administration Gabapentin 300 mg 03/11/19 22:00 03/15/19 20:40 Neurontin 300 Mg PO 04/10/19 21:59 300 mg BID FELICIA Administration Sodium Chloride 1,000 mls @ 50 mls/hr 03/14/19 07:15 03/14/19 07:05 Sodium Chloride 0.9% 1000 Ml IV 04/13/19 07:14 50 mls/hr .Q20H FELICIA Administration Insulin Aspart 0 unit 03/11/19 20:35 Novolog Insulin SQ 04/10/19 20:34 UD PRN HYPERGLYCEMIA Levothyroxine Sodium 150 mcg 03/12/19 11:15 03/15/19 09:25 Synthroid 150 Mcg PO 04/11/19 11:14 150 mcg DAILY FELICIA Administration Magnesium Hydroxide 30 ml 03/12/19 10:56 Milk Of Magnesia 30 Ml PO 04/11/19 10:55 DAILY PRN CONSTIPATION Metoprolol Tartrate 50 mg 03/11/19 22:00 03/15/19 20:40 Lopressor 50 Mg PO 04/10/19 21:59 50 mg BID FELICIA Administration Miscellaneous Information 0 each 03/12/19 11:15 Medication Intervention MC 04/11/19 11:14 .RN TO CHECK WITH PT FELICIA Non-Formulary Medication 0 mg 03/12/19 11:30 03/15/19 09:26 Chlorthalidone [Chlorthalidone] PO 04/11/19 11:29 25 mg DAILY FELICIA Administration Oxybutynin Chloride 10 mg 03/12/19 11:15 03/15/19 09:25 Ditropan Xl 5 Mg PO 04/11/19 11:14 10 mg DAILY FELICIA Administration Pantoprazole Sodium 40 mg 03/12/19 11:15 03/15/19 09:25 Protonix 40mg Tablet PO 04/11/19 11:14 40 mg DAILY FELICIA Administration Polyethylene Glycol 17 gm 03/12/19 10:56 03/14/19 09:18 Miralax Powder 17gm Packet PO 04/11/19 10:55 17 gm DAILY PRN Administration CONSTIPATION Potassium Chloride 20 meq 03/12/19 15:00 03/15/19 20:40 Klor Con 10 Meq PO 04/11/19 14:59 20 meq TID FELICIA Administration Sodium Chloride 10 ml 03/11/19 22:00 03/16/19 04:45 Sodium Chloride 0.9% 10 Ml Flush Syringe IV 04/10/19 21:59 10 ml Q8HT FELICIA Administration Spironolactone 25 mg 03/12/19 11:15 03/15/19 09:25 Aldactone 25 Mg PO 04/11/19 11:14 25 mg DAILY FELICIA Administration Sucralfate 1 g 03/11/19 22:00 03/15/19 20:39 Carafate 1 Gm PO 04/10/19 21:59 1 g BID FELICIA Administration Trimethoprim/Sulfamethoxazole 1 tab 03/14/19 10:00 03/15/19 20:41 Bactrim Ds Tablet PO 04/13/19 09:59 1 tab BID FELICIA Administration Discontinued Medications Generic Name Dose Route Start Last Admin Trade Name Chet PRN Reason Stop Dose Admin Albuterol/Ipratropium 3 ml 03/11/19 19:00 Duoneb 0.5-3 Mg/3 Ml Neb IH 04/10/19 18:59 Q4HRT FELICIA Apixaban Confirm 03/11/19 20:45 Eliquis 2.5 Mg Tablet Administered 03/11/19 20:46 Dose 2.5 mg .ROUTE .STK-MED ONE Bumetanide 2 mg 03/11/19 17:00 03/13/19 04:37 Bumex 1 Mg IV 04/10/19 16:59 2 mg Q12H FELICIA Administration Furosemide 40 mg 03/13/19 17:00 Lasix 20 Mg/2 Ml IV 04/12/19 16:59 BID DIURETIC FELICIA Furosemide 40 mg 03/13/19 17:00 03/13/19 16:58 Lasix 40 Mg/4 Ml IV 04/12/19 16:59 40 mg BID DIURETIC FELICIA Administration Hydralazine HCl 50 mg 03/11/19 22:00 03/12/19 09:46 Apresoline 25 Mg Tablet PO 04/10/19 21:59 50 mg BID FELICIA Administration Ceftriaxone Sodium/Dextrose 1 g in 50 mls @ 100 mls/hr 03/11/19 17:00 16:58 Rocephin 1 Gm-D5w 50 Ml Bag IV 04/10/19 16:59 100 mls/hr 1700 FELICIA Administration Azithromycin 500 mg in 250 mls @ 125 mls/hr 03/11/19 18:00 03/13/19 17:36 Zithromax 500 Mg/ 250 Ml Nacl Premix IV 04/10/19 17:59 125 mls/hr 1800 FELICIA Administration Magnesium Sulfate/Dextrose 100 mls @ 200 mls/hr 03/13/19 06:00 03/13/19 07:03 Magnesium 1 Gm / 100 Ml D5w IV 03/13/19 07:29 200 mls/hr Q1H FELICIA Administration Magnesium Sulfate/Dextrose 100 mls @ 200 mls/hr 03/14/19 06:15 03/14/19 09:43 Magnesium 1 Gm / 100 Ml D5w IV 03/14/19 07:44 200 mls/hr Q1H FELICIA Administration Potassium Chloride 20 meq in 100 mls @ 50 mls/hr 03/14/19 06:15 03/14/19 09: 19 Potassium Chloride 20 Meq In Water 100ml IV 03/14/19 10:14 50 mls/hr Q2H FELICIA Administration Sodium Chloride Confirm 03/14/19 06:54 Sodium Chloride 0.9% 1000 Ml Administered 03/14/19 06:55 Dose 1,000 mls @ ud .ROUTE .STK-MED ONE Potassium Bicarbonate 50 meq 03/12/19 05:56 03/12/19 06:04 K-Lyte 25 Meq PO 03/12/19 05:57 50 meq STAT ONE Administration Potassium Chloride 10 meq 03/11/19 22:00 Klor Con 10 Meq PO 04/10/19 21:59 BID FELICIA Potassium Chloride 20 meq 03/11/19 22:00 03/11/19 21:01 Klor Con 10 Meq PO 04/10/19 21:59 20 meq BID FELICIA Administration Potassium Chloride Confirm 03/11/19 20:46 Klor Con 10 Meq Administered 03/11/19 20:47 Dose 20 meq PO .STK-MED ONE Potassium Chloride 20 meq 03/12/19 10:00 03/12/19 09:46 Klor Con 10 Meq PO 04/11/19 09:59 20 meq TID FELICIA Administration Potassium Chloride 20 meq 03/13/19 05:53 03/13/19 06:20 Klor Con 10 Meq PO 03/13/19 05:54 20 meq STAT ONE Administration Potassium Chloride Confirm 03/13/19 06:08 Klor Con 10 Meq Administered 03/13/19 06:09 Dose 20 meq PO .STK-MED ONE Intake & Output (Last 24 hours) 03/13/19 03/14/19 03/15/19 03/16/19 11:59 11:59 11:59 11:59 Intake Total 1920 4211 1804 760 Output Total 2100 3400 1750 950 Balance -180 -859 54 -190 Weight 127.3 kg 126.8 kg 125.6 kg Laboratory Results (Last 24 hours) 03/16/19 03/16/19 04:36 04:36 WBC 8.1 RBC 3.27 L Hgb 11.0 L Hct 34.3 L MCV 104.9 H MCH 33.6 H MCHC 32.1 RDW 13.7 Plt Count 291 MPV 10.4 H Gran % 66.3 H Eos # (Auto) 0.68 H Absolute Lymphs (auto) 1.45 Absolute Monos (auto) 0.55 Lymphocytes % 18.0 L Monocytes % 6.8 Eosinophils % 8.4 H Basophils % 0.5 Absolute Granulocytes 5.34 Basophils # 0.04 Sodium 131 L Potassium 3.3 L Chloride 89 L Carbon Dioxide 34 H Anion Gap 11.9 BUN 12 Creatinine 1.23 H Estimated GFR 44.5 Glucose 108 H Calcium 8.4 NT-Pro-B Natriuret Pep 3210 H Orders (Last 24 hours) Category Date Time Status Discharge Routine Discharge 03/16/19 Ordered BMP AM.LAB Lab 03/16/19 04:36 Completed CBC W DIFF AM.LAB Lab 03/16/19 04:36 Completed NT PRO BNP AM.LAB Lab 03/16/19 04:36 Completed Patient Care Notes (Last 24 hours) 03/16/19 10:21 Nursing Note by Juanjose Escoto Patient to be discharged and transferred back to [place] per order of Dr Warern. Initialized on 03/16/19 10:21 - END OF NOTE 03/16/19 07:50 Nursing Note by Juanjose Escoto Talked with Dr Warren concerning possible patient discharge today. Dr Warren to review labs then make decision. Initialized on 03/16/19 07:50 - END OF NOTE 03/16/19 07:34 Nursing Note by Juanjose Escoto Dr rounded this am. No new orders at this time. Initialized on 03/16/19 07:34 - END OF NOTE 03/15/19 16:23 Physical Therapy Note by Ryanne Mukherjee PT'S. DRESSINGS TO BILAT HEEL WOUNDS WERE REMOVED. MINIMAL SEROUS DRAINAGE VISIBLE ON BOTH DRESSINGS. PT. WOUNDS WERE CLEANSED WITH HIBICLENS AND STERILE WATER. NEXT, APPLIED BARRIER OINTMENT TO BILAT FEET AND LOWER LEGS. APPLIED MEPILEX LITE TO WOUND AND SECURED IT WITH KERLIX AND TAPE. NURSING HAS BEEN INSTRUCTED PER DRESSING CHANGE PRN. ALSO CLEANSED AND APPLIED BARRIER OINTMENT TO SHEERING ON BUTTOCK AND SMALL OPEN AREA ON COCCYX. Initialized on 03/15/19 16:23 - END OF NOTE 03/15/19 10:30 Case Management Note by Nancy Bruce PLANS TO RETURN TO [facility] ON DISCHARGE. CALL TO [facility], SPOKE WITH GEO, UPDATED THAT PT WAS + MRSA IN [place], AND WOULD LIKELY BE READY TO RETURN TO [facility]ILLED NURSING TOMORROW. Initialized on 03/15/19 10:30 - END OF NOTE - Vitals & Intake/Output Vital Signs: Vital Signs Temperature 97.3 F 03/16/19 07:27 Pulse Rate 88 03/16/19 07:27 Respiratory Rate 18 03/16/19 07:27 Blood Pressure 112/53 03/16/19 07:27 O2 Sat by Pulse Oximetry 98 03/16/19 07:27 Oxygen-Last Documented O2 Percentage 3 Liters = 32% Intake & Output: Intake & Output 03/13/19 03/14/19 03/15/19 03/16/19 11:59 11:59 11:59 11:59 Intake Total 1920 2541 1804 760 Output Total 2100 3400 1750 950 Balance -180 -859 54 -190 Weight 127.3 kg 126.8 kg 125.6 kg - Lab Result Diagrams: 03/16/19 04:36 03/16/19 04:36 Lab Results-Last 24 Hrs: Accuchecks Accucheck Value: 99 Accucheck Value: 124 Accucheck Value: 127 Accucheck Value: 131 Lab Results-Last 24 Hours 03/16/19 03/16/19 Range/Units 04:36 04:36 WBC 8.1 (4.0-10.5) K/mm3 RBC 3.27 L (4.1-5.4) M/mm3 Hgb 11.0 L (12.0-16.0) gm/dl Hct 34.3 L (35-47) % MCV 104.9 H (78-100) fl MCH 33.6 H (26-32) pg MCHC 32.1 (32-36) g/dl RDW 13.7 (11.5-14.0) % Plt Count 291 (150-450) K/mm3 MPV 10.4 H (6-9.5) fl Gran % 66.3 H (36.0-66.0) % Eos # (Auto) 0.68 H (0-0.5) Absolute Lymphs (auto) 1.45 (1.0-4.6) Absolute Monos (auto) 0.55 (0.0-1.3) Lymphocytes % 18.0 L (24.0-44.0) % Monocytes % 6.8 (0.0-12.0) % Eosinophils % 8.4 H (0.00-5.0) % Basophils % 0.5 (0.0-0.4) % Absolute Granulocytes 5.34 (1.4-6.9) Basophils # 0.04 (0-0.4) Sodium 131 L (137-145) mmol/L Potassium 3.3 L (3.5-5.1) mmol/L Chloride 89 L (98-107) mmol/L Carbon Dioxide 34 H (22-30) mmol/L Anion Gap 11.9 (5-15) MEQ/L BUN 12 (7-17) mg/dL Creatinine 1.23 H (0.52-1.04) mg/dL Estimated GFR 44.5 ML/MIN Glucose 108 H (74-106) mg/dL Calcium 8.4 (8.4-10.2) mg/dL NT-Pro-B Natriuret Pep 3210 H (0-1800) pg/mL Micro Results-Entire Visit: Microbiology 03/11/19 16:45 Urine Culture - Final Catherized Klebsiella Pneumoniae 03/11/19 22:00 Gram Stain - Final Sputum - Expectorant Sputum Culture - Final Methicillin Resist Staph Aur Accuchecks Accucheck Value: 99 Accucheck Value: 124 Accucheck Value: 127 Accucheck Value: 131 - Procedures and Test Procedures and Tests throughout Hospitalization: Therapy Orders & Screens 03/11/19 16:48 Peak Expiratory Flow Rate ONCE Comment: Reason For Exam: Diagnosis: CHF exacerbation, acute bronchitis 03/11/19 16:49 Respiratory Therapy Assessment DAILY Comment: Diagnosis: CHF exacerbation, acute bronchitis 03/11/19 21:21 BiPap/CPAP ROUTINE Comment: IPAP 14, EPAP 10, 3L O2 PER PT'S HOME USE Diagnosis: CHF exacerbation, acute bronchitis 03/11/19 21:22 Oxygen Nasal Cannula 3 lpm Comment: Diagnosis: CHF exacerbation, acute bronchitis 03/12/19 08:15 PT Eval & Treat (MD Order) ROUTINE Reason for Eval:: bilateral heel wounds Diagnosis: CHF exacerbation, acute bronchitis Discharge Exam General Appearance: no apparent distress, alert Neurologic Exam: alert, oriented x 3, cooperative, normal mood/affect, nml cerebellar function, sensation nml, No motor deficits Eye Exam: PERRL, EOMI, eyes nml inspection Ears, Nose, Throat Exam: normal ENT inspection, pharynx normal, moist mucous membranes Neck Exam: normal inspection, non-tender, supple, full range of motion Respiratory Exam: normal breath sounds, lungs clear, No respiratory distress Cardiovascular Exam: regular rate/rhythm, normal heart sounds Gastrointestinal/Abdomen Exam: soft, No tenderness, No mass Pelvic Exam: deferred Rectal Exam: deferred Back Exam: normal inspection, normal range of motion, No CVA tenderness, No vertebral tenderness Extremity Exam: normal inspection, normal range of motion Skin Exam: normal color, warm, dry Final Diagnosis/Problem List - Final Discharge Diagnosis/Problem (1) Hypokalemia due to excessive renal loss of potassium Current Visit: Yes Status: Resolved Code(s): E87.6 - HYPOKALEMIA (2) Acute on chronic systolic CHF (congestive heart failure) Current Visit: Yes Status: Resolved Code(s): I50.23 - ACUTE ON CHRONIC SYSTOLIC (CONGESTIVE) HEART FAILURE (3) UTI (urinary tract infection), bacterial Current Visit: Yes Status: Resolved Code(s): N39.0 - URINARY TRACT INFECTION , SITE NOT SPECIFIED; A49.9 - BACTERIAL INFECTION, UNSPECIFIED (4) Atrial fibrillation Current Visit: Yes Status: Chronic Code(s): I48.91 - UNSPECIFIED ATRIAL FIBRILLATION - Discharge Discharge Date: 03/16/19 Disposition: Skilled Care @ [facility] Condition: Stable Prescriptions: Continue Oxybutynin Chloride Xl 5 mg [Ditropan XL 5 MG] 10 mg PO DAILY Chlorthalidone 25 mg PO DAILY Spironolactone 25 mg [Aldactone 25 MG] 25 mg PO DAILY Sucralfate 1 gm [Carafate 1 GM] 1 gm PO BID Polyethylene Glycol 3350 17 gm [Miralax Powder 17GM PACKET] 17 gm PO DAILY PRN PRN Reason: Constipation Ondansetron HCl [Zofran] 4 mg PO Q4H PRN PRN Reason: Nausea Metoprolol Tartrate 50 mg [Lopressor 50 MG] 50 mg PO BID Magnesium Hydroxide 30 ml [Milk of Magnesia 30 ml] 30 ml PO DAILY PRN PRN Reason: Constipation Magnesium Citrate 296 ml [Citroma 296 ml] 300 ml PO HS PRN PRN Reason: Constipation Lubiprostone [Amitiza] 24 mcg PO BID PRN PRN Reason: Constipation Loperamide HCl 2 mg [Imodium 2 mg] 2 mg PO Q4H PRN PRN Reason: Diarrhea Levothyroxine Sodium 150 Mcg [Synthroid 150 Mcg] 150 mcg PO DAILY Hydralazine HCl 50 mg PO BID Gabapentin [Neurontin] 300 mg PO BID Bupropion HCl Xl 150 mg [Wellbutrin XL 150 MG] 300 mg PO DAILY Acetaminophen 325 mg [Tylenol 325 mg] 650 mg PO Q4H PRN PRN Reason: Fever Bumetanide 1 mg [Bumex 1 mg] 2 mg PO DAILY #30 tablet Pantoprazole Sodium [Protonix] 40 mg PO DAILY Clonazepam 0.5 mg [Klonopin 0.5 MG] 0.5 mg PO HS Allopurinol 100 mg [Zyloprim 100 mg] 100 mg PO BID Apixaban [Eliquis 2.5 mg Tablet] 2.5 mg PO BID #0 Aspirin EC 81 mg [Ecotrin 81 mg] 81 mg PO DAILY #0 Glucagon,Human Recombinant [Glucagon Emergency Kit] 1 mg IM DAILY PRN PRN Reason: Hypoglycemia Docusate Sodium 100 mg [Colace 100 MG] 100 mg PO BID Multivit with Iron,Minerals [Unicomplex-M] 1 tablet PO DAILY Sodium Phosphate,Mills-Dibasic [Fleet Enema] 1 enema RC DAILY PRN PRN Reason: Constipation Lactobacillus Acidophilus [Acidophilus] 1 tablet PO DAILY Mag Hydrox/Al Hydrox/Simeth [Mylanta Maximum Strength Liq] 30 ml PO Q4H PRN PRN Reason: Stomach Upset Potassium Chloride 10 Meq Tab* [Klor Con 10 MEQ] 20 meq PO TID Ferric Citrate [Auryxia] 210 mg PO TID Carboxymethylcellulose Sodium [Refresh Tears] 2 drops OP BID Insulin Aspart [Novolog] See Protocol SQ UD Follow up with: LUCI MCFADDEN MD [Primary Care Provider] - 1 Week
[2019-03-16 11:08] VITALS: PULSE 92; O2SAT 99
== END 2019-03-16 13:05 | DRG 640 ==
LOC: MED SURG 15:34 → OBSVTOIN 03-12 16:00
PROVIDERS: ADMIT Family Medicine; ATTEND Family Medicine
DX: E87.6 Hypokalemia (principal); I50.23 Acute on chronic systolic (congestive) heart failure; N39.0 Urinary tract infection, site not specified; B96.1 Klebsiella pneumoniae [K. pneumoniae] as the cause of diseases classified elsewhere; I48.91 Unspecified atrial fibrillation; Z79.899 Other long term (current) drug therapy; E11.9 Type 2 diabetes mellitus without complications; E03.9 Hypothyroidism, unspecified; Z86.711 Personal history of pulmonary embolism; G47.30 Sleep apnea, unspecified; J20.9 Acute bronchitis, unspecified; R60.0 Localized edema
CPT/HCPCS: 36415; 71045; 80048; 80053; 81001; 82962; 83735; 83880; 84132; 85025; 87070; 87077; 87086; 87186; 94002; 94003; 94150; 94640; 94760; 97161; G0378; 94762; J0456; J0696; J1940; J3475; J3480; A9270-GY

== ENCOUNTER 2021-02-21 19:18 | Inpatient (IN) | payer MEDICARE ==
--- NOTE | 2021-02-21 19:30 | ERPHSYRPT ---
- History of Present Illness Time Seen by Provider: 02/21/21 19:25 Source: patient, family Exam Limitations: no limitations Physician History: pt has been more confused the past 2 days and has indwelling catheter with Hx UTI recently completed ab. had low BP initially and now reported at 100. No hx trauma or focal neuro findings on exam. no pronator drift . 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 Timing/Duration: day(s) Activites at Onset: none Quality: other (no pain) Onset Location: other (no pain) Severity of Pain-Max: none Severity of Pain-Current: none Prior abdominal problems: UTI Sexual intercourse history: non-contributory Modifying Factors: Improves With: nothing Associated Symptoms: other (confusion) Allergies/Adverse Reactions: codeine Allergy (Unknown, Verified 02/21/21 19:53) "I feel warm and terrible" clarithromycin [From Biaxin] Allergy (Verified 02/21/21 19:53) Home Medications: Acetaminophen 325 mg [Tylenol 325 mg] 650 mg PO Q4H PRN 01/08/19 [History] Bupropion HCl Xl 150 mg [Wellbutrin XL 150 MG] 300 mg PO DAILY 01/08/19 [History] Chlorthalidone 25 mg PO DAILY 01/08/19 [History] Gabapentin [Neurontin] 300 mg PO BID 01/08/19 [History] Hydralazine HCl 50 mg PO BID 01/08/19 [History] Levothyroxine Sodium 150 Mcg [Synthroid 150 Mcg] 150 mcg PO DAILY 01/08/19 [History] Loperamide HCl 2 mg [Imodium 2 mg] 2 mg PO Q4H PRN 01/08/19 [History] Lubiprostone [Amitiza] 24 mcg PO BID PRN 01/08/19 [History] Magnesium Citrate 296 ml [Citroma 296 ml] 300 ml PO HS PRN 01/08/19 [History] Magnesium Hydroxide 30 ml [Milk of Magnesia 30 ml] 30 ml PO DAILY PRN 01/08/19 [History] Metoprolol Tartrate 50 mg [Lopressor 50 MG] 50 mg PO BID 01/08/19 [History] Ondansetron HCl [Zofran] 4 mg PO Q4H PRN 01/08/19 [History] Oxybutynin Chloride Xl 5 mg [Ditropan XL 5 MG] 10 mg PO DAILY 01/08/19 [History] Polyethylene Glycol 3350 17 gm [Miralax Powder 17GM PACKET] 17 gm PO DAILY PRN 01/08/19 [History] Spironolactone 25 mg [Aldactone 25 MG] 25 mg PO DAILY 01/08/19 [History] Sucralfate 1 gm [Carafate 1 GM] 1 gm PO BID 01/08/19 [History] Allopurinol 100 mg [Zyloprim 100 mg] 100 mg PO BID 01/31/19 [History] Clonazepam 0.5 mg [Klonopin 0.5 MG] 0.5 mg PO HS 01/31/19 [History] Pantoprazole Sodium [Protonix] 40 mg PO DAILY 01/31/19 [History] Carboxymethylcellulose Sodium [Refresh Tears] 2 drops OP BID 03/11/19 [History] Docusate Sodium 100 mg [Colace 100 MG] 100 mg PO BID 03/11/19 [History] Ferric Citrate [Auryxia] 210 mg PO TID 03/11/19 [History] Glucagon,Human Recombinant [Glucagon Emergency Kit] 1 mg IM DAILY PRN 03/11/19 [History] Insulin Aspart [Novolog] See Protocol SQ UD 03/11/19 [History] Lactobacillus Acidophilus [Acidophilus] 1 tablet PO DAILY 03/11/19 [History] Mag Hydrox/Al Hydrox/Simeth [Mylanta Maximum Strength Liq] 30 ml PO Q4H PRN 03/11/19 [History] Multivit with Iron,Minerals [Unicomplex-M] 1 tablet PO DAILY 03/11/19 [History] Potassium Chloride 10 Meq Tab* [Klor Con 10 MEQ] 20 meq PO TID 03/11/19 [History] Sodium Phosphate,[place]-Dibasic [Fleet Enema] 1 enema RC DAILY PRN 03/11/19 [History] Hx Tetanus, Diphtheria Vaccination/Date Given: Yes Hx Influenza Vaccination/Date Given: Yes Hx Pneumococcal Vaccination/Date Given: Yes - Review of Systems Constitutional: No Fever, No Chills Eyes: No Symptoms Ears, Nose, & Throat: No Symptoms Respiratory: No Cough, No Dyspnea Cardiac: No Chest Pain, No Edema, No Syncope Abdominal/Gastrointestinal: No Abdominal Pain, No Nausea, No Vomiting, No Diarrhea Genitourinary Symptoms: No Dysuria Musculoskeletal: No Back Pain, No Neck Pain Skin: No Rash Neurological: Other (confusion at [place]), No Dizziness, No Focal Weakness, No Sensory Changes Psychological: No Symptoms Endocrine: No Symptoms Hematologic/Lymphatic: No Symptoms Immunological/Allergic: No Symptoms All Other Systems: Reviewed and Negative - Past Medical History Pertinent Past Medical History: Yes Neurological History: Peripheral Neuropathy ENT History: Cataracts, Glaucoma Cardiac History: Arrhythmia, High Cholesterol, Hypertension, Myocardial Infarction ([place]) Respiratory History: Bronchitis, CHF, Pulmonary Embolism Endocrine Medical History: Diabetes Type II, Hypothyroidism, Other Musculoskeletal History: Osteoarthritis GI Medical History: Other History: Renal Disease Psycho-Social History: Anxiety, Depression Female Reproductive Disorders: No Pertinent History Other Medical History: OTHER PMHX: CATARACTS, GLAUCOMA, CHRONIC KIDNEY DISEASE, ANXIETY, DEPRESSION - Past Surgical History Past Surgical History: Yes Neuro Surgical History: No Pertinent History Cardiac: No Pertinent History Respiratory: No Pertinent History Gastrointestinal: Appendectomy, Cholecystectomy Genitourinary: No Pertinent History Musculoskeletal: No Pertinent History Female Surgical History: Hysterectomy, Section Other Surgical History: foot surgery - Social History Smoking Status: Never smoker Exposure to second hand smoke: No Drug Use: none Patient Lives Alone: No (long-term) - Nursing Vital Signs Nursing Vital Signs: Initial Vital Signs Temperature 97.8 F 02/21/21 19:19 Pulse Rate 92 H 02/21/21 19:19 Respiratory Rate 20 02/21/21 19:19 Blood Pressure 114/61 02/21/21 19:19 O2 Sat by Pulse Oximetry 97 02/21/21 19:19 Pain Scale Pain Intensity 0 - Physical Exam General Appearance: no apparent distress, alert Eye Exam: PERRL/EOMI, eyes nml inspection Ears, Nose, Throat Exam: normal ENT inspection, TMs normal, pharynx normal, moist mucous membranes Neck Exam: normal inspection, non-tender, supple, full range of motion Respiratory Exam: normal breath sounds, lungs clear, No respiratory distress Cardiovascular Exam: regular rate/rhythm, normal heart sounds, normal peripheral pulses Gastrointestinal/Abdomen Exam: soft, No tenderness, No distention, No mass, No guarding Pelvic Exam: deferred Rectal Exam: deferred Back Exam: normal inspection, normal range of motion, No CVA tenderness, No vertebral tenderness Extremity Exam: normal inspection, normal range of motion, pelvis stable, other (old trigger finger left hand without change per hx) Neurologic Exam: alert, oriented x 3, cooperative, 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, normal mood/affect, sensation nml, No motor deficits Skin Exam: normal color, warm, dry Lymphatic Exam: No adenopathy SpO2 Interpretation: normal SpO2: 97 O2 Delivery: Room Air - Course Nursing assessment & vital signs reviewed: Yes EKG Interpreted by Me: A-fib, Non-specific ST Changes Ordered Tests: Active Orders 24 hr Category Date Time Status EKG-ER Only STAT Care 02/21/21 19:31 Active CBC W DIFF Stat Lab 02/21/21 20:10 Completed CMP Stat Lab 02/21/21 20:10 Completed CULTURE,URINE Stat Lab 02/21/21 21:18 Received Lactic Acid Stat Lab 02/21/21 19:59 Completed TROPONIN Q3H Lab 02/21/21 20:10 Completed TROPONIN Q3H Lab 02/21/21 22:43 Completed TROPONIN Q3H Lab 02/22/21 01:45 Ordered TROPONIN Q3H Lab 02/22/21 04:45 Ordered TROPONIN Q3H Lab 02/22/21 07:45 Ordered UA W/RFX UR CULTURE Stat Lab 02/21/21 20:50 Completed Medication Summary Generic Name Dose Route Start Last Admin Trade Name Freq PRN Reason Stop Dose Admin Sodium Chloride 1,000 mls @ 100 mls/hr 02/21/21 19:45 02/21/21 20:03 Sodium Chloride 0.9% 1000 Ml IV 03/23/21 19:44 100 mls/hr .Q10H FELICIA Administration Insulin Human Regular 100 unit 100 mls @ 12.05 mls/hr 02/21/21 20:45 / Sodium Chloride IV 03/23/21 20:44 .Q8H18M PRN DKA/HYPERGLYCEMIA Protocol 0.1 UNIT/KG/HR Discontinued Medications Generic Name Dose Route Start Last Admin Trade Name Freq PRN Reason Stop Dose Admin Dextrose 50 ml 02/21/21 20:45 02/21/21 20:58 D50w 50ml Vial IV 02/21/21 20:46 Not Given STAT ONE Dextrose Confirm 02/21/21 20:54 D50w 50 Ml Abboject Administered 02/21/21 20:55 Dose 50 ml IV .STK-MED ONE Dextrose 50 ml 02/21/21 20:58 02/21/21 20:59 D50w 50 Ml Abboject IV 02/21/21 20:59 50 ml STAT ONE Administration Ceftriaxone Sodium/Dextrose 1 g in 50 mls @ 100 mls/hr 02/21/21 19:35 02/21/21 19:56 Rocephin 1 Gm-D5w 50 Ml Bag IV 02/21/21 20:04 100 mls/hr STAT STA 100 mls/hr Administration Ceftriaxone Sodium/Dextrose Confirm 02/21/21 19:54 Rocephin 1 Gm-D5w 50 Ml Bag Administered 02/21/21 19:55 Dose 1 g in 50 mls @ ud IV .STK-MED ONE Insulin Human Regular 5 unit 02/21/21 20:45 02/21/21 20:54 Humulin R IV 02/21/21 20:46 5 unit STAT ONE Administration Insulin Human Regular Confirm 02/21/21 20:53 Humulin R Administered 02/21/21 20:54 Dose 5 unit .ROUTE .STK-MED ONE Lab/Rad Data: Laboratory Result Diagrams 02/21/21 20:10 02/21/21 20:10 Laboratory Results 02/21/21 02/21/21 02/21/21 Range/Units 22:43 22:43 20:50 WBC (4.0-10.5) K/mm3 RBC (4.1-5.4) M/mm3 Hgb (12.0-16.0) gm/dl Hct (35-47) % MCV (78-100) fl MCH (26-32) pg MCHC (32-36) g/dl RDW (11.5-14.0) % Plt Count (150-450) K/mm3 MPV (7.5-11.0) fl Gran % (36.0-66.0) % Eos # (Auto) (0-0.5) Absolute Lymphs (auto) (1.0-4.6) Absolute Monos (auto) (0.0-1.3) Lymphocytes % (24.0-44.0) % Monocytes % (0.0-12.0) % Eosinophils % (0.00-5.0) % Basophils % (0.0-0.4) % Absolute Granulocytes (1.4-6.9) Basophils # (0-0.4) Sodium (137-145) mmol/L Potassium (3.5-5.1) mmol/L Chloride (98-107) mmol/L Carbon Dioxide (22-30) mmol/L Anion Gap (5-15) MEQ/L BUN (7-17) mg/dL Creatinine (0.52-1.04) mg/dL Estimated GFR ML/MIN Glucose (74-106) mg/dL Lactic Acid (0.4-2.0) Calcium (8.4-10.2) mg/dL Total Bilirubin (0.2-1.3) mg/dL AST (14-36) U/L ALT (0-35) U/L Alkaline Phosphatase (38-126) U/L Troponin I 0.024 (0.000-0.034) ng/mL Serum Total Protein (6.3-8.2) g/dL Albumin (3.5-5.0) g/dL Urine Color YELLOW (YELLOW) Urine Appearance CLOUDY (CLEAR) Urine pH 5.0 (5-6) Ur Specific [place] 1.009 (1.005-1.025) Urine Protein 100 (Negative) Urine Ketones NEGATIVE (NEGATIVE) Urine Blood LARGE (0-5) Dennis/ul Urine Nitrite NEGATIVE (NEGATIVE) Urine Bilirubin NEGATIVE (NEGATIVE) Urine Urobilinogen NEGATIVE (0-1) mg/dL Ur Leukocyte Esterase MODERATE (NEGATIVE) Urine WBC (Auto) >100 (0-5) /HPF Urine RBC (Auto) >101 (0-2) /HPF U Epithel Cells (Auto) RARE (FEW) /HPF Urine Bacteria (Auto) FEW (NEGATIVE) /HPF Amorphous Crystals FEW (NEGATIVE) /HPF Urine Mucus (Auto) SLIGHT (NEGATIVE) /HPF Urine Culture Reflexed ORDERED SEPARATELY (NO) Urine Glucose NEGATIVE (NEGATIVE) mg/dL SARS-CoV-2 (PCR) NEGATIVE (NEGATIVE) 02/21/21 02/21/21 02/21/21 Range/Units 20:10 20:10 20:10 WBC 6.8 (4.0-10.5) K/mm3 RBC 3.27 L (4.1-5.4) M/mm3 Hgb 11.0 L (12.0-16.0) gm/dl Hct 34.8 L (35-47) % MCV 106.4 H (78-100) fl MCH 33.6 H (26-32) pg MCHC 31.6 L (32-36) g/dl RDW 12.9 (11.5-14.0) % Plt Count 176 (150-450) K/mm3 MPV 10.8 (7.5-11.0) fl Gran % 61.5 (36.0-66.0) % Eos # (Auto) 0.59 H (0-0.5) Absolute Lymphs (auto) 1.43 (1.0-4.6) Absolute Monos (auto) 0.56 (0.0-1.3) Lymphocytes % 21.2 L (24.0-44.0) % Monocytes % 8.3 (0.0-12.0) % Eosinophils % 8.7 H (0.00-5.0) % Basophils % 0.3 (0.0-0.4) % Absolute Granulocytes 4.15 (1.4-6.9) Basophils # 0.02 (0-0.4) Sodium 134 L (137-145) mmol/L Potassium 6.7 H* (3.5-5.1) mmol/L Chloride 101 (98-107) mmol/L Carbon Dioxide 23 (22-30) mmol/L Anion Gap 16.6 H (5-15) MEQ/L BUN 123 H (7-17) mg/dL Creatinine 4.67 H (0.52-1.04) mg/dL Estimated GFR 9.5 ML/MIN Glucose 100 (74-106) mg/dL Lactic Acid (0.4-2.0) Calcium 9.8 (8.4-10.2) mg/dL Total Bilirubin 0.30 (0.2-1.3) mg/dL AST 20 (14-36) U/L ALT 9 (0-35) U/L Alkaline Phosphatase 119 (38-126) U/L Troponin I 0.026 (0.000-0.034) ng/mL Serum Total Protein 6.8 (6.3-8.2) g/dL Albumin 3.9 (3.5-5.0) g/dL Urine Color (YELLOW) Urine Appearance (CLEAR) Urine pH (5-6) Ur Specific [place] (1.005-1.025) Urine Protein (Negative) Urine Ketones (NEGATIVE) Urine Blood (0-5) Dennis/ul Urine Nitrite (NEGATIVE) Urine Bilirubin (NEGATIVE) Urine Urobilinogen (0-1) mg/dL Ur Leukocyte Esterase (NEGATIVE) Urine WBC (Auto) (0-5) /HPF Urine RBC (Auto) (0-2) /HPF U Epithel Cells (Auto) (FEW) /HPF Urine Bacteria (Auto) (NEGATIVE) /HPF Amorphous Crystals (NEGATIVE) /HPF Urine Mucus (Auto) (NEGATIVE) /HPF Urine Culture Reflexed (NO) Urine Glucose (NEGATIVE) mg/dL SARS-CoV-2 (PCR) (NEGATIVE) 02/21/21 Range/Units 19:59 WBC (4.0-10.5) K/mm3 RBC (4.1-5.4) M/mm3 Hgb (12.0-16.0) gm/dl Hct (35-47) % MCV (78-100) fl MCH (26-32) pg MCHC (32-36) g/dl RDW (11.5-14.0) % Plt Count (150-450) K/mm3 MPV (7.5-11.0) fl Gran % (36.0-66.0) % Eos # (Auto) (0-0.5) Absolute Lymphs (auto) (1.0-4.6) Absolute Monos (auto) (0.0-1.3) Lymphocytes % (24.0-44.0) % Monocytes % (0.0-12.0) % Eosinophils % (0.00-5.0) % Basophils % (0.0-0.4) % Absolute Granulocytes (1.4-6.9) Basophils # (0-0.4) Sodium (137-145) mmol/L Potassium (3.5-5.1) mmol/L Chloride (98-107) mmol/L Carbon Dioxide (22-30) mmol/L Anion Gap (5-15) MEQ/L BUN (7-17) mg/dL Creatinine (0.52-1.04) mg/dL Estimated GFR ML/MIN Glucose (74-106) mg/dL Lactic Acid 0.7 (0.4-2.0) Calcium (8.4-10.2) mg/dL Total Bilirubin (0.2-1.3) mg/dL AST (14-36) U/L ALT (0-35) U/L Alkaline Phosphatase (38-126) U/L Troponin I (0.000-0.034) ng/mL Serum Total Protein (6.3-8.2) g/dL Albumin (3.5-5.0) g/dL Urine Color (YELLOW) Urine Appearance (CLEAR) Urine pH (5-6) Ur Specific [place]ons (1.005-1.025) Urine Protein (Negative) Urine Ketones (NEGATIVE) Urine Blood (0-5) Dennis/ul Urine Nitrite (NEGATIVE) Urine Bilirubin (NEGATIVE) Urine Urobilinogen (0-1) mg/dL Ur Leukocyte Esterase (NEGATIVE) Urine WBC (Auto) (0-5) /HPF Urine RBC (Auto) (0-2) /HPF U Epithel Cells (Auto) (FEW) /HPF Urine Bacteria (Auto) (NEGATIVE) /HPF Amorphous Crystals (NEGATIVE) /HPF Urine Mucus (Auto) (NEGATIVE) /HPF Urine Culture Reflexed (NO) Urine Glucose (NEGATIVE) mg/dL SARS-CoV-2 (PCR) (NEGATIVE) - Progress Progress: improved, re-examined Air Movement: good Progress Note: 02/21/21 23:53 discussed with pt family and Dr. Woody and all agree best to put pt in and treat UTI and hyperkalemia. Blood Culture(s) Obtained: No Antibiotics given: Yes Discussed with : Shy Will see patient in: hospital (observation) Counseled pt/family regarding: lab results, diagnosis, need for follow-up, rad results - Departure Departure Disposition: Observation Clinical Impression: UTI (urinary tract infection), Atrial fibrillation, Renal failure, Hyperkalemia Condition: Fair Critical Care Time: No Referrals: ANT ANDERSON [Primary Care Provider] -
[2021-02-21] MEDS ORDERED: ROCEPHIN 1 Gm-D5w 50 ml Bag** 1 G/50 ML IVPB IV STA (19:35)
[2021-02-21] MEDS ORDERED: ROCEPHIN 1 Gm-D5w 50 ml Bag** 1 G/50 ML IVPB IV ONE (19:54)
[2021-02-21] MEDS: Sodium Chloride 0.9% 1000 ML 1,000 ML IV SCH (20:03)
[2021-02-21 20:16] LABS: Absolute Neutrophil Ct (ANC) 4.15 (1.4-6.9); BASOPHIL % 0.3 % (0.0-0.4); Basophil (Absolute #) 0.02 (0-0.4); Eosinophil % 8.7 % (0.00-5.0); Eosinophil (Absolute #) 0.59 (0-0.5); Hematocrit 34.8 % (35-47); Lymphocyte (Absolute #) 1.43 (1.0-4.6); Lymphocytes % 21.2 % (24.0-44.0); Mean Cell Volume 106.4 fl (78-100); Mean Corpuscular Hemoglobin 33.6 pg (26-32); Mean Corpuscular Hgb Concent. 31.6 g/dl (32-36); Mean Platelet Volume 10.8 fl (7.5-11.0); Monocyte (Absolute #) 0.56 (0.0-1.3); Monocytes % 8.3 % (0.0-12.0); Neutrophil % 61.5 % (36.0-66.0); Platelet Count 176 K/mm3 (150-450); Red Blood Count 3.27 M/mm3 (4.1-5.4); Red Cell Distribution Width 12.9 % (11.5-14.0); White Blood Count 6.8 K/mm3 (4.0-10.5)
[2021-02-21 20:27] LABS: ALBUMIN 3.9 g/dL (3.5-5.0); ANION GAP 16.6 MEQ/L (5-15); BILIRUBIN,TOTAL 0.3 mg/dL (0.2-1.3); Calcium 9.8 mg/dL (8.4-10.2); Creatinine 1 4.67 mg/dL (0.52-1.04); EST GLOMERULAR FILTRATION RATE 9.5 ML/MIN; Total Protein 6.8 g/dL (6.3-8.2)
[2021-02-21 20:37] LABS: Potassium 6.7 mmol/L (3.5-5.1)
[2021-02-21] MEDS ORDERED: HUMULIN R 100 UNIT in Sodium Chloride 0.9% 100 ML BAG 100 ML IV PRN (20:45)
[2021-02-21] MEDS ORDERED: D50W 50ML Vial IV ONE (20:45)
[2021-02-21] MEDS ORDERED: HUMULIN R IV ONE (20:45)
[2021-02-21] MEDS ORDERED: HUMULIN R ONE (20:53)
[2021-02-21] MEDS ORDERED: D50W 50 ml Abboject IV ONE ×2 (20:54→20:58)
[2021-02-21 21:26] LABS: Amourphous Crystal FEW /HPF (NEGATIVE); Appearance CLOUDY (CLEAR); Bacteria FEW /HPF (NEGATIVE); Bilirubin NEGATIVE (NEGATIVE); Blood LARGE Ery/ul (0-5); Epithelial Cells RARE /HPF (FEW); Glucose NEGATIVE (NEGATIVE); Ketones NEGATIVE (NEGATIVE); Leukocyte Esterase MODERATE (NEGATIVE); Mucus SLIGHT /HPF (NEGATIVE); Nitrite NEGATIVE (NEGATIVE); Protein,Urine Dip 100 (Negative); RBC >101 /HPF (0-2); Specific Gravity 1.009 (1.005-1.025); Urobilinogen NEGATIVE mg/dL (0-1); WBC >100 /HPF (0-5)
[2021-02-22] MEDS ORDERED: Kayexylate 15 GM/60 ML RC ONE (00:46)
[2021-02-22] MEDS ORDERED: TYLENOL 325 MG PO PRN (00:46)
[2021-02-22] MEDS ORDERED: Zofran 4 MG/2 ML VIAL IV PRN (00:46)
[2021-02-22] MEDS ORDERED: HUMULIN R SQ PRN (00:46)
[2021-02-22 01:25] LABS: ANION GAP 14.8 MEQ/L (5-15); Calcium 9.7 mg/dL (8.4-10.2); Creatinine 1 4.43 mg/dL (0.52-1.04); EST GLOMERULAR FILTRATION RATE 10.1 ML/MIN; Potassium 5.8 mmol/L (3.5-5.1)
[2021-02-22 05:03] LABS: ANION GAP 16.5 MEQ/L (5-15); Calcium 9.6 mg/dL (8.4-10.2); Creatinine 1 4.27 mg/dL (0.52-1.04); EST GLOMERULAR FILTRATION RATE 10.5 ML/MIN; Potassium 5.6 mmol/L (3.5-5.1)
[2021-02-22] MEDS: Sodium Chloride 0.9% 1000 ML 1,000 ML IV SCH ×2 (06:47→16:37)
[2021-02-22] MEDS: Pepcid 20 MG VIAL IV SCH (09:17)
--- NOTE | 2021-02-22 09:29 | PCM.HP ---
History of Present Illness - Chief Complaint Chief Complaint: confusion for 1-2 days History of Present Illness: is a 85 year old female.has been more confused the past 2 days and has indwelling catheter with Hx UTI recently completed ab. had low BP initially and now reported at 100. No hx trauma or focal neuro findings on exam. no pronator drift . fundi benign and team coordinator normal - old left trigger finger without change per pt. Timing/Duration: day(s) Activites at Onset: none Quality: other (no pain) Onset Location: other (no pain) Severity of Pain-Max: none Severity of Pain-Current: none Prior abdominal problems: UTI Sexual intercourse history: non-contributory Modifying Factors: Improves With: nothing Associated Symptoms: other (confusion) - Review of Systems Constitutional: No Fever, No Chills Eyes: No Symptoms Ears, Nose, & Throat: No Symptoms Respiratory: No Cough, No Short Of Breath Cardiac: No Chest Pain, No Edema, No Syncope Abdominal/Gastrointestinal: No Abdominal Pain, No Nausea, No Vomiting, No Diarrhea Genitourinary Symptoms: No Dysuria Musculoskeletal: No Back Pain, No Neck Pain Skin: No Rash Neurological: No Dizziness, No Focal Weakness, No Sensory Changes Psychological: No Symptoms Endocrine: No Symptoms Hematologic/Lymphatic: No Symptoms Immunological/Allergic: No Symptoms Medications & Allergies Home Medications: Home Medication List Acetaminophen 325 mg [Tylenol 325 mg] 650 mg PO Q4H PRN 01/08/19 [History Confirmed 02/22/21] Bupropion HCl Xl 150 mg [Wellbutrin XL 150 MG] 100 mg PO DAILY 01/08/19 [History Confirmed 02/22/21] Chlorthalidone 25 mg PO DAILY 01/08/19 [History Confirmed 02/22/21] Gabapentin [Neurontin] 300 mg PO BID 01/08/19 [History Confirmed 02/22/21] Levothyroxine Sodium 150 Mcg [Synthroid 150 Mcg] 150 mcg PO DAILY 01/08/19 [History Confirmed 02/22/21] Loperamide HCl 2 mg [Imodium 2 mg] 2 mg PO Q4H PRN 01/08/19 [History Confirmed 02/22/21] Lubiprostone [Amitiza] 24 mcg PO BID PRN 01/08/19 [History Confirmed 02/22/21] Magnesium Citrate 296 ml [Citroma 296 ml] 300 ml PO HS PRN 01/08/19 [History Confirmed 02/22/21] Magnesium Hydroxide 30 ml [Milk of Magnesia 30 ml] 30 ml PO DAILY PRN 01/08/19 [History Confirmed 02/22/21] Metoprolol Tartrate 50 mg [Lopressor 50 MG] 50 mg PO BID 01/08/19 [History Confirmed 02/22/21] Ondansetron HCl [Zofran] 4 mg PO Q4H PRN 01/08/19 [History Confirmed 02/22/21] Polyethylene Glycol 3350 17 gm [Miralax Powder 17GM PACKET] 17 gm PO DAILY PRN 01/08/19 [History Confirmed 02/22/21] Spironolactone 25 mg [Aldactone 25 MG] 25 mg PO DAILY 01/08/19 [History Confirmed 02/22/21] Sucralfate 1 gm [Carafate 1 GM] 1 gm PO BID 01/08/19 [History Confirmed 02/22/21] Bumetanide 1 mg [Bumex 1 mg] 2 mg PO DAILY #30 tablet 01/11/19 [Rx Confirmed 02/22/21] Allopurinol 100 mg [Zyloprim 100 mg] 100 mg PO BID 01/31/19 [History Confirmed 02/22/21] Pantoprazole Sodium [Protonix] 40 mg PO DAILY 01/31/19 [History Confirmed 02/22/21] Apixaban [Eliquis 2.5 mg Tablet] 2.5 mg PO BID #0 02/04/19 [Rx Confirmed 02/22/21] Aspirin EC 81 mg [Ecotrin 81 mg] 81 mg PO DAILY #0 02/04/19 [Rx Confirmed 02/22/21] Carboxymethylcellulose Sodium [Refresh Tears] 2 drops OP BID 03/11/19 [History Confirmed 02/22/21] Docusate Sodium 100 mg [Colace 100 MG] 100 mg PO BID 03/11/19 [History Confirmed 02/22/21] Glucagon,Human Recombinant [Glucagon Emergency Kit] 1 mg IM DAILY PRN 03/11/19 [History Confirmed 02/22/21] Insulin Aspart [Novolog] See Protocol SQ UD 03/11/19 [History Confirmed 02/22/21] Lactobacillus Acidophilus [Acidophilus] 1 tablet PO DAILY 03/11/19 [History Confirmed 02/22/21] Mag Hydrox/Al Hydrox/Simeth [Mylanta Maximum Strength Liq] 30 ml PO Q4H PRN 03/11/19 [History Confirmed 02/22/21] Multivit with Iron,Minerals [Unicomplex-M] 1 tablet PO DAILY 03/11/19 [History Confirmed 02/22/21] Potassium Chloride 10 Meq Tab* [Klor Con 10 MEQ] 20 meq PO TID 03/11/19 [History Confirmed 02/22/21] Sodium Phosphate,[place]-Dibasic [Fleet Enema] 1 enema RC DAILY PRN 03/11/19 [History Confirmed 02/22/21] Atorvastatin Calcium 10 mg PO QHS 02/22/21 [History Confirmed 02/22/21] Diclofenac Sodium Gel [Voltaren GEL] 2 gm TP BID PRN 02/22/21 [History Confirmed 02/22/21] Donepezil HCl 10 mg [Aricept 10 MG] 10 mg PO HS 02/22/21 [History Confirmed 02/22/21] Ferric Citrate [Auryxia] 210 mg PO DAILY 02/22/21 [History Confirmed 02/22/21] Guaifenesin/Codeine Phosphate [Robitussin AC Syrup] 5 ml PO DAILY 02/22/21 [History Confirmed 02/22/21] Hydrocodone/Acetaminophen [Hydrocodone-Acetamin 5-325 mg] 1 tab PO TID 02/22/21 [History Confirmed 02/22/21] Lisinopril 5 mg [Zestril 5 MG] 5 mg PO DAILY 02/22/21 [History Confirmed 02/22/21] Mag Hydrox/Aluminum Hyd/Simeth [Mylanta Maximum Strength Liq] 355 ml PO DAILY 02/22/21 [History Confirmed 02/22/21] Magnesium Hydroxide 30 ml [Milk of Magnesia 30 ml] 30 ml PO DAILY 02/22/21 [History Confirmed 02/22/21] Memantine HCl 5 mg [Namenda 5 MG] 1 tab PO DAILY 02/22/21 [History Confirmed 02/22/21] Nystatin 1,000,000 unit MC QHS 02/22/21 [History Confirmed 02/22/21] Tolterodine Tartrate [Tolterodine Tartrate ER] 4 mg PO DAILY 02/22/21 [History Confirmed 02/22/21] Allergies/Adverse Reactions: Allergies Allergy/AdvReac Type Severity Reaction Status Date / Time codeine Allergy Unknown Verified 02/21/21 19:53 clarithromycin [From Biaxin] Allergy Verified 02/21/21 19:53 - Past Medical History Past Medical History: Yes Neurological History: Dementia, Peripheral Neuropathy ENT History: Cataracts, Glaucoma Cardiac History: Arrhythmia, High Cholesterol, Hypertension, Myocardial Infarction (ME) Respiratory History: Bronchitis, CHF, Pulmonary Embolism Endocrine Medical History: Diabetes Type II, Hypothyroidism, Other Musculoskelatal History: Osteoarthritis GI Medical History: GERD, Other History: Renal Disease Pyscho-Social History: Anxiety, Depression Reproductive Disorders: No Pertinent History Comment: OTHER PMHX: CATARACTS, GLAUCOMA, CHRONIC KIDNEY DISEASE, ANXIETY, DEPRESSION - Female History Are you now?: No - Past Surgical History Past Surgical History: Yes Neuro Surgical History: No Pertinent History Cardiac History: No Pertinent History Respiratory Surgery: No Pertinent History GI Surgical History: Appendectomy, Cholecystectomy Genitourinary Surgical Hx: No Pertinent History Musculskeletal Surgical Hx: No Pertinent History Female Surgical History: Hysterectomy, Section Other Surgical History: foot surgery - Social History Smoking Status: Never smoker Exposure to second hand smoke: No Alcohol: None Drug Use: none - Physical Exam Vital Signs: Vital Signs - 24 hr Temp Pulse Resp BP Pulse Ox 02/22/21 07:05 97.8 F 104 H 20 103/58 97 02/22/21 04:20 67 18 95 02/22/21 04:00 18 02/22/21 03:58 97.9 F 67 18 102/64 95 02/22/21 00:59 95 02/22/21 00:45 97.9 F 98 H 22 95 02/22/21 00:00 104 H 22 110/73 95 02/21/21 23:54 97 02/21/21 23:42 97.8 F 82 14 93/55 95 02/21/21 23:07 88 14 124/65 96 02/21/21 21:19 95 H 16 116/68 99 02/21/21 20:19 86 20 110/62 95 02/21/21 19:19 97.8 F 92 H 20 114/61 97 General Appearance: no apparent distress, alert Neurologic Exam: alert, oriented x 3, cooperative, normal mood/affect, nml cerebellar function, nml station & gait, sensation nml, No motor deficits Eye Exam: PERRL/EOMI, eyes nml inspection Ears, Nose, Throat Exam: normal ENT inspection, TMs normal, pharynx normal, moist mucous membranes Neck Exam: normal inspection, non-tender, supple, full range of motion Respiratory Exam: normal breath sounds, lungs clear, No respiratory distress Cardiovascular Exam: regular rate/rhythm, normal heart sounds, normal peripheral pulses Gastrointestinal/Abdomen Exam: soft, normal bowel sounds, No tenderness, No mass Back Exam: normal inspection, normal range of motion, No CVA tenderness, No vertebral tenderness Extremity Exam: normal inspection, normal range of motion, pelvis stable Skin Exam: normal color, warm, dry, No rash Wound Assessment: Skin/Wound Assessment Wound/Incision Assessment Start: 02/22/21 00:57 Text: Status: Active Freq: Q6H Protocol: Document 02/22/21 07:00 DS (Rec: 02/22/21 08:20 DS [id number]) Wound/Incision Assessment Right Buttock Wound Assessment Shift Assessment Wound Type Pressure Ulcer Wound Stage Stage II Drainage Amount None Drainage Odor None/Absent General Appearance Well Approximated Wound Photo Photo Taken No Lymphatic Exam: No adenopathy Results - Labs Lab/Micro Results: Lab Results-Last 24 Hours 02/21/21 02/21/21 02/21/21 Range/Units 19:59 20:10 20:10 WBC 6.8 (4.0-10.5) K/mm3 RBC 3.27 L (4.1-5.4) M/mm3 Hgb 11.0 L (12.0-16.0) gm/dl Hct 34.8 L (35-47) % MCV 106.4 H (78-100) fl MCH 33.6 H (26-32) pg MCHC 31.6 L (32-36) g/dl RDW 12.9 (11.5-14.0) % Plt Count 176 (150-450) K/mm3 MPV 10.8 (7.5-11.0) fl Gran % 61.5 (36.0-66.0) % Eos # (Auto) 0.59 H (0-0.5) Absolute Lymphs (auto) 1.43 (1.0-4.6) Absolute Monos (auto) 0.56 (0.0-1.3) Lymphocytes % 21.2 L (24.0-44.0) % Monocytes % 8.3 (0.0-12.0) % Eosinophils % 8.7 H (0.00-5.0) % Basophils % 0.3 (0.0-0.4) % Absolute Granulocytes 4.15 (1.4-6.9) Basophils # 0.02 (0-0.4) Sodium 134 L (137-145) mmol/L Potassium 6.7 H* (3.5-5.1) mmol/L Chloride 101 (98-107) mmol/L Carbon Dioxide 23 (22-30) mmol/L Anion Gap 16.6 H (5-15) MEQ/L BUN 123 H (7-17) mg/dL Creatinine 4.67 H (0.52-1.04) mg/dL Estimated GFR 9.5 ML/MIN Glucose 100 (74-106) mg/dL POC Glucometer (74 to 106) mg/dL Lactic Acid 0.7 (0.4-2.0) Calcium 9.8 (8.4-10.2) mg/dL Total Bilirubin 0.30 (0.2-1.3) mg/dL AST 20 (14-36) U/L ALT 9 (0-35) U/L Alkaline Phosphatase 119 (38-126) U/L Troponin I (0.000-0.034) ng/mL Serum Total Protein 6.8 (6.3-8.2) g/dL Albumin 3.9 (3.5-5.0) g/dL Urine Color (YELLOW) Urine Appearance (CLEAR) Urine pH (5-6) Ur Specific [place] (1.005-1.025) Urine Protein (Negative) Urine Ketones (NEGATIVE) Urine Blood (0-5) Dennis/ul Urine Nitrite (NEGATIVE) Urine Bilirubin (NEGATIVE) Urine Urobilinogen (0-1) mg/dL Ur Leukocyte Esterase (NEGATIVE) Urine WBC (Auto) (0-5) /HPF Urine RBC (Auto) (0-2) /HPF U Epithel Cells (Auto) (FEW) /HPF Urine Bacteria (Auto) (NEGATIVE) /HPF Amorphous Crystals (NEGATIVE) /HPF Urine Mucus (Auto) (NEGATIVE) /HPF Urine Culture Reflexed (NO) Urine Glucose (NEGATIVE) mg/dL SARS-CoV-2 (PCR) (NEGATIVE) 02/21/21 02/21/21 02/21/21 Range/Units 20:10 20:50 22:43 WBC (4.0-10.5) K/mm3 RBC (4.1-5.4) M/mm3 Hgb (12.0-16.0) gm/dl Hct (35-47) % MCV (78-100) fl MCH (26-32) pg MCHC (32-36) g/dl RDW (11.5-14.0) % Plt Count (150-450) K/mm3 MPV (7.5-11.0) fl Gran % (36.0-66.0) % Eos # (Auto) (0-0.5) Absolute Lymphs (auto) (1.0-4.6) Absolute Monos (auto) (0.0-1.3) Lymphocytes % (24.0-44.0) % Monocytes % (0.0-12.0) % Eosinophils % (0.00-5.0) % Basophils % (0.0-0.4) % Absolute Granulocytes (1.4-6.9) Basophils # (0-0.4) Sodium (137-145) mmol/L Potassium (3.5-5.1) mmol/L Chloride (98-107) mmol/L Carbon Dioxide (22-30) mmol/L Anion Gap (5-15) MEQ/L BUN (7-17) mg/dL Creatinine (0.52-1.04) mg/dL Estimated GFR ML/MIN Glucose (74-106) mg/dL POC Glucometer (74 to 106) mg/dL Lactic Acid (0.4-2.0) Calcium (8.4-10.2) mg/dL Total Bilirubin (0.2-1.3) mg/dL AST (14-36) U/L ALT (0-35) U/L Alkaline Phosphatase (38-126) U/L Troponin I 0.026 0.024 (0.000-0.034) ng/mL Serum Total Protein (6.3-8.2) g/dL Albumin (3.5-5.0) g/dL Urine Color YELLOW (YELLOW) Urine Appearance CLOUDY (CLEAR) Urine pH 5.0 (5-6) Ur Specific [place] 1.009 (1.005-1.025) Urine Protein 100 (Negative) Urine Ketones NEGATIVE (NEGATIVE) Urine Blood LARGE (0-5) Dennis/ul Urine Nitrite NEGATIVE (NEGATIVE) Urine Bilirubin NEGATIVE (NEGATIVE) Urine Urobilinogen NEGATIVE (0-1) mg/dL Ur Leukocyte Esterase MODERATE (NEGATIVE) Urine WBC (Auto) >100 (0-5) /HPF Urine RBC (Auto) >101 (0-2) /HPF U Epithel Cells (Auto) RARE (FEW) /HPF Urine Bacteria (Auto) FEW (NEGATIVE) /HPF Amorphous Crystals FEW (NEGATIVE) /HPF Urine Mucus (Auto) SLIGHT (NEGATIVE) /HPF Urine Culture Reflexed ORDERED SEPARATELY (NO) Urine Glucose NEGATIVE (NEGATIVE) mg/dL SARS-CoV-2 (PCR) (NEGATIVE) 02/21/21 02/22/21 02/22/21 Range/Units 22:43 01:09 01:09 WBC (4.0-10.5) K/mm3 RBC (4.1-5.4) M/mm3 Hgb (12.0-16.0) gm/dl Hct (35-47) % MCV (78-100) fl MCH (26-32) pg MCHC (32-36) g/dl RDW (11.5-14.0) % Plt Count (150-450) K/mm3 MPV (7.5-11.0) fl Gran % (36.0-66.0) % Eos # (Auto) (0-0.5) Absolute Lymphs (auto) (1.0-4.6) Absolute Monos (auto) (0.0-1.3) Lymphocytes % (24.0-44.0) % Monocytes % (0.0-12.0) % Eosinophils % (0.00-5.0) % Basophils % (0.0-0.4) % Absolute Granulocytes (1.4-6.9) Basophils # (0-0.4) Sodium 134 L (137-145) mmol/L Potassium 5.8 H (3.5-5.1) mmol/L Chloride 101 (98-107) mmol/L Carbon Dioxide 24 (22-30) mmol/L Anion Gap 14.8 (5-15) MEQ/L BUN 116 H (7-17) mg/dL Creatinine 4.43 H (0.52-1.04) mg/dL Estimated GFR 10.1 ML/MIN Glucose 112 H (74-106) mg/dL POC Glucometer (74 to 106) mg/dL Lactic Acid (0.4-2.0) Calcium 9.7 (8.4-10.2) mg/dL Total Bilirubin (0.2-1.3) mg/dL AST (14-36) U/L ALT (0-35) U/L Alkaline Phosphatase (38-126) U/L Troponin I 0.024 (0.000-0.034) ng/mL Serum Total Protein (6.3-8.2) g/dL Albumin (3.5-5.0) g/dL Urine Color (YELLOW) Urine Appearance (CLEAR) Urine pH (5-6) Ur Specific [place] (1.005-1.025) Urine Protein (Negative) Urine Ketones (NEGATIVE) Urine Blood (0-5) Dennis/ul Urine Nitrite (NEGATIVE) Urine Bilirubin (NEGATIVE) Urine Urobilinogen (0-1) mg/dL Ur Leukocyte Esterase (NEGATIVE) Urine WBC (Auto) (0-5) /HPF Urine RBC (Auto) (0-2) /HPF U Epithel Cells (Auto) (FEW) /HPF Urine Bacteria (Auto) (NEGATIVE) /HPF Amorphous Crystals (NEGATIVE) /HPF Urine Mucus (Auto) (NEGATIVE) /HPF Urine Culture Reflexed (NO) Urine Glucose (NEGATIVE) mg/dL SARS-CoV-2 (PCR) NEGATIVE (NEGATIVE) 02/22/21 02/22/21 02/22/21 Range/Units 04:24 04:24 06:44 WBC (4.0-10.5) K/mm3 RBC (4.1-5.4) M/mm3 Hgb (12.0-16.0) gm/dl Hct (35-47) % MCV (78-100) fl MCH (26-32) pg MCHC (32-36) g/dl RDW (11.5-14.0) % Plt Count (150-450) K/mm3 MPV (7.5-11.0) fl Gran % (36.0-66.0) % Eos # (Auto) (0-0.5) Absolute Lymphs (auto) (1.0-4.6) Absolute Monos (auto) (0.0-1.3) Lymphocytes % (24.0-44.0) % Monocytes % (0.0-12.0) % Eosinophils % (0.00-5.0) % Basophils % (0.0-0.4) % Absolute Granulocytes (1.4-6.9) Basophils # (0-0.4) Sodium 135 L (137-145) mmol/L Potassium 5.6 H (3.5-5.1) mmol/L Chloride 102 (98-107) mmol/L Carbon Dioxide 22 (22-30) mmol/L Anion Gap 16.5 H (5-15) MEQ/L BUN 112 H (7-17) mg/dL Creatinine 4.27 H (0.52-1.04) mg/dL Estimated GFR 10.5 ML/MIN Glucose 91 (74-106) mg/dL POC Glucometer 89 (74 to 106) mg/dL Lactic Acid (0.4-2.0) Calcium 9.6 (8.4-10.2) mg/dL Total Bilirubin (0.2-1.3) mg/dL AST (14-36) U/L ALT (0-35) U/L Alkaline Phosphatase (38-126) U/L Troponin I 0.029 (0.000-0.034) ng/mL Serum Total Protein (6.3-8.2) g/dL Albumin (3.5-5.0) g/dL Urine Color (YELLOW) Urine Appearance (CLEAR) Urine pH (5-6) Ur Specific [place] (1.005-1.025) Urine Protein (Negative) Urine Ketones (NEGATIVE) Urine Blood (0-5) Dennis/ul Urine Nitrite (NEGATIVE) Urine Bilirubin (NEGATIVE) Urine Urobilinogen (0-1) mg/dL Ur Leukocyte Esterase (NEGATIVE) Urine WBC (Auto) (0-5) /HPF Urine RBC (Auto) (0-2) /HPF U Epithel Cells (Auto) (FEW) /HPF Urine Bacteria (Auto) (NEGATIVE) /HPF Amorphous Crystals (NEGATIVE) /HPF Urine Mucus (Auto) (NEGATIVE) /HPF Urine Culture Reflexed (NO) Urine Glucose (NEGATIVE) mg/dL SARS-CoV-2 (PCR) (NEGATIVE) 02/22/21 Range/Units 07:55 WBC (4.0-10.5) K/mm3 RBC (4.1-5.4) M/mm3 Hgb (12.0-16.0) gm/dl Hct (35-47) % MCV (78-100) fl MCH (26-32) pg MCHC (32-36) g/dl RDW (11.5-14.0) % Plt Count (150-450) K/mm3 MPV (7.5-11.0) fl Gran % (36.0-66.0) % Eos # (Auto) (0-0.5) Absolute Lymphs (auto) (1.0-4.6) Absolute Monos (auto) (0.0-1.3) Lymphocytes % (24.0-44.0) % Monocytes % (0.0-12.0) % Eosinophils % (0.00-5.0) % Basophils % (0.0-0.4) % Absolute Granulocytes (1.4-6.9) Basophils # (0-0.4) Sodium (137-145) mmol/L Potassium (3.5-5.1) mmol/L Chloride (98-107) mmol/L Carbon Dioxide (22-30) mmol/L Anion Gap (5-15) MEQ/L BUN (7-17) mg/dL Creatinine (0.52-1.04) mg/dL Estimated GFR ML/MIN Glucose (74-106) mg/dL POC Glucometer (74 to 106) mg/dL Lactic Acid (0.4-2.0) Calcium (8.4-10.2) mg/dL Total Bilirubin (0.2-1.3) mg/dL AST (14-36) U/L ALT (0-35) U/L Alkaline Phosphatase (38-126) U/L Troponin I 0.035 H (0.000-0.034) ng/mL Serum Total Protein (6.3-8.2) g/dL Albumin (3.5-5.0) g/dL Urine Color (YELLOW) Urine Appearance (CLEAR) Urine pH (5-6) Ur Specific [place] (1.005-1.025) Urine Protein (Negative) Urine Ketones (NEGATIVE) Urine Blood (0-5) Dennis/ul Urine Nitrite (NEGATIVE) Urine Bilirubin (NEGATIVE) Urine Urobilinogen (0-1) mg/dL Ur Leukocyte Esterase (NEGATIVE) Urine WBC (Auto) (0-5) /HPF Urine RBC (Auto) (0-2) /HPF U Epithel Cells (Auto) (FEW) /HPF Urine Bacteria (Auto) (NEGATIVE) /HPF Amorphous Crystals (NEGATIVE) /HPF Urine Mucus (Auto) (NEGATIVE) /HPF Urine Culture Reflexed (NO) Urine Glucose (NEGATIVE) mg/dL SARS-CoV-2 (PCR) (NEGATIVE) Assessment/Plan (1) UTI (urinary tract infection) Current Visit: Yes Status: Acute Qualifiers: Urinary tract infection type: acute pyelonephritis Qualified Code(s): N10 - Acute pyelonephritis Code(s): N39.0 - URINARY TRACT INFECTION, SITE NOT SPECIFIED (2) Dehydration Current Visit: Yes Status: Acute Code(s): E86.0 - DEHYDRATION
[2021-02-22] MEDS ORDERED: GLUCAGON HUMAN RECOMBINANT 1 MG IM PRN (12:47)
[2021-02-22] MEDS ORDERED: MILK OF MAGNESIA 30 ML PO PRN (12:47)
[2021-02-22] MEDS ORDERED: CITROMA 296 ML PO PRN (12:47)
[2021-02-22] MEDS ORDERED: AMITIZA PO PRN (12:47)
[2021-02-22] MEDS ORDERED: Miralax Powder 17GM PACKET PO PRN (12:47)
[2021-02-22] MEDS ORDERED: MAALOX ES 30 ML UNIT DOSE PO PRN (12:47)
[2021-02-22] MEDS ORDERED: IMODIUM 2 MG PO PRN (12:47)
[2021-02-22] MEDS ORDERED: Aldactone 25 MG PO SCH (13:00)
[2021-02-22] MEDS ORDERED: INSULIN ASPART SQ SCH (13:00)
[2021-02-22] MEDS ORDERED: GlucaGen 1 MG IM PRN ×2 (13:31→13:34)
[2021-02-22] MEDS: Artificial Tears 15 ML OP SCH ×2 (13:32→21:41)
[2021-02-22] MEDS: hydroDIURIL 25 MG PO SCH (13:33)
[2021-02-22] MEDS: NEURONTIN 300 MG PO SCH ×2 (13:33→21:39)
[2021-02-22] MEDS: Protonix 40MG Tablet PO SCH (13:33)
[2021-02-22] MEDS: Namenda 5 MG PO SCH (13:33)
[2021-02-22] MEDS: BUMEX 1 MG PO SCH (13:33)
[2021-02-22] MEDS: ECOTRIN 81 MG PO SCH (13:34)
[2021-02-22] MEDS: SYNTHROID 150 MCG PO SCH (13:34)
[2021-02-22] MEDS: Lopressor 50 MG PO SCH ×2 (13:34→21:38)
[2021-02-22] MEDS: ELIQUIS 2.5 MG TABLET PO SCH ×2 (13:34→21:39)
[2021-02-22] MEDS ORDERED: ZOFRAN ODT 4 MG PO PRN (13:36)
[2021-02-22] MEDS ORDERED: HUMALOG SQ PRN (13:45)
[2021-02-22] MEDS ORDERED: Klor Con 10 MEQ PO SCH (15:00)
[2021-02-22] MEDS: Ditropan XL 5 MG PO SCH (15:22)
[2021-02-22] MEDS: NORCO 5/325 MG PO SCH ×2 (15:22→21:39)
[2021-02-22] MEDS: ZYLOPRIM 100 MG PO SCH (21:39)
[2021-02-22] MEDS: Colace 100 MG PO SCH (21:39)
[2021-02-22] MEDS: Aricept 10 MG PO SCH (21:40)
[2021-02-22] MEDS: Carafate 1 GM PO SCH (21:40)
[2021-02-22] MEDS: Zocor 10MG PO SCH (21:40)
[2021-02-22] MEDS: ROCEPHIN 1 Gm-D5w 50 ml Bag** 1 G/50 ML IVPB IV SCH (21:43)
[2021-02-22] MEDS ORDERED: NYSTATIN 1000000 UNIT MC SCH (22:00)
[2021-02-22] MEDS ORDERED: NON-FORMULARY ITEM (Atorvastatin Calcium [Atorvastatin Calcium] 10 MG) PO SCH (22:00)
[2021-02-22] MEDS ORDERED: CARBOXYMETHYLCELLULOSE SODIUM OP SCH (22:00)
[2021-02-23] MEDS: Sodium Chloride 0.9% 1000 ML 1,000 ML IV SCH ×3 (02:43→23:30)
[2021-02-23 05:41] LABS: Absolute Neutrophil Ct (ANC) 3.19 (1.4-6.9); BASOPHIL % 0.2 % (0.0-0.4); Basophil (Absolute #) 0.01 (0-0.4); Eosinophil % 9.3 % (0.00-5.0); Eosinophil (Absolute #) 0.53 (0-0.5); Hematocrit 32.2 % (35-47); Hemoglobin 9.9 gm/dl (12.0-16.0); Lymphocyte (Absolute #) 1.46 (1.0-4.6); Lymphocytes % 25.6 % (24.0-44.0); Mean Cell Volume 105.6 fl (78-100); Mean Corpuscular Hemoglobin 32.5 pg (26-32); Mean Corpuscular Hgb Concent. 30.7 g/dl (32-36); Mean Platelet Volume 11.6 fl (7.5-11.0); Monocyte (Absolute #) 0.51 (0.0-1.3); Monocytes % 8.9 % (0.0-12.0); Platelet Count 172 K/mm3 (150-450); Red Blood Count 3.05 M/mm3 (4.1-5.4); Red Cell Distribution Width 12.9 % (11.5-14.0); White Blood Count 5.7 K/mm3 (4.0-10.5)
[2021-02-23 06:01] LABS: ALBUMIN 3.4 g/dL (3.5-5.0); ANION GAP 13.3 MEQ/L (5-15); BILIRUBIN,TOTAL 0.3 mg/dL (0.2-1.3); Calcium 9.5 mg/dL (8.4-10.2); Creatinine 1 3.72 mg/dL (0.52-1.04); EST GLOMERULAR FILTRATION RATE 12.4 ML/MIN; Potassium 4.7 mmol/L (3.5-5.1); Total Protein 6.1 g/dL (6.3-8.2)
[2021-02-23] MEDS: Ditropan XL 5 MG PO SCH (08:25)
[2021-02-23] MEDS: Lopressor 50 MG PO SCH ×2 (08:25→22:18)
[2021-02-23] MEDS: Pepcid 20 MG VIAL IV SCH ×3 (08:25→22:18)
[2021-02-23] MEDS: ZYLOPRIM 100 MG PO SCH ×2 (08:26→22:18)
[2021-02-23] MEDS: Acidophilus TABLET PO SCH (08:26)
[2021-02-23] MEDS: SYNTHROID 150 MCG PO SCH (08:26)
[2021-02-23] MEDS: THERAGRAN MULTIVITAMIN PO SCH (08:26)
[2021-02-23] MEDS: Colace 100 MG PO SCH ×2 (08:26→22:17)
[2021-02-23] MEDS: NEURONTIN 300 MG PO SCH ×2 (08:26→22:17)
[2021-02-23] MEDS: Protonix 40MG Tablet PO SCH (08:26)
[2021-02-23] MEDS: ECOTRIN 81 MG PO SCH (08:27)
[2021-02-23] MEDS: Namenda 5 MG PO SCH (08:27)
[2021-02-23] MEDS: NORCO 5/325 MG PO PRN ×3 (08:27→22:18)
[2021-02-23] MEDS: Carafate 1 GM PO SCH ×2 (08:27→22:17)
[2021-02-23] MEDS: hydroDIURIL 25 MG PO SCH (08:27)
[2021-02-23] MEDS: BUMEX 1 MG PO SCH (08:27)
[2021-02-23] MEDS: NYSTOP POWDER 15 GM TOP SCH ×2 (08:28→22:19)
[2021-02-23] MEDS: Artificial Tears 15 ML OP SCH ×2 (08:28→22:19)
[2021-02-23] MEDS: ELIQUIS 2.5 MG TABLET PO SCH ×3 (08:31→22:18)
[2021-02-23] MEDS: Voltaren GEL TP PRN (08:40)
[2021-02-23] MEDS: MEDICATION INTERVENTION MC SCH ×2 (08:43→08:45)
--- NOTE | 2021-02-23 08:46 | PCM.NOTE ---
Date and Time: 02/23/21841 Subjective Assessment: Pt doing better per daughter, in the room. She is oriented x 3. Gregoria po. Apparently has a pressure ulcer on her bottom that was present on admission; the RN is trying to look when I enter the room, but can't see with pt sitting on the bed and pt unwilling to change position at this time. - Review of Systems Constitutional: No Fever Abdominal/Gastrointestinal: No Vomiting Objective Exam General Appearance: no apparent distress, obese Neurologic Exam: oriented x 3, cooperative Skin Exam: normal color, warm, dry, No rash Wound Assessment: Skin/Wound Assessment Wound/Incision Assessment Start: 02/22/21 00:57 Text: Status: Active Freq: Q6H Protocol: Document 02/23/21 07:00 KRYSTYNA (Rec: 02/23/21 08:04 [email or web address] [id number]) Wound/Incision Assessment Right Buttock Wound Assessment Shift Assessment Wound Type Pressure Ulcer Wound Stage Stage II Drainage Amount None Drainage Odor None/Absent General Appearance Well Approximated Wound Photo Photo Taken No Comment: will take photo when pt lays down Eye Exam: eyes nml inspection Ears, Nose, Throat Exam: moist mucous membranes Neck Exam: normal inspection, non-tender, No lymphadenopathy Respiratory Exam: normal breath sounds, lungs clear, No crackles/rales, No rhon chi, No wheezing Cardiovascular Exam: regular rate/rhythm, normal heart sounds, No murmur Gastrointestinal/Abdomen Exam: soft, normal bowel sounds, No tenderness, No distention, No mass, No guarding, No rebound OBJECTIVE DATA Vital Signs: Vital Signs - 24 hr Temp Pulse Resp BP Pulse Ox 02/23/21 08:00 20 02/23/21 07:57 96.7 F 78 20 112/58 100 02/23/21 04:00 98.0 F 85 18 104/54 99 02/23/21 00:22 96 02/22/21 23:37 98.1 F 76 19 111/58 96 02/22/21 23:19 18 02/22/21 20:00 18 02/22/21 19:34 97.1 F 89 20 105/57 94 L 02/22/21 16:00 97.4 F 77 20 106/67 96 02/22/21 12:00 21 02/22/21 11:39 98.0 F 95 H 21 107/56 96 Pain Assessment - Last Documented Pain Intensity 10 Pain Scale Used 0-10 Pain Scale Intake and Output: Intake & Output 02/20/21 02/21/21 02/22/21 02/23/21 11:59 11:59 11:59 11:59 Intake Total 407 3271 Output Total 815 2950 Balance -443 321 Weight 116.4 kg Lab Results: Lab Results-Last 24 Hours 02/22/21 02/22/21 02/22/21 Range/Units 11:27 16:17 20:19 WBC (4.0-10.5) K/mm3 RBC (4.1-5.4) M/mm3 Hgb (12.0-16.0) gm/dl Hct (35-47) % MCV (78-100) fl MCH (26-32) pg MCHC (32-36) g/dl RDW (11.5-14.0) % Plt Count (150-450) K/mm3 MPV (7.5-11.0) fl Gran % (36.0-66.0) % Eos # (Auto) (0-0.5) Absolute Lymphs (auto) (1.0-4.6) Absolute Monos (auto) (0.0-1.3) Lymphocytes % (24.0-44.0) % Monocytes % (0.0-12.0) % Eosinophils % (0.00-5.0) % Basophils % (0.0-0.4) % Absolute Granulocytes (1.4-6.9) Basophils # (0-0.4) Sodium (137-145) mmol/L Potassium (3.5-5.1) mmol/L Chloride (98-107) mmol/L Carbon Dioxide (22-30) mmol/L Anion Gap (5-15) MEQ/L BUN (7-17) mg/dL Creatinine (0.52-1.04) mg/dL Estimated GFR ML/MIN Glucose (74-106) mg/dL POC Glucometer 95 107 H 131 H (74 to 106) mg/dL Calcium (8.4-10.2) mg/dL Total Bilirubin (0.2-1.3) mg/dL AST (14-36) U/L ALT (0-35) U/L Alkaline Phosphatase (38-126) U/L Serum Total Protein (6.3-8.2) g/dL Albumin (3.5-5.0) g/dL 02/22/21 02/23/21 02/23/21 Range/Units 20:19 04:53 04:53 WBC 5.7 (4.0-10.5) K/mm3 RBC 3.05 L (4.1-5.4) M/mm3 Hgb 9.9 L (12.0-16.0) gm/dl Hct 32.2 L (35-47) % MCV 105.6 H (78-100) fl MCH 32.5 H (26-32) pg MCHC 30.7 L (32-36) g/dl RDW 12.9 (11.5-14.0) % Plt Count 172 (150-450) K/mm3 MPV 11.6 H (7.5-11.0) fl Gran % 56.0 (36.0-66.0) % Eos # (Auto) 0.53 H (0-0.5) Absolute Lymphs (auto) 1.46 (1.0-4.6) Absolute Monos (auto) 0.51 (0.0-1.3) Lymphocytes % 25.6 (24.0-44.0) % Monocytes % 8.9 (0.0-12.0) % Eosinophils % 9.3 H (0.00-5.0) % Basophils % 0.2 (0.0-0.4) % Absolute Granulocytes 3.19 (1.4-6.9) Basophils # 0.01 (0-0.4) Sodium 136 L (137-145) mmol/L Potassium 4.7 (3.5-5.1) mmol/L Chloride 106 (98-107) mmol/L Carbon Dioxide 21 L (22-30) mmol/L Anion Gap 13.3 (5-15) MEQ/L BUN 101 H (7-17) mg/dL Creatinine 3.72 H (0.52-1.04) mg/dL Estimated GFR 12.4 ML/MIN Glucose 88 (74-106) mg/dL POC Glucometer 131 H (74 to 106) mg/dL Calcium 9.5 (8.4-10.2) mg/dL Total Bilirubin 0.30 (0.2-1.3) mg/dL AST 18 (14-36) U/L ALT 8 (0-35) U/L Alkaline Phosphatase 99 (38-126) U/L Serum Total Protein 6.1 L (6.3-8.2) g/dL Albumin 3.4 L (3.5-5.0) g/dL 02/23/21 Range/Units 07:35 WBC (4.0-10.5) K/mm3 RBC (4.1-5.4) M/mm3 Hgb (12.0-16.0) gm/dl Hct (35-47) % MCV (78-100) fl MCH (26-32) pg MCHC (32-36) g/dl RDW (11.5-14.0) % Plt Count (150-450) K/mm3 MPV (7.5-11.0) fl Gran % (36.0-66.0) % Eos # (Auto) (0-0.5) Absolute Lymphs (auto) (1.0-4.6) Absolute Monos (auto) (0.0-1.3) Lymphocytes % (24.0-44.0) % Monocytes % (0.0-12.0) % Eosinophils % (0.00-5.0) % Basophils % (0.0-0.4) % Absolute Granulocytes (1.4-6.9) Basophils # (0-0.4) Sodium (137-145) mmol/L Potassium (3.5-5.1) mmol/L Chloride (98-107) mmol/L Carbon Dioxide (22-30) mmol/L Anion Gap (5-15) MEQ/L BUN (7-17) mg/dL Creatinine (0.52-1.04) mg/dL Estimated GFR ML/MIN Glucose (74-106) mg/dL POC Glucometer 72 L (74 to 106) mg/dL Calcium (8.4-10.2) mg/dL Total Bilirubin (0.2-1.3) mg/dL AST (14-36) U/L ALT (0-35) U/L Alkaline Phosphatase (38-126) U/L Serum Total Protein (6.3-8.2) g/dL Albumin (3.5-5.0) g/dL Assessment/Plan (1) Renal failure Current Visit: Yes Status: Chronic Qualifiers: Renal failure chronicity: acute on chronic Acute renal failure type: unspecified Chronic kidney disease stage: stage 5, not on chronic dialysis Qualified Code(s): N17.9 - Acute kidney failure, unspecified; N18.5 - Chronic kidney disease, stage 5 Assessment & Plan: Pt has seen Dr. Thomas, he mentioned hemodialysis and she does not want to do that. However her eGFR is much worse now than it was even 3 months ago; was in the 30s for some time and was 10 on admission (only up to 12.4 today). She still does not want HD but I think it worthwhile to see if more testing needs to be done or fluids need adjusted. (2) Dehydration Current Visit: Yes Status: Resolved Code(s): E86.0 - DEHYDRATION (3) Hyperkalemia Current Visit: Yes Status: Resolved Code(s): E87.5 - HYPERKALEMIA (4) UTI (urinary tract infection) Current Visit: Yes Status: Acute Qualifiers: Urinary tract infection type: acute pyelonephritis Qualified Code(s): N10 - Acute pyelonephritis Assessment & Plan: On rocephi day #2. Code(s): N39.0 - URINARY TRACT INFECTION, SITE NOT SPECIFIED (5) Atrial fibrillation Current Visit: Yes Status: Chronic Qualifiers: Atrial fibrillation type: unspecified Qualified Code(s): I48.91 - Unspecified atrial fibrillation Code(s): I48.91 - UNSPECIFIED ATRIAL FIBRILLATION
[2021-02-23] MEDS ORDERED: MILK OF MAGNESIA 30 ML PO SCH (10:00)
[2021-02-23] MEDS ORDERED: MULTIVIT WITH IRON MINERALS PO SCH (10:00)
[2021-02-23] MEDS ORDERED: GUAIFENESIN PO SCH (10:00)
[2021-02-23] MEDS ORDERED: NON-FORMULARY ITEM (Tolterodine Tartrate [Tolterodine Tartrate Er] 4 MG) PO SCH (10:00)
[2021-02-23] MEDS ORDERED: LACTOBACILLUS ACIDOPHILUS PO SCH (10:00)
[2021-02-23] MEDS ORDERED: CODEINE PHOSPHATE PO SCH (10:00)
[2021-02-23] MEDS ORDERED: Wellbutrin XL 150 MG PO SCH (10:00)
[2021-02-23] MEDS ORDERED: FERRIC CITRATE 210 MG PO SCH (10:00)
[2021-02-23] MEDS ORDERED: Zestril 5 MG PO SCH (10:00)
[2021-02-23] MEDS: Aricept 10 MG PO SCH (22:18)
[2021-02-23] MEDS: Zocor 10MG PO SCH (22:18)
[2021-02-23] MEDS: ROCEPHIN 1 Gm-D5w 50 ml Bag** 1 G/50 ML IVPB IV SCH (22:20)
[2021-02-24] MEDS: Voltaren GEL TP PRN (00:59)
[2021-02-24] MEDS: Sodium Chloride 0.9% 1000 ML 1,000 ML IV SCH ×3 (01:00→20:38)
--- NOTE | 2021-02-24 08:21 | PCM.NOTE ---
Date and Time: 02/24/21818 Subjective Assessment: patient states she feels fine, doesn't really understand why she's in the hospital. no pain, tolerating po intake Objective Exam General Appearance: no apparent distress, obese Skin Exam: normal color, warm, dry Wound Assessment: Skin/Wound Assessment Wound/Incision Assessment Start: 02/22/21 00:57 Text: Status: Active Freq: Q6H Protocol: Document 02/24/21 01:00 MS (Rec: 02/24/21 01:15 MS [id number]) Wound/Incision Assessment Left 5th Toe Wound Assessment Shift Assessment Wound Type Pressure Ulcer Wound Stage Stage II Drainage Amount None Drainage Odor None/Absent Surrounding Tissue [place] Comment blistered area Bilateral Heels Wound Assessment Shift Assessment Wound Type Pressure Ulcer Wound Stage Stage I Drainage Amount None General Appearance Open to air,Clean/Dry Surrounding Tissue [place] Comment redness, not blanchable Right Buttock Wound Assessment Shift Assessment Wound Type Pressure Ulcer Wound Stage Stage II Drainage Amount None Drainage Odor None/Absent General Appearance Well Approximated Comment [id number] photo placed on chart and barrier cream applied Wound Photo Photo Taken No Comment: . Respiratory Exam: normal breath sounds, lungs clear, No respiratory distress Cardiovascular Exam: regular rate/rhythm, normal heart sounds Gastrointestinal/Abdomen Exam: soft, No tenderness, No mass OBJECTIVE DATA Vital Signs: Vital Signs - 24 hr Temp Pulse Resp BP Pulse Ox 02/24/21 04:00 98.2 F 85 18 110/55 95 02/24/21 00:00 97.9 F 97 H 20 105/58 100 02/23/21 20:00 97.5 F 82 18 101/56 100 02/23/21 16:00 97.7 F 76 18 121/53 94 L 02/23/21 15:21 18 02/23/21 12:35 97.5 F 80 15 110/58 98 02/23/21 12:00 18 Pain Assessment - Last Documented Pain Intensity 0 Pain Scale Used [facility] Intake and Output: Intake & Output 02/21/21 02/22/21 02/23/21 02/24/21 11:59 11:59 11:59 11:59 Intake Total 407 3511 3562 Output Total 399 6280 3950 Balance -443 561 -388 Weight 116.4 kg 119.7 kg 116.5 kg Lab Results: Lab Results-Last 24 Hours 02/23/21 02/23/21 02/24/21 Range/Units 12:18 20:52 07:58 POC Glucometer 110 H 98 93 (74 to 106) mg/dL Assessment/Plan (1) Renal failure Current Visit: Yes Status: Chronic Qualifiers: Renal failure chronicity: acute on chronic Acute renal failure type: unspecified Chronic kidney disease stage: stage 5, not on chronic dialysis Qualified Code(s): N17.9 - Acute kidney failure, unspecified; N18.5 - Chronic kidney disease, stage 5 Assessment & Plan: gfr slowly improving. nephrology consult pending but patient declines hemodialysis, if this continues will need to revisit her code status. (2) E-coli UTI Current Visit: No Status: Acute Assessment & Plan: on rocephin, sens to culture Code(s): N39.0 - URINARY TRACT INFECTION, SITE NOT SPECIFIED; B96.20 - UNSP ESCHERICHIA COLI THE CAUSE OF DISEASES CLASSD ELSWHR (3) Atrial fibrillation Current Visit: Yes Status: Chronic Qualifiers: Atrial fibrillation type: unspecified Qualified Code(s): I48.91 - Unspecified atrial fibrillation Code(s): I48.91 - UNSPECIFIED ATRIAL FIBRILLATION
[2021-02-24] MEDS: THERAGRAN MULTIVITAMIN PO SCH (09:49)
[2021-02-24] MEDS: Lopressor 50 MG PO SCH ×2 (09:49→20:32)
[2021-02-24] MEDS: Colace 100 MG PO SCH ×2 (09:49→20:32)
[2021-02-24] MEDS: NEURONTIN 300 MG PO SCH ×2 (09:49→20:32)
[2021-02-24] MEDS: ECOTRIN 81 MG PO SCH (09:49)
[2021-02-24] MEDS: Ditropan XL 5 MG PO SCH (09:49)
[2021-02-24] MEDS: BUMEX 1 MG PO SCH (09:49)
[2021-02-24] MEDS: Protonix 40MG Tablet PO SCH (09:49)
[2021-02-24] MEDS: Carafate 1 GM PO SCH ×2 (09:49→20:32)
[2021-02-24] MEDS: Namenda 5 MG PO SCH (09:49)
[2021-02-24] MEDS: ZYLOPRIM 100 MG PO SCH ×2 (09:50→20:32)
[2021-02-24] MEDS: ELIQUIS 2.5 MG TABLET PO SCH ×2 (09:50→20:31)
[2021-02-24] MEDS: SYNTHROID 150 MCG PO SCH (09:50)
[2021-02-24] MEDS: Acidophilus TABLET PO SCH (09:50)
[2021-02-24] MEDS: hydroDIURIL 25 MG PO SCH (09:50)
[2021-02-24] MEDS: Artificial Tears 15 ML OP SCH ×2 (09:50→20:32)
[2021-02-24] MEDS: Pepcid 20 MG VIAL IV SCH ×2 (09:51→20:32)
[2021-02-24] MEDS: MEDICATION INTERVENTION MC SCH ×2 (14:32)
[2021-02-24] MEDS: PATIENT OWN MEDICATION PO SCH ×2 (14:58→17:38)
[2021-02-24] MEDS: NORCO 5/325 MG PO PRN ×2 (15:33→20:31)
[2021-02-24] MEDS: Zocor 10MG PO SCH (20:31)
[2021-02-24] MEDS: Aricept 10 MG PO SCH (20:31)
[2021-02-24] MEDS: NYSTOP POWDER 15 GM TOP SCH (20:38)
[2021-02-24] MEDS: ROCEPHIN 1 Gm-D5w 50 ml Bag** 1 G/50 ML IVPB IV SCH (20:38)
[2021-02-25 05:34] LABS: Absolute Neutrophil Ct (ANC) 3.42 (1.4-6.9); BASOPHIL % 0.3 % (0.0-0.4); Basophil (Absolute #) 0.02 (0-0.4); Eosinophil % 9.2 % (0.00-5.0); Eosinophil (Absolute #) 0.57 (0-0.5); Hematocrit 32.9 % (35-47); Hemoglobin 10.3 gm/dl (12.0-16.0); Lymphocyte (Absolute #) 1.68 (1.0-4.6); Lymphocytes % 27.1 % (24.0-44.0); Mean Cell Volume 106.1 fl (78-100); Mean Corpuscular Hemoglobin 33.2 pg (26-32); Mean Corpuscular Hgb Concent. 31.3 g/dl (32-36); Mean Platelet Volume 11.6 fl (7.5-11.0); Monocyte (Absolute #) 0.52 (0.0-1.3); Monocytes % 8.4 % (0.0-12.0); Platelet Count 169 K/mm3 (150-450); Red Cell Distribution Width 12.9 % (11.5-14.0); White Blood Count 6.2 K/mm3 (4.0-10.5)
[2021-02-25 05:57] LABS: ANION GAP 12.7 MEQ/L (5-15); Calcium 9.2 mg/dL (8.4-10.2); Creatinine 1 2.47 mg/dL (0.52-1.04); EST GLOMERULAR FILTRATION RATE 19.8 ML/MIN; Potassium 3.7 mmol/L (3.5-5.1)
[2021-02-25] MEDS: Sodium Chloride 0.9% 1000 ML 1,000 ML IV SCH ×2 (06:50→16:38)
[2021-02-25] MEDS: NORCO 5/325 MG PO PRN ×3 (08:10→21:39)
[2021-02-25] MEDS: PATIENT OWN MEDICATION PO SCH ×4 (08:11→17:21)
--- NOTE | 2021-02-25 08:25 | PCM.NOTE ---
Date and Time: 02/25/21822 Subjective Assessment: patient is more confused this morning, no pain or distress Objective Exam General Appearance: no apparent distress Neurologic Exam: alert, cooperative Wound Assessment: Skin/Wound Assessment Wound/Incision Assessment Start: 02/22/21 00:57 Text: Status: Active Freq: Q6H Protocol: Document 02/25/21 02:00 MS (Rec: 02/25/21 02:59 MS [id number]) Wound/Incision Assessment Left 5th Toe Wound Assessment Shift Assessment Wound Type BLISTER Wound Stage Stage II Drainage Amount None Drainage Odor None/Absent Surrounding Tissue [place] Bilateral Heels Wound Assessment Shift Assessment Wound Type Pressure Ulcer Wound Stage Stage I Drainage Amount None General Appearance Open to air,Clean/Dry Surrounding Tissue [place] Right Buttock Wound Assessment Shift Assessment Wound Type Pressure Ulcer Wound Stage Stage II Drainage Amount None Drainage Odor None/Absent General Appearance Well Approximated Comment BARRIER CREAM APPLIED Wound Photo Photo Taken No Comment: . Respiratory Exam: normal breath sounds, lungs clear, No respiratory distress Cardiovascular Exam: regular rate/rhythm, normal heart sounds Gastrointestinal/Abdomen Exam: soft, No tenderness, No mass Extremity Exam: normal inspection, normal range of motion OBJECTIVE DATA Vital Signs: Vital Signs - 24 hr Temp Pulse Resp BP Pulse Ox 02/25/21 08:00 97.5 F 87 20 142/63 100 02/25/21 03:00 97.7 F 81 16 103/49 94 L 02/24/21 23:01 98.0 F 82 20 131/68 98 02/24/21 19:41 97.9 F 72 18 129/58 100 02/24/21 16:00 97.7 F 82 19 120/85 99 02/24/21 12:00 97.5 F 87 16 124/74 100 Pain Assessment - Last Documented Pain Intensity 7 Pain Scale Used 0-10 Pain Scale Intake and Output: Intake & Output 02/22/21 02/23/21 02/24/21 02/25/21 11:59 11:59 11:59 11:59 Intake Total 407 3511 3802 3180 Output Total 990 2950 4250 3250 Balance -443 561 -448 -70 Weight 116.4 kg 119.7 kg 116.5 kg 116.5 kg Lab Results: Lab Results-Last 24 Hours 02/24/21 02/24/21 02/24/21 Range/Units 17:00 17:03 20:12 WBC (4.0-10.5) K/mm3 RBC (4.1-5.4) M/mm3 Hgb (12.0-16.0) gm/dl Hct (35-47) % MCV (78-100) fl MCH (26-32) pg MCHC (32-36) g/dl RDW (11.5-14.0) % Plt Count (150-450) K/mm3 MPV (7.5-11.0) fl Gran % (36.0-66.0) % Eos # (Auto) (0-0.5) Absolute Lymphs (auto) (1.0-4.6) Absolute Monos (auto) (0.0-1.3) Lymphocytes % (24.0-44.0) % Monocytes % (0.0-12.0) % Eosinophils % (0.00-5.0) % Basophils % (0.0-0.4) % Absolute Granulocytes (1.4-6.9) Basophils # (0-0.4) Sodium (137-145) mmol/L Potassium (3.5-5.1) mmol/L Chloride (98-107) mmol/L Carbon Dioxide (22-30) mmol/L Anion Gap (5-15) MEQ/L BUN (7-17) mg/dL Creatinine (0.52-1.04) mg/dL Estimated GFR ML/MIN Glucose (74-106) mg/dL POC Glucometer 136 H 324 H 170 H (74 to 106) mg/dL Calcium (8.4-10.2) mg/dL 02/25/21 02/25/21 02/25/21 Range/Units 04:00 04:00 07:41 WBC 6.2 (4.0-10.5) K/mm3 RBC 3.10 L (4.1-5.4) M/mm3 Hgb 10.3 L (12.0-16.0) gm/dl Hct 32.9 L (35-47) % MCV 106.1 H (78-100) fl MCH 33.2 H (26-32) pg MCHC 31.3 L (32-36) g/dl RDW 12.9 (11.5-14.0) % Plt Count 169 (150-450) K/mm3 MPV 11.6 H (7.5-11.0) fl Gran % 55.0 (36.0-66.0) % Eos # (Auto) 0.57 H (0-0.5) Absolute Lymphs (auto) 1.68 (1.0-4.6) Absolute Monos (auto) 0.52 (0.0-1.3) Lymphocytes % 27.1 (24.0-44.0) % Monocytes % 8.4 (0.0-12.0) % Eosinophils % 9.2 H (0.00-5.0) % Basophils % 0.3 (0.0-0.4) % Absolute Granulocytes 3.42 (1.4-6.9) Basophils # 0.02 (0-0.4) Sodium 141 (137-145) mmol/L Potassium 3.7 D (3.5-5.1) mmol/L Chloride 107 (98-107) mmol/L Carbon Dioxide 25 (22-30) mmol/L Anion Gap 12.7 (5-15) MEQ/L BUN 63 H (7-17) mg/dL Creatinine 2.47 H (0.52-1.04) mg/dL Estimated GFR 19.8 ML/MIN Glucose 81 (74-106) mg/dL POC Glucometer 84 (74 to 106) mg/dL Calcium 9.2 (8.4-10.2) mg/dL Multi-Disciplinary Progress Notes: Multi-Disciplinary Progress Notes 02/24/21 09:58 Case Management Note by Lenora Nicholson AWAITING NEPHRO CONSULT- NO CHANGE IN DC PLANS AT THIS TIME Initialized on 02/24/21 09:58 - END OF NOTE Assessment/Plan (1) Acute on chronic renal failure Current Visit: Yes Status: Acute Assessment & Plan: significantly improved, will need to reduce diuretic dosage on discharge. likely back to ECF tomorrow. dehydration coupled with diuretic appear to be culprit Code(s): N17.9 - ACUTE KIDNEY FAILURE, UNSPECIFIED; N18.9 - CHRONIC KIDNEY DISEASE, UNSPECIFIED (2) E-coli UTI Current Visit: No Status: Acute Assessment & Plan: continue rocephin Code(s): N39.0 - URINARY TRACT INFECTION, SITE NOT SPECIFIED; B96.20 - UNSP ESCHERICHIA COLI THE CAUSE OF DISEASES CLASSD ELSWHR (3) Atrial fibrillation Current Visit: Yes Status: Chronic Qualifiers: Atrial fibrillation type: unspecified Qualified Code(s): I48.91 - Unspecified atrial fibrillation Assessment & Plan: rate controlled, on eliquis Code(s): I48.91 - UNSPECIFIED ATRIAL FIBRILLATION
[2021-02-25] MEDS: Artificial Tears 15 ML OP SCH ×2 (10:17→21:36)
[2021-02-25] MEDS: Acidophilus TABLET PO SCH (10:19)
[2021-02-25] MEDS: SYNTHROID 150 MCG PO SCH (10:20)
[2021-02-25] MEDS: ECOTRIN 81 MG PO SCH (10:21)
[2021-02-25] MEDS: BUMEX 1 MG PO SCH (10:21)
[2021-02-25] MEDS: Ditropan XL 5 MG PO SCH (10:22)
[2021-02-25] MEDS: ELIQUIS 2.5 MG TABLET PO SCH ×2 (10:22→21:37)
[2021-02-25] MEDS: ZYLOPRIM 100 MG PO SCH ×2 (10:23→21:38)
[2021-02-25] MEDS: Protonix 40MG Tablet PO SCH (10:23)
[2021-02-25] MEDS: hydroDIURIL 25 MG PO SCH (10:24)
[2021-02-25] MEDS: NEURONTIN 300 MG PO SCH ×2 (10:25→21:37)
[2021-02-25] MEDS: Lopressor 50 MG PO SCH ×2 (10:26→21:37)
[2021-02-25] MEDS: Carafate 1 GM PO SCH ×2 (10:26→21:36)
[2021-02-25] MEDS: THERAGRAN MULTIVITAMIN PO SCH (10:27)
[2021-02-25] MEDS: Pepcid 20 MG VIAL IV SCH ×2 (10:28→21:38)
[2021-02-25] MEDS: Namenda 5 MG PO SCH (10:32)
[2021-02-25] MEDS: Colace 100 MG PO SCH ×2 (10:32→21:37)
[2021-02-25] MEDS: Aricept 10 MG PO SCH (21:36)
[2021-02-25] MEDS: NYSTOP POWDER 15 GM TOP SCH (21:37)
[2021-02-25] MEDS: Zocor 10MG PO SCH (21:38)
[2021-02-25] MEDS: ROCEPHIN 1 Gm-D5w 50 ml Bag** 1 G/50 ML IVPB IV SCH (21:41)
[2021-02-26] MEDS: Sodium Chloride 0.9% 1000 ML 1,000 ML IV SCH (03:52)
[2021-02-26 05:30] LABS: Absolute Neutrophil Ct (ANC) 4.13 (1.4-6.9); BASOPHIL % 0.3 % (0.0-0.4); Basophil (Absolute #) 0.02 (0-0.4); Eosinophil % 7.4 % (0.00-5.0); Hematocrit 31.9 % (35-47); Lymphocyte (Absolute #) 1.59 (1.0-4.6); Lymphocytes % 23.6 % (24.0-44.0); Mean Cell Volume 106.3 fl (78-100); Mean Corpuscular Hemoglobin 33.3 pg (26-32); Mean Corpuscular Hgb Concent. 31.3 g/dl (32-36); Mean Platelet Volume 11.5 fl (7.5-11.0); Monocytes % 7.4 % (0.0-12.0); Neutrophil % 61.3 % (36.0-66.0); Platelet Count 181 K/mm3 (150-450); Red Cell Distribution Width 13.1 % (11.5-14.0); White Blood Count 6.7 K/mm3 (4.0-10.5)
[2021-02-26 05:44] LABS: ANION GAP 11.9 MEQ/L (5-15); Calcium 9.3 mg/dL (8.4-10.2); Creatinine 1 2.04 mg/dL (0.52-1.04); EST GLOMERULAR FILTRATION RATE 24.7 ML/MIN; Potassium 3.6 mmol/L (3.5-5.1)
[2021-02-26] MEDS: PATIENT OWN MEDICATION PO SCH ×2 (08:04→10:16)
--- NOTE | 2021-02-26 08:47 | PCM.DS ---
Discharge Summary Date of Admission: 02/22/21 09:28 Admitting Physician: PJ ALVARADO Consults: Consults on Case 02/23/21 08:42 Consult Nephrology ROUTINE Primary Care Provider: LUCI MCFADDEN MOUSTAPHA Allergies Allergies codeine Allergy (Unknown, Verified 02/21/21 19:53) "I feel warm and terrible" clarithromycin [From Biaxin] Allergy (Verified 02/21/21 19:53) Hospital Summary - Hospital Course Hospital Course: patient was admitted with UTI, confusion and acute on chronic renal failure. diuretics decreased and she was hydrated and gfr improved from 10 to 25, she has no complaints today. - Vitals & Intake/Output Vital Signs: Vital Signs Temperature 97.6 F 02/26/21 04:00 Pulse Rate 79 02/26/21 04:00 Respiratory Rate 16 02/26/21 04:00 Blood Pressure 118/61 02/26/21 04:00 O2 Sat by Pulse Oximetry 98 02/26/21 04:00 Intake & Output: Intake & Output 02/23/21 02/24/21 02/25/21 02/26/21 11:59 11:59 11:59 11:59 Intake Total 3511 3802 3480 3108 Output Total 2950 4250 3750 2250 Balance 561 448 -056 858 Weight 119.7 kg 116.5 kg 117.2 kg - Lab Result Diagrams: 02/26/21 04:00 02/26/21 04:45 Lab Results-Last 24 Hrs: Lab Results-Last 24 Hours 02/25/21 02/25/21 02/25/21 Range/Units 11:12 16:30 20:24 WBC (4.0-10.5) K/mm3 RBC (4.1-5.4) M/mm3 Hgb (12.0-16.0) gm/dl Hct (35-47) % MCV (78-100) fl MCH (26-32) pg MCHC (32-36) g/dl RDW (11.5-14.0) % Plt Count (150-450) K/mm3 MPV (7.5-11.0) fl Gran % (36.0-66.0) % Eos # (Auto) (0-0.5) Absolute Lymphs (auto) (1.0-4.6) Absolute Monos (auto) (0.0-1.3) Lymphocytes % (24.0-44.0) % Monocytes % (0.0-12.0) % Eosinophils % (0.00-5.0) % Basophils % (0.0-0.4) % Absolute Granulocytes (1.4-6.9) Basophils # (0-0.4) Sodium (137-145) mmol/L Potassium (3.5-5.1) mmol/L Chloride (98-107) mmol/L Carbon Dioxide (22-30) mmol/L Anion Gap (5-15) MEQ/L BUN (7-17) mg/dL Creatinine (0.52-1.04) mg/dL Estimated GFR ML/MIN Glucose (74-106) mg/dL POC Glucometer 110 H 121 H 112 H (74 to 106) mg/dL Calcium (8.4-10.2) mg/dL 02/26/21 02/26/21 02/26/21 Range/Units 04:00 04:45 08:08 WBC 6.7 (4.0-10.5) K/mm3 RBC 3.00 L (4.1-5.4) M/mm3 Hgb 10.0 L (12.0-16.0) gm/dl Hct 31.9 L (35-47) % MCV 106.3 H (78-100) fl MCH 33.3 H (26-32) pg MCHC 31.3 L (32-36) g/dl RDW 13.1 (11.5-14.0) % Plt Count 181 (150-450) K/mm3 MPV 11.5 H (7.5-11.0) fl Gran % 61.3 (36.0-66.0) % Eos # (Auto) 0.50 (0-0.5) Absolute Lymphs (auto) 1.59 (1.0-4.6) Absolute Monos (auto) 0.50 (0.0-1.3) Lymphocytes % 23.6 L (24.0-44.0) % Monocytes % 7.4 (0.0-12.0) % Eosinophils % 7.4 H (0.00-5.0) % Basophils % 0.3 (0.0-0.4) % Absolute Granulocytes 4.13 (1.4-6.9) Basophils # 0.02 (0-0.4) Sodium 141 (137-145) mmol/L Potassium 3.6 (3.5-5.1) mmol/L Chloride 106 (98-107) mmol/L Carbon Dioxide 26 (22-30) mmol/L Anion Gap 11.9 (5-15) MEQ/L BUN 50 H (7-17) mg/dL Creatinine 2.04 H (0.52-1.04) mg/dL Estimated GFR 24.7 ML/MIN Glucose 91 (74-106) mg/dL POC Glucometer 88 (74 to 106) mg/dL Calcium 9.3 (8.4-10.2) mg/dL Micro Results-Entire Visit: Microbiology 02/21/21 21:18 Urine Culture - Final Urine, Indwelling Catheter Escherichia Coli Accuchecks Date 02/25/21 Date 02/25/21 Time 22:00 Time 16:31 - Procedures and Test Procedures and Tests throughout Hospitalization: Therapy Orders & Screens 02/22/21 00:46 Respiratory Therapy Consult ROUTINE Comment: Reason For Exam: Discharge Exam General Appearance: no apparent distress, obese Neurologic Exam: alert, cooperative Respiratory Exam: normal breath sounds, lungs clear, No respiratory distress Cardiovascular Exam: regular rate/rhythm, normal heart sounds Gastrointestinal/Abdomen Exam: soft, No tenderness, No mass Extremity Exam: normal inspection, normal range of motion Wound Assessment: Skin/Wound Assessment Wound/Incision Assessment Start: 02/22/21 00:57 Text: Status: Active Freq: Q6H Protocol: Document 02/26/21 02:00 (Rec: 02/26/21 02:33 [id number]) Wound/Incision Assessment Left 5th Toe Wound Assessment Shift Assessment Wound Type scabbed Wound Stage Stage II Drainage Amount None Drainage Odor None/Absent Length (cm) (cm) 0.5 Width (cm) (cm) 0.5 Wound Bed Greatest Portion Red (Granulation) Surrounding Tissue [place] Bilateral Heels Wound Assessment Shift Assessment Wound Type Pressure Ulcer Wound Stage Stage I Drainage Amount None General Appearance Open to air,Clean/Dry Length (cm) (cm) 2 Width (cm) (cm) 1 Wound Bed Greatest Portion Red (Granulation) Surrounding Tissue [place] Comment Barrier ointment applied Right Buttock Wound Assessment Shift Assessment Wound Type Pressure Ulcer Wound Stage Stage II Drainage Amount None Drainage Odor None/Absent Length (cm) (cm) 1 Width (cm) (cm) 1 Wound Bed Greatest Portion Pale [place] Comment BARRIER CREAM APPLIED Wound Photo Photo Taken No Comment: . Final Diagnosis/Problem List - Final Discharge Diagnosis/Problem (1) Acute on chronic renal failure Current Visit: Yes Status: Acute Assessment & Plan: much improved, seems to be secondary to dehydration and overly diuresed. reduce bumex from 2mg to 1mg daily and check labs in 1 week. Code(s): N17.9 - ACUTE KIDNEY FAILURE, UNSPECIFIED; N18.9 - CHRONIC KIDNEY DISEASE, UNSPECIFIED (2) E-coli UTI Current Visit: No Status: Acute Assessment & Plan: completed 5 days of IV rocephin today, no further tx required after discharge Code(s): N39.0 - URINARY TRACT INFECTION, SITE NOT SPECIFIED; B96.20 - UNSP ESCHERICHIA COLI THE CAUSE OF DISEASES CL[facility]SD [facility] (3) Atrial fibrillation Current Visit: Yes Status: Chronic Assessment & Plan: rate controlled, on eliquis Code(s): I48.91 - UNSPECIFIED ATRIAL FIBRILLATION (4) Dementia Current Visit: Yes Status: Acute Assessment & Plan: stable, waxes and wanes. Code(s): F03.90 - UNSPECIFIED DEMENTIA WITHOUT BEHAVIORAL DISTURBANCE - Discharge Disposition: Skilled Care @ [facility] Condition: Fair Prescriptions: New Bumetanide 1 mg [Bumex 1 mg] 1 mg PO DAILY #30 tablet Continue Chlorthalidone 25 mg PO DAILY Spironolactone 25 mg [Aldactone 25 MG] 25 mg PO DAILY Sucralfate 1 gm [Carafate 1 GM] 1 gm PO BID Polyethylene Glycol 3350 17 gm [Miralax Powder 17GM PACKET] 17 gm PO DAILY PRN PRN Reason: Constipation Ondansetron HCl [Zofran] 4 mg PO Q4H PRN PRN Reason: Nausea Metoprolol Tartrate 50 mg [Lopressor 50 MG] 50 mg PO BID Magnesium Hydroxide 30 ml [Milk of Magnesia 30 ml] 30 ml PO DAILY PRN PRN Reason: Constipation Magnesium Citrate 296 ml [Citroma 296 ml] 300 ml PO HS PRN PRN Reason: Constipation Lubiprostone [Amitiza] 24 mcg PO BID PRN PRN Reason: Constipation Loperamide HCl 2 mg [Imodium 2 mg] 2 mg PO Q4H PRN PRN Reason: Diarrhea Levothyroxine Sodium 150 Mcg [Synthroid 150 Mcg] 150 mcg PO DAILY Gabapentin [Neurontin] 300 mg PO BID Acetaminophen 325 mg [Tylenol 325 mg] 650 mg PO Q4H PRN PRN Reason: Fever Pantoprazole Sodium [Protonix] 40 mg PO DAILY Allopurinol 100 mg [Zyloprim 100 mg] 100 mg PO BID Apixaban [Eliquis 2.5 mg Tablet] 2.5 mg PO BID #0 Aspirin EC 81 mg [Ecotrin 81 mg] 81 mg PO DAILY #0 Glucagon,Human Recombinant [Glucagon Emergency Kit] 1 mg IM DAILY PRN PRN Reason: Hypoglycemia Docusate Sodium 100 mg [Colace 100 MG] 100 mg PO BID Multivit with Iron,Minerals [Unicomplex-M] 1 tablet PO DAILY Sodium Phosphate,[place]bard-Dibasic [Fleet Enema] 1 enema RC DAILY PRN PRN Reason: Constipation Lactobacillus Acidophilus [Acidophilus] 1 tablet PO DAILY Mag Hydrox/Al Hydrox/Simeth [Mylanta Maximum Strength Liq] 30 ml PO Q4H PRN PRN Reason: Stomach Upset Potassium Chloride 10 Meq Tab* [Klor Con 10 MEQ] 20 meq PO TID Carboxymethylcellulose Sodium [Refresh Tears] 2 drops OP BID Insulin Aspart [Novolog] See Protocol SQ UD Ferric Citrate [Auryxia] 210 mg PO TIDWMEALS Atorvastatin Calcium 10 mg PO QHS Mag Hydrox/Aluminum Hyd/Simeth [Mylanta Maximum Strength Liq] 355 ml PO DAILY Guaifenesin/Codeine Phosphate [Robitussin AC Syrup] 5 ml PO DAILY Magnesium Hydroxide 30 ml [Milk of Magnesia 30 ml] 30 ml PO DAILY Tolterodine Tartrate [Tolterodine Tartrate ER] 4 mg PO DAILY Memantine HCl 5 mg [Namenda 5 MG] 1 tab PO DAILY Hydrocodone/Acetaminophen [Hydrocodone-Acetamin 5-325 mg] 1 tab PO TID Lisinopril 5 mg [Zestril 5 MG] 5 mg PO DAILY Donepezil HCl 10 mg [Aricept 10 MG] 10 mg PO HS Diclofenac Sodium Gel [Voltaren GEL] 2 gm TP BID PRN PRN Reason: Pain And/Or Fever Bupropion HCl [Wellbutrin] 100 mg PO DAILY Discontinued Bumetanide 1 mg [Bumex 1 mg] 2 mg PO DAILY #30 tablet No Action Nystatin 1,000,000 unit MC QHS Additional Instructions: decrease bumex to 1mg by mouth daily as per med list. check cbc and bmp on 02/17 and report results to Dr Mcfadden Follow up with: LUCI MCFADDEN MD [Primary Care Provider] - RONEY CABRERA [CONSULTING PHYSICIAN] -
[2021-02-26 09:30] VITALS: O2SAT 96
[2021-02-26] MEDS: Acidophilus TABLET PO SCH (10:12)
[2021-02-26] MEDS: Artificial Tears 15 ML OP SCH (10:12)
[2021-02-26] MEDS: BUMEX 1 MG PO SCH (10:13)
[2021-02-26] MEDS: Ditropan XL 5 MG PO SCH (10:14)
[2021-02-26] MEDS: Carafate 1 GM PO SCH (10:14)
[2021-02-26] MEDS: Colace 100 MG PO SCH (10:14)
[2021-02-26] MEDS: Namenda 5 MG PO SCH (10:15)
[2021-02-26] MEDS: NEURONTIN 300 MG PO SCH (10:15)
[2021-02-26] MEDS: ELIQUIS 2.5 MG TABLET PO SCH (10:15)
[2021-02-26] MEDS: ECOTRIN 81 MG PO SCH (10:15)
[2021-02-26] MEDS: hydroDIURIL 25 MG PO SCH (10:15)
[2021-02-26] MEDS: Lopressor 50 MG PO SCH (10:15)
[2021-02-26] MEDS: Pepcid 20 MG VIAL IV SCH (10:16)
[2021-02-26] MEDS: Protonix 40MG Tablet PO SCH (10:17)
[2021-02-26] MEDS: THERAGRAN MULTIVITAMIN PO SCH (10:17)
[2021-02-26] MEDS: SYNTHROID 150 MCG PO SCH (10:17)
[2021-02-26] MEDS: ZYLOPRIM 100 MG PO SCH (10:17)
[2021-02-26] MEDS: ROCEPHIN 1 Gm-D5w 50 ml Bag** 1 G/50 ML IVPB IV SCH (10:24)
[2021-02-26 13:27] VITALS: BP 128/61; PULSE 94
== END 2021-02-26 12:10 | DRG 683 ==
LOC: ED 19:18 → MED SURG 02-22 00:22 → OBSVTOIN 02-22 09:28
PROVIDERS: ADMIT Family Medicine; ATTEND Family Medicine
DX: N17.9 Acute kidney failure, unspecified (principal); N39.0 Urinary tract infection, site not specified; E11.22 Type 2 diabetes mellitus with diabetic chronic kidney disease; I12.9 Hypertensive chronic kidney disease with stage 1 through stage 4 chronic kidney disease, or unspecified chronic kidney disease; N18.9 Chronic kidney disease, unspecified; B96.20 Unspecified Escherichia coli [E. coli] as the cause of diseases classified elsewhere; R41.0 Disorientation, unspecified; Z79.899 Other long term (current) drug therapy; I10 Essential (primary) hypertension; E86.0 Dehydration; E78.00 Pure hypercholesterolemia, unspecified; Z86.711 Personal history of pulmonary embolism; E03.9 Hypothyroidism, unspecified; E87.5 Hyperkalemia; I48.91 Unspecified atrial fibrillation; F03.90 Unspecified dementia, unspecified severity, without behavioral disturbance, psychotic disturbance, mood disturbance, and anxiety; L89.312 Pressure ulcer of right buttock, stage 2; L89.892 Pressure ulcer of other site, stage 2; L89.621 Pressure ulcer of left heel, stage 1; L89.611 Pressure ulcer of right heel, stage 1; L89.211 Pressure ulcer of right hip, stage 1; Z20.822 Contact with and (suspected) exposure to COVID-19
CPT/HCPCS: 36415; 80048; 80053; 81001; 82947; 83605; 84484; 85025; 87077; 87086; 87186; 93005; 96360; 96361; 96374; 96375; 99284; U0003; J0696; J1815; J1817; J2405; A9270-GY